=== PATIENT | female | born 1950 | race Caucasian/White ===

== ENCOUNTER → 2018-03-01 12:08 | Outpatient (CLI) | payer MEDICARE, OTHER, SELFPAY | PROVIDERS: Family Provider Family Medicine; PCP Family Medicine; Visit Provider Obstetrics & Gynecology | DX: Z12.31 Encounter for screening mammogram for malignant neoplasm of breast (principal) | CPT/HCPCS: 77063; 77067 ==

== ENCOUNTER → 2019-02-06 | Outpatient (CLI) | payer MEDICARE, OTHER, SELFPAY ==
--- NOTE | 2019-02-06 10:01 | US_ITS ---
STUDY: ABDOMINAL ULTRASOUND - RIGHT UPPER QUADRANT REASON FOR VISIT: Female, 68 years old. Right upper quadrant pain TECHNIQUE: Ultrasound evaluation of the right upper quadrant was performed with real-time and static cardona-scale imaging. TECHNICAL QUALITY: Adequate. COMPARISON: CT abdomen and pelvis 12/18/2016. FINDINGS: Liver: The liver measures 18.3 cm. There is increased echogenicity consistent with fatty infiltration. The bile ducts are within normal limits. There is hepatic color flow. The direction of portal flow is hepatopetal. There is no demonstrated mass lesion. Gallbladder: The patient is status post cholecystectomy. Common Bile Duct (C.B.D.): The common bile duct measures 7 mm. There is a filling defect in the proximal CBD which may represent sludge and/or stone. Pancreas: Normal size of the head, body and tail of the pancreas. There is normal echogenicity of the pancreas. There is no demonstrated pancreatic mass or cyst. Right Kidney: Normal size of the right kidney. The right kidney measures 10.8 cm. Normal renal cortex. The right cortex measures cm. There is no demonstrated renal mass or cyst. There is no right hydronephrosis. US/Abdomen Limited IMPRESSION: There is a filling defect in the proximal CBD which may represent sludge and/or stone. The CBD is normal caliber. Consider MRCP for further characterization. Electronically Signed: John Tanner, at 9:14 EDT Tel , Service support ,
[2019-02-06 11:25] LABS: Absolute Lymphocyte Count 1.45 X10^3/uL (0.83-4.51); Absolute Neutrophil Count 2.9 X10^3/uL (2.0-7.7); Basophil# 0.03 X10^3/uL; Basophil% 0.6 % (0-1); Eosinophil# 0.16 X10^3/uL; Eosinophils% 3.2 % (0-5); Hematocrit 43.5 % (37-47); Hemoglobin 14.1 g/dL (12.0-15.0); Lymphocyte # 1.45 X10^3/ul (4.0); Lymphocyte % 29.4 % (19-41); Mean Corp Hgb Conc 32.4 g/dL (32-36); Mean Corpuscular Hgb 30.7 pg (27.0-32.0); Mean Corpuscular Volume 94.6 fL (81-99); Mean Platelet Vol. 11.5 fl (6.2-12.0); Monocyte# 0.43 X10^3/uL; Monocyte% 8.7 % (0-10); NRBC Flagged by Analyzer 0 % (0-5); Neutrophil # 2.85 X10^3/uL (2.7-7.7); Neutrophil % 57.9 % (47-70); Platelet Count 114 K/mm3 (150-450); RBC Distribution Width CV 13.1 % (11.6-14.6); RBC Distribution Width SD 44.9 fl (35.1-43.9); White Blood Count 4.9 K/mm3 (4.4-11.0)
[2019-02-06 11:34] LABS: International Normalized Ratio 1.1; Partial Thromboplast Time 37.7 Seconds (24.1-36.2); Prothrombin Time (Protime)PT. 14.4 SECONDS (11.7-14.9)
[2019-02-07 13:04] LABS: AFP, Tumor Marker 6.1 ng/mL (0.0-8.3)
== END | disposition home or self-care (01) ==
PROVIDERS: Family Provider Family Medicine; PCP Family Medicine; Referring Provider Internal Medicine Gastroenterology; Visit Provider Internal Medicine Gastroenterology
DX: K74.60 Unspecified cirrhosis of liver (principal); K76.0 Fatty (change of) liver, not elsewhere classified
CPT/HCPCS: 36415; 76705; 82105; 85025; 85610; 85730

== ENCOUNTER → 2019-02-22 | Outpatient (CLI) | payer MEDICARE, OTHER, SELFPAY ==
[2019-02-22 17:52] LABS: AST(SGOT) 56 U/L (15-37); Alanine Aminotransfer ALT/SGPT 64 U/L (13-56); Albumin, Serum 3.7 g/dL (3.2-5.0); Alkaline Phosphatase 58 U/L (45-117); Protein, Total 7.7 g/dL (6.4-8.2)
== END | disposition home or self-care (01) ==
LOC: MTLAB 15:10
PROVIDERS: Family Provider Family Medicine; PCP Family Medicine; Referring Provider Internal Medicine Gastroenterology; Visit Provider Internal Medicine Gastroenterology
DX: K76.0 Fatty (change of) liver, not elsewhere classified (principal); R16.2 Hepatomegaly with splenomegaly, not elsewhere classified
CPT/HCPCS: 36415; 80076

== ENCOUNTER → 2019-03-03 | Outpatient (CLI) | payer MEDICARE, OTHER, SELFPAY ==
--- NOTE | 2019-03-03 10:00 | MRI_ITS ---
STUDY: MR CHOLANGIOPANCREATOGRAPHY (MRCP) REASON FOR EXAM: Female, 68 years old. Abdominal pain, biliary ductal dilatation, status post cholecystectomy, history of nonalcoholic steatohepatitis. TECHNIQUE: Standard MRCP technique was utilized. COMPARISON: None. FINDINGS: Gall Bladder: Gall bladder is surgically absent. Cystic duct: Normal with no demonstrated fixed filling defect. Intrahepatic ducts: Normal visualized intrahepatic ducts with no demonstrated fixed filling defect, dilation or stricture. Common hepatic duct: Normal with no demonstrated fixed filling defect, dilation or stricture. Common bile duct: Normal with no demonstrated fixed filling defect, dilation or stricture. Pancreatic duct: Normal with no demonstrated fixed filling defect, dilation or stricture. MRI/Abdomen without Contrast IMPRESSION: Normal MRCP in a patient who is status post cholecystectomy. Cirrhosis with a small amount of ascites. Electronically Signed: Rebel Domínguez MD at 11:09 EDT Tel , Service support ,
== END | disposition home or self-care (01) ==
LOC: MRI 09:25
PROVIDERS: Family Provider Family Medicine; PCP Family Medicine; Referring Provider Internal Medicine Gastroenterology; Visit Provider Internal Medicine Gastroenterology
DX: K80.50 Calculus of bile duct without cholangitis or cholecystitis without obstruction (principal); R10.9 Unspecified abdominal pain
CPT/HCPCS: 74181

== ENCOUNTER → 2019-03-06 | Outpatient (CLI) | payer MEDICARE, OTHER, SELFPAY ==
--- NOTE | 2019-03-06 12:53 | BI_ITS ---
MAMMOGRAPHY - BILATERAL SCREENING REASON FOR EXAM: Female, 68 years old. Routine annual screening examination. PERTINENT HISTORY: Personal history of breast cancer. Prior right lumpectomy with radiation treatment. TECHNIQUE: Digital bilateral breast ananya (3D mammographic acquisition) in the CC and MLO projections. 2-D mediolateral oblique (MLO) and craniocaudad (CC) views of both breasts were obtained. CAD: Full Field Digital Mammography with Computer Added Detection was performed. COMPARISON: Comparison is made with prior examination dated March 01, 2018 and February 09, 2017. FINDINGS: Breast Composition: The breasts are almost entirely fatty. There are no dominant masses or suspicious calcifications. Once again, the patient is status post right lumpectomy with resultant postoperative scarring in the deep inferior medial aspect of the right breast this is unchanged. No other significant abnormalities are identified. There has been no significant change since the prior study. BI/SCREEN MAMM (CAD) W/ANANYA BILAT IMPRESSION: Stable bilateral screening mammogram. Yearly follow-up mammogram recommended. (A) ASSESSMENT CATEGORY: BIRADS Category 2: Benign. A letter regarding these results will be sent to the patient by the facility within 30 days. Approximately 10% of breast cancers are not detected by mammography. A normal mammogram should not delay biopsy of a clinically suspicious abnormality. [id number] Electronically Signed: Ghulam Peters, at 14:43 EDT , Service support ,
== END | disposition home or self-care (01) ==
LOC: OPBI 12:51
PROVIDERS: Family Provider Family Medicine; PCP Family Medicine; Referring Provider Obstetrics & Gynecology; Visit Provider Obstetrics & Gynecology
DX: Z12.31 Encounter for screening mammogram for malignant neoplasm of breast (principal)
CPT/HCPCS: 77063; 77067

== ENCOUNTER → 2019-03-07 | Outpatient (CLI) | payer MEDICARE, OTHER, SELFPAY ==
--- NOTE | 2019-03-07 12:07 | RAD_ITS ---
STUDY: X-RAY - LUMBAR SPINE REASON FOR EXAM: Female, 68 years old. Pain for 2 months TECHNIQUE: 5 view(s) of the lumbar spine were obtained. COMPARISON: None FINDINGS: Normal lumbar lordosis. There is no substantial scoliosis. There is slight anterolisthesis L4-L5. There is multilevel endplate spondylosis of the lumbar vertebrae. There is disc space narrowing T12-L1. There is atherosclerotic calcification of the abdominal aorta without a demonstrated aneurysm. RAD/L/S Spine Min 4 Views IMPRESSION: Degenerative changes of the spine, as detailed above. Electronically Signed: Rosemary Holman MD at 18:03 EDT Tel , Service support ,
== END | disposition home or self-care (01) ==
LOC: RAD 12:03
PROVIDERS: Family Provider Family Medicine; PCP Family Medicine; Referring Provider Chiropractor; Visit Provider Chiropractor
DX: S33.5XXA Sprain of ligaments of lumbar spine, initial encounter (principal)
CPT/HCPCS: 72110

== ENCOUNTER → 2019-08-10 | Outpatient (CLI) | payer MEDICARE, OTHER, SELFPAY ==
--- NOTE | 2019-08-10 13:54 | STRESSREP_ITS ---
Stress Test Report Date: 08/10/2019 Procedure: Pharmacologic stress nuclear imaging study Indications: Chest pain Consent: Per the patient Procedure: The patient underwent pharmacologic (Regadenoson) evaluation with a peak heart rate of 100 beats per minute (66 %predicted maximal heart rate) and a peak blood pressure of 148/72 mmHg. The baseline ECG demonstrated normal sinus rhythm. EKG during lexiscan infusion revealed no significant change from baseline, occasional PACs and PVCs. EKG post infusion revealed no significant ischemic changes [There were no significant cardiac dysrhythmias pretest, during pharmacologic infusion, or recovery]. [There was no complaint of chest discomfort during pharmacologic infusion or recovery]. The examination was discontinued secondary to completion of protocol. Impression: 1. Lexiscan stress test test is negative for Lexiscan infusion induced EKG changes of ischemia. 2. Lexiscan stress test test is negative for Lexiscan infusion induced chest pain. 3. Results of the nuclear portion of the test is as below Myocardial perfusion imaging study: Technique: The patient was injected with 11.8 millicuries of technetium 99m Cardiolite and subsequently rest SPECT Cardiolite nuclear imaging was obtained in the horizontal long, vertical long, and short axis views. The patient underwent pharmacologic (Regadenoson) evaluation. Please see above for details. The patient was injected with 34.6 millicuries of technetium 99m Cardiolite and subsequently stress SPECT Cardiolite nuclear imaging was obtained in the horizontal long, vertical long, and short axis views. A gated Cardiolite study at peak stress was obtained. Interpretation: Rest and stress SPECT Cardiolite nuclear imaging status post realignment, normalization, and attenuation correction demonstrate normal myocardial radioisotope uptake. Gated images reveal no significant regional wall motion abnormalities. The reported LVEF is 66 %. Impression: 1. There is no evidence of significant ischemia or infarction. 2. Estimated ejection fraction is 66%. This note was generated with [employer] software. It may contain incorrect words, spelling, and punctuation that were not noted in checking the note before signing.
== END | disposition home or self-care (01) ==
LOC: CVS 06:18
PROVIDERS: PCP Family Medicine; Referring Provider Family Medicine; Visit Provider Family Medicine
DX: R07.9 Chest pain, unspecified (principal)
CPT/HCPCS: 78452; 93017; A9500; A4216; J2785

== ENCOUNTER → 2019-09-13 14:05 | Outpatient (CLI) | payer MEDICARE, OTHER, SELFPAY ==
[2019-09-13 16:05] LABS: International Normalized Ratio 1.1; Prothrombin Time (Protime)PT. 14.3 SECONDS (11.7-14.9)
[2019-09-13 16:06] LABS: Partial Thromboplast Time 34.3 Seconds (24.1-36.2)
[2019-09-13 16:53] LABS: AST(SGOT) 46 U/L (15-37); Alanine Aminotransfer ALT/SGPT 57 U/L (13-56); Albumin, Serum 3.8 g/dL (3.2-5.0); Alkaline Phosphatase 61 U/L (45-117); Anion Gap 5 (5-15); BUN 15 mg/dL (7-18); BUN/Creat Ratio 22.7 RATIO (10-20); Calcium,Total 9.5 mg/dL (8.5-10.1); Chloride 108 mmol/L (98-107); Creatinine, Serum 0.66 mg/dL (0.55-1.02); EST Glomerular Filtration Rate 94 mL/min (>60); Est Glom Filt Rate - Afr Amer 114 mL/min (>60); Globulin 3.8 g/dL (2.2-4.2); Glucose 120 mg/dL (74-106); Potassium 4.1 mmol/L (3.5-5.1); Protein, Total 7.6 g/dL (6.4-8.2); Sodium Level 140 mmol/L (136-145)
[2019-09-15 05:26] LABS: AFP, Tumor Marker 7.1 ng/mL (0.0-8.3)
== END ==
PROVIDERS: PCP Family Medicine; Referring Provider Internal Medicine Gastroenterology; Visit Provider Internal Medicine Gastroenterology
DX: K74.60 Unspecified cirrhosis of liver (principal)
CPT/HCPCS: 36415; 80053; 82105; 85610; 85730

== ENCOUNTER → 2020-10-23 10:44 | Outpatient (CLI) | payer MEDICARE, OTHER, SELFPAY ==
[2016-02-03 13:17] VITALS: BMI 30.7
--- NOTE | 2020-10-23 10:56 | US_ITS ---
STUDY: ABDOMINAL ULTRASOUND - RIGHT UPPER QUADRANT REASON FOR VISIT: Female, 70 years old elevated LFTs TECHNIQUE: Ultrasound evaluation of the right upper quadrant was performed with real-time and static cardona-scale imaging. TECHNICAL QUALITY: Adequate. COMPARISON: None. FINDINGS: Liver: The liver measures 18.9 cm. There is increased echogenicity consistent with fatty infiltration. The bile ducts are within normal limits. There is hepatic color flow. The direction of portal flow is hepatopetal. There is no demonstrated mass lesion. Gallbladder: The patient is status post cholecystectomy. Common Bile Duct (C.B.D.): The common bile duct measures 9.4 mm. Pancreas: Normal size of the head, body and tail of the pancreas. There is normal echogenicity of the pancreas. There is no demonstrated pancreatic mass or cyst. Right Kidney: Normal size of the right kidney. The right kidney measures 11.1 x 6.4 x 6.1 cm. Normal renal cortex. The right cortex measures 2.2 cm. There is no demonstrated renal mass or cyst. There is no right hydronephrosis. US/Liver IMPRESSION: Fatty liver, no discrete lesion Previous cholecystectomy Press Helper notes a possible echogenic stone in the common bile duct measuring 1.1 x 0.5 cm Electronically Signed: Zelalem Vora MD at 12:45 EDT , Service support ,
== END ==
PROVIDERS: PCP Family Medicine; Referring Provider Internal Medicine Gastroenterology; Visit Provider Internal Medicine Gastroenterology
DX: K74.60 Unspecified cirrhosis of liver (principal)
CPT/HCPCS: 76705

== ENCOUNTER → 2020-11-04 14:17 | Outpatient (CLI) | payer MEDICARE, OTHER, SELFPAY ==
[2016-02-03 13:17] VITALS: BMI 30.7
[2020-11-04 18:20] LABS: International Normalized Ratio 1.2; Prothrombin Time (Protime)PT. 14.4 SECONDS (11.7-14.9)
[2020-11-04 18:21] LABS: Partial Thromboplast Time 32.8 Seconds (24.1-36.2)
[2020-11-04 18:31] LABS: ALB/GLOB Ratio 0.8 RATIO (0.9-2.4); AST(SGOT) 50 U/L (15-37); Alanine Aminotransfer ALT/SGPT 62 U/L (13-56); Albumin, Serum 3.6 g/dL (3.2-5.0); Alkaline Phosphatase 87 U/L (45-117); Anion Gap 8 (5-15); BUN 11 mg/dL (7-18); BUN/Creat Ratio 11.2 RATIO (10-20); Calcium,Total 9.4 mg/dL (8.5-10.1); Chloride 103 mmol/L (98-107); Creatinine, Serum 0.98 mg/dL (0.55-1.02); EST Glomerular Filtration Rate 59 mL/min (>60); Est Glom Filt Rate - Afr Amer 72 mL/min (>60); Globulin 4.3 g/dL (2.2-4.2); Glucose 352 mg/dL (74-106); Potassium 3.5 mmol/L (3.5-5.1); Protein, Total 7.9 g/dL (6.4-8.2); Sodium Level 138 mmol/L (136-145)
[2020-11-06 12:20] LABS: AFP, Tumor Marker 8.3 ng/mL (0.0-8.3)
== END ==
PROVIDERS: PCP Family Medicine; Referring Provider Internal Medicine Gastroenterology; Visit Provider Internal Medicine Gastroenterology
DX: K74.60 Unspecified cirrhosis of liver (principal)
CPT/HCPCS: 36415; 80053; 82105; 85610; 85730

== ENCOUNTER → 2020-11-05 13:14 | Outpatient (CLI) | payer MEDICARE, OTHER, SELFPAY ==
[2016-02-03 13:17] VITALS: BMI 30.7
--- NOTE | 2020-11-05 13:18 | BI_ITS ---
MAMMOGRAPHY - BILATERAL SCREENING REASON FOR EXAM: Female, 70 years old. Routine annual screening examination. PERTINENT HISTORY: Personal history of breast cancer. Prior right lumpectomy and radiation treatment. TECHNIQUE: Digital bilateral breast ananya (3D mammographic acquisition) in the CC and MLO projections. 2-D mediolateral oblique (MLO) and craniocaudad (CC) views of both breasts were obtained. CAD: Full Field Digital Mammography with Computer Added Detection was performed. COMPARISON: Comparison is made with prior study dated 03/06/2019 and 03/01/2008. FINDINGS: Breast Composition: There are scattered areas of fibroglandular density. There are no dominant masses or suspicious calcifications. The right breast is smaller in size as compared to the left breast in keeping with prior lumpectomy. Postsurgical changes are seen in the deep slightly inferior medial portion of the right breast. Surgical clips are seen in the right axillary region. There is a 7.5 mm x 6.5 mm slightly ill-defined nodule in the central retroareolar areolar region of the left breast. Correlation with ultrasound is recommended. No other significant abnormalities are identified. BI/SCRN MAMM (CAD)W/ANANYA BILAT IMPRESSION: 6.5 mm x 7.5 mm nodular density in the central retroareolar region of the left breast as described. Correlation with ultrasound is recommended. ASSESSMENT CATEGORY: BIRADS Category 0: Incomplete. Need additional imaging evaluation. A letter regarding these results will be sent to the patient by the facility within 30 days. Approximately 10% of breast cancers are not detected by mammography. A normal mammogram should not delay biopsy of a clinically suspicious abnormality. [id number] Electronically Signed: Ghulam Peters MD at 14:41 EDT , Service support ,
== END ==
PROVIDERS: PCP Family Medicine; Referring Provider Obstetrics & Gynecology; Visit Provider Obstetrics & Gynecology
DX: Z12.31 Encounter for screening mammogram for malignant neoplasm of breast (principal)
CPT/HCPCS: 77063; 77067

== ENCOUNTER → 2020-11-06 10:23 | Outpatient (CLI) | payer MEDICARE, OTHER, SELFPAY ==
--- NOTE | 2020-11-06 10:29 | US_ITS ---
STUDY: ULTRASOUND BREAST - LEFT REASON FOR EXAM: Female, 70 years old. Abnormal mammogram. TECHNIQUE: Axial and longitudinal images of the LEFT breast were performed with a high resolution ultrasound transducer. # OF IMAGES: 14 COMPARISON: Comparison is made with prior mammogram dated 11/05/2020. FINDINGS: LEFT Breast: The mammographic abnormality corresponds to a 5 mm x 5 mm x 5 mm hypoechoic ill-defined solid nodule at the 7 o''clock position of the breast at 3 cm from the nipple. Biopsy is recommended. US/Breast Limited Unilateral IMPRESSION: 5 mm x 5 mm x 5 mm hypoechoic ill-defined solid nodule at the 7 o''clock position of the breast at the 3 cm from the nipple. Biopsy is recommended. ASSESSMENT CATEGORY: BIRADS Category 4: Suspicious - Biopsy Should Be Considered. A letter regarding these results will be sent to the patient by the facility within 30 days. Electronically Signed: Ghulam Peters MD at 11:04 EDT , Service support ,
== END ==
PROVIDERS: PCP Family Medicine; Referring Provider Obstetrics & Gynecology; Visit Provider Obstetrics & Gynecology
DX: N63.42 Unspecified lump in left breast, subareolar (principal)
CPT/HCPCS: 76642

== ENCOUNTER → 2020-11-11 09:48 | Outpatient (CLI) | payer MEDICARE, OTHER, SELFPAY ==
[2020-11-08 07:44] VITALS: BMI 30.7
--- NOTE | 2020-11-11 | IMM_PTH ---
PATIENT: JEANNINE OLSON LOC: [facility] U#:[id number] AGE/SX: 75/F ROOM: RE11/11/[address]: Dr. Victor M Leyva MD : 1950 BED: DIS: SPEC #: [id number] RECD: 11/12/20 11:52 STATUS: [facility] REQ #: [id number] ANNAMARIE: 11/11/20 00:[address]: Victor M Leyva DEPT: IMMUNOHISTOCHEMISTRY RECD BY: Missy Manuel ENTERED: 11/12/20 11:54 SP TYPE: IMMUNO OTHR DR: Dr. Oscar Rivera MD Tissues: Left breast, NOS Procedures: CALPONIN-1 (add) CK5-6 (add) ABREU-2 (add) E-CAD (add) HER2 YAN (add) P53 (add) VT (add) P40 (add) ER (initial) PHYSICIAN & INSTITUTION [place] [id number] SPECIMEN INFORMATION: Tissue Source: Left breast Clinical Info: Nodular densities, 7 o?clock central retroareolar region left breast Specimen Number: [id number] #1 CPT code: 87195, 82948 x7, 76264 x3 METHODOLOGY: Deparaffinized sections of prefer/formalin-fixed tissue or PAP/DQ stained slides are incubated with monoclonal/polyclonal antibodies/oligonucleotide probes. Localization is made via biotin free immunoperoxidase method. Appropriate controls are performed and reacted as expected. Results on target cell population are indicated in the following table: RESULTS: ANTIBODY / CLONE RESULT Block 1 P53 (DO-7) negative Ki-67 (30-9) positive, low CK8 (79pbqsK47) positive CK5-6 (D5 & 1684) negative Calponin-1 (NY189V) negative P40 (BC28) negative E-Cad (ECH-6) positive ABREU-2 (SP21) positive MORPHOMETRIC ANALYSIS ER (clone 6F11) >95%, strong VT (clone 16/1E2) >95%, strong Her-2Neu (clone CB11) 0 The prognostic test for HER2 is performed on formalin-fixed paraffin embedded tissue. A 3+ (positive) staining pattern is defined as intense, homogeneous, complete, circumferential membranous staining in >10% of contiguous tumor cells. A similar weak (2+) staining pattern is interpreted as equivocal. ROCÍO follow-up testing is recommended for all equivocal cases. Positivity/negativity for ER/VT is reported if > or < 1% of the tumor cells are immuno- reactive, respectively. The ASCO/CAP criteria is used for scoring. Reference: Journal of Clinical Oncology, 2013; 31:5797-5955 & 2010; 16:9221-1155. Duration of fixation: 9 Hrs; Sample Adequate: Yes. These assays have not been validated on decalcified tissues. Results should be interpreted with caution given the likelihood of false negativity on decalcified specimens. These tests were developed and their performance characteristics determined by [facility]. They may not have been cleared or approved by the [place]. Food and Drug Administration. The FDA has determined that such clearance or approval is not necessary. The above immunohistochemical/dualISH markers are ordered and reviewed by the Pathologist. INTERPRETATION: Left breast, stereotactic core biopsy: Invasive ductal carcinoma, nuclear grade I. Positive for estrogen receptors (favorable prognostic indicator). Positive for progesterone receptors (favorable prognostic indicator). Negative for overexpression of [id number]. AM:hortencia 11/13/2020
--- NOTE | 2020-11-11 10:08 | HP.PCM_ITS ---
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 [employer] Required: No Is patient in pain?: No Allergies cephalexin [Cephalexin] Allergy (Verified 11/08/20 09:07) Otherciprofloxacin [From Cipro] Allergy (Verified 11/08/20 09:07) unknowncodeine Adverse Reaction (Verified 11/08/20 09:07) VomitingSulfa (Sulfonamide Antibiotics) Adverse Reaction (Verified 11/08/20 09:07) Hives Medications Cinnamon Plus Chromium 500 mg PO QHS 02/03/16 [History Confirmed 11/08/20] amlodipine 2.5 mg PO DAILY 02/03/16 [History Confirmed 11/08/20] ascorbic acid (vitamin C) [Vitamin C With Jane Hips] 1,000 mg PO QHS 02/03/16 [History Confirmed 11/08/20] cyanocobalamin (vitamin B-12) 2,500 mcg PO QHS 02/03/16 [History Confirmed 11/08/20] losartan 100 mg PO DAILY 02/03/16 [History Confirmed 11/08/20] metformin 1,000 mg PO DAILY 02/03/16 [History Confirmed 11/08/20] metoprolol tartrate 12.5 mg PO BID 02/03/16 [History Confirmed 11/08/20] multivitamin [Daily Multiple] 1 ea PO DAILY 02/03/16 [History Confirmed 11/08/20] famotidine 20 mg tablet 20 mg PO BID? tab 11/08/20 [History Confirmed 11/08/20] glimepiride 4 mg tablet 2 mg PO DAILY? tab 11/08/20 [History Confirmed 11/08/20] levothyroxine 112 mcg tablet 112 mcg PO DAILY? 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 Former smoker? alcohol intake:? never? substance use type:? does not use? caffeine:? Yes? what type of physical activity do you participate in:? none? frequency:? does not exercise? HPI HPI HPI: JEANNINE OLSON, is a 70 F who presents to the office today for surgical consultation regarding?an abnormal mammogram.? The patient has had a remote right lumpectomy.? I do not have information regarding that event.? She did have breast conservation surgery.? She states that the malignancy was in the lower part of the right breast. 7-year-old female.? Menarche at age 9.? First child born when she was 30.? A0.? Did not breast-feed.? No estrogen replacement.? She is up-to-date with her colonoscopy. At the [facility] on November 05, 2020 she had a routine screening mammograms.? There was felt to be a 7.5 x 6.5 mm slightly ill-defined nodule in the central retroareolar area of the left breast.? Ultrasound was performed.? At the 7 o'clock position 3 cm from the nipple there was a ill-defined 5 x 5 x 5 mm area.? Biopsy was recommended.? I have personally reviewed those films and concur that the area on ultrasound is quite vague MAMMOGRAPHY - BILATERAL SCREENING REASON FOR EXAM:? ? Female, 70 years old.? Routine annual screening examination. PERTINENT HISTORY:? Personal history of breast cancer.? Prior right lumpectomy and radiation treatment. TECHNIQUE: ? Digital bilateral breast ananya (3D mammographic acquisition) in the CC and MLO projections. 2-D mediolateral oblique (MLO) and craniocaudad (CC) views of both breasts were obtained.? CAD: Full Field Digital Mammography with Computer Added Detection was performed. COMPARISON: ? Comparison is made with prior study dated 03/06/2019 and 03/01/2008. FINDINGS: Breast Composition:? There are scattered areas of fibroglandular density. There are no dominant masses or suspicious calcifications.? The right breast is smaller in size as compared to the left breast in keeping with prior lumpectomy.? Postsurgical changes are seen in the deep slightly inferior medial portion of the right breast.? Surgical clips are seen in the right axillary region. There is a 7.5 mm x 6.5 mm slightly ill-defined nodule in the central retroareolar areolar region of the left breast.? Correlation with ultrasound is recommended. No other significant abnormalities are identified. BI/SCRN MAMM (CAD)W/ANANYA BILAT IMPRESSION: 6.5 mm x 7.5 mm nodular density in the central retroareolar region of the left breast as described.? Correlation with ultrasound is recommended. ? ? ASSESSMENT CATEGORY: BIRADS Category 0:? Incomplete.? Need additional imaging evaluation.? A letter regarding these results will be sent to the patient by the facility within 30 days. ? Approximately 10% of breast cancers are not detected by mammography.? A normal mammogram should not delay biopsy of a clinically suspicious abnormality. ? [id number] ? Electronically Signed: Ghulam Peters MD at 14:41 EDT , Service support? , STUDY: ? ULTRASOUND BREAST - LEFT REASON FOR EXAM: ? Female, 70 years old.? Abnormal mammogram. TECHNIQUE: ? Axial and longitudinal images of the LEFT breast were performed with a high resolution ultrasound transducer. # OF IMAGES:? 14 COMPARISON: ? Comparison is made with prior mammogram dated 11/05/2020. FINDINGS: LEFT Breast: The mammographic abnormality corresponds to a 5 mm x 5 mm x 5 mm hypoechoic ill-defined solid nodule at the 7 o''clock position of the breast at 3 cm from the nipple.? Biopsy is recommended. US/Breast Limited Unilateral IMPRESSION: 5 mm x 5 mm x 5 mm hypoechoic ill-defined solid nodule at the 7 o''clock position of the breast at the 3 cm from the nipple.? Biopsy is recommended. ? ASSESSMENT CATEGORY: BIRADS Category 4:? Suspicious - Biopsy Should Be Considered.? A letter regarding these results will be sent to the patient by the facility within 30 days. ? Electronically Signed: Ghulam Peters MD at 11:04 EDT , Service support? , ? ? HPI HPI HPI: JEANNINE OLSON, is a 70 F who presents to the office today for? ROS General General: Yes weight change and fatigue;? No appetite, colon cancer, breast cancer or weakness HEENT HEENT: No difficulty swallowing, eye injury, eye surgery, swollen glands or hoarseness Endo Endocrine: No thyroid disease, diabetes mellitus, thyroid cancer, Hair loss, heat intolerance or cold intolerance Skin Skin: No rash or changing moles Breast Breast: Yes left breast lump, abnormal mammogram and abnormal US;? No right breast lump, nipple discharge, breast pain or breast enlargement Musc Musculoskeletal: Yes back problems;? No arthritis, rheumatoid arthritis, gout or joint pain Cardio Cardiovascular: No murmur, pacemaker, heart disease, atrial fibrillation, high blood pressure, heart attack, heart stent, palpitations, shortness of breat with exertion or chest pain Psych Psychiatric: No depression, anxiety or hearing voices Resp Respiratory: No shortness of breath, No sleep apnea, No cough, No COPD, No asthma, No emphysema and No wheezing Gastro Gastrointestinal: Yes abdominal pain, Yes nausea or vomiting, No diarrhea, No constipation, Yes blood in stool, No acid reflux, No hemorrhoids, No ulcers, No gallbladder problem and No black,tarry stools Lizandro Hematologic: No blood thinners, No blood disorders, No bleeding, No anemia and No blood clots Neuro Neurologic: No weakness Exam Const General: cooperative, comfortable and no acute distress Nutritional Appearance: overweight Orientation: alert and awake [facility] Head: normal to inspection Eyes General: appearance normal, both eyes and all related structures Chest Breast Palpation: No nipple discharge Other: Significant postoperative changes of the right breast with atrophy postradiation changes particularly with discoloration and induration in the inframammary area.? Well-healed right axillary incision.? No obvious concerning focal mass or adenopathy. Left breast larger than the right.? No focal mass.? No nipple discharge.? No axillary or clavicular adenopathy It is of note that body habitus makes the clinical examination difficult Resp Effort & Inspection: normal respiratory effort Auscultation: clear to auscultation bilaterally Cardio Rate: regular rate Rhythm: regular rhythm Heart Sounds: no murmurs GI Palpation: soft and no hepatosplenomegaly Musc Cervical Spine: normal cervical lordosis Skin Other: Post radiation changes right breast Neuro General: patient alert and patient awake Cognition: normal cognition Extrem General: no calf tenderness bilaterally Psych Affect: normal affect COVID (Procedure Consent) Procedure Criteria Procedure Criteria: Yes Elective?The surgeon/proceduralist and patient have discussed in detail the risk of exposure to and/or potential harm posed by the COVID-19 virus with having a surgery/procedure at this time versus the risk of? delaying the surgery/procedure. It is not possible to know either the risk of delaying the surgery or procedure or chance of getting an infection with perfect accuracy, but a joint decision was made between the patient and the surgeon/proceduralist ?to proceed at this time with the scheduled surgery/procedure as indicated on the consent form. Assessment and Plan Assessment and Plan (1) Abnormal mammogram of right breast:?Status:?Acute (2) History of lumpectomy of right breast:?Plan - Dr. Victor M Leyva MD:? I did try to examine the patient's left breast with ultrasound today.? Although I thought identified the area clinically identified on the preoperative images this was quite vague and I did not feel reassured it represented the area in question.? As the initial problem was identified on screening mammograms I propose for the patient is stereotactic needle core left breast biopsy 7 o'clock position +3 cm.? On mammogram this is said to be 7 mm in maximum length.? She is aware of the technique, benefit, risk, alternatives.? She is not on any anticoagulation.? We will schedule expedite her care.? I should be able to assist her expeditiously on Wednesday, November 11. She has had an opportunity to ask and have questions answered.? I very much appreciate the ongoing opportunity of assisting with her surgical care. Copy: Dr. Oscar Leyva M.D., F.A.C.S. Coding Level of Care Code 28809 Diagnoses Abnormal mammogram of right breast? R92.8 History of lumpectomy of right breast? Z98.890 I have re-examined the patient. There are no clinical changes since date of exam.
--- NOTE | 2020-11-11 10:40 | BRBX_PTH ---
PATIENT: JEANNINE OLSON LOC: [facility] U#:[id number] AGE/SX: 75/F ROOM: RE11/11/[address]: Dr. Victor M Leyva MD : 1950 BED: DIS: SPEC #: [id number] RECD: 11/11/20 11:12 STATUS: RONEY CORINE #: [id number] ANNAMARIE: 11/11/20 10:[address]: Victor M Leyva DEPT: SURGICAL PATHOLOGY RECD BY: Carrol Lundberg ENTERED: 11/11/20 12:53 SP TYPE: BREAST BX OTHR DR: Dr. Oscar Rivera MD Tissues: Left breast, NOS Procedures: Surgery Specimen Level IV HEADER OPERATION: Left breast stereotactic biopsy PRE-OP DIAGNOSIS: 7.5 mm and 6.5 mm nodular density, 7 o?clock central retroareolar region left breast TISSUE SUBMITTED: Left breast core tissue ISCHEMIC TIME: 1 minute FIXATION TIME: 9 hours MICROSCOPIC DIAGNOSIS Left breast, stereotactic biopsy: Invasive ductal carcinoma with the following characteristics: Nuclear grade ? 1 Maximal length ? 4 millimeters Other findings ? focal fibrocystic change. See comment. AM:hortencia 11/12/2020 COMMENT Immunohistochemistry ([id number]) supports the above diagnosis. Case has been reviewed in consultation with Dr. Baez who concurs with the above diagnosis. IDC:SJ MICROSCOPIC DESCRIPTION Slides are reviewed. GROSS DESCRIPTION Received is one container labeled with the patient's name and not further designated. The specimen consists of multiple irregular and elongated fragments of yellow-mitchell soft tissue that in aggregate measure 5.5 x 3 x 0.2 cm. The specimen is totally submitted in two cassettes. / AM:hortencia 11/11/20 TC:0 CPT: 17256
--- NOTE | 2020-11-14 12:11 | PCM.OP.BLANK ---
Problems Associated Problem List Diagnoses (1) Abnormal mammogram of right breast: Operative Report Date of Procedure: 11/11/20 Timeout and informed consent was obtained. The patient was taken to the stereotactic and post prone on the table. Left breast was placed in CC view. The density in question wrapped identified. Stereotactic images were obtained. Digital information was seen on single target site. The breast was prepped with alcohol. 1% lidocaine was used as a local anesthetic. A total of 10 cc was used. Local was instilled. A small stab incision was created. An EKG resolved needle was advanced to prefire depth. Pre and post fire films were obtained. 8 cores were obtained. A marking clip was left in position. She was released from device. Steri-Strip Telfa OpSite dressing was applied. The specimens were immediately transferred to formalin for analysis. Blood loss minimal no apparent complication the patient tolerated the procedure well. Victor M Leyva M.D., F.A.C.S.
== END ==
PROVIDERS: PCP Family Medicine; Referring Provider Surgery; Visit Provider Surgery
DX: C50.912 Malignant neoplasm of unspecified site of left female breast (principal); R92.8 Other abnormal and inconclusive findings on diagnostic imaging of breast; E11.9 Type 2 diabetes mellitus without complications; E78.5 Hyperlipidemia, unspecified; I10 Essential (primary) hypertension; E03.9 Hypothyroidism, unspecified; E66.9 Obesity, unspecified; Z87.891 Personal history of nicotine dependence; Z79.84 Long term (current) use of oral hypoglycemic drugs; Z79.899 Other long term (current) drug therapy
CPT/HCPCS: 19081; 88305; 88341; 88342; J7050

== ENCOUNTER 2020-12-19 07:09 | Day surgery (SDC) | payer MEDICARE, OTHER, SELFPAY ==
[2020-11-14 12:14] VITALS: BMI 32.4
[2020-11-18 14:34] LABS: Hematocrit 43.1 % (37-47); Hemoglobin 14.5 g/dL (12.0-15.0); Mean Corp Hgb Conc 33.6 g/dL (32-36); Mean Corpuscular Hgb 31.9 pg (27.0-32.0); Mean Corpuscular Volume 94.7 fL (81-99); Mean Platelet Vol. 12.5 fl (6.2-12.0); Platelet Count 101 K/mm3 (150-450); RBC Distribution Width CV 13.1 % (11.6-14.6); Red Blood Count 4.55 M/mm3 (4.2-5.4); White Blood Count 4.5 K/mm3 (4.4-11.0)
[2020-11-18 14:44] LABS: International Normalized Ratio 1.2; Prothrombin Time (Protime)PT. 14.3 SECONDS (11.7-14.9)
[2020-11-18 14:45] LABS: Partial Thromboplast Time 32.7 Seconds (24.1-36.2)
[2020-11-18 14:53] LABS: ALB/GLOB Ratio 0.8 RATIO (0.9-2.4); AST(SGOT) 50 U/L (15-37); Alanine Aminotransfer ALT/SGPT 63 U/L (13-56); Albumin, Serum 3.6 g/dL (3.2-5.0); Alkaline Phosphatase 88 U/L (45-117); Anion Gap 7 (5-15); BUN 12 mg/dL (7-18); BUN/Creat Ratio 12.5 RATIO (10-20); Calcium,Total 9.2 mg/dL (8.5-10.1); Chloride 104 mmol/L (98-107); Creatinine, Serum 0.96 mg/dL (0.55-1.02); EST Glomerular Filtration Rate 61 mL/min (>60); Est Glom Filt Rate - Afr Amer 74 mL/min (>60); Globulin 4.4 g/dL (2.2-4.2); Glucose 354 mg/dL (74-106); Potassium 3.7 mmol/L (3.5-5.1); Sodium Level 137 mmol/L (136-145)
[2020-11-18 14:57] LABS: Magnesium 1.6 mg/dL (1.6-2.6); Phosphorus 2.6 mg/dL (2.5-4.9); Thyroid Stim Hormone (TSH) 1.32 uIU/mL (0.358-3.74)
[2020-12-13 11:32] LABS: Hematocrit 43.1 % (37-47); Hemoglobin 14.2 g/dL (12.0-15.0); Mean Corp Hgb Conc 32.9 g/dL (32-36); Mean Corpuscular Hgb 31.7 pg (27.0-32.0); Mean Corpuscular Volume 96.2 fL (81-99); Mean Platelet Vol. 11.9 fl (6.2-12.0); Platelet Count 118 K/mm3 (150-450); RBC Distribution Width CV 13.1 % (11.6-14.6); RBC Distribution Width SD 46.5 fl (35.1-43.9); Red Blood Count 4.48 M/mm3 (4.2-5.4); White Blood Count 4.5 K/mm3 (4.4-11.0)
[2020-12-13 11:49] LABS: Hemoglobin A1c 9.1 % (3.8-5.6)
[2020-12-13 12:04] LABS: ALB/GLOB Ratio 0.9 RATIO (0.9-2.4); AST(SGOT) 68 U/L (15-37); Alanine Aminotransfer ALT/SGPT 63 U/L (13-56); Albumin, Serum 3.6 g/dL (3.2-5.0); Alkaline Phosphatase 72 U/L (45-117); Anion Gap 6 (5-15); BUN 13 mg/dL (7-18); BUN/Creat Ratio 14.6 RATIO (10-20); Calcium,Total 9.4 mg/dL (8.5-10.1); Chloride 109 mmol/L (98-107); Creatinine, Serum 0.89 mg/dL (0.55-1.02); EST Glomerular Filtration Rate 67 mL/min (>60); Est Glom Filt Rate - Afr Amer 81 mL/min (>60); Globulin 3.8 g/dL (2.2-4.2); Glucose 119 mg/dL (74-106); Potassium 3.9 mmol/L (3.5-5.1); Protein, Total 7.4 g/dL (6.4-8.2); Sodium Level 143 mmol/L (136-145)
[2020-12-13 13:07] LABS: Thyroid Stim Hormone (TSH) 1.22 uIU/mL (0.358-3.74)
--- NOTE | 2020-12-19 | AXNB_PTH ---
PATIENT: JEANNINE OLSON [place] [facility] [place][id number] AGE/SX: 70/F ROOM: RE12/19/[address]: Dr. Victor M Leyva MD : 1950 BED: DIS: 12/19/2020 SPEC #: [id number] RECD: 12/19/20 13:35 STATUS: RONEY REJefferson #: [id number] ANNAMARIE: 12/19/20 00:[address]: Victor M Leyva DEPT: SURGICAL PATHOLOGY RECD BY: Missy Manuel ENTERED: 12/19/20 14:23 SP TYPE: AX NODE BX OTHR DR: Dr. Oscar Rivera MD Tissues: A - Axillary lymph node, NOS B - Left breast, NOS Procedures: Frozen Section (charge) Surgery Specimen Level IV Surgery Specimen Level V HEADER OPERATION: Stereotactic localization breast with localized lumpectomy PRE-OP DIAGNOSIS: Left breast cancer TISSUE SUBMITTED: A ? [place] lymph node, left breast, FS, B ? Left breast lumpectomy FROZEN SECTION DIAGNOSIS A. [place] lymph nodes, left, biopsy: Two out of two lymph nodes, negative for metastatic carcinoma. SJ:hortencia 12/19/2020 MICROSCOPIC DIAGNOSIS A. [place] lymph nodes, left, biopsy: Two out of two lymph nodes, negative for metastatic carcinoma. B. Left breast, lumpectomy with needle localization: Invasive ductal carcinoma x2. See cancer summary in the comment section. SJ:hortencia 12/25/2020 COMMENT BREAST CANCER SUMMARY Procedure - excision with needle localization Specimen laterality ? left Invasive tumor: Tumor site ? 7 o?clock central retroareolar region, as per clinical information. Tumor size ? size of largest invasive focus, 0.8 x 0.8 cm (measured microscopically) Histologic type ? invasive ductal carcinoma. Histologic grade (Cady grade): Glandular/tubular differentiation score - 2 Nuclear pleomorphism score - 1 Mitotic count score - 1 Overall grade ? grade 1 (score of 4) Both tumors show similar morphologic features. Tumor focality ? two foci of invasive carcinoma Size of individual foci ? larger lesion 0.8 x 0.8 cm (measured microscopically) - Smaller lesion - 4 mm (present only in the biopsy [id number]) (measured microscopically). Lumpectomy specimen shows only biopsy cavity and no residual carcinoma. Ductal Carcinoma In Situ ? not identified Tumor extension: Skin ? not present Nipple ? not applicable Skeletal muscle ? no skeletal muscle is present. Invasive Carcinoma Margin ? the larger focus of the invasive carcinoma is <0.1 cm away from the closest inferior margin. The smaller focus is present only in the biopsy specimen ([id number]). Lumpectomy specimen shows only biopsy cavity which is 1 cm away from the closest anterior margin. Ductal carcinoma in situ margin ? not applicable Regional Lymph Nodes: Number of lymph nodes examined ? 2 Number of sentinel lymph nodes examined - 2 Number of lymph nodes with macrometastases, micrometastases and isolated tumor cells ? 0 Treatment effect ? no known presurgical therapy. Lymphvascular invasion ? not identified Dermal lymphvascular invasion ? not applicable Distant metastasis ? not applicable Additional Pathologic Findings ? fibrocystic changes Ancillary Studies: Previously performed ([id number] / [id number]) smaller tumor ER: positive (>95%, strong) ID: positive (>95%, strong) Cib4pbj: negative (0) Larger tumor, [id number] ER: positive (>95%, moderate intensity) ID: positive (>95%, moderate intensity) Pfq0puh: negative (0) Microcalcifications ? present in non-neoplastic tissue. Additional pathologic findings ? - Focal minimal fibrocystic changes - Lobular involution. - Changes consistent with previous biopsy site. Clinical History - Please make reference to previous specimen ([id number]) left breast, stereotactic biopsy with diagnosis of invasive ductal carcinoma. Pathologic Stage: pT1b(m) pN0(sn) pMx The above summary is in compliance with [employer] of [place] [employer] (CAP) Cancer Protocols Checklist and [place] Joint Committee on Cancer (AJCC), Staging Manual, 8th Ed. Results are reported to Dr. Leyva?s nurse on 12/25/2020. Case has been reviewed in consultation with Dr. Rios who concurs with the above diagnosis. IDC:AM MICROSCOPIC DESCRIPTION Slides are reviewed. GROSS DESCRIPTION A - Received fresh for frozen section diagnosis labeled with the patient's name is a specimen designated sentinel lymph node left breast. The specimen consists of a piece of adipose tissue measuring 5 x 4.5 x 1 cm. Two nodules consistent with lymph nodes are identified measuring 0.3 and 1.6 cm in greatest dimension. The lymph nodes are submitted in entirety for frozen section diagnosis as follows: 1??smaller lymph node, 2 - one bisected lymph node. / SJ:hortencia 12/19/20 B - Received fresh for intraoperative consultation labeled with the patient's name is a specimen designated left breast lumpectomy. The specimen consists of a piece of fibroadipose tissue with needle localization measuring 7 x 6 x 3 cm. The specimen is oriented as follows: short - superior, long - lateral, single - anterior. The specimen is inked as follows: anterior - yellow, posterior - black, superior - blue, inferior - green, medial - red and lateral - orange. Serial sections reveal a biopsy cavity measuring 1.5 x 0.7 x 0.5 cm. No mass lesion is identified. The biopsy cavity is 1 cm away from the closest anterior margin. Sections of the rest of the specimen reveal mitchell-yellow adipose cut surfaces mixed with scant, fibrous area. Sections will be submitted after fixation. / SJ:hortencia 12/19/20 Sections reveal two mitchell-white lesions ranging in size from 0.2 to 0.7 cm. The smaller lesion is located 0.3 cm from the superior margin and the larger lesion is located close to the inferior margin. The remainder of the uninvolved breast parenchyma is grossly unremarkable and mostly yellow and fatty in appearance. Cutter Hand sections are submitted in 12 cassettes as follows: 1 & 2 - perpendicular margins, 3??larger lesion with adjacent inked inferior margin, 4 - smaller lesion with adjacent margin, 5-8 - biopsy cavity with adjacent soft tissue, 9-12 - sales service representative sections of uninvolved breast parenchyma. Note, sections are submitted after additional fixation. / AM:hortencia 12/20/20 TC:0 CPT: 78306 x2, 70337, 93007, 86503
--- NOTE | 2020-12-19 | IMM_PTH ---
PATIENT: JEANNINE OLSON [place] [facility] [place][id number] AGE/SX: 70/F ROOM: RE12/19/[address]: Dr. Victor M Leyva MD : 1950 BED: DIS: 12/19/2020 SPEC #: [id number] RECD: 12/24/20 13:00 STATUS: RONEY REJefferson #: [id number] ANNAMARIE: 12/19/20 00:[address]: Victor M Leyva DEPT: IMMUNOHISTOCHEMISTRY RECD BY: Missy Manuel ENTERED: 12/24/20 13:02 SP TYPE: IMMUNO OTHR DR: Dr. Oscar Rivera MD Tissues: B - Left breast, NOS Procedures: CALPONIN-1 (add) CK5-6 (add) CK7 (add) CK8 (add) E-CAD (add) HER2 YAN (add) KI-67 (add) P53 (add) WA (add) Pankeratin (initial) Pankeratin (add) P40 (add) ER (initial) PHYSICIAN & [address] [address] SPECIMEN INFORMATION: Tissue Source: A ? [place] lymph node, B ? Left breast lumpectomy Clinical Info: Left breast cancer Specimen Number: [id number] A1, A2, B3 CPT code: 21772 x2, 72217 x9, 44789 x3 METHODOLOGY: Deparaffinized sections of prefer/formalin-fixed tissue or PAP/DQ stained slides are incubated with monoclonal/polyclonal antibodies/oligonucleotide probes. Localization is made via biotin free immunoperoxidase method. Appropriate controls are performed and reacted as expected. Results on target cell population are indicated in the following table: RESULTS: ANTIBODY / CLONE RESULT Block A1 AE1-3 (AE1/AE3/PCK26) negative CK7 (OV-TL12/30) negative Block A2 AE1-3 (AE1/AE3/PCK26) negative CK7 (OV-TL12/30) negative Block B3 E-Cad (ECH-6) positive CK8 (97jjuiI93) positive Calponin-1 (HE805R) negative CK5-6 (D5 & 1684) negative P40 (BC28) negative P53 (DO-7) negative Ki-67 (30-9) positive, low MORPHOMETRIC ANALYSIS ER (clone 6F11) >95%, moderate intensity WA (clone 16/1E2) >95%, moderate intensity Her-2Neu (clone CB11) 0 The prognostic test for HER2 is performed on formalin-fixed paraffin embedded tissue. A 3+ (positive) staining pattern is defined as intense, homogeneous, complete, circumferential membranous staining in >10% of contiguous tumor cells. A similar weak (2+) staining pattern is interpreted as equivocal. ROCÍO follow-up testing is recommended for all equivocal cases. Positivity/negativity for ER/WA is reported if > or < 1% of the tumor cells are immuno- reactive, respectively. The ASCO/CAP criteria is used for scoring. Reference: Journal of Clinical Oncology, 2013; 31:6304-5921 & 2010; 16:2673-1749. Duration of fixation: 6 Hrs; Sample Adequate: Yes. These assays have not been validated on decalcified tissues. Results should be interpreted with caution given the likelihood of false negativity on decalcified specimens. These tests were developed and their performance characteristics determined by [facility]. They may not have been cleared or approved by the U.S. Food and Drug Administration. The FDA has determined that such clearance or approval is not necessary. The above immunohistochemical/dualISH markers are ordered and reviewed by the Pathologist. INTERPRETATION: A. [place] lymph nodes, left, biopsy: Two out of two lymph nodes, negative for metastatic carcinoma. B. Left breast, lumpectomy: Invasive ductal carcinoma, nuclear grade 1. Positive for estrogen receptors (favorable prognostic indicator). Positive for progesterone receptors (favorable prognostic indicator). Negative for overexpression of FHP1nec. SJ:hortencia 12/25/2020
--- NOTE | 2020-12-19 07:40 | PCM.HP.BLA ---
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 Is patient in pain?: No Allergies cephalexin [Cephalexin] Allergy (Verified 11/08/20 09:07) Otherciprofloxacin [From Cipro] Allergy (Verified 11/08/20 09:07) unknowncodeine Adverse Reaction (Verified 11/08/20 09:07) VomitingSulfa (Sulfonamide Antibiotics) Adverse Reaction (Verified 11/08/20 09:07) Hives Medications Cinnamon Plus Chromium 500 mg PO QHS 02/03/16 [History Confirmed 11/08/20] amlodipine 2.5 mg PO DAILY 02/03/16 [History Confirmed 11/08/20] ascorbic acid (vitamin C) [Vitamin C With Jane Hips] 1,000 mg PO QHS 02/03/16 [History Confirmed 11/08/20] cyanocobalamin (vitamin B-12) 2,500 mcg PO QHS 02/03/16 [History Confirmed 11/08/20] losartan 100 mg PO DAILY 02/03/16 [History Confirmed 11/08/20] metformin 1,000 mg PO DAILY 02/03/16 [History Confirmed 11/08/20] metoprolol tartrate 12.5 mg PO BID 02/03/16 [History Confirmed 11/08/20] multivitamin [Daily Multiple] 1 ea PO DAILY 02/03/16 [History Confirmed 11/08/20] famotidine 20 mg tablet 20 mg PO BID tab 11/08/20 [History Confirmed 11/08/20] glimepiride 4 mg tablet 2 mg PO DAILY tab 11/08/20 [History Confirmed 11/08/20] levothyroxine 112 mcg tablet 112 mcg PO DAILY tab 11/08/20 [History Confirmed 11/08/20] pantoprazole 40 mg tablet,delayed release 40 mg PO DAILY PRN 11/08/20 [History Confirmed 11/08/20] [facility] Medical History (Updated 11/08/20 @ 09:02 by Daya Becker) Abnormal mammogram of right breast Diabetes mellitus, type II History of breast cancer Hyperlipidemia Hypertension Hypothyroidism 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 Obesity (BMI 30.0-34.9) Surgical History (Updated 11/08/20 @ 09:02 by Daya Becker) History of lumpectomy of right breast History of right breast biopsy Family History (Updated 11/08/20 @ 09:04 by Daya Becker) Father DiabetesMother Diabetes HypertensionSister HypertensionBrother Diabetes Hypertension Social History (Updated 11/08/20 @ 09:05 by Daya Becker) Smoking Status: Former smoker alcohol intake: never substance use type: does not use caffeine: Yes what type of physical activity do you participate in: none frequency: does not exercise HPI: Patient is a 70 y/o F I am seeing for newly diagnosed left breast cancer. Patient presents for an update history and physical for her procedure today. She was noted to be rescheduled previously due to uncontrolled blood glucose levels. She has since been followed by her PCP who has adjusted medication and diet recommendations. Her blood sugars are much better controlled. She was also noted to have an ECHO at [facility] which was read as normal. She denies chest pain, shortness of breath. She denies having COVID previously or coming in contact with anyone who has COVID within the last month. She has been vaccinated for COVID. She denies any pulmonary concerns. She notes side effect of nausea with anesthesia. She has had a previous history of right breast cancer. Patient's previous history per Dr. Leyva: JEANNINE OLSON, is a 70 F who presents to the office today for surgical consultation regarding an abnormal mammogram. The patient has had a remote right lumpectomy. I do not have information regarding that event. She did have breast conservation surgery. She states that the malignancy was in the lower part of the right breast. 7-year-old female. Menarche at age 9. First child born when she was 30. A0. Did not breast-feed. No estrogen replacement. She is up-to-date with her colonoscopy. At the [facility] on November 05, 2020 she had a routine screening mammograms. There was felt to be a 7.5 x 6.5 mm slightly ill-defined nodule in the central retroareolar area of the left breast. Ultrasound was performed. At the 7 o'clock position 3 cm from the nipple there was a ill-defined 5 x 5 x 5 mm area. Biopsy was recommended. I have personally reviewed those films and concur that the area on ultrasound is quite vague MAMMOGRAPHY - BILATERAL SCREENING REASON FOR EXAM: Female, 70 years old. Routine annual screening examination. PERTINENT HISTORY: Personal history of breast cancer. Prior right lumpectomy and radiation treatment. TECHNIQUE: Digital bilateral breast ananya (3D mammographic acquisition) in the CC and MLO projections. 2-D mediolateral oblique (MLO) and craniocaudad (CC) views of both breasts were obtained. CAD: Full Field Digital Mammography with Computer Added Detection was performed. COMPARISON: Comparison is made with prior study dated 03/06/2019 and 03/01/2008. FINDINGS: Breast Composition: There are scattered areas of fibroglandular density. There are no dominant masses or suspicious calcifications. The right breast is smaller in size as compared to the left breast in keeping with prior lumpectomy. Postsurgical changes are seen in the deep slightly inferior medial portion of the right breast. Surgical clips are seen in the right axillary region. There is a 7.5 mm x 6.5 mm slightly ill-defined nodule in the central retroareolar areolar region of the left breast. Correlation with ultrasound is recommended. No other significant abnormalities are identified. BI/SCRN MAMM (CAD)W/ANANYA BILAT IMPRESSION: 6.5 mm x 7.5 mm nodular density in the central retroareolar region of the left breast as described. Correlation with ultrasound is recommended. ASSESSMENT CATEGORY: BIRADS Category 0: Incomplete. Need additional imaging evaluation. A letter regarding these results will be sent to the patient by the facility within 30 days. Approximately 10% of breast cancers are not detected by mammography. A normal mammogram should not delay biopsy of a clinically suspicious abnormality. [id number] Electronically Signed: Ghulam Peters MD at 14:41 EDT , Service support , STUDY: ULTRASOUND BREAST - LEFT REASON FOR EXAM: Female, 70 years old. Abnormal mammogram. TECHNIQUE: Axial and longitudinal images of the LEFT breast were performed with a high resolution ultrasound transducer. # OF IMAGES: 14 COMPARISON: Comparison is made with prior mammogram dated 11/05/2020. FINDINGS: LEFT Breast: The mammographic abnormality corresponds to a 5 mm x 5 mm x 5 mm hypoechoic ill-defined solid nodule at the 7 o''clock position of the breast at 3 cm from the nipple. Biopsy is recommended. US/Breast Limited Unilateral IMPRESSION: 5 mm x 5 mm x 5 mm hypoechoic ill-defined solid nodule at the 7 o''clock position of the breast at the 3 cm from the nipple. Biopsy is recommended. ASSESSMENT CATEGORY: BIRADS Category 4: Suspicious - Biopsy Should Be Considered. A letter regarding these results will be sent to the patient by the facility within 30 days. Electronically Signed: Ghulam Peters MD at 11:04 EDT , Service support , JEANNINE OLSON, is a 70 F who presents to the office today for surgical follow-up of a stereotactic needle core biopsy lower inner left breast 7 o'clock position which I performed for her on November 11, 2020. Final pathology demonstrates invasive ductal carcinoma. Left breast, stereotactic biopsy: Invasive ductal carcinoma with the following characteristics: Nuclear grade ?1 Maximal length ?4 millimeters Other findings ?focal fibrocystic change MORPHOMETRIC ANALYSIS ER (clone 6F11) >95%, strong PA (clone 16/1E2) >95%, strong Her-2Neu (clone CB11) ROS General General: Yes weight change and fatigue; No appetite, colon cancer, breast cancer or weakness HEENT HEENT: No difficulty swallowing, eye injury, eye surgery, swollen glands or hoarseness Endo Endocrine: No thyroid disease, diabetes mellitus, thyroid cancer, Hair loss, heat intolerance or cold intolerance Skin Skin: No rash or changing moles Breast Breast: Yes left breast lump, abnormal mammogram and abnormal US; No right breast lump, nipple discharge, breast pain or breast enlargement Musc Musculoskeletal: Yes back problems; No arthritis, rheumatoid arthritis, gout or joint pain Cardio Cardiovascular: No murmur, pacemaker, heart disease, atrial fibrillation, high blood pressure, heart attack, heart stent, palpitations, shortness of breat with exertion or chest pain Psych Psychiatric: No depression, anxiety or hearing voices Resp Respiratory: No shortness of breath, No sleep apnea, No cough, No COPD, No asthma, No emphysema and No wheezing Gastro Gastrointestinal: Yes abdominal pain, Yes nausea or vomiting, No diarrhea, No constipation, Yes blood in stool, No acid reflux, No hemorrhoids, No ulcers, No gallbladder problem and No black,tarry stools Lizandro Hematologic: No blood thinners, No blood disorders, No bleeding, No anemia and No blood clots Neuro Neurologic: No weakness Exam Const General: cooperative, comfortable and no acute distress Nutritional Appearance: overweight Orientation: alert and awake [facility] Head: normal to inspection Eyes General: appearance normal, both eyes and all related structures Chest Breast Palpation: No nipple discharge Other: Significant postoperative changes of the right breast with atrophy postradiation changes particularly with discoloration and induration in the inframammary area. Well-healed right axillary incision. No obvious concerning focal mass or adenopathy. Left breast larger than the right. No focal mass. No nipple discharge. No axillary or clavicular adenopathy Resp Effort & Inspection: normal respiratory effort Auscultation: clear to auscultation bilaterally Cardio Rate: regular rate Rhythm: regular rhythm Heart Sounds: no murmurs GI Palpation: soft and no hepatosplenomegaly Musc Cervical Spine: normal cervical lordosis Skin Other: Post radiation changes right breast Neuro General: patient alert and patient awake Cognition: normal cognition Extrem General: no calf tenderness bilaterally Psych Affect: normal affect COVID (Procedure Consent) Procedure Criteria Procedure Criteria: Yes Elective The surgeon/proceduralist and patient have discussed in detail the risk of exposure to and/or potential harm posed by the COVID-19 virus with having a surgery/procedure at this time versus the risk of delaying the surgery/procedure. It is not possible to know either the risk of delaying the surgery or procedure or chance of getting an infection with perfect accuracy, but a joint decision was made between the patient and the surgeon/proceduralist to proceed at this time with the scheduled surgery/procedure as indicated on the consent form. Assessment and Plan Assessment and Plan (1) Breast cancer, left: Status: Acute Plan Details Additional Comments: Lower inner left breast cancer 7 o'clock position. Invasive ductal carcinoma. ER/PA positive. Very small lesion. Dr. Leyva will plan to perform a stereotactic wire localization with subsequent nuclear tracer and blue dye left axillary sentinel lymph node with wire localized lower inner left breast lumpectomy. I have reviewed the technique, benefit, risk and alternatives. She has had an opportunity to ask and have questions answered. Patient would like to be referred back to Dr. Wells as this is assisted with her previous breast cancer treatments. Patient has had the opportunity to ask and have questions answered. Patient verbally understands and agrees with the proposed plan. Charges/Coding Visit Charges Office Visits / Consults: 26350 OP Consult L1 (No charge update H&P)
[2020-12-19 07:45] VITALS: BP 132/61; PULSE 66; RESP 18; TEMP 36.6; O2SAT 99; BMI 32.9
[2020-12-19] MEDS: Lactated Ringers 1,000 ML 100 ML IV (07:45)
--- NOTE | 2020-12-19 08:00 | NM_ITS ---
PROCEDURE: NUCLEAR MEDICINE Injection [place] Node - LEFT breast(s). REASON FOR EXAM: Female, 70 years old. Left breast cancer. TECHNIQUE: [place] node localization using radionuclide methods of the LEFT breast(s) was performed following subcutaneous administration of 1.1 mCi of of sulfur colloid Tc-99m. FINDINGS: 1.1 mCi of technetium labeled sulfur colloid was injected subcutaneously in 4 equal aliquots along the superior aspect of the left areola. NM/Lymph Node Injection Only IMPRESSION: Subcutaneous injection of 1.1 mCi of technetium labeled sulfur colloid in the superior aspect of the left areola. Electronically Signed: Ghulam Peters MD at 9:20 EDT , Service support ,
[2020-12-19 08:16] LABS: Bedside Glucose 160 mg/dL (70-110)
--- NOTE | 2020-12-19 09:14 | PCM.HP.BLA ---
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 Is patient in pain?: No Allergies cephalexin [Cephalexin] Allergy (Verified 11/08/20 09:07) Otherciprofloxacin [From Cipro] Allergy (Verified 11/08/20 09:07) unknowncodeine Adverse Reaction (Verified 11/08/20 09:07) VomitingSulfa (Sulfonamide Antibiotics) Adverse Reaction (Verified 11/08/20 09:07) Hives Medications Cinnamon Plus Chromium 500 mg PO QHS 02/03/16 [History Confirmed 11/08/20] amlodipine 2.5 mg PO DAILY 02/03/16 [History Confirmed 11/08/20] ascorbic acid (vitamin C) [Vitamin C With Jane Hips] 1,000 mg PO QHS 02/03/16 [History Confirmed 11/08/20] cyanocobalamin (vitamin B-12) 2,500 mcg PO QHS 02/03/16 [History Confirmed 11/08/20] losartan 100 mg PO DAILY 02/03/16 [History Confirmed 11/08/20] metformin 1,000 mg PO DAILY 02/03/16 [History Confirmed 11/08/20] metoprolol tartrate 12.5 mg PO BID 02/03/16 [History Confirmed 11/08/20] multivitamin [Daily Multiple] 1 ea PO DAILY 02/03/16 [History Confirmed 11/08/20] famotidine 20 mg tablet 20 mg PO BID tab 11/08/20 [History Confirmed 11/08/20] glimepiride 4 mg tablet 2 mg PO DAILY tab 11/08/20 [History Confirmed 11/08/20] levothyroxine 112 mcg tablet 112 mcg PO DAILY tab 11/08/20 [History Confirmed 11/08/20] pantoprazole 40 mg tablet,delayed release 40 mg PO DAILY PRN 11/08/20 [History Confirmed 11/08/20] [facility] Medical History (Updated 11/08/20 @ 09:02 by Daya Becker) Abnormal mammogram of right breast Diabetes mellitus, type II History of breast cancer Hyperlipidemia Hypertension Hypothyroidism 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 Obesity (BMI 30.0-34.9) Surgical History (Updated 11/08/20 @ 09:02 by Daya Becker) History of lumpectomy of right breast History of right breast biopsy Family History (Updated 11/08/20 @ 09:04 by Daya Becker) Father DiabetesMother Diabetes HypertensionSister HypertensionBrother Diabetes Hypertension Social History (Updated 11/08/20 @ 09:05 by Daya Becker) Smoking Status: Former smoker alcohol intake: never substance use type: does not use caffeine: Yes what type of physical activity do you participate in: none frequency: does not exercise HPI: Patient is a 70 y/o F I am seeing for newly diagnosed left breast cancer. Patient presents for an update history and physical for her procedure today. She was noted to be rescheduled previously due to uncontrolled blood glucose levels. She has since been followed by her PCP who has adjusted medication and diet recommendations. Her blood sugars are much better controlled. She was also noted to have an ECHO at [facility] which was read as normal. She denies chest pain, shortness of breath. She denies having COVID previously or coming in contact with anyone who has COVID within the last month. She has been vaccinated for COVID. She denies any pulmonary concerns. She notes side effect of nausea with anesthesia. She has had a previous history of right breast cancer. Patient's previous history per Dr. Leyva: JEANNINE OLSON, is a 70 F who presents to the office today for surgical consultation regarding an abnormal mammogram. The patient has had a remote right lumpectomy. I do not have information regarding that event. She did have breast conservation surgery. She states that the malignancy was in the lower part of the right breast. 7-year-old female. Menarche at age 9. First child born when she was 30. A0. Did not breast-feed. No estrogen replacement. She is up-to-date with her colonoscopy. At the [facility] on November 05, 2020 she had a routine screening mammograms. There was felt to be a 7.5 x 6.5 mm slightly ill-defined nodule in the central retroareolar area of the left breast. Ultrasound was performed. At the 7 o'clock position 3 cm from the nipple there was a ill-defined 5 x 5 x 5 mm area. Biopsy was recommended. I have personally reviewed those films and concur that the area on ultrasound is quite vague MAMMOGRAPHY - BILATERAL SCREENING REASON FOR EXAM: Female, 70 years old. Routine annual screening examination. PERTINENT HISTORY: Personal history of breast cancer. Prior right lumpectomy and radiation treatment. TECHNIQUE: Digital bilateral breast ananya (3D mammographic acquisition) in the CC and MLO projections. 2-D mediolateral oblique (MLO) and craniocaudad (CC) views of both breasts were obtained. CAD: Full Field Digital Mammography with Computer Added Detection was performed. COMPARISON: Comparison is made with prior study dated 03/06/2019 and 03/01/2008. FINDINGS: Breast Composition: There are scattered areas of fibroglandular density. There are no dominant masses or suspicious calcifications. The right breast is smaller in size as compared to the left breast in keeping with prior lumpectomy. Postsurgical changes are seen in the deep slightly inferior medial portion of the right breast. Surgical clips are seen in the right axillary region. There is a 7.5 mm x 6.5 mm slightly ill-defined nodule in the central retroareolar areolar region of the left breast. Correlation with ultrasound is recommended. No other significant abnormalities are identified. BI/SCRN MAMM (CAD)W/ANANYA BILAT IMPRESSION: 6.5 mm x 7.5 mm nodular density in the central retroareolar region of the left breast as described. Correlation with ultrasound is recommended. ASSESSMENT CATEGORY: BIRADS Category 0: Incomplete. Need additional imaging evaluation. A letter regarding these results will be sent to the patient by the facility within 30 days. Approximately 10% of breast cancers are not detected by mammography. A normal mammogram should not delay biopsy of a clinically suspicious abnormality. [id number] Electronically Signed: Ghulam Peters MD at 14:41 EDT , Service support , STUDY: ULTRASOUND BREAST - LEFT REASON FOR EXAM: Female, 70 years old. Abnormal mammogram. TECHNIQUE: Axial and longitudinal images of the LEFT breast were performed with a high resolution ultrasound transducer. # OF IMAGES: 14 COMPARISON: Comparison is made with prior mammogram dated 11/05/2020. FINDINGS: LEFT Breast: The mammographic abnormality corresponds to a 5 mm x 5 mm x 5 mm hypoechoic ill-defined solid nodule at the 7 o''clock position of the breast at 3 cm from the nipple. Biopsy is recommended. US/Breast Limited Unilateral IMPRESSION: 5 mm x 5 mm x 5 mm hypoechoic ill-defined solid nodule at the 7 o''clock position of the breast at the 3 cm from the nipple. Biopsy is recommended. ASSESSMENT CATEGORY: BIRADS Category 4: Suspicious - Biopsy Should Be Considered. A letter regarding these results will be sent to the patient by the facility within 30 days. Electronically Signed: Ghulam Peters MD at 11:04 EDT , Service support , JEANNINE OLSON, is a 70 F who presents to the office today for surgical follow-up of a stereotactic needle core biopsy lower inner left breast 7 o'clock position which I performed for her on November 11, 2020. Final pathology demonstrates invasive ductal carcinoma. Left breast, stereotactic biopsy: Invasive ductal carcinoma with the following characteristics: Nuclear grade ?1 Maximal length ?4 millimeters Other findings ?focal fibrocystic change MORPHOMETRIC ANALYSIS ER (clone 6F11) >95%, strong IA (clone 16/1E2) >95%, strong Her-2Neu (clone CB11) ROS General General: Yes weight change and fatigue; No appetite, colon cancer, breast cancer or weakness HEENT HEENT: No difficulty swallowing, eye injury, eye surgery, swollen glands or hoarseness Endo Endocrine: No thyroid disease, diabetes mellitus, thyroid cancer, Hair loss, heat intolerance or cold intolerance Skin Skin: No rash or changing moles Breast Breast: Yes left breast lump, abnormal mammogram and abnormal US; No right breast lump, nipple discharge, breast pain or breast enlargement Musc Musculoskeletal: Yes back problems; No arthritis, rheumatoid arthritis, gout or joint pain Cardio Cardiovascular: No murmur, pacemaker, heart disease, atrial fibrillation, high blood pressure, heart attack, heart stent, palpitations, shortness of breat with exertion or chest pain Psych Psychiatric: No depression, anxiety or hearing voices Resp Respiratory: No shortness of breath, No sleep apnea, No cough, No COPD, No asthma, No emphysema and No wheezing Gastro Gastrointestinal: Yes abdominal pain, Yes nausea or vomiting, No diarrhea, No constipation, Yes blood in stool, No acid reflux, No hemorrhoids, No ulcers, No gallbladder problem and No black,tarry stools Lizandro Hematologic: No blood thinners, No blood disorders, No bleeding, No anemia and No blood clots Neuro Neurologic: No weakness Exam Const General: cooperative, comfortable and no acute distress Nutritional Appearance: overweight Orientation: alert and awake [facility] Head: normal to inspection Eyes General: appearance normal, both eyes and all related structures Chest Breast Palpation: No nipple discharge Other: Significant postoperative changes of the right breast with atrophy postradiation changes particularly with discoloration and induration in the inframammary area. Well-healed right axillary incision. No obvious concerning focal mass or adenopathy. Left breast larger than the right. No focal mass. No nipple discharge. No axillary or clavicular adenopathy Resp Effort & Inspection: normal respiratory effort Auscultation: clear to auscultation bilaterally Cardio Rate: regular rate Rhythm: regular rhythm Heart Sounds: no murmurs GI Palpation: soft and no hepatosplenomegaly Musc Cervical Spine: normal cervical lordosis Skin Other: Post radiation changes right breast Neuro General: patient alert and patient awake Cognition: normal cognition Extrem General: no calf tenderness bilaterally Psych Affect: normal affect COVID (Procedure Consent) Procedure Criteria Procedure Criteria: Yes Elective The surgeon/proceduralist and patient have discussed in detail the risk of exposure to and/or potential harm posed by the COVID-19 virus with having a surgery/procedure at this time versus the risk of delaying the surgery/procedure. It is not possible to know either the risk of delaying the surgery or procedure or chance of getting an infection with perfect accuracy, but a joint decision was made between the patient and the surgeon/proceduralist to proceed at this time with the scheduled surgery/procedure as indicated on the consent form. Assessment and Plan Assessment and Plan (1) Breast cancer, left: Status: Acute Plan Details Additional Comments: Lower inner left breast cancer 7 o'clock position. Invasive ductal carcinoma. ER/IA positive. Very small lesion. Dr. Leyva will plan to perform a stereotactic wire localization with subsequent nuclear tracer and blue dye left axillary sentinel lymph node with wire localized lower inner left breast lumpectomy. I have reviewed the technique, benefit, risk and alternatives. She has had an opportunity to ask and have questions answered. Patient would like to be referred back to Dr. Wells as this is assisted with her previous breast cancer treatments. Patient has had the opportunity to ask and have questions answered. Patient verbally understands and agrees with the proposed plan. I have re-examined the patient. There are no clinical changes since date of exam. Victor M Leyva M.D., F.A.C.S.
--- NOTE | 2020-12-19 10:14 | BI_ITS ---
SURGICAL BREAST SPECIMEN RADIOGRAPH CLINICAL: Document presence of tissue clip marker in biopsy specimen. FINDINGS: Specimen shows presence of tissue clip marker. Electronically Signed: Ghulam Peters MD at 14:56 EDT , Service support , BI/Breast Biopsy Specimen
--- NOTE | 2020-12-19 10:54 | PCM.OPRPT ---
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 70-year-old female was taken to the stereotactic suite. She was placed prone on the table. The left breast was placed in a cc view. The area of previous biopsy and stereotactic clip placement was identified. Stereotactic images were obtained. Digital information was obtained on single target site. Depth +15 mm. It was secured in place. Follow-up images demonstrate adequate position. Sterile dressings were applied. She was subsequently taken to the amatory surgery area in satisfactory addition. The patient was subsequently taken to the operating room after delayed due to operating room complications. She was placed supine on the table. She underwent general anesthesia. Left arm was carefully wrapped with soft roll in place at right angles of the table. The left periareolar breast was prepped with alcohol. 2 cc of isosulfan blue dye was injected and massaged for 3 minutes. Subsequent left breast was sterilely prepped and draped. An oblique incision was made in the left axilla sharp and blunt dissection was utilized. A combination of nuclear tracer inspection and blue dye inspection was performed to identify sentinel lymph nodes. My visualization by blue dye by nuclear tracer to sentinel lymph nodes were identified. There was no evidence of residual material based upon palpation visualization blue dye or nuclear tracer. Hemostasis was assured with hemoclips and interrupted 3-0 Vicryl suture ligatures. The deep tissue in the axilla was approximated up to 3-0 Vicryl and skin edges brought in running septic or 4 Monocryl. A curvilinear incision was made in the upper outer left breast. Sharp dissection carried down through the street light wirer circumferential dissection was performed down to the tip of the wire. The tip of the wire had passed pointed the lesion. The area was completely excised with electrocautery and sharp dissection. 4 hemoclips were placed at the base of the anticipated primary lesion. Hemostasis was assured with electrocautery and 3-0 Vicryl sutures. Again the deep tissue was approximated with interrupted 3-0 Vicryl and the skin edges were present in a running septic or 4 Monocryl. It is of note that the specimen was excised intact. There was no visualization of palpation of residual tissue. A short suture was placed superiorly on the specimen and a long suture laterally and a single suture anteriorly. Sponge and instrument and needle counts were reported to the surgeon to be correct. Blood loss minimal. Specimens included to left axillary sentinel lymph nodes and the wire localized lumpectomy specimen. No drains. Victor M Leyva M.D., F.A.C.S. Surgeon: Asya Type of Anesthesia: General and Local
--- NOTE | 2020-12-19 11:04 | EX.PCM.DISCH ---
Discharge Instructions Procedure Breast Surgery Diet Discharge Diet: No restrictions Activity Discharge Activity: May Not Drive (for 2-3 days or while taking narcotic pain meds.) May shower in (days): 1 Lifting Restrictions: 10 pounds for 1 week. Dressing / Incision Call your doctor if your incision/area has: Continuous Slow Oozing and Sudden Increased Bleeding Call your doctor if you observe: Fever of 101 or Higher Suture Line Care: Avoid Pulling/Pushing and Avoid Pinching/Bending Remove Dressing in: 1 day Additional Dressing/Incision Instructions:: Remove bulky dressing tomorrow. May leave any opsite dressing for 3-4 days. Keep dressing in place until your follow-up appointment. Follow Up Care Test Results: Test results from this visit will be discussed in further detail at your follow-up appointment, if applicable. Please call [phone] for office surgical follow-up in approximately 7 to 10 days. Discharge Plan Admission Attending Provider: Victor M Leyva Primary Care Provider: Oscar Rivera Discharge Orders/Prescriptions Prescriptions: No Action levothyroxine 112 mcg tablet 112 mcg PO DAILY RF: 0 glimepiride 4 mg tablet 2 mg PO DAILY RF: 0 multivitamin [Daily Multiple] 1 EACH tablet 1 ea PO DAILY RF: 0 ascorbic acid (vitamin C) [Vitamin C With Jane Hips] 1,000 MG tablet 1,000 mg PO DAILY RF: 0 amlodipine 2.5 MG tablet 2.5 mg PO DAILY RF: 0 metformin 1,000 MG tablet 1,000 mg PO DAILY RF: 0 losartan 100 MG tablet 100 mg PO 1500 RF: 0 metoprolol tartrate 25 MG tablet 12.5 mg PO BID RF: 0 cyanocobalamin (vitamin B-12) 2,500 MCG tablet 2,500 mcg PO QODAY RF: 0 Cinnamon Plus Chromium 500 MG capsule 500 mg PO QHS RF: 0 pantoprazole 40 mg tablet,delayed release (DR/EC) 40 mg PO DAILY PRN (Reason: gerd) RF: 0
[2020-12-19] MEDS: Isosulfan Blue 1% 5 ML Vial (12:45)
[2020-12-19] MEDS: Bupivacaine Mpf 0.5% 30 ML VIAL (13:45)
[2020-12-19 14:30] VITALS: BP 122/59; BP 132/61; PULSE 75; RESP 18; TEMP 36.1; O2SAT 98
[2020-12-19 14:40] VITALS: BP 132/61; BP 134/71; PULSE 72; RESP 18; O2SAT 94
[2020-12-19 14:45] VITALS: BP 132/61; BP 134/71; PULSE 70; RESP 18; O2SAT 94
[2020-12-19 14:46] LABS: Bedside Glucose 88 mg/dL (70-110)
[2020-12-19 14:54] VITALS: BP 132/61; BP 142/70; PULSE 64; RESP 18; TEMP 35.9; O2SAT 93
[2020-12-19 15:47] VITALS: BP 132/61; BP 152/59; PULSE 58; RESP 16; TEMP 36.1; O2SAT 94
== END 2020-12-19 15:56 | disposition home or self-care (01) ==
LOC: SDC 07:09 → AC 07:10
PROVIDERS: Anesthesiology; PCP Family Medicine; Referring Provider Surgery; Visit Provider Surgery
PROC: (CPT 19301; principal; 2020-12-19 11:15)
DX: C50.312 Malignant neoplasm of lower-inner quadrant of left female breast (principal); E11.9 Type 2 diabetes mellitus without complications; E78.5 Hyperlipidemia, unspecified; E03.9 Hypothyroidism, unspecified; I10 Essential (primary) hypertension; D69.6 Thrombocytopenia, unspecified; E11.65 Type 2 diabetes mellitus with hyperglycemia; Z85.3 Personal history of malignant neoplasm of breast; Z87.891 Personal history of nicotine dependence; Z79.84 Long term (current) use of oral hypoglycemic drugs; Z79.899 Other long term (current) drug therapy
CPT/HCPCS: 00400; 19301; 38525; 19281; 36415; 38792; 76098; 80053; 82962; 83036; 83735; 84100; 84443; 85027; 85610; 85730; 88305; 88307; 88331; 88341; 88342; 93005; A9541; J7120; Q9968

== ENCOUNTER → 2021-01-21 07:50 | Outpatient (CLI) | payer MEDICARE, OTHER, SELFPAY ==
[2021-01-08 16:28] VITALS: BMI 33.1
--- NOTE | 2021-01-21 07:51 | MRI_ITS ---
STUDY: BILATERAL BREAST MR WITHOUT AND WITH CONTRAST REASON FOR EXAM: Female, 70 years old. History of left lumpectomy in December 2020. Prior breast cancer on the right in 2000. Mammograms show no abnormality. TECHNIQUE: Multi-sequence multi-echo imaging of both breasts was performed with a dedicated breast coil. T1-weighted and T2-weighted images were performed before the administration of contrast. T1-weighted images were also performed after the administration of IV 19ml Dotarem without complications. COMPARISON: Mammograms dated 11/05/2020 and 03/05/2019. FINDINGS: RIGHT BREAST: The breast tissue is fatty with minimal background enhancement. There are no abnormal enhancing masses or areas of non-mass enhancement in the right breast. LEFT BREAST: The breast tissue is fatty with minimal background enhancement. Postbiopsy seroma of the left breast measuring approximately 5.7 cm x 4 cm x 4.3 cm. There are no abnormal enhancing masses or areas of non-mass enhancement in the left breast. There are no enlarged or abnormal lymph nodes. There is no abnormality in the visualized regions of the chest or liver. MRI/Breast Bilateral W/O and W IMPRESSION: Normal] breast. Seroma in the left breast with no enhancing lesions. Yearly screening mammogram recommended. CATEGORY: BIRADS Category 2: Benign. A letter regarding these results will be sent to the patient by the facility within 30 days. Electronically Signed: Gael Serna MD at 13:58 EDT , Service support ,
== END ==
PROVIDERS: PCP Family Medicine; Referring Provider Student in an Organized Health Care Education/Training Program; Visit Provider Student in an Organized Health Care Education/Training Program
DX: C50.911 Malignant neoplasm of unspecified site of right female breast (principal)
CPT/HCPCS: 77049; A9575; A4216; C8908

== ENCOUNTER → 2021-04-15 13:37 | Outpatient (CLI) | payer MEDICARE, OTHER, SELFPAY ==
--- NOTE | 2021-04-15 13:46 | BD_ITS ---
STUDY: DUAL ENERGY X-RAY ABSORPTIOMETRY / DXA REASON FOR EXAM: Female, 71 years old. SCREENING TECHNIQUE: Bone Mineral Density (BMD) measurements of lumbar spine and bilateral hips were obtained. COMPARISON: Comparison is made with prior examination dated 01/22/2009. FINDINGS: Lumbar Spine (L1-L4): g/cm2 (1.043) / T-score (0.0) / Z-score (2.1) Findings are suggestive of normal bone density with a low fracture risk. Left Femur Total: g/cm2 (0.969) / T-score (0.2) / Z-score (1.8) Left Femoral Neck: g/cm2 (0.683) / T-score (-1.5) / Z-score (0.4) Right Femur Total: g/cm2 (0.956) / T-score (0.1) / Z-score (1.7) Right Femoral Neck: g/cm2 (0.640) / T-score (-1.9) / Z-score (0.0) The T-Scores on the most recent prior examination were: Lumbar Spine (L1-L4): There has been improvement of bone density since the previous examination. Left Femur Total: which represents a worsening of 6.8%. Right Femur Total: which represents a worsening of 1.7%. BD/Dexa Bone Density Study IMPRESSION: The patient is considered osteopenic as outlined below according to World Maxwell Organization (WHO) criteria with a moderate fracture risk. There has been worsening of bone density since the previous examination. Reference Information: The T-score is the number of standard deviations above or below the standard which is normal for young adults at their peak bone mineral density. The World Health Organization (WHO) interprets the T-scores as follows: Above -1 Normal bone density Between -1 and -2.5 Osteopenia Equal to / or below -2.5 Osteoporosis As a practical clinical guideline, osteopenia may be graded as follows: Mild -1 through -1.5 Moderate -1.6 through -2.0 Severe -2.1 through -2.4 The Z-score is the number of standard deviations above or below age-matched controls. A Z-score of less than -1.5 would be considered abnormal. References: 1. NIH Osteoporosis and Related Bone Diseases www osteo.org 2. International Society for Clinical Densitometry www iscd.org 3. National Osteoporosis Foundation www nof.org Electronically Signed: Ghulam Peters MD at 15:10 EDT , Service support ,
== END ==
PROVIDERS: PCP Family Medicine; Referring Provider Internal Medicine Medical Oncology; Visit Provider Internal Medicine Medical Oncology
DX: M85.80 Other specified disorders of bone density and structure, unspecified site (principal); C50.919 Malignant neoplasm of unspecified site of unspecified female breast; Z79.811 Long term (current) use of aromatase inhibitors
CPT/HCPCS: 77080

== ENCOUNTER → 2021-05-21 13:56 | Outpatient (CLI) | payer MEDICARE, OTHER, SELFPAY ==
[2021-05-21 15:14] LABS: International Normalized Ratio 1.2; Prothrombin Time (Protime)PT. 14.4 SECONDS (11.7-14.9)
[2021-05-21 15:15] LABS: Partial Thromboplast Time 33.1 Seconds (24.1-36.2)
[2021-05-21 15:51] LABS: ALB/GLOB Ratio 0.8 RATIO (0.9-2.4); AST(SGOT) 46 U/L (15-37); Alanine Aminotransfer ALT/SGPT 54 U/L (13-56); Albumin, Serum 3.3 g/dL (3.2-5.0); Alkaline Phosphatase 52 U/L (45-117); Anion Gap 6 (5-15); BUN 15 mg/dL (7-18); BUN/Creat Ratio 19.3 RATIO (10-20); Calcium,Total 9.4 mg/dL (8.5-10.1); Chloride 108 mmol/L (98-107); Creatinine, Serum 0.78 mg/dL (0.55-1.02); EST Glomerular Filtration Rate 78 mL/min (>60); Est Glom Filt Rate - Afr Amer 94 mL/min (>60); Globulin 4.2 g/dL (2.2-4.2); Glucose 161 mg/dL (74-106); Potassium 3.7 mmol/L (3.5-5.1); Protein, Total 7.5 g/dL (6.4-8.2); Sodium Level 141 mmol/L (136-145)
[2021-05-23 13:47] LABS: AFP, Tumor Marker 6.2 ng/mL (0.0-8.3)
== END ==
PROVIDERS: PCP Family Medicine; Referring Provider Internal Medicine Gastroenterology; Visit Provider Internal Medicine Gastroenterology
DX: K74.60 Unspecified cirrhosis of liver (principal)
CPT/HCPCS: 36415; 80053; 82105; 85610; 85730

== ENCOUNTER 2021-10-29 12:25 | Outpatient (CLI) | payer MEDICARE, OTHER, SELFPAY ==
--- NOTE | 2021-10-29 12:32 | MRI_ITS ---
STUDY: MRI ABDOMEN WITH AND WITHOUT CONTRAST REASON FOR EXAM: Female, 71 years old. CIRRHOSIS TECHNIQUE: Standardized fat and water weighted pulse sequences were obtained in all 3 orthogonal planes post contrast administration. IV 18ml dotarem was administered for the contrast portion of the examination. COMPARISON: 03/03/2019. FINDINGS: The visualized lung bases are unremarkable. The visualized portions of the heart are within normal limits. The liver demonstrates mild irregularity/nodularity in its contour, the liver is small in size. Small amount of free fluid is visualized along the lateral aspect of the liver. No evidence of hepatic masses. No evidence of intrahepatic biliary dilatation is seen. The spleen is prominent in size, multiple subtle simple cysts visualized within the spleen. Spleen demonstrates increase in size in comparison to the prior study. The gallbladder is surgically absent. Atrophic of the pancreas. Normal bilateral adrenal glands. Unremarkable kidneys. Normal visualized stomach. Normal small intestine. Normal colon. Prominent vessels visualized within the peritoneal cavity, the largest of which is a vein visualized connecting the superior mesenteric vein with the right renal vein, this demonstrates prominence in comparison to the prior study. Normal abdominal aorta. Normal inferior vena cava. Normal retroperitoneum. Normal abdominal wall. Normal osseous structures. MRI/MRI Abd WITH and W/O Contrast IMPRESSION: No evidence of hepatic masses seen. Nodular liver demonstrates decreased size consistent with stenosis Splenomegaly demonstrating increase in size. Increase in size of the peritoneal collateral vessels in comparison to the prior study. Electronically Signed: Manohar Kelly MD at 15:32 EDT ,
[2021-10-29 12:46] LABS: CREATININE FINGERSTICK < 0.6 mg/dL (0.55-1.02); EGFR FINGERSTICK > 60.0000 mL/min (>60)
== END 2021-10-29 23:59 | disposition home or self-care (01) ==
PROVIDERS: PCP Family Medicine; Referring Provider Internal Medicine Gastroenterology; Visit Provider Internal Medicine Gastroenterology
DX: K74.60 Unspecified cirrhosis of liver (principal)
CPT/HCPCS: 74183; A9575; A4216

== ENCOUNTER → 2021-11-03 | Outpatient (CLI) | payer MEDICARE, OTHER, SELFPAY ==
--- NOTE | 2021-11-03 12:21 | MRI_ITS ---
STUDY: BILATERAL BREAST MR WITHOUT AND WITH CONTRAST REASON FOR EXAM: Female, 71 years old. History of left breast cancer in 2020 and status post lumpectomy and radiation therapy. History of mastitis. TECHNIQUE: Multi-sequence multi-echo imaging of both breasts was performed with a dedicated breast coil. T1-weighted and T2-weighted images were performed before the administration of contrast. T1-weighted images were also performed after the intravenous administration of 18ml of Dotarem contrast without complications. COMPARISON: Prior breast MRI with contrast dated 01/21/2021. FINDINGS: RIGHT BREAST: The breast tissue is fatty with no background enhancement. There are no abnormal enhancing masses or areas of non-mass enhancement in the right breast. LEFT BREAST: The breast tissue is fatty with no background enhancement. Smaller seroma cavity in the central portion of the left breast now measuring approximately 3 cm x 1 cm x 3.4 cm. Minimal peripheral enhancement of the seroma cavity. There are no abnormal enhancing masses or areas of non-mass enhancement in the left breast. There are no enlarged or abnormal lymph nodes. There is no abnormality in the visualized regions of the chest or liver. MRI/Breast Bilateral W/O and W IMPRESSION: Decrease in seroma cavity in the left breast. No abnormal enhancing masses or abnormal lymph nodes. Yearly screening mammography would be appropriate. CATEGORY: BIRADS Category 2: Benign. A letter regarding these results will be sent to the patient by the facility within 30 days. Electronically Signed: Gael Serna MD at 9:24 EDT ,
== END | disposition home or self-care (01) ==
LOC: MRI 12:21
PROVIDERS: PCP Family Medicine; Referring Provider Surgery; Visit Provider Surgery
DX: C50.312 Malignant neoplasm of lower-inner quadrant of left female breast (principal); Z17.0 Estrogen receptor positive status [ER+]
CPT/HCPCS: 77049; A9575; A4216; C8908

== ENCOUNTER → 2021-11-17 | Outpatient (CLI) | payer MEDICARE, OTHER, SELFPAY | END | disposition home or self-care (01) | PROVIDERS: PCP Family Medicine; Referring Provider Surgery; Visit Provider Surgery | DX: N61.0 Mastitis without abscess (principal) | CPT/HCPCS: 87070; 87075; 87205 ==

== ENCOUNTER → 2021-12-10 | Outpatient (CLI) | payer MEDICARE, OTHER, SELFPAY ==
--- NOTE | 2021-12-10 14:24 | BI_ITS ---
MAMMOGRAPHY - BILATERAL DIAGNOSTIC REASON FOR EXAM: Female, 71 years old. Prior left lumpectomy and radiation therapy. PERTINENT HISTORY: Personal history of breast cancer. Prior bilateral lumpectomy. TECHNIQUE: Digital bilateral breast liat (3D mammographic acquisition) in the CC and MLO projections. 2-D mediolateral oblique (MLO) and craniocaudad (CC) views of both breasts were obtained. CAD: Full Field Digital Mammography with Computer Added Detection was performed. COMPARISON: Comparison is made with prior study dated 11/05/2020 and 12/19/2020. FINDINGS: Breast Composition: There are scattered areas of fibroglandular density. Since prior examination, there is evidence of diffuse skin thickening of the left breast with increased interstitial markings within the left breast suggestive of post surgical and post radiation changes. The patient is status post lumpectomy in the deep inferior medial aspect of the right breast. This is unchanged. No other significant abnormalities are identified. BI/DIAG MAMM W/CAD, BILAT IMPRESSION: Status post radiation therapy and lumpectomy of the left breast with resultant skin thickening and increased linear markings in the left breast suggestive of post radiation edema. One year follow-up recommended. (A) ASSESSMENT CATEGORY: BIRADS Category 2: Benign. A letter regarding these results will be sent to the patient by the facility within 30 days. Approximately 10% of breast cancers are not detected by mammography. A normal mammogram should not delay biopsy of a clinically suspicious abnormality. Electronically Signed: Ghulam Peters MD at 15:35 EDT ,
== END | disposition home or self-care (01) ==
LOC: OPBI 14:21
PROVIDERS: PCP Family Medicine; Visit Provider Student in an Organized Health Care Education/Training Program
DX: C50.312 Malignant neoplasm of lower-inner quadrant of left female breast (principal); Z17.0 Estrogen receptor positive status [ER+]
CPT/HCPCS: 77062; 77066; G0279

== ENCOUNTER → 2022-06-12 | Outpatient (CLI) | payer MEDICARE, OTHER, SELFPAY ==
--- NOTE | 2022-06-12 14:46 | VDLE_ITS ---
Reason For Study: Edema RIGHT LEFT GSV is normal. GSV is normal. CFV is compressible, spontaneous, phasic, CFV is compressible, spontaneous, phasic, competent and demonstrates normal competent, and demonstrates normal augmentation. augmentation. FV is compressible, spontaneous, phasic, FV is compressible, spontaneous, phasic, competent and demonstrates normal competent and demonstrates normal augmentation. augmentation. POP V is compressible, spontaneous, phasic, POP V is compressible, spontaneous, phasic, competent and demonstrates normal competent and demonstrates normal augmentation. augmentation. T/P Trunk is compressible. T/P Trunk is compressible. PTV is compressible. PTV is compressible. RT PerV is compressible. LT PerV is compressible. Procedure This is a venous duplex using B-mode, color flow and spectral Doppler. Exam performed in department. A preliminary report was called and/or faxed to [facility]. VL/Venous Duplex US - [place] Extrem Interpretation Summary No evidence for acute deep venous thrombosis bilateral lower extremities with p atent and compressible bilateral great saphenous veins. Ordering Physician: David Cole Referring Physician: Oscar Rivera Performed By: Libia Dominguez RVT
== END | disposition home or self-care (01) ==
LOC: CVS 14:45
PROVIDERS: PCP Family Medicine; Referring Provider Orthopaedic Surgery; Visit Provider Orthopaedic Surgery
DX: R60.1 Generalized edema (principal); M79.661 Pain in right lower leg; M79.662 Pain in left lower leg
CPT/HCPCS: 93970

== ENCOUNTER → 2022-07-10 | Outpatient (CLI) | payer MEDICARE, OTHER, SELFPAY ==
--- NOTE | 2022-07-10 10:53 | MRI_ITS ---
STUDY: MRI LUMBAR SPINE WITHOUT CONTRAST REASON FOR EXAM: Female, 72 years old. L1 wedge compression fracture. TECHNIQUE: Standardized fat and water weighted pulse sequences were obtained in the sagittal and axial planes. COMPARISON: Lumbar spine radiographs 03/07/2019. FINDINGS: T10-T11: (Sagittal only). Normal endplates. Mild disc space height narrowing. Normal central canal. The intervertebral neural foramina are barely included and are suboptimal for evaluation. T11-T12: (Sagittal only). Normal endplates. Mild disc space height narrowing. Normal central canal and bilateral intervertebral neural foramina. T12-L1: (Sagittal only). Normal endplates. Mild disc space height narrowing. Minimal ventral extradural defect due to small posterior bulging annulus. Capacious central canal. Normal bilateral intervertebral neural foramina. Normal lumbar lordosis. There is no substantial scoliosis. Normal conus medullaris that terminates at the mid T12 vertebral body level. L1-2: Normal endplates. Normal disc height, hydration and morphology. Normal bilateral facet joints. Normal central canal and bilateral lateral recesses. Normal bilateral intervertebral neural foramina. L2-3: Normal endplates. Normal disc height, hydration and morphology. Normal bilateral facet joints. Normal central canal and bilateral lateral recesses. Normal bilateral intervertebral neural foramina. L3-4: Normal endplates. Normal disc height. Minimal ventral extradural defect due to small posterior bulging annulus. Mild bilateral degenerative facet arthropathy. Normal central canal and bilateral lateral recesses. Normal bilateral intervertebral neural foramina. L4-5: Normal endplates. Normal disc height and morphology. Mild bilateral degenerative facet arthropathy. Normal central canal and bilateral lateral recesses. Normal bilateral intervertebral neural foramina. L5-S1: Normal endplates. Normal disc height, hydration and morphology. Moderate right degenerative facet arthropathy. Mild left degenerative facet arthropathy. Normal central canal and bilateral lateral recesses. Normal bilateral intervertebral neural foramina. Normal visualized sacral ala. Normal visualized paraspinous soft tissue structures. MRI/Spine Lumbar (Routine) IMPRESSION: 1. No MRI evidence of lumbar extruded disc fragment, spinal stenosis or nerve root displacement. 2. Moderate right L5-S1 degenerative facet arthropathy and mild left L5-S1 degenerative facet arthropathy. 3. Mild bilateral L4-L5 degenerative facet arthropathy. 4. Small L3-L4 posterior bulging annulus and mild bilateral degenerative facet arthropathy. Electronically Signed: Lloyd Baltazar MD at 12:22 EST ,
== END | disposition home or self-care (01) ==
LOC: MRI 10:45
PROVIDERS: PCP Family Medicine; Referring Provider Orthopaedic Surgery; Visit Provider Orthopaedic Surgery
DX: S32.010A Wedge compression fracture of first lumbar vertebra, initial encounter for closed fracture (principal); M48.061 Spinal stenosis, lumbar region without neurogenic claudication; M43.16 Spondylolisthesis, lumbar region
CPT/HCPCS: 72148

== ENCOUNTER → 2022-12-11 | Outpatient (CLI) | payer MEDICARE, OTHER, SELFPAY ==
--- NOTE | 2022-12-11 13:46 | BI_ITS ---
MAMMOGRAPHY - BILATERAL SCREENING REASON FOR EXAM: Female, 72 years old. Routine annual screening examination. PERTINENT HISTORY: Personal history of breast cancer. Prior left lumpectomy with radiation treatment and prior right lumpectomy with radiation. TECHNIQUE: Digital bilateral breast ananya (3D mammographic acquisition) in the CC and MLO projections. 2-D mediolateral oblique (MLO) and craniocaudad (CC) views of both breasts were obtained. CAD: Full Field Digital Mammography with Computer Added Detection was performed. COMPARISON: Comparison is made with prior study dated November 05, 2020 and December 10, 2021. FINDINGS: Breast Composition: There are scattered areas of fibroglandular density. Diffuse left breast skin thickening and increased interstitial markings throughout the left breast suggestive of post operative radiation changes. The patient is status post lumpectomy in the deep inferior medial aspect of the right breast as well as tissue markers in the deep lateral and central portion of the left breast. No other significant abnormalities are identified. There has been no significant change since the prior study. BI/SCRN MAMM (CAD)W/ANANYA BILAT IMPRESSION: Stable bilateral screening mammogram. Yearly follow-up mammogram recommended. (A) ASSESSMENT CATEGORY: BIRADS Category 2: Benign. A letter regarding these results will be sent to the patient by the facility within 30 days. Approximately 10% of breast cancers are not detected by mammography. A normal mammogram should not delay biopsy of a clinically suspicious abnormality. [id number] Electronically Signed: Ghulam Peters MD at 15:08 EDT ,
== END | disposition home or self-care (01) ==
PROVIDERS: PCP Family Medicine; Referring Provider Student in an Organized Health Care Education/Training Program; Visit Provider Student in an Organized Health Care Education/Training Program
DX: Z12.31 Encounter for screening mammogram for malignant neoplasm of breast (principal); Z85.3 Personal history of malignant neoplasm of breast
CPT/HCPCS: 77063; 77067

== ENCOUNTER → 2023-08-03 | Outpatient (CLI) | payer MEDICARE, OTHER, SELFPAY ==
--- NOTE | 2023-08-03 13:55 | BD_ITS ---
STUDY: DUAL ENERGY X-RAY ABSORPTIOMETRY / DXA REASON FOR EXAM: Female, 73 years old. Screening for osteoporosis; h/o osteopenia TECHNIQUE: Bone Mineral Density (BMD) measurements of lumbar spine and bilateral hips were obtained. COMPARISON: Comparison is made with prior study April 15, 2021. FINDINGS: Lumbar Spine (L1-L4): g/cm2 (1.048) / T-score (0.0) / Z-score (2.3) Findings are suggestive of normal bone density with a low fracture risk. Left Femur Total: g/cm2 (0.955) / T-score (0.1) / Z-score (1.8) Left Femoral Neck: g/cm2 (0.734) / T-score (-1.0) / Z-score (1.0) Right Femur Total: g/cm2 (0.942) / T-score (0.0) / Z-score (1.7) Right Femoral Neck: g/cm2 (0.652) / T-score (-1.8) / Z-score (0.2) The T-Scores on the most recent prior examination were: Lumbar Spine (L1-L4): There has been improvement of bone density since the previous examination. Left Femur Total: which represents a worsening of 1.5%. Right Femur Total: which represents a worsening of 1.5%. BD/Dexa Bone Density Study IMPRESSION: The patient is considered osteopenic as outlined below according to World Maxwell Organization (WHO) criteria with a moderate fracture risk. There has been worsening of bone density since the previous examination. Reference Information: The T-score is the number of standard deviations above or below the standard which is normal for young adults at their peak bone mineral density. The World Health Organization (WHO) interprets the T-scores as follows: Above -1 Normal bone density Between -1 and -2.5 Osteopenia Equal to / or below -2.5 Osteoporosis As a practical clinical guideline, osteopenia may be graded as follows: Mild -1 through -1.5 Moderate -1.6 through -2.0 Severe -2.1 through -2.4 The Z-score is the number of standard deviations above or below age-matched controls. A Z-score of less than -1.5 would be considered abnormal. References: 1. NIH Osteoporosis and Related Bone Diseases www osteo.org 2. International Society for Clinical Densitometry www iscd.org 3. National Osteoporosis Foundation www nof.org Electronically Signed: Ghulam Peters MD at 16:18 EST ,
== END | disposition home or self-care (01) ==
LOC: OPBD 13:52
PROVIDERS: PCP Family Medicine; Referring Provider Nurse Practitioner Family; Visit Provider Nurse Practitioner Family
DX: Z78.0 Asymptomatic menopausal state (principal); Z13.820 Encounter for screening for osteoporosis
CPT/HCPCS: 77080

== ENCOUNTER 2023-10-29 16:32 | Inpatient (IN) | payer MEDICARE, OTHER, SELFPAY ==
[2023-10-29 16:35] VITALS: BP 141/66; PULSE 83; RESP 18; TEMP 36.2; O2SAT 98; BMI 38.1
--- NOTE | 2023-10-29 19:09 | EKG12_ITS ---
Test Reason : EDEMA Blood Pressure : / mmHG Vent. Rate : 067 BPM Atrial Rate : 067 BPM P-R Int : 160 ms QRS Dur : 084 ms QT Int : 434 ms P-R-T Axes : -03 -04 -13 degrees QTc Int : 458 ms Normal sinus rhythm Nonspecific T wave abnormality Abnormal ECG Confirmed by Sixto Aleman ([id number]), editor city SUE [place]STON ([id number]) on 11/01/2023 2:21:05 PM Referred By: Catracho Balderas Confirmed By:Sixto Aleman
--- NOTE | 2023-10-29 19:22 | EX.ED.DYSGE1 ---
HPI <CALE Joshi - Last Filed: 10/29/23 22:00> History of Present Illness Chief Complaint: Edema Narrative Narrative: 73-year-old female with PMH of HTN, HLD, DM2, JAIMES, hypothyroidism presents with increased edema. She states about a year ago she developed edema in both legs. She started torsemide and improved for about a week but then it came back and has been constant. Over the last 10 days the swelling moved up both upper legs and to her lower abdomen. She states she gained 25 pounds over the last 10 days. She denies chest pain, exertional dyspnea, or orthopnea. PFSH <CALE Joshi - Last Filed: 10/29/23 22:00> [facility] Medical History Abnormal mammogram of right breast Anxiety Back pain Cancer Cirrhosis Diabetes mellitus, type II Edema Former smoker GERD (gastroesophageal reflux disease) History of breast cancer History of ventral hernia Hx of cardiovascular stress test Hyperlipidemia Hypertension Hypothyroidism Injury of back Liver cirrhosis secondary to JAIMES Mastitis Migraine headache Obesity (BMI 30.0-34.9) Osteopenia Pancytopenia Post-menopausal Postmenopausal Screening for osteoporosis Shortness of breath on exertion Syncope Thrombocytopenia Ulcer Wears glasses Home Medications Cinnamon Plus Chromium 500 mg PO QHS 02/03/16 [History Last Taken 12/18/20 20:00] amlodipine 2.5 mg tablet 2.5 mg PO DAILY 02/03/16 [History Last Taken 12/18/20 20:00] ascorbic acid (vitamin C) 1,000 mg tablet (Vitamin C With Jane Hips) 1,000 mg PO DAILY 02/03/16 [History Last Taken 12/18/20 20:00] cyanocobalamin (vitamin B-12) 2,500 mcg tablet 2,500 mcg PO QODAY 02/03/16 [History Last Taken 12/18/20 20:00] losartan 100 mg tablet 100 mg PO 1500 02/03/16 [History Last Taken 12/19/20 05:50] metformin 1,000 mg tablet 1,000 mg PO DAILY 02/03/16 [History Last Taken 12/18/20 20:00] metoprolol tartrate 25 mg tablet 12.5 mg PO BID 02/03/16 [History Last Taken 12/19/20 05:50] multivitamin (Daily Multiple tablet) 1 ea PO DAILY 02/03/16 [History Last Taken 12/18/20 20:00] glimepiride 4 mg tablet 2 mg PO DAILY 11/08/20 [History Last Taken 12/18/20 20:00] levothyroxine 112 mcg tablet 112 mcg PO DAILY 11/08/20 [History Last Taken 12/19/20 05:50] pantoprazole 40 mg tablet,delayed release 40 mg PO DAILY PRN gerd 11/08/20 [History Last Taken 12/18/20 20:00] Lactobacillus acidophilus 10 billion cell capsule 10,000 mmu cells PO DAILY #30 caps 09/19/21 [Rx Last Taken Unknown] magnesium 200 mg tablet 200 mg PO DAILY 06/22/22 [History Last Taken Unknown] cyclobenzaprine 10 mg tablet 10 mg PO 10/21/22 [History Last Taken Unknown] famotidine 20 mg tablet 20 mg PO 10/21/22 [History Last Taken Unknown] liraglutide 0.6 mg/0.1 mL (18 mg/3 mL) subcutaneous pen injector (Victoza 3-Andrew) 0.6 mg (0.1 mL) subcut DAILY #9 mL 11/13/22 [Rx Last Taken Unknown] Levemir FlexPen 100 unit/mL (3 mL) solution subcutaneous insulin pen (insulin detemir U-100) 30 unit (0.3 mL) subcut QHS #30 mL 12/22/22 [Rx Last Taken Unknown] tamoxifen 20 mg tablet See Rx Instructions .Route .COMPLEX #90 tabs 05/04/23 [Rx Last Taken Unknown] Allergy/AdvReac Type Severity Reaction Status Date / Time chlorhexidine Allergy Mild rash Verified 10/29/23 16:35 ciprofloxacin [From Cipro] Allergy unknown Verified 10/29/23 16:35 cephalexin [Cephalexin] AdvReac Mild gi upset Verified 10/29/23 16:35 doxycycline AdvReac Mild gi upset Verified 10/29/23 16:35 codeine AdvReac Vomiting Verified 10/29/23 16:35 Sulfa (Sulfonamide AdvReac Hives Verified 10/29/23 16:35 Antibiotics) Family History Father Diabetes Mother Diabetes Hypertension Sister Hypertension Brother Diabetes Hypertension Surgical History History of esophagogastroduodenoscopy (EGD) History of lumpectomy of left breast (~12/2020) History of lumpectomy of right breast History of right breast biopsy Hx of cholecystectomy Hx of colonoscopy Hx of foot surgery Hx of shoulder surgery Social History Smoking Status: Former smoker Tobacco: How many years used: 2 alcohol intake: never substance use type: does not use caffeine: Yes what type of physical activity do you participate in: none frequency: does not exercise ROS <CALE Joshi - Last Filed: 10/29/23 22:00> ROS ED ROS Narrative Constitutional: Negative for fever, chills, malaise. CVS: Negative for chest pain. Respiratory: Negative for shortness of breath, cough, orthopnea. GI: Negative for abdominal pain, vomiting, diarrhea. EXAM <CALE Joshi - Last Filed: 10/29/23 22:00> Physical Exam Narrative Exam Narrative: CONST: Patient sitting in no acute distress. EYES: Normal inspection. NECK: Normal inspection. RESP: No respiratory distress, CTAB. CVS: Regular rate and rhythm, no murmur, no gallop. ABD: Slight firmness and pitting edema bilateral lower abdomen. SKIN: Color normal, no rash, warm, dry, intact. EXTREMITIES: 3+ pitting edema of entire lower extremities. Full range of motion, no skin changes, 2+ DP pulses. NEURO: Alert and answering questions appropriately. PSYCH: Normal affect. Const Vital Signs: 10/29/23 16:35 10/29/23 20:54 10/29/23 20:55 Temperature 97.1 F L Temperature Source Temporal Pulse Rate 83 70 Respiratory Rate 18 21 H Respiratory Effort Normal Non-Labored Respiratory Pattern Normal Blood Pressure 141/66 H 137/49 H Blood Pressure Mean 91 78 Pulse Ox 98 99 Oxygen Delivery Method Room Air Room Air 10/29/23 22:00 Temperature Temperature Source Pulse Rate 88 Respiratory Rate 18 Respiratory Effort Respiratory Pattern Blood Pressure 140/60 H Blood Pressure Mean 86 Pulse Ox 98 Oxygen Delivery Method Room Air <Dr. Chito Alvarenga DO - Last Filed: 10/29/23 23:02> Physical Exam Const Vital Signs: 10/29/23 16:35 10/29/23 20:54 10/29/23 20:55 Temperature 97.1 F L Temperature Source Temporal Pulse Rate 83 70 Respiratory Rate 18 21 H Respiratory Effort Normal Non-Labored Respiratory Pattern Normal Blood Pressure 141/66 H 137/49 H Blood Pressure Mean 91 78 Pulse Ox 98 99 Oxygen Delivery Method Room Air Room Air 10/29/23 22:00 Temperature Temperature Source Pulse Rate 88 Respiratory Rate 18 Respiratory Effort Respiratory Pattern Blood Pressure 140/60 H Blood Pressure Mean 86 Pulse Ox 98 Oxygen Delivery Method Room Air MDM <CALE Joshi - Last Filed: 10/29/23 22:00> [facility] MDM Narrative Medical decision making narrative: History gathered from: Patient, her PCP via phone report Patient reports worsening bilateral lower extremity edema now extending to her lower abdomen with a 20 pound weight gain over the last 10 days. She appears well and nontoxic. Afebrile and hemodynamically stable. She has pitting edema both eyes and mild firmness over lower abdomen. No significant ascites. Her lung sounds are clear. Labs show normal white count at 4.7, stable hemoglobin 11.2, and chronic thrombocytopenia at 100. She has normal electrolytes and renal function. Total bilirubin is minimally elevated at 1.5, AST 50, normal ALT at 29. There is chronic hypoalbuminemia. Lab Data Attestation: I reviewed the patient's lab results. Labs: Laboratory Results - last 24 hr 10/29/23 19:35 WBC 4.7 RBC 3.44 L Hgb 11.2 L Hct 34.7 L MCV 100.9 H MCH 32.6 H MCHC 32.3 RDW Std Deviation 54.4 H RDW Coeff of Harshil 14.7 H Plt Count 100 L MPV 10.9 Immature Gran % (Auto) 0.400 Neut % (Auto) 56.6 Lymph % (Auto) 29.9 Bath % (Auto) 8.3 Eos % (Auto) 4.2 Baso % (Auto) 0.6 Absolute Neuts (auto) 2.7 Absolute Lymphs (auto) 1.41 Nucleated RBC % 0 Sodium 143 Potassium 3.6 Chloride 110 H Carbon Dioxide 26.0 Anion Gap 7 BUN 10 Creatinine 0.84 Estim Creat Clear Calc 68.90 Est GFR (MDRD) Af Amer 86 Est GFR (MDRD) Non-Af 71 BUN/Creatinine Ratio 12.0 Glucose 185 H Calcium 8.9 Total Bilirubin 1.50 H AST 50 H ALT 29 Alkaline Phosphatase 29 L B-Natriuretic Peptide 71.1 Total Protein 6.9 Albumin 2.5 L Globulin 4.4 H Albumin/Globulin Ratio 0.6 L Radiography Diagnostic Testing: Clinical Impression(s) from Imaging Studies Chest X-Ray 10/29/23 20:00 IMPRESSION: Elevated right hemidiaphragm and mild right basilar atelectasis and minimal discoid atelectasis at left base Electronically Signed: David Oliva MD at 20:43 EDT , Abdomen/Pelvis CT 10/29/23 20:09 IMPRESSION: Findings consistent with hepatic cirrhosis, splenomegaly and changes of portal hypertension with diffuse mesenteric edema and large amount of abdominopelvic ascites as well as edematous changes in the subcutaneous fat consistent with anasarca possibly due to severe hepatic disease.. Findings which may be consistent with gastroduodenitis. Cannot definitively exclude intraluminal polypoid lesion in the duodenum. Clinical correlation recommended Electronically Signed: David Oliva MD at 22:00 EDT , EKG Initial EKG: Attestation: I personally reviewed and interpreted this EKG as follows: Interpretation: Sinus Rhythm and No Acute Injury Pattern Comments: Normal sinus rhythm at 67 bpm, nonspecific T wave abnormality, no acute ischemic changes <Dr. Chito Alvarenga, DO - Last Filed: 10/29/23 23:02> MDM History & Record Review Discussion w/independent historian: Patient and Family Additional record(s) reviewed:: Prior labs Lab Data Labs: Laboratory Results - last 24 hr 10/29/23 19:35 WBC 4.7 RBC 3.44 L Hgb 11.2 L Hct 34.7 L MCV 100.9 H MCH 32.6 H MCHC 32.3 RDW Std Deviation 54.4 H RDW Coeff of Harshil 14.7 H Plt Count 100 L MPV 10.9 Immature Gran % (Auto) 0.400 Neut % (Auto) 56.6 Lymph % (Auto) 29.9 Bath % (Auto) 8.3 Eos % (Auto) 4.2 Baso % (Auto) 0.6 Absolute Neuts (auto) 2.7 Absolute Lymphs (auto) 1.41 Nucleated RBC % 0 Sodium 143 Potassium 3.6 Chloride 110 H Carbon Dioxide 26.0 Anion Gap 7 BUN 10 Creatinine 0.84 Estim Creat Clear Calc 68.90 Est GFR (MDRD) Af Amer 86 Est GFR (MDRD) Non-Af 71 BUN/Creatinine Ratio 12.0 Glucose 185 H Calcium 8.9 Total Bilirubin 1.50 H AST 50 H ALT 29 Alkaline Phosphatase 29 L B-Natriuretic Peptide 71.1 Total Protein 6.9 Albumin 2.5 L Globulin 4.4 H Albumin/Globulin Ratio 0.6 L Radiography Diagnostic Testing: Clinical Impression(s) from Imaging Studies Chest X-Ray 10/29/23 20:00 IMPRESSION: Elevated right hemidiaphragm and mild right basilar atelectasis and minimal discoid atelectasis at left base Electronically Signed: David Oliva MD at 20:43 EDT , Abdomen/Pelvis CT 10/29/23 20:09 IMPRESSION: Findings consistent with hepatic cirrhosis, splenomegaly and changes of portal hypertension with diffuse mesenteric edema and large amount of abdominopelvic ascites as well as edematous changes in the subcutaneous fat consistent with anasarca possibly due to severe hepatic disease.. Findings which may be consistent with gastroduodenitis. Cannot definitively exclude intraluminal polypoid lesion in the duodenum. Clinical correlation recommended Electronically Signed: David Oliva MD at 22:00 EDT , Management Discussion w/another healthcare provider: Hospitalist and PCP (Dr. Rivera) Treatment and Re-Evaluation :: I have personally performed a face to face assessment of the patient and have reviewed the ALTON Note. I performed a substantive portion of the visit including all aspects of the following. My gonzalez findings include: History is 73-year-old female presenting to the emergency room with lower extremity edema into the abdomen. She notes recent weight gain. She has a history of Jaimes as well has moderate aortic stenosis and has not been evaluated by cardiology. Patient has been taking furosemide. She was sent by primary care who did call and speak with me. Exam: Patient with lower extremity edema abdominal exam with ascites. She is not hypoxic. She is not tachycardic. Systolic murmur. Medical Decison Making patient has ascites on CT as well as scalloped edge liver. She appears to have significant fluid in the soft tissue of the abdomen. Albumin 2.5 slightly elevated bilirubin. Platelet count is 100 with a hemoglobin 11.2 glucose 185. AST at 50 alk phos 29. Interpretation chest x-ray is linear atelectatic changes in the right lower lung. plan will be for admission. 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
[2023-10-29 19:53] LABS: Absolute Lymphocyte Count 1.41 X10^3/uL (0.83-4.51); Absolute Neutrophil Count 2.7 X10^3/uL (2.0-7.7); Basophil# 0.03 X10^3/uL; Basophil% 0.6 % (0-1); Eosinophils% 4.2 % (0-5); Hematocrit 34.7 % (37-47); Hemoglobin 11.2 g/dL (12.0-15.0); Lymphocyte # 1.41 X10^3/ul (0.83-4.51); Lymphocyte % 29.9 % (19-41); Mean Corp Hgb Conc 32.3 g/dL (32-36); Mean Corpuscular Hgb 32.6 pg (27.0-32.0); Mean Corpuscular Volume 100.9 fL (81-99); Mean Platelet Vol. 10.9 fl (6.2-12.0); Monocyte# 0.39 X10^3/uL; Monocyte% 8.3 % (0-10); NRBC Flagged by Analyzer 0 % (0-5); Neutrophil # 2.66 X10^3/uL (2.7-7.7); Neutrophil % 56.6 % (47-70); Platelet Count 100 K/mm3 (150-450); RBC Distribution Width CV 14.7 % (11.6-14.6); RBC Distribution Width SD 54.4 fl (35.1-43.9); Red Blood Count 3.44 M/mm3 (4.2-5.4); White Blood Count 4.7 K/mm3 (4.4-11.0)
--- NOTE | 2023-10-29 20:00 | RAD_ITS ---
STUDY: X-RAY CHEST REASON FOR EXAM: Female, 73 years old. edema TECHNIQUE: PA and lateral COMPARISON: None. FINDINGS: Elevated right hemidiaphragm and mild discoid atelectasis at the right base is also minimal discoid atelectasis in left lower lobe. There is no demonstrated pleural abnormality. Normal size heart. Normal mediastinum and ceci. Normal visualized pulmonary arteries. Normal visualized aortic arch and descending thoracic aorta. Surgical clips in the right axilla. Dorsal spine demonstrates mild degenerative change. Normal visualized ribs, clavicles, and shoulders. There is no demonstrated abnormality of the visualized soft tissue structures of the upper abdomen. RAD/Chest PA and Lateral IMPRESSION: Elevated right hemidiaphragm and mild right basilar atelectasis and minimal discoid atelectasis at left base Electronically Signed: David Oliva MD at 20:43 EDT ,
--- NOTE | 2023-10-29 20:09 | CT_ITS ---
STUDY: CT ABDOMEN AND PELVIS WITH CONTRAST REASON FOR EXAM: Female, 73 years old. edema, abdominal pain RADIATION DOSAGE (If Supplied By Facility): CTDIvol = ( 21.61 ) mGy, DLP = ( 1340.54 ) mGycm TECHNIQUE: Transaxial images were obtained from the dome of the diaphragm to the symphysis pubis without oral contrast. IV 100mL Isovue-370 was administered. Sagittal and coronal images were reconstructed. Individualized dose optimization techniques were used for this CT. COMPARISON: None. FINDINGS: The visualized lung bases are unremarkable. Heart size is normal. There is multivessel coronary artery calcification. There is asymmetric thickening of the skin of the left breast wall and increased parenchymal density which may be consistent with known carcinoma. However clinical correlation recommended in this regard (Multinodular appearance to the liver consistent with hepatic cirrhosis. No space-occupying lesions or dilated ducts. Gallbladder not visualized. There are small calcified structures in the gallbladder fossa possibly representing dropped calculi. There are mild gastroesophageal and other retroperitoneal venous collaterals consistent with portal hypertension. Spleen is enlarged There is tiny cyst in the upper pole and other smaller tiny hypoattenuated densities also likely cysts... Normal pancreas. Normal bilateral adrenal glands. There is diffuse mesenteric edema and large amount of ascites within the abdomen and pelvis. Normal right kidney. Normal left kidney. There is concentric thickening of the bernstein of the distal stomach and duodenum which demonstrates eccentric intraluminal projection possibly representing space-occupying lesion.. Normal small intestine. Diverticular changes of the colon without evidence for acute diverticulitis. There is no evidence for acute appendicitis. Atherosclerotic changes of the aorta without evidence for aneurysm. Normal inferior vena cava. Normal retroperitoneum. Poorly distended thick walled prolapsed bladder. Diffuse edematous changes are seen within the subcutaneous fat of the abdominal pelvic wall... Lumbar spine demonstrates mild spondylosis CT/Abdomen/Pelvis W IV Cont ONLY IMPRESSION: Findings consistent with hepatic cirrhosis, splenomegaly and changes of portal hypertension with diffuse mesenteric edema and large amount of abdominopelvic ascites as well as edematous changes in the subcutaneous fat consistent with anasarca possibly due to severe hepatic disease.. Findings which may be consistent with gastroduodenitis. Cannot definitively exclude intraluminal polypoid lesion in the duodenum. Clinical correlation recommended Electronically Signed: David Oliva MD at 22:00 EDT ,
[2023-10-29 20:15] LABS: ALB/GLOB Ratio 0.6 RATIO (0.9-2.4); AST(SGOT) 50 U/L (15-37); Alanine Aminotransfer ALT/SGPT 29 U/L (13-56); Albumin, Serum 2.5 g/dL (3.2-5.0); Alkaline Phosphatase 29 U/L (45-117); Anion Gap 7 (5-15); BUN 10 mg/dL (7-18); Calcium,Total 8.9 mg/dL (8.5-10.1); Chloride 110 mmol/L (98-107); Creatinine, Serum 0.84 mg/dL (0.55-1.02); EST Glomerular Filtration Rate 71 mL/min (>60); Est Glom Filt Rate - Afr Amer 86 mL/min (>60); Globulin 4.4 g/dL (2.2-4.2); Glucose 185 mg/dL (74-106); Potassium 3.6 mmol/L (3.5-5.1); Protein, Total 6.9 g/dL (6.4-8.2); Sodium Level 143 mmol/L (136-145)
[2023-10-29 20:25] LABS: BNP,B-Type NATRIURETIC PEPTIDE 71.1 pg/mL (0-100)
[2023-10-29 20:54] VITALS: BP 137/49; PULSE 70; RESP 21; O2SAT 99
[2023-10-29] MEDS: Furosemide 100 MG/10 ML Vial 60 MG IV (21:56)
[2023-10-29 22:00] VITALS: BP 140/60; PULSE 88; RESP 18; O2SAT 98
[2023-10-29 23:17] VITALS: BP 140/76; PULSE 84; RESP 18; TEMP 36.6; O2SAT 99
--- NOTE | 2023-10-29 23:18 | PCM.HP.STD ---
HPI - General General Date of Admission: 10/29/23 HPI Narrative JEANNINE OLSON, is a 73 F who presents to the hospital with increasing lower extremity edema that has been rising into her abdomen. She says that she started having edema about 3 years ago when she was on a cruise in [place] and she states that in 2000 she was diagnosed with Jaimes she states that she has had liver biopsies and the hepatitis panel but that was several years ago and she does not remember the results. She states that she has not had any significant workup for her JAIMES or follow-up since those studies. In the ER, her CBC was unremarkable, she did have a CMP that showed a total bilirubin of 1.5 with an AST of 50 and an ALT of 29, ammonia was 52 but there is no confusion associated with it, and her albumin is a little bit low to 2.5, renal function is normal. CT of the abdomen demonstrates hepatosplenomegaly with ascites and cirrhosis. 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 Mastitis Migraine headache Obesity (BMI 30.0-34.9) Osteopenia Pancytopenia Post-menopausal Postmenopausal Screening for osteoporosis Shortness of breath on exertion Syncope Thrombocytopenia Ulcer Wears glasses Home Medications Cinnamon Plus Chromium 500 mg PO QHS supplement 02/03/16 [History Last Taken 12/18/20 20:00] amlodipine 2.5 mg tablet 2.5 mg PO BID blood pressure 02/03/16 [History Last Taken 12/18/20 20:00] ascorbic acid (vitamin C) 1,000 mg tablet (Vitamin C With Jane Hips) 1,000 mg PO DAILY supplement 02/03/16 [History Last Taken 12/18/20 20:00] metformin 1,000 mg tablet 1,000 mg PO DAILY diabetes 02/03/16 [History Last Taken 12/18/20 20:00] multivitamin (Daily Multiple tablet) 1 ea PO DAILY supplement 02/03/16 [History Last Taken 12/18/20 20:00] glimepiride 4 mg tablet 4 mg PO DAILY diabetes 11/08/20 [History Last Taken 12/18/20 20:00] levothyroxine 112 mcg tablet 112 mcg PO DAILY thyroid 11/08/20 [History Last Taken 12/19/20 05:50] magnesium 200 mg tablet 200 mg PO DAILY 06/22/22 [History Last Taken Unknown] losartan 50 mg tablet 100 mg PO DAILY blood press 10/29/23 [History Last Taken Unknown] Allergy/AdvReac Type Severity Reaction Status Date / Time chlorhexidine Allergy Mild rash Verified 10/29/23 16:35 ciprofloxacin [From Cipro] Allergy unknown Verified 10/29/23 16:35 cephalexin [Cephalexin] AdvReac Mild gi upset Verified 10/29/23 16:35 doxycycline AdvReac Mild gi upset Verified 10/29/23 16:35 codeine AdvReac Vomiting Verified 10/29/23 16:35 Sulfa (Sulfonamide AdvReac Hives Verified 10/29/23 16:35 Antibiotics) Family History Father Diabetes Mother Diabetes Hypertension Sister Hypertension Brother Diabetes Hypertension Surgical History History of esophagogastroduodenoscopy (EGD) History of lumpectomy of left breast (~12/2020) History of lumpectomy of right breast History of right breast biopsy Hx of cholecystectomy Hx of colonoscopy Hx of foot surgery Hx of shoulder surgery Social History Smoking Status: Former smoker Tobacco: How many years used: 2 alcohol intake: never substance use type: does not use caffeine: Yes what type of physical activity do you participate in: none frequency: does not exercise ROS Constitutional Constitutional: Denies chills, fatigue, fever(s) or malaise Eyes Eyes: Denies blurry vision ENT HEENT: Denies headache(s) or nasal discharge Cardiovascular Cardiovascular: Reports edema; Denies chest pain, dyspnea on exertion or syncope Respiratory/Chest Respiratory/Chest: Denies cough, shortness of breath at rest or shortness of breath with exertion Gastrointestinal Gastrointestinal: Denies constipation, diarrhea, nausea or vomiting Genitourinary Genitourinary: Denies dysuria Neurologic Neurologic: Denies focal weakness, numbness or tremor(s) Psychiatric Psychiatric: Denies anxiety or depression Vital Signs Vital Signs Vital Signs: 10/29/23 16:35 10/29/23 20:54 10/29/23 20:55 Temperature 97.1 F L Temperature Source Temporal Pulse Rate 83 70 Respiratory Rate 18 21 H Respiratory Effort Normal Non-Labored Respiratory Pattern Normal Blood Pressure 141/66 H 137/49 H Blood Pressure Mean 91 78 Pulse Ox 98 99 Oxygen Delivery Method Room Air Room Air 10/29/23 22:00 Temperature Temperature Source Pulse Rate 88 Respiratory Rate 18 Respiratory Effort Respiratory Pattern Blood Pressure 140/60 H Blood Pressure Mean 86 Pulse Ox 98 Oxygen Delivery Method Room Air Weight Weight: 222 lb 6.4 oz Body Mass Index (BMI) 38.1 Physical Exam Narrative General: Alert, Oriented x3, Cooperative, No apparent distress HEENT: Atraumatic, PERRLA, EOMI, Normocephalic Oral: Moist Mucosa Neck: Supple, No JVD Lungs: Diminished, Normal air movement, No rhonchi, No wheeze, No rales Cardiovascular: Regular rate, Regular Rhythm, Normal S1, Normal S2, No murmurs Abdomen: Soft, Non Tender, Non-Distended, No Hepato-splenomegaly, dependent edema Extremities: Edema, Capillary Refill Less than 3 Seconds Skin: No rashes, No breakdown Musculoskeletal: No Tenderness to Palpation of Joints or Extremities Neurological: No focal neurological deficits, Motor Exam 5/5 strength throughout, Sensory exam intact to light touch and pain Psych/Mental Status: Normal Affect, Appropriate Results Lab / Micro Data 10/29/23 19:35 10/29/23 19:35 Labs: Laboratory Results - last 24 hr 10/29/23 19:35: WBC 4.7, RBC 3.44 L, Hgb 11.2 L, Hct 34.7 L, MCV 100.9 H, MCH 32.6 H, MCHC 32.3, RDW Std Deviation 54.4 H, RDW Coeff of Harshil 14.7 H, Plt Count 100 L, MPV 10.9, Immature Gran % (Auto) 0.400, Neut % (Auto) 56.6, Lymph % (Auto) 29.9, [place] % (Auto) 8.3, Eos % (Auto) 4.2, Baso % (Auto) 0.6, Absolute Neuts (auto) 2.7, Absolute Lymphs (auto) 1.41, Nucleated RBC % 0, Sodium 143, Potassium 3.6, Chloride 110 H, Carbon Dioxide 26.0, Anion Gap 7, BUN 10, Creatinine 0.84, Estim Creat Clear Calc 68.90, Est GFR (MDRD) Af Amer 86, Est GFR (MDRD) Non-Af 71, BUN/Creatinine Ratio 12.0, Glucose 185 H, Calcium 8.9, Total Bilirubin 1.50 H, AST 50 H, ALT 29, Alkaline Phosphatase 29 L, B-Natriuretic Peptide 71.1, Total Protein 6.9, Albumin 2.5 L, Globulin 4.4 H, Albumin/Globulin Ratio 0.6 L Imaging Radiology Impression Chest X-Ray 10/29/23 20:00 IMPRESSION: Elevated right hemidiaphragm and mild right basilar atelectasis and minimal discoid atelectasis at left base Electronically Signed: David Oliva MD at 20:43 EDT , Abdomen/Pelvis CT 10/29/23 20:09 IMPRESSION: Findings consistent with hepatic cirrhosis, splenomegaly and changes of portal hypertension with diffuse mesenteric edema and large amount of abdominopelvic ascites as well as edematous changes in the subcutaneous fat consistent with anasarca possibly due to severe hepatic disease.. Findings which may be consistent with gastroduodenitis. Cannot definitively exclude intraluminal polypoid lesion in the duodenum. 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 Decompensated cirrhosis with increasing edema and anasarca ? Will place her on Lasix and Aldactone ? Will obtain a hepatitis panel as well as an INR ? Will consult gastroenterology for more intensive outpatient management and intervention, she may need a repeat liver biopsy at their discretion ? Ammonia level is 52 she is not currently on any Xifaxan or lactulose 2. Essential HTN ? Blood pressure stable intromission resume her home losartan ? Will monitor renal function and make adjustments as she will be started on Lasix and spironolactone ? Will monitor blood pressures and make adjustments as necessary 3. Hypothyroidism ? Stable ? Continue with Synthroid 4. DM2 ? Will hold glyburide and metformin ? Sliding scale insulin ? Accu-Cheks ACHS ? Will monitor make adjustments as necessary DVT: Heparin 75 minutes was spent on direct patient care, including documentation as well as chart review and collaboration with colleagues Charges/Coding Visit Charges Inpatient E&M: 42269 Init Hosp L3
[2023-10-30] VITALS (7 sets, daily range): BP systolic 116–134; BP diastolic 41–48; PULSE 74–90; RESP 15–18; TEMP 36.8–37.2; O2SAT 93–99; BMI 37.5
[2023-10-30] MEDS: Heparin Injection (Vial) 5,000 UNIT/ML VIAL 5000 UNIT SC (06:18)
[2023-10-30 06:32] LABS: Absolute Lymphocyte Count 0.94 X10^3/uL (0.83-4.51); Absolute Neutrophil Count 2.2 X10^3/uL (2.0-7.7); Basophil# 0.01 X10^3/uL; Basophil% 0.3 % (0-1); Eosinophil# 0.17 X10^3/uL; Eosinophils% 4.7 % (0-5); Hematocrit 32.7 % (37-47); Hemoglobin 10.7 g/dL (12.0-15.0); Lymphocyte # 0.94 X10^3/ul (0.83-4.51); Lymphocyte % 25.8 % (19-41); Mean Corp Hgb Conc 32.7 g/dL (32-36); Mean Corpuscular Hgb 32.8 pg (27.0-32.0); Mean Corpuscular Volume 100.3 fL (81-99); Monocyte# 0.32 X10^3/uL; Monocyte% 8.8 % (0-10); NRBC Flagged by Analyzer 0 % (0-5); Neutrophil # 2.21 X10^3/uL (2.7-7.7); Neutrophil % 60.4 % (47-70); Platelet Count 103 K/mm3 (150-450); RBC Distribution Width CV 14.7 % (11.6-14.6); RBC Distribution Width SD 54.1 fl (35.1-43.9); Red Blood Count 3.26 M/mm3 (4.2-5.4); White Blood Count 3.7 K/mm3 (4.4-11.0)
[2023-10-30 06:45] LABS: Bedside Glucose 188 mg/dL (74-106)
[2023-10-30 06:50] LABS: International Normalized Ratio 1.5; Prothrombin Time (Protime)PT. 18.2 SECONDS (11.7-14.9)
[2023-10-30 07:07] LABS: ALB/GLOB Ratio 0.6 RATIO (0.9-2.4); AST(SGOT) 42 U/L (15-37); Alanine Aminotransfer ALT/SGPT 27 U/L (13-56); Albumin, Serum 2.2 g/dL (3.2-5.0); Alkaline Phosphatase 28 U/L (45-117); Anion Gap 5 (5-15); BUN 11 mg/dL (7-18); BUN/Creat Ratio 12.4 RATIO (10-20); Calcium,Total 8.1 mg/dL (8.5-10.1); Chloride 110 mmol/L (98-107); Creatinine, Serum 0.89 mg/dL (0.55-1.02); EST Glomerular Filtration Rate 66 mL/min (>60); Est Glom Filt Rate - Afr Amer 80 mL/min (>60); Estimated Creatinine Clearance 64.43 ml/min; Globulin 3.9 g/dL (2.2-4.2); Glucose 203 mg/dL (74-106); Potassium 3.1 mmol/L (3.5-5.1); Protein, Total 6.1 g/dL (6.4-8.2); Sodium Level 143 mmol/L (136-145)
--- NOTE | 2023-10-30 07:09 | PCM.PN.HOSP ---
Reason for Visit Reason for Visit: Diagnoses Unspecified cirrhosis of liver (10/29/23) Nonalcoholic steatohepatitis (STARK) (10/29/23) Localized edema (10/29/23) Subjective Subjective Patient is a 73-year-old lady bilateral lower extremity edema as well as abdominal distention. An assessment of decompensated cirrhosis of the liver made admitted to regular nursing floor for further management Objective Data Objective Data Vital Signs: Vital Signs Temp Pulse Resp BP Pulse Ox O2 Del Method 98.6 F 74 15 129/47 H 99 Room Air 10/30/23 00:45 10/30/23 00:45 10/30/23 06:37 10/30/23 00:45 10/30/23 00:45 10/30/23 00:45 Oxygen Delivery Method Room Air Weight: 99.2 kg Body Mass Index (BMI) 37.5 Intake & Output: Intake and Output for Last 24 Hours 10/28/23 10/29/23 10/30/23 23:59 23:59 23:59 Intake Total 100 / 100 Balance 100 / 100 Lab / Micro Data 10/30/23 05:23 10/30/23 05:23 Labs: Laboratory Results - last 24 hr 10/29/23 19:35: WBC 4.7, RBC 3.44 L, Hgb 11.2 L, Hct 34.7 L, MCV 100.9 H, MCH 32.6 H, MCHC 32.3, RDW Std Deviation 54.4 H, RDW Coeff of Harshil 14.7 H, Plt Count 100 L, MPV 10.9, Immature Gran % (Auto) 0.400, Neut % (Auto) 56.6, Lymph % (Auto) 29.9, [place] % (Auto) 8.3, Eos % (Auto) 4.2, Baso % (Auto) 0.6, Absolute Neuts (auto) 2.7, Absolute Lymphs (auto) 1.41, Nucleated RBC % 0, Sodium 143, Potassium 3.6, Chloride 110 H, Carbon Dioxide 26.0, Anion Gap 7, BUN 10, Creatinine 0.84, Estim Creat Clear Calc 68.90, Est GFR (MDRD) Af Amer 86, Est GFR (MDRD) Non-Af 71, BUN/Creatinine Ratio 12.0, Glucose 185 H, Calcium 8.9, Total Bilirubin 1.50 H, AST 50 H, ALT 29, Alkaline Phosphatase 29 L, B-Natriuretic Peptide 71.1, Total Protein 6.9, Albumin 2.5 L, Globulin 4.4 H, Albumin/Globulin Ratio 0.6 L 10/29/23 22:55: Ammonia 52.0 H 10/30/23 05:23: WBC 3.7 L, RBC 3.26 L, Hgb 10.7 L, Hct 32.7 L, MCV 100.3 H, MCH 32.8 H, MCHC 32.7, RDW Std Deviation 54.1 H, RDW Coeff of Harshil 14.7 H, Plt Count 103 L, MPV 11.0, Immature Gran % (Auto) 0.000, Neut % (Auto) 60.4, Lymph % (Auto) 25.8, [place] % (Auto) 8.8, Eos % (Auto) 4.7, Baso % (Auto) 0.3, Absolute Neuts (auto) 2.2, Absolute Lymphs (auto) 0.94, Nucleated RBC % 0, PT 18.2 H, INR 1.5, Sodium 143, Potassium 3.1 L, Chloride 110 H, Carbon Dioxide 28.0, Anion Gap 5, BUN 11, Creatinine 0.89, Estim Creat Clear Calc 64.43, Est GFR (MDRD) Af Amer 80, Est GFR (MDRD) Non-Af 66, BUN/Creatinine Ratio 12.4, Glucose 203 H, Calcium 8.1 L, Total Bilirubin 1.30 H, AST 42 H, ALT 27, Alkaline Phosphatase 28 L, Total Protein 6.1 L, Albumin 2.2 L, Globulin 3.9, Albumin/Globulin Ratio 0.6 L 10/30/23 06:25: POC Glucose 188 H Radiography Diagnostic Testing: Radiology Impression Chest X-Ray 10/29/23 20:00 IMPRESSION: Elevated right hemidiaphragm and mild right basilar atelectasis and minimal discoid atelectasis at left base Electronically Signed: David Oliva MD at 20:43 EDT , Abdomen/Pelvis CT 10/29/23 20:09 IMPRESSION: Findings consistent with hepatic cirrhosis, splenomegaly and changes of portal hypertension with diffuse mesenteric edema and large amount of abdominopelvic ascites as well as edematous changes in the subcutaneous fat consistent with anasarca possibly due to severe hepatic disease.. Findings which may be consistent with gastroduodenitis. Cannot definitively exclude intraluminal polypoid lesion in the duodenum. Clinical correlation recommended Electronically Signed: David Oliva MD at 22:00 EDT Reading Location ID and State: [facility] / [place] Tel , Service support , Physical Exam Narrative GENERAL: cooperative HEENT: Atraumatic; normocephalic EYES; Anicteric, Normal Conjunctiva NECK; supple, normal thyroid, RESPIRATORY: Diminished to auscultation CARDIOVASCULAR: Regular S1 S2, GI: soft, normoactive bowel sounds, abdominal distention : No Renal angle tenderness; EXTREMITIES: Bilateral pedal edema, no clubbing, MUSCULOSKELETAL: no muscle wasting NEURO: Awake; no lateralizing signs. SKIN: No Rash PSYCH; Flat affect Assessment & Plan Assessment/Plan (1) 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: (2) Bilateral edema of lower extremity: PLAN: Plan Patient is a 73-year-old lady bilateral lower extremity edema as well as abdominal distention. An assessment of decompensated cirrhosis of the liver made admitted to regular nursing floor for further management 1. Nonalcoholic fatty liver disease with hepatic cirrhosis ? Patient presented with increasing abdominal girth as well as bilateral lower extremity edema. CT of the abdomen and pelvis obtained did show Findings consistent with hepatic cirrhosis, splenomegaly and changes of portal hypertension with diffuse mesenteric edema and large amount of abdominopelvic ascites as well as edematous changes in the subcutaneous fat consistent with anasarca possibly due to severe hepatic disease. Findings which may be consistent with gastroduodenitis ? Patient admitted to regular nursing floor placed on fluid restriction as well as diuretic therapy. Hepatitis panel was obtained on admission with consultation placed to GI. Also ordered a 2D echo. Given patient history of breast cancer also ordered therapeutic and diagnostic paracentesis 2. Gastroduodenitis ? Based on CAT scan findings patient started on Protonix 3. History of bilateral breast CA ? Status postlumpectomy and radiation therapy. Patient currently in remission 4. Hypertension - Blood pressure controlled, home medications continued with dose adjustment as needed 5. Hypothyroidism - Patient is on levothyroxine home dose continued 6. Thrombocytopenia ? Secondary to patient chronic liver disease 7. Anemia - Secondary to chronic disorder monitoring H&H and transfuse if patient becomes symptomatic or hemoglobin falls below 7 8. Hypokalemia ? Corrected per protocol repeat labs ordered for monitoring 9. DVT prophylaxis ? Bilateral SCDs only given patient low platelet count Time spent in the patient's overall evaluation,decision-making process, review of diagnostic data, adjustment of management, discussion with other providers, nursing nursing and ancillary staff involved in patient's care documentation,52 Minutes Charges/Coding Visit Charges Inpatient E&M: [address]390 [place] [id number]
--- NOTE | 2023-10-30 07:53 | ECHOD_ITS ---
Reason For Study: CHF Procedure This was a 2D Doppler, Color Flow transthoracic echocardiogram. Exam performed portable in patient room. Left Ventricle Normal left ventricle. The estimated ejection fraction is 55-60 %. Right Ventricle Normal right ventricle. Normal systolic function. Atria The left atrium is moderately enlarged. Normal right atrium. Mitral Valve There is mild mitral annular calcification. Tricuspid Valve Normal tricuspid valve. Aortic Valve Moderate diffuse aortic valve calcification. Mild to moderate aortic stenosis. Peak aortic valve gradient 24.5 mmHg. Mean aortic valve gradient 14 mmHg. Calculated aortic valve area (continuity equation) is 1.8 cm2. Pulmonic Valve The pulmonic valve is not well visualized. Great Vessels Normal aortic root. Pericardium/Pleural No pericardial effusion. MMode/2D Measurements & Calculations LVIDd: 3.5 cm IVSd: 1.1 cm LVOT diam: 2.1 cm LVIDs: 2.2 cm LVPWd: 1.0 cm LVOT area: 3.5 cm2 RVDd: 3.2 cm FS: 37.9 % Ao root diam: 2.9 cm LAV(MOD-bp): 63.0 ml LVAd ap4: 20.3 cm2 LAV(MOD-bp) Indexed: 31.0 ml/m2 LVLd ap4: 7.6 cm LAV(MOD-sp2): 63.8 ml EDV(MOD-sp4): 45.1 ml LAV(MOD-sp4): 60.9 ml EDV(sp4-el): 46.1 ml LVAs ap4: 10.1 cm2 LVLs ap4: 6.0 cm ESV(MOD-sp4): 14.7 ml ESV(sp4-el): 14.2 ml EF(MOD-sp4): 67.4 % EF(sp4-el): 69.2 % SV(MOD-sp4): 30.4 ml SV(sp4-el): 31.9 ml LA A4 area: 21.1 cm2 LA dimension(2D): 4.0 cm RA A4 area: 10.0 cm2 TAPSE: 1.9 cm Time Measurements MV dec time: 0.20 sec Doppler Measurements & Calculations MV E max prabhjot: 72.0 cm/sec Lat Peak E' Prabhjot: 16.6 cm/sec Med Peak E' Prabhjot: 7.4 cm/sec MV A max prabhjot: 84.3 cm/sec E/E' lat: 4.3 E/E' med: 9.7 MV E/A: 0.85 Ao V2 max: 247.2 cm/sec LV V1 max: 115.5 cm/sec MV dec slope: 359.9 cm/sec2 Ao max P.5 mmHg LV V1 max P.3 mmHg Ao V2 mean: 176.1 cm/sec LV V1 mean P.3 mmHg Ao mean P.0 mmHg LV V1 mean: 86.8 cm/sec Ao V2 VTI: 50.7 cm LV V1 VTI: 25.8 cm AV (velocity ratio): 0.51 HARJINDER(I,D): 1.8 cm2 HARJINDER(V,D): 1.6 cm2 SV(LVOT): 89.6 ml PA V2 max: 102.8 cm/sec TR max prabhjot: 226.0 cm/sec TR max P.4 mmHg ECHO/Echo Complete Interpretation Summary The estimated ejection fraction is 55-60 %. Normal LV systolic function Peak aortic valve gradient 24.5 mmHg Mean aortic valve gradient 14 mmHg. Calculated aortic valve area (continuity equation) is 1.8 cm2. No prior echocar diogram to compare. Ordering Physician: Johnnie Vargas Referring Physician: Oscar Rivera Performed By: Jenna Presley, MICHELLE, RVT
[2023-10-30] MEDS: Potassium Chloride Oral Tablet 20 MEQ 40 MEQ PO (09:07)
[2023-10-30] MEDS: Spironolactone 25 MG Tablet PO (09:08)
[2023-10-30] MEDS: 0.9% Saline Lock 10 ML Syringe IV ×2 (09:09→13:15)
[2023-10-30] MEDS: Furosemide 40 MG/4 ML Vial IV ×3 (09:09→21:29)
[2023-10-30 09:12] LABS: BNP,B-Type NATRIURETIC PEPTIDE 69.9 pg/mL (0-100)
--- NOTE | 2023-10-30 10:36 | CASEMGMT ---
RN MARIO Assessment: Face to Face with pt for initial transition planning/care coordination assessment. RN CM introduced self and role at [facility], pt voices understanding and consents to assessment. Pt is A&O x4, resting in bed, and answers all questions appropriately at this time. Care providers, pharmacy, and demographics verified/updated. 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 Pt does have a basement with a full flight of stairs, pt reports she does not go into the basement often but does not have any difficulty navigating the stairs. Pt is independent with ADLs and IADLs. Transportation: Pt drives self and denies concerns with transportation. DME: None HHC/SNF: No History Pt states no concerns with going home at time of dc. Pt states no further concerns/needs. CM to follow. Advised pt to ask CM if any further question/concerns/needs arise, voices understanding. Pt Goal: Home Plan: Home with no needs Sally GREWAL, RN, CCM
[2023-10-30 12:02] LABS: Bedside Glucose 200 mg/dL (74-106)
[2023-10-30] MEDS: Insulin Lispro 100 UNIT/ML INSULN.PEN SC ×3 (13:13→21:33)
[2023-10-30 17:29] LABS: Bedside Glucose 279 mg/dL (74-106)
[2023-10-30] MEDS: Levothyroxine 112 MCG Tablet PO (18:54)
[2023-10-30 21:54] LABS: Bedside Glucose 263 mg/dL (74-106)
[2023-10-31] VITALS (7 sets, daily range): BP systolic 119–135; BP diastolic 38–51; PULSE 81–98; RESP 15–18; TEMP 36.5–37.5; O2SAT 95–97; BMI 36.6
[2023-10-31 05:55] LABS: Absolute Lymphocyte Count 1.07 X10^3/uL (0.83-4.51); Absolute Neutrophil Count 1.8 X10^3/uL (2.0-7.7); Basophil# 0.02 X10^3/uL; Basophil% 0.6 % (0-1); Eosinophil# 0.19 X10^3/uL; Eosinophils% 5.4 % (0-5); Hematocrit 31.1 % (37-47); Lymphocyte # 1.07 X10^3/ul (0.83-4.51); Lymphocyte % 30.4 % (19-41); Mean Corp Hgb Conc 32.2 g/dL (32-36); Mean Corpuscular Hgb 32.6 pg (27.0-32.0); Mean Corpuscular Volume 101.3 fL (81-99); Mean Platelet Vol. 10.9 fl (6.2-12.0); Monocyte# 0.42 X10^3/uL; Monocyte% 11.9 % (0-10); NRBC Flagged by Analyzer 0 % (0-5); Neutrophil # 1.81 X10^3/uL (2.7-7.7); Neutrophil % 51.4 % (47-70); POSITIVE COUNT YES; Platelet Count 97 K/mm3 (150-450); RBC Distribution Width CV 14.6 % (11.6-14.6); RBC Distribution Width SD 54.2 fl (35.1-43.9); Red Blood Count 3.07 M/mm3 (4.2-5.4); White Blood Count 3.5 K/mm3 (4.4-11.0)
[2023-10-31 06:06] LABS: International Normalized Ratio 1.4; Prothrombin Time (Protime)PT. 17.4 SECONDS (11.7-14.9)
[2023-10-31 06:16] LABS: ALB/GLOB Ratio 0.6 RATIO (0.9-2.4); AST(SGOT) 37 U/L (15-37); Alanine Aminotransfer ALT/SGPT 23 U/L (13-56); Albumin, Serum 2.2 g/dL (3.2-5.0); Alkaline Phosphatase 24 U/L (45-117); Anion Gap 6 (5-15); BUN 11 mg/dL (7-18); BUN/Creat Ratio 14.2 RATIO (10-20); Calcium,Total 8.2 mg/dL (8.5-10.1); Chloride 110 mmol/L (98-107); Creatinine, Serum 0.78 mg/dL (0.55-1.02); EST Glomerular Filtration Rate 77 mL/min (>60); Est Glom Filt Rate - Afr Amer 93 mL/min (>60); Estimated Creatinine Clearance 70.97 ml/min; Globulin 3.9 g/dL (2.2-4.2); Glucose 193 mg/dL (74-106); Magnesium 1.2 mg/dL (1.6-2.6); Phosphorus 2.8 mg/dL (2.5-4.9); Potassium 3.1 mmol/L (3.5-5.1); Protein, Total 6.1 g/dL (6.4-8.2); Sodium Level 142 mmol/L (136-145)
[2023-10-31] MEDS: Furosemide 40 MG/4 ML Vial IV ×2 (06:33→14:39)
[2023-10-31] MEDS: Levothyroxine 112 MCG Tablet PO (06:33)
[2023-10-31] MEDS: 0.9% Saline Lock 10 ML Syringe IV ×3 (06:33→18:58)
[2023-10-31] MEDS: Insulin Lispro 100 UNIT/ML INSULN.PEN SC ×4 (06:42→22:05)
[2023-10-31 07:03] LABS: Bedside Glucose 166 mg/dL (74-106)
--- NOTE | 2023-10-31 07:31 | PCM.PN.HOSP ---
Reason for Visit Reason for Visit: Diagnoses Unspecified cirrhosis of liver (10/29/23) Nonalcoholic steatohepatitis (STARK) (10/29/23) Localized edema (10/29/23) Subjective Subjective Patient seen significant response to diuretic therapy. Objective Data Objective Data Vital Signs: Vital Signs Temp Pulse Resp BP Pulse Ox O2 Del Method 98.0 F 85 15 135/47 H 97 Room Air 10/31/23 04:00 10/31/23 04:00 10/31/23 05:00 10/31/23 04:00 10/31/23 04:00 10/31/23 05:00 Oxygen Delivery Method Room Air Weight: 97.4 kg Body Mass Index (BMI) 36.6 Intake & Output: Intake and Output for Last 24 Hours 10/29/23 10/30/23 10/31/23 23:59 23:59 23:59 Intake Total 650 / 850 200 / 200 Output Total 1650 / 2250 1000 / 1000 Balance -1000 / -1400 -800 / -800 Lab / Micro Data 10/31/23 05:13 10/31/23 05:13 Labs: Laboratory Results - last 24 hr 10/30/23 05:23: B-Natriuretic Peptide 69.9 10/30/23 11:44: POC Glucose 200 H 10/30/23 16:52: POC Glucose 279 H 10/30/23 21:31: POC Glucose 263 H 10/31/23 05:13: WBC 3.5 L, RBC 3.07 L, Hgb 10.0 L, Hct 31.1 L, MCV 101.3 H, MCH 32.6 H, MCHC 32.2, RDW Std Deviation 54.2 H, RDW Coeff of Harshil 14.6, Plt Count 97 L, MPV 10.9, Immature Gran % (Auto) 0.300, Neut % (Auto) 51.4, Lymph % (Auto) 30.4, [place] % (Auto) 11.9 H, Eos % (Auto) 5.4 H, Baso % (Auto) 0.6, Absolute Neuts (auto) 1.8 L, Absolute Lymphs (auto) 1.07, Nucleated RBC % 0, PT 17.4 H, INR 1.4, Sodium 142, Potassium 3.1 L, Chloride 110 H, Carbon Dioxide 26.0, Anion Gap 6, BUN 11, Creatinine 0.78, Estim Creat Clear Calc 70.97, Est GFR (MDRD) Af Amer 93, Est GFR (MDRD) Non-Af 77, BUN/Creatinine Ratio 14.2, Glucose 193 H, Calcium 8.2 L, Phosphorus 2.8, Magnesium 1.2 L, Total Bilirubin 1.60 H, AST 37, ALT 23, Alkaline Phosphatase 24 L, Total Protein 6.1 L, Albumin 2.2 L, Globulin 3.9, Albumin/Globulin Ratio 0.6 L 10/31/23 06:41: POC Glucose 166 H Radiography Diagnostic Testing: Radiology Impression Echocardiogram 10/30/23 07:53 Interpretation Summary The estimated ejection fraction is 55-60 %. Normal LV systolic function Peak aortic valve gradient 24.5 mmHg Mean aortic valve gradient 14 mmHg. Calculated aortic valve area (continuity equation) is 1.8 cm2. No prior echocardiogram to compare. Ordering Physician: Johnnie Vargas Referring Physician: Oscar Rivera Performed By: Jenna Presley RDCS, RVT Physical Exam Narrative GENERAL: cooperative HEENT: Atraumatic; normocephalic EYES; Anicteric, Normal Conjunctiva NECK; supple, normal thyroid, RESPIRATORY: Diminished to auscultation CARDIOVASCULAR: Regular S1 S2, GI: soft, normoactive bowel sounds, abdominal distention : No Renal angle tenderness; EXTREMITIES: Bilateral pedal edema, no clubbing, MUSCULOSKELETAL: no muscle wasting NEURO: Awake; no lateralizing signs. SKIN: No Rash PSYCH; Flat affect Assessment & Plan Assessment/Plan (1) 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: (2) Bilateral edema of lower extremity: PLAN: Plan Patient is a 73-year-old lady bilateral lower extremity edema as well as abdominal distention. An assessment of decompensated cirrhosis of the liver made admitted to regular nursing floor for further management 1. Nonalcoholic fatty liver disease with hepatic cirrhosis ? Patient presented with increasing abdominal girth as well as bilateral lower extremity edema. CT of the abdomen and pelvis obtained did show Findings consistent with hepatic cirrhosis, splenomegaly and changes of portal hypertension with diffuse mesenteric edema and large amount of abdominopelvic ascites as well as edematous changes in the subcutaneous fat consistent with anasarca possibly due to severe hepatic disease. Findings which may be consistent with gastroduodenitis ? Patient admitted to regular nursing floor placed on fluid restriction as well as diuretic therapy. Hepatitis panel was obtained on admission with consultation placed to GI. Also ordered a 2D echo. Given patient history of breast cancer also ordered therapeutic and diagnostic paracentesis 10/31/2023 scheduled to undergo ultrasound-guided paracentesis in a.m. 2. Acute congestive heart failure with preserved ejection fraction ? 2D echo demonstrated EF of 55 to 60%. Patient responded to diuretic therapy 3. Hypokalemia ? Secondary to diuretic therapy corrected per protocol repeat labs ordered for a.m. 4. Hypomagnesemia ? Corrected per protocol repeat labs ordered for a.m. - Blood pressure controlled, home medications continued with dose adjustment as needed 5. Hypothyroidism - Patient is on levothyroxine home dose continued 6. Thrombocytopenia ? Secondary to patient chronic liver disease 7. Anemia - Secondary to chronic disorder monitoring H&H and transfuse if patient becomes symptomatic or hemoglobin falls below 7 8. Gastroduodenitis ? Based on CAT scan findings patient started on Protonix 9. History of bilateral breast CA ? Status postlumpectomy and radiation therapy. Patient currently in remission 10. Hypertension - Blood pressure controlled, home medications continued with dose adjustment as needed 11.. DVT prophylaxis ? Bilateral SCDs only given patient low platelet count Time spent in the patient's overall evaluation,decision-making process, review of diagnostic data, adjustment of management, discussion with other providers, nursing nursing and ancillary staff involved in patient's care documentation, 38 minutes Charges/Coding Visit Charges Inpatient E&M: 44993 Subs Hosp L2
[2023-10-31] MEDS: Potassium Chloride Oral Tablet 20 MEQ 40 MEQ PO (09:55)
[2023-10-31] MEDS: Potassium Chloride Oral Tablet 20 MEQ PO ×2 (09:56→16:45)
[2023-10-31] MEDS: Magnesium Sulfate 4gm/100mL 4 GM/100 ML IV.SOLN. IV (09:56)
[2023-10-31] MEDS: amLODIPine 2.5 MG Tablet PO (10:16)
[2023-10-31] MEDS: Spironolactone 25 MG Tablet PO (10:17)
[2023-10-31] MEDS: Losartan Potassium 100 MG Tablet PO (10:17)
[2023-10-31] MEDS: Magnesium Chloride 64 MG Delay Rel.Tablet 128 MG PO (10:17)
[2023-10-31 12:03] LABS: Bedside Glucose 258 mg/dL (74-106)
[2023-10-31 12:07] LABS: HEPATITIS B SURFACE AG Negative (Negative); Hep C Antibodies Non Reactive (Non Reactive); Hepatitis A IgM Antibody Negative (Negative); Hepatitis B Core AB IgM Negative (Negative)
[2023-10-31 13:00] LABS: Ferritin 138 ng/mL (8-252); Iron 68 ug/dL (50-170); Iron Binding Capacity,Total 168 ug/dL (250-450)
--- NOTE | 2023-10-31 16:28 | EX.PCM.CON.G ---
HPI Consult Data Date of Consult: 10/31/23 HPI Narrative Reason for Consultation: cirrhosis HPI Narrative: JEANNINE OLSON, is a 73 F who presents to the hospital with increasing lower extremity edema that has been rising into her abdomen. She says that she started having edema about 3 years ago when she was on a cruise in [place] and she states that in 2000 she was diagnosed with Jaimes she states that she has had liver biopsies and the hepatitis panel but that was several years ago and she does not remember the results. She states that she has not had any significant workup for her JAIMES or follow-up since those studies. In the ER, her CBC was unremarkable, she did have a CMP that showed a total bilirubin of 1.5 with an AST of 50 and an ALT of 29, ammonia was 52 but there is no confusion associated with it, and her albumin is a little bit low to 2.5, renal function is normal. CT of the abdomen/Pelvis: Findings consistent with hepatic cirrhosis, splenomegaly and changes of portal hypertension with diffuse mesenteric edema and large amount of abdominopelvic ascites as well as edematous changes in the subcutaneous fat consistent with anasarca possibly due to severe hepatic disease.. Findings which may be consistent with gastroduodenitis. Cannot definitively exclude intraluminal polypoid lesion in the duodenum. MRI of the abdomen pelvis 2021: No evidence of hepatic masses seen. Nodular liver demonstrates decreased size consistent with stenosis Splenomegaly demonstrating increase in size. Increase in size of the peritoneal collateral vessels in comparison to the prior study. [facility] Medical History (Updated 10/30/23 @ 00:47 by Gladys Ambriz) Abnormal mammogram of right breast Anxiety Back pain Cancer Cirrhosis Diabetes Diabetes mellitus, type II Edema Former smoker GERD (gastroesophageal reflux disease) History of breast cancer History of ventral hernia Hx of cardiovascular stress test Hyperlipidemia Hypertension Hypothyroidism Injury of back Liver cirrhosis secondary to JAIMES Mastitis Migraine headache Obesity (BMI 30.0-34.9) Osteopenia Pancytopenia Post-menopausal Postmenopausal Screening for osteoporosis Shortness of breath on exertion Syncope Thrombocytopenia Ulcer Wears glasses Home Medications Cinnamon Plus Chromium 500 mg PO QHS supplement 02/03/16 [History Last Taken 12/18/20 20:00] amlodipine 2.5 mg tablet 2.5 mg PO BID blood pressure 02/03/16 [History Last Taken 12/18/20 20:00] ascorbic acid (vitamin C) 1,000 mg tablet (Vitamin C With Jane Hips) 1,000 mg PO DAILY supplement 02/03/16 [History Last Taken 12/18/20 20:00] metformin 1,000 mg tablet 1,000 mg PO DAILY diabetes 02/03/16 [History Last Taken 12/18/20 20:00] multivitamin (Daily Multiple tablet) 1 ea PO DAILY supplement 02/03/16 [History Last Taken 12/18/20 20:00] glimepiride 4 mg tablet 4 mg PO DAILY diabetes 11/08/20 [History Last Taken 12/18/20 20:00] levothyroxine 112 mcg tablet 112 mcg PO DAILY thyroid 11/08/20 [History Last Taken 12/19/20 05:50] magnesium 200 mg tablet 200 mg PO DAILY 06/22/22 [History Last Taken Unknown] losartan 50 mg tablet 100 mg PO DAILY blood press 10/29/23 [History Last Taken Unknown] Allergy/AdvReac Type Severity Reaction Status Date / Time chlorhexidine Allergy Mild rash Verified 10/29/23 16:35 ciprofloxacin [From Cipro] Allergy unknown Verified 10/29/23 16:35 cephalexin [Cephalexin] AdvReac Mild gi upset Verified 10/29/23 16:35 doxycycline AdvReac Mild gi upset Verified 10/29/23 16:35 codeine AdvReac Vomiting Verified 10/29/23 16:35 Sulfa (Sulfonamide AdvReac Hives Verified 10/29/23 16:35 Antibiotics) Family History Father Diabetes Mother Diabetes Hypertension Sister Hypertension Brother Diabetes Hypertension Surgical History History of esophagogastroduodenoscopy (EGD) History of lumpectomy of left breast (~12/2020) History of lumpectomy of right breast History of right breast biopsy Hx of cholecystectomy Hx of colonoscopy Hx of foot surgery Hx of shoulder surgery Social History Smoking Status: Former smoker Tobacco: How many years used: 2 alcohol intake: never substance use type: does not use caffeine: Yes what type of physical activity do you participate in: none frequency: does not exercise ROS Constitutional Constitutional: Denies chills, fatigue, fever(s) or malaise Eyes Eyes: Denies blurry vision ENT HEENT: Denies headache(s) or nasal discharge Cardiovascular Cardiovascular: Reports edema; Denies chest pain, dyspnea on exertion or syncope Respiratory/Chest Respiratory/Chest: Denies cough, shortness of breath at rest or shortness of breath with exertion Gastrointestinal Gastrointestinal: Denies constipation, diarrhea, nausea or vomiting Genitourinary Genitourinary: Denies dysuria Neurologic Neurologic: Denies focal weakness, numbness or tremor(s) Psychiatric Psychiatric: Denies anxiety or depression Physical Exam Narrative GENERAL: cooperative HEENT: Atraumatic; normocephalic EYES; Anicteric, Normal Conjunctiva NECK; supple, normal thyroid, RESPIRATORY: Diminished to auscultation CARDIOVASCULAR: Regular S1 S2, GI: soft, normoactive bowel sounds, abdominal distention : No Renal angle tenderness; EXTREMITIES: Bilateral pedal edema, no clubbing, MUSCULOSKELETAL: no muscle wasting NEURO: Awake; no lateralizing signs. SKIN: No Rash PSYCH; Flat affect Lab / Micro Data 10/31/23 05:13 10/31/23 05:13 Labs: Laboratory Results - last 24 hr 10/30/23 05:23: Hepatitis A IgM Ab Negative, Hep Bs Antigen Negative, Hep B Core IgM Ab Negative, Hepatitis C Ab (EIA) Non Reactive, Hep C Ab Comment Comment 10/30/23 16:52: POC Glucose 279 H 10/30/23 21:31: POC Glucose 263 H 10/31/23 05:13: WBC 3.5 L, RBC 3.07 L, Hgb 10.0 L, Hct 31.1 L, MCV 101.3 H, MCH 32.6 H, MCHC 32.2, RDW Std Deviation 54.2 H, RDW Coeff of Harshil 14.6, Plt Count 97 L, MPV 10.9, Immature Gran % (Auto) 0.300, Neut % (Auto) 51.4, Lymph % (Auto) 30.4, [place] % (Auto) 11.9 H, Eos % (Auto) 5.4 H, Baso % (Auto) 0.6, Absolute Neuts (auto) 1.8 L, Absolute Lymphs (auto) 1.07, Nucleated RBC % 0, PT 17.4 H, INR 1.4, Sodium 142, Potassium 3.1 L, Chloride 110 H, Carbon Dioxide 26.0, Anion Gap 6, BUN 11, Creatinine 0.78, Estim Creat Clear Calc 70.97, Est GFR (MDRD) Af Amer 93, Est GFR (MDRD) Non-Af 77, BUN/Creatinine Ratio 14.2, Glucose 193 H, Calcium 8.2 L, Phosphorus 2.8, Magnesium 1.2 L, Iron 68, TIBC 168 L, Ferritin 138, Total Bilirubin 1.60 H, AST 37, ALT 23, Alkaline Phosphatase 24 L, Total Protein 6.1 L, Albumin 2.2 L, Globulin 3.9, Albumin/Globulin Ratio 0.6 L, Folate 19.90 10/31/23 06:41: POC Glucose 166 H 10/31/23 11:45: POC Glucose 258 H Assessment & Plan Assessment/Plan (1) Liver cirrhosis secondary to JAIMES: (2) Bilateral edema of lower extremity: PLAN: Plan 73-year-old with type 2 diabetes, breast cancer x 2 with diagnosis of cirrhosis (MELD of 14, child [place] class B) complicated by anemia, splenomegaly and thrombocytopenia presumed Decompensated cirrhosis with increasing edema and anasarca ? She is responding very well to Lasix and Aldactone ? Will obtain a workup for autoimmune hepatitis, infiltrative disease such as hemochromatosis amyloidosis sarcoidosis as a cause of her underlying liver disease ? Agree with checking INR ? Ammonia level is 52 she is not currently on any Xifaxan or lactulose -- No more than 250 mg of sodium per day -- Check alpha-fetoprotein for hepatocellular carcinoma -- Avoid NSAIDs -- Check viral hepatitis labs -- Strict glucose control Abnormal CT scan of the abdomen pelvis showing possibly some in the duodenum. The differential diagnosis would be duodenal varices, peptic ulcer disease, duodenal mass, metastatic breast cancer ?She will undergo EGD tomorrow Charges/Coding Visit Charges Inpatient E&M: 71248 Init Hosp L3
[2023-10-31 16:32] LABS: Bedside Glucose 307 mg/dL (74-106)
[2023-10-31] MEDS: Spironolactone 25 MG Tablet 50 MG PO (18:58)
[2023-10-31] MEDS: Bumetanide 1 MG/4 ML Vial IV (18:58)
[2023-10-31 22:29] LABS: Bedside Glucose 344 mg/dL (74-106)
[2023-11-01] VITALS (14 sets, daily range): BP systolic 85–131; BP diastolic 32–54; PULSE 79–97; RESP 15–18; TEMP 36.8–37.4; O2SAT 93–99; BMI 36.6; BMI 36.8
--- NOTE | 2023-11-01 | FLU_PTH ---
PATIENT: JEANNINE OLSON LOC: MS3 U#:[id number] AGE/SX: 73/F ROOM: [facility] RE10/29/[address]: Dr. Bladimir Westfall MD : 1950 BED: 1 DIS: 11/02/2023 SPEC #: [id number] RECD: 11/01/23 13:09 STATUS: RONEY REQ #: [id number] ANNAMARIE: 11/01/23 00:[address]: Bladimir Westfall DEPT: CYTOLOGY RECD BY: Carrol Lundberg ENTERED: 11/01/23 13:39 SP TYPE: Fluid OTHR DR: MD Dr. Catracho Juarez MD Dr. Rahsaan Friend, DO Dr. William Lago, MD Tissues: PARACENTESIS FLUID Procedures: Special Stain Group II Surgery Specimen Level IV Cytospin Fluid HEADER OPERATION: Ultrasound guided paracentesis PRE-OP DIAGNOSIS: Decompensated cirrhosis with edema TISSUE SUBMITTED: Paracentesis fluid for cytology DIAGNOSIS CYTOLOGY Paracentesis fluid for cytology (cytospin and cellblock): Negative for malignant cells. See comment. RUTHIE/ 11/02/2023 COMMENT Clinical correlation and appropriate follow up are necessary. CYTOLOGY STUDY Slides are reviewed. CYTOLOGY GROSS Received is 85 ml of yellow-cloudy fluid labeled with the patient's name and and designated per the requisition as Paracentesis fluid. Submitted for cytology preparation including cell block. mr 11/01/2023 TC:5 CPT: 11162,44759
[2023-11-01 05:48] LABS: Absolute Lymphocyte Count 0.81 X10^3/uL (0.83-4.51); Absolute Neutrophil Count 2.5 X10^3/uL (2.0-7.7); Basophil# 0.02 X10^3/uL; Basophil% 0.5 % (0-1); Eosinophil# 0.14 X10^3/uL; Eosinophils% 3.6 % (0-5); Hemoglobin 9.5 g/dL (12.0-15.0); Lymphocyte # 0.81 X10^3/ul (0.83-4.51); Lymphocyte % 20.8 % (19-41); Mean Corp Hgb Conc 31.7 g/dL (32-36); Mean Corpuscular Hgb 32.4 pg (27.0-32.0); Mean Corpuscular Volume 102.4 fL (81-99); Mean Platelet Vol. 10.9 fl (6.2-12.0); Monocyte# 0.46 X10^3/uL; Monocyte% 11.8 % (0-10); NRBC Flagged by Analyzer 0 % (0-5); Neutrophil # 2.46 X10^3/uL (2.7-7.7); POSITIVE COUNT YES; Platelet Count 87 K/mm3 (150-450); RBC Distribution Width CV 14.6 % (11.6-14.6); RBC Distribution Width SD 55.3 fl (35.1-43.9); Red Blood Count 2.93 M/mm3 (4.2-5.4); White Blood Count 3.9 K/mm3 (4.4-11.0)
[2023-11-01 06:30] LABS: International Normalized Ratio 1.5; Phosphorus 2.9 mg/dL (2.5-4.9); Prothrombin Time (Protime)PT. 17.9 SECONDS (11.7-14.9)
[2023-11-01 06:31] LABS: Partial Thromboplast Time 32.9 Seconds (24.1-36.2)
[2023-11-01 06:35] LABS: ALB/GLOB Ratio 0.5 RATIO (0.9-2.4); AST(SGOT) 36 U/L (15-37); Alanine Aminotransfer ALT/SGPT 23 U/L (13-56); Albumin, Serum 2.2 g/dL (3.2-5.0); Alkaline Phosphatase 28 U/L (45-117); Anion Gap 7 (5-15); BUN 15 mg/dL (7-18); BUN/Creat Ratio 11.3 RATIO (10-20); Bilirubin, Direct 0.67 mg/dL (0.00-0.30); Calcium,Total 8.3 mg/dL (8.5-10.1); Chloride 109 mmol/L (98-107); Creatinine, Serum 1.33 mg/dL (0.55-1.02); EST Glomerular Filtration Rate 42 mL/min (>60); Est Glom Filt Rate - Afr Amer 50 mL/min (>60); Estimated Creatinine Clearance 42.69 ml/min; Globulin 4.1 g/dL (2.2-4.2); Glucose 271 mg/dL (74-106); Magnesium 1.8 mg/dL (1.6-2.6); Potassium 3.6 mmol/L (3.5-5.1); Protein, Total 6.3 g/dL (6.4-8.2); Sodium Level 142 mmol/L (136-145); Thyroid Stim Hormone (TSH) 5.64 uIU/mL (0.358-3.74)
[2023-11-01 07:02] LABS: Bedside Glucose 232 mg/dL (74-106)
[2023-11-01 07:39] LABS: Hemoglobin A1c 7.7 % (3.8-5.6)
[2023-11-01] MEDS: amLODIPine 2.5 MG Tablet PO (09:53)
[2023-11-01] MEDS: Magnesium Chloride 64 MG Delay Rel.Tablet 128 MG PO (09:53)
[2023-11-01] MEDS: Spironolactone 25 MG Tablet 50 MG PO ×2 (09:53→21:27)
[2023-11-01] MEDS: 0.9% Saline Lock 10 ML Syringe IV ×2 (09:54→18:07)
[2023-11-01] MEDS: Losartan Potassium 100 MG Tablet PO (09:54)
[2023-11-01] MEDS: Bumetanide 1 MG/4 ML Vial IV ×2 (09:55→18:06)
--- NOTE | 2023-11-01 10:52 | PN.HOSP_ITS ---
Reason for Visit Reason for Visit: Diagnoses Unspecified cirrhosis of liver (10/29/23) Nonalcoholic steatohepatitis (STARK) (10/29/23) Localized edema (10/29/23) Objective Data Objective Data Vital Signs: Vital Signs Temp Pulse Resp BP Pulse Ox O2 Del Method 99.3 F H 79 18 117/47 L 95 Room Air 11/01/23 08:06 11/01/23 08:06 11/01/23 08:06 11/01/23 08:06 11/01/23 08:06 11/01/23 08:06 Oxygen Delivery Method Room Air Weight: 214 lb 11.684 oz Body Mass Index (BMI) 36.6 Intake & Output: Intake and Output for Last 24 Hours 10/30/23 10/31/23 11/01/23 23:59 23:59 23:59 Intake Total 650 / 850 1250 / 1450 200 / 200 Output Total 1650 / 2250 2200 / 2900 1200 / 1200 Balance -1000 / -1400 -950 / -1450 -1000 / -1000 Lab / Micro Data 11/01/23 05:30 11/01/23 05:30 Labs: Laboratory Results - last 24 hr 10/30/23 05:23: Hepatitis A IgM Ab Negative, Hep Bs Antigen Negative, Hep B Core IgM Ab Negative, Hepatitis C Ab (EIA) Non Reactive, Hep C Ab Comment Comment 10/31/23 05:13: Iron 68, TIBC 168 L, Ferritin 138, Folate 19.90 10/31/23 11:45: POC Glucose 258 H 10/31/23 16:04: POC Glucose 307 H 10/31/23 22:02: POC Glucose 344 H 11/01/23 05:30: WBC 3.9 L, RBC 2.93 L, Hgb 9.5 L, Hct 30.0 L, MCV 102.4 H, MCH 32.4 H, MCHC 31.7 L, RDW Std Deviation 55.3 H, RDW Coeff of Harshil 14.6, Plt Count 87 L, MPV 10.9, Immature Gran % (Auto) 0.300, Neut % (Auto) 63.0, Lymph % (Auto) 20.8, [place] % (Auto) 11.8 H, Eos % (Auto) 3.6, Baso % (Auto) 0.5, Absolute Neuts (auto) 2.5, Absolute Lymphs (auto) 0.81 L, Nucleated RBC % 0, PT 17.9 H, INR 1.5, APTT 32.9, Sodium 142, Potassium 3.6, Chloride 109 H, Carbon Dioxide 26.0, Anion Gap 7, BUN 15, Creatinine 1.33 H, Estim Creat Clear Calc 42.69, Est GFR (MDRD) Af Amer 50 L , Est GFR (MDRD) Non-Af 42 L, BUN/Creatinine Ratio 11.3, Glucose 271 H, Hemoglob in A1c 7.7 H, Calcium 8.3 L, Phosphorus 2.9, Magnesium 1.8, Total Bilirubin 1.40 H, Direct Bilirubin 0.67 H, AST 36, ALT 23, Alkaline Phosphatase 28 L, Total Protein 6.3 L, Albumin 2.2 L, Globulin 4.1, Albumin/Globulin Ratio 0.5 L, TSH 5.64 H 11/01/23 06:39: POC Glucose 232 H Physical Exam Narrative Seen and examined. Patient is stated that she was told [facility] in 2000 and that progressed to cirrhosis. Denies any major GI bleed. Had EGD many years ago and was normal at that time. Denies acute confusion or disorientation or history of coma. Has ascites and lower extremity edema. Had paracentesis in the morning. Physical exam General: Alert, Oriented x3, Cooperative HEENT: Atraumatic, PERRLA, EOMI, Normocephalic Oral: No Gingival or Mucosal Lesions/ Ulcerations Neck: Supple, No JVD, Negative Carotid Bruits Chest wall/Lungs: Air entry diminished in bilateral lung bases. No crepitation/rhonchi Cardiovascular: Regular rate, Regular Rhythm, Normal S1, Normal S2, No M/G/R Abdomen: Bowel Sounds Present, Soft, Non Tender, ascites, had paracentesis on 10/31 : No dysuria. No renal angle tenderness. No suprapubic tenderness. Extremities: 2+ bilateral pitting LE edema, Capillary Refill Less than 3 Seconds Skin: No rashes, No breakdown Musculoskeletal: No Tenderness to Palpation of Joints or Extremities Neurological: Cranial nerves II-XII grossly intact, DTR 2+/4. No acute focal neurological deficit. Psych/Mental Status: Flat affect Assessment & Plan Assessment/Plan (1) 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: (2) Bilateral edema of lower extremity: PLAN: Plan Patient is a 73-year-old lady bilateral lower extremity edema as well as abdominal distention. An assessment of decompensated cirrhosis of the liver made admitted to regular nursing floor for further management 1. Nonalcoholic fatty liver disease with hepatic cirrhosis Decompensated with ascites: Patient admitted to [facility] floor. Has ascites and lower extremity edema. CT of the abdomen and pelvis obtained did show Findings consistent with hepatic cirrhosis, splenomegaly and changes of portal hypertension with diffuse mes enteric edema and large amount of abdominopelvic ascites as well as edematous changes in the subcutaneous fat consistent with anasarca. 10/31: Patient had paracentesis. Paracentesis fluid analysis shows total protein 2.6, LDH 93. Total neutrophil count 6, 1.7%; mononuclear cells 352, 98.3% therefore is repeating 2. Acute congestive heart failure with preserved ejection fraction ? 2D echo demonstrated EF of 55 to 60%. Patient responded to diuretic therapy 3. Hypokalemia ? Secondary to diuretic therapy corrected per protocol repeat labs ordered for a.m. 4. Hypomagnesemia ? Corrected per protocol repeat labs ordered for a.m. - Blood pressure controlled, home medications continued with dose adjustment as needed 5. Hypothyroidism - Patient is on levothyroxine home dose continued 6. Thrombocytopenia ? Secondary to patient chronic liver disease 7. Anemia - Secondary to chronic disorder monitoring H&H and transfuse if patient becomes symptomatic or hemoglobin falls below 7 8. Gastroduodenitis ? Based on CAT scan findings patient started on Protonix 9. History of bilateral breast CA ? Status postlumpectomy and radiation therapy. Patient currently in remission 10. Hypertension - Blood pressure controlled, home medications continued with dose adjustment as needed 11.. DVT prophylaxis ? Bilateral SCDs only given patient low platelet count Charges/Coding Visit Charges Inpatient E&M: 85168 Subs Hosp L2
[2023-11-01 11:12] LABS: Vitamin B12 1059 pg/mL (211-911)
[2023-11-01] MEDS: Insulin Lispro 100 UNIT/ML INSULN.PEN SC ×3 (11:26→21:28)
[2023-11-01] MEDS: Lidocaine 2% (20 ml mdv) 20 ML Vial INFILT (12:17)
--- NOTE | 2023-11-01 12:59 | PRO.PCM_ITS ---
Procedure Report Date of Procedure: 11/01/23 Assessment & Plan Assessment/Plan (1) Abdominal ascites: QUALIFIERS: Ascites type: other type Qualified Code(s): R18.8 - Other ascites PLAN: PROCEDURE: Ultrasound guided paracentesis ORDERING PROVIDER: Dr. Vargas INDICATION: Female, 73 years old. Abdominal ascites. PROVIDER: CAROLANN Pruett TECHNIQUE: The risks, benefits, and alternatives to the procedure were explained to the patient. The specific risks of bleeding, infection, and damage to bowel were detailed and accepted. Witnessed informed consent was obtained. The abdomen was ultrasonographically surveyed. An appropriate pocket of fluid was identified in the right lower quadrant. The skin was prepped with chlorhexidine and sterile field established. 2% lidocaine was used for local anesthetic. Using ultrasound guidance, the peritoneal cavity was accessed with a 5-Setswana paracentesis needle/catheter system. The trocar was removed. A total of 1600 ml of clear yellow colored fluid was removed from the peritoneal cavity. 100 and mL of this fluid was collected and sent to the laboratory for analysis. The catheter was removed and a sterile dressing was applied. The procedure was well tolerated. IMPRESSION: Successful ultrasound-guided paracentesis with right lower quadrant access site. Procedures Radiology Radiology US Procedures: 78974 Paracentesis
[2023-11-01 13:15] LABS: Body Fluid Mononuclear WBC # 0.352 10^3/uL; Body Fluid Mononuclear WBC % 98.3 %; Body Fluid Polynuclear WBC # 0.006 10^3/uL; Body Fluid Polynuclear WBC % 1.7 %; Body Fluid Total Cells Counted 0.543 10^3/ul; White Blood Count/Body Fluid 0.358 10^3/uL
[2023-11-01 13:18] LABS: Appearance/Body Fluid CLEAR; Auto B Fluid Analyzer BKGD Ct COUNTS W/IN LIMITS (W/IN LIMITS); Color/Body Fluid YELLOW; Source- Body Fluid PARACENTESIS
[2023-11-01 13:36] LABS: Red Cell Count/Body Fluid 70 /mm3
[2023-11-01 13:44] LABS: Glucose, Body Fluid 263 mg/dL (40-70); LDH,Body Fluid 93 Units/L (Not Establ.); Protein, Body Fluid 2.6 g/dL (Not Establ.)
[2023-11-01 14:01] LABS: Lymphocytes 15 %; Macrophages 78 %; Neutrophil (Segs) 7 %
[2023-11-01 14:04] LABS: Body Fluid QC Type(s) BF1,BF2
[2023-11-01] MEDS: Lactated Ringers 1,000 ML 15 ML IV (15:10)
--- NOTE | 2023-11-01 16:12 | CHAPLAIN ---
Type of Pastoral Visit _x__ Initial Visit ___ Follow-up Visit ___ On-call Visit ___ General Patient Visit ___ Spiritual Assessment ___ Family Conference ___ Bereavement ___ Rapid Response ___ Code Blue ___ Other (describe below) Pastoral Care Referral From _x__ Patient ___ Family ___ Nurse ___ Physician ___ Financial Counselor ___ [place] ___ Other (describe below) Sacrament/Intervention _x__ Active listening ___ Anointing ___ Rastafarian ___ Bereavement ___ Communion ___ Pily exploration ___ ___ Life review _x__ Prayer ___ Reconciliation ___ Sacrament of Sick ___ Supportive presence ___ Wedding ___ Other (describe below) Pastoral Comments patient reported that the exhibits manager came to see her earlier and that she had admitted her lack of zoroastrianism attendance to him and will follow up with that later; pt stated that all i need now is a prayer; presence and prayer given
[2023-11-01 16:51] LABS: Bedside Glucose 219 mg/dL (74-106)
--- NOTE | 2023-11-01 17:06 | OP.EGD_ITS ---
Patient Name: Stephani Gill Procedure Date: 11/01/2023 4:43 PM Date of : 1950 Age: 73 Procedure: Upper GI endoscopy Indications: Cirrhosis with suspected esophageal varices, Abnormal CT of the GI tract Providers: Bull Elise DO Referring MD: Catracho Balderas Medicines: Monitored Anesthesia Care Patient Profile: This is a 73 year old female. Refer to note in patient chart for documentation of history and physical. Patient has symptoms of acute epigastric abdominal pain. Complications: No immediate complications. Procedure: Pre-Anesthesia Assessment: - Prior to the procedure, a History and Physical was performed, and patient medications and allergies were reviewed. The patient is competent. The risks and benefits of the procedure and the sedation options and risks were discussed with the patient. All questions were answered and informed consent was obtained. Patient identification and proposed procedure were verified by the physician. Mental Status Examination: normal. Prophylactic Antibiotics: The patient does not require prophylactic antibiotics. Prior Anticoagulants: The patient has taken no anticoagulant or antiplatelet agents. ASA Grade Assessment: IV - A patient with severe systemic disease that is a constant threat to life. After reviewing the risks and benefits, the patient was deemed in satisfactory condition to undergo the procedure. The anesthesia plan was to use monitored anesthesia care (MAC). Immediately prior to administration of medications, the patient was re-assessed for adequacy to receive sedatives. The heart rate, respiratory rate, oxygen saturations, blood pressure, adequacy of pulmonary ventilation, and response to care were monitored throughout the procedure. The physical status of the patient was re-assessed after the procedure. After obtaining informed consent, the endoscope was passed under direct vision. Throughout the procedure, the patient's blood pressure, pulse, and oxygen saturations were monitored continuously. The Endoscope was introduced through the mouth, and advanced to the second part of duodenum. The upper GI endoscopy was accomplished without difficulty. The patient tolerated the procedure well. Scope In: 4:53:17 PM Scope Out: 4:59:04 PM Total Procedure Duration Time 0 hours 5 minutes 47 seconds Findings: Grade I varices were found in the lower third of the esophagus. They were 3 mm in largest diameter. Mild portal hypertensive gastropathy was found in the gastric body. One oozing cratered duodenal ulcer with a visible vessel was found in the first portion of the duodenum. The lesion was 6 mm in largest dimension. Coagulation for hemostasis using heater probe was successful. Estimated blood loss was minimal. Impression: - Grade I esophageal varices. - Portal hypertensive gastropathy. - Oozing duodenal ulcer with a visible vessel. Treated with a heater probe. - No specimens collected. Recommendation: - [facility]. - Full liquid diet today. - Continue present medications. Procedure Code(s): --- Professional --- 79319, Esophagogastroduodenoscopy, flexible, transoral; with control of bleeding, any method CPT copyright 2021 [employer]. All rights reserved. The codes documented in this report are preliminary and upon center receptionist review may be revised to meet current compliance requirements. Bull Elise DO 11/01/2023 5:05:44 PM This report has been signed electronically. Number of Addenda: 0 Note Initiated On: 11/01/2023 4:43 PM
--- NOTE | 2023-11-01 17:06 | OP.CCLET_ITS ---
11/01/2023 Oscar Rivera Re : Upper GI endoscopy procedure for Stephani Gill Dear Nicole This procedure was performed on Wednesday, November 01, 2023. My impressions and recommendations are as follows: Impressions : - Grade I esophageal varices. - Portal hypertensive gastropathy. - Oozing duodenal ulcer with a visible vessel. Treated with a heater probe. - No specimens collected. Recommendations : - Return patient to [facility] for [facility] care. - Full liquid diet today. - Continue present medications. My findings are described in the full procedure note, which is enclosed. If I can be of further assistance, please feel free to contact me at . Sincerely, Bull Elise, 11/01/2023 5:05:44 PM This report has been signed electronically.
[2023-11-01 18:32] LABS: Bedside Glucose 197 mg/dL (74-106)
[2023-11-01 22:32] LABS: Bedside Glucose 162 mg/dL (74-106)
[2023-11-02 02:26] VITALS: BMI 35.4
[2023-11-02 02:32] VITALS: BP 111/56; PULSE 70; RESP 16; TEMP 36.8; O2SAT 94
[2023-11-02] MEDS: Insulin Lispro 100 UNIT/ML INSULN.PEN SC (06:01)
[2023-11-02] MEDS: Levothyroxine 112 MCG Tablet PO (06:01)
[2023-11-02 06:31] LABS: Bedside Glucose 169 mg/dL (74-106)
[2023-11-02 07:29] VITALS: BP 116/44; PULSE 82; RESP 16; TEMP 37; O2SAT 92
[2023-11-02] MEDS: Losartan Potassium 100 MG Tablet PO (08:11)
[2023-11-02] MEDS: Magnesium Chloride 64 MG Delay Rel.Tablet 128 MG PO (08:11)
[2023-11-02] MEDS: amLODIPine 2.5 MG Tablet PO (08:11)
[2023-11-02] MEDS: 0.9% Saline Lock 10 ML Syringe IV (08:12)
[2023-11-02] MEDS: Spironolactone 25 MG Tablet 50 MG PO (08:12)
[2023-11-02] MEDS: Bumetanide 1 MG/4 ML Vial IV (08:12)
[2023-11-02 09:25] LABS: Pathologist Comment/Body Fluid Reviewed
[2023-11-02 09:32] LABS: Absolute Lymphocyte Count 1.11 X10^3/uL (0.83-4.51); Absolute Neutrophil Count 3.1 X10^3/uL (2.0-7.7); Basophil# 0.02 X10^3/uL; Basophil% 0.4 % (0-1); Eosinophil# 0.22 X10^3/uL; Eosinophils% 4.5 % (0-5); Hematocrit 36.3 % (37-47); Hemoglobin 11.5 g/dL (12.0-15.0); Lymphocyte # 1.11 X10^3/ul (0.83-4.51); Lymphocyte % 22.8 % (19-41); Mean Corp Hgb Conc 31.7 g/dL (32-36); Mean Corpuscular Hgb 32.5 pg (27.0-32.0); Mean Corpuscular Volume 102.5 fL (81-99); Mean Platelet Vol. 10.3 fl (6.2-12.0); Monocyte% 8.2 % (0-10); NRBC Flagged by Analyzer 0 % (0-5); Neutrophil # 3.09 X10^3/uL (2.7-7.7); Neutrophil % 63.7 % (47-70); Platelet Count 120 K/mm3 (150-450); RBC Distribution Width CV 14.7 % (11.6-14.6); RBC Distribution Width SD 55.7 fl (35.1-43.9); Red Blood Count 3.54 M/mm3 (4.2-5.4); White Blood Count 4.9 K/mm3 (4.4-11.0)
--- NOTE | 2023-11-02 09:32 | DCINST_ITS ---
Discharge Instructions Diet Discharge Diet: Low fat / Low cholesterol and 2000 mg Sodium Diet Activity Discharge Activity: Return to Normal Activity Weight Bearing Status: Weight bearing as tolerated Dressing / Incision Call your doctor if you observe: Fever of 101 or Higher, Coldness, Increased Pain, Numbness or Tingling, Change in Color, Inability to urinate, Inability to have a bowel movement, Using more than 1 pad per hour, Shortness of breath, Dizziness, Fainting spells, Swelling in the ankles, Chest pain, Prolonged hiccupping, Increased palpitations (irregular heartbeat) and Calf discomfort Follow Up Care When: IN 2 WEEKS Test Results: Test results from this visit will be discussed in further detail at your follow- up appointment, if applicable. Discharge Plan Admission Admit Date/Time: 10/29/23 23:19 Primary Reason for Your Visit: Decompensated STARK related cirrhosis with ascites Attending Provider: Bladimir Westfall Primary Care Provider: Oscar Rivera Consulting Providers: Catracho Balderas; Bull Elise; Johnnie Vargas Instructions Patient Instructions: CJ BEGUM Paracentesis Dc Additional Instructions / Restrictions: Follow-up BMP, mag and Phos with PCP in 1 week. Start furosemide and spironolactone from 11/08/2023 in consultation with PCP after eval labs. Discharge Orders/Prescriptions Prescriptions: New spironolactone 50 mg tablet 50 mg PO DAILY Qty: 30 2RF Rx Instructions: Start from 11/08/2023. Hold if serum potassium more than 5.0. furosemide 20 mg tablet 20 mg PO DAILY Qty: 30 2RF Rx Instructions: Start from 11/07/2022. Hold if creatinine more than 1.4. pantoprazole [Protonix] 40 mg tablet,delayed release (DR/EC) 40 mg PO BID Qty: 60 1RF Continued levothyroxine 112 mcg tablet 112 mcg PO DAILY glimepiride 4 mg tablet 4 mg PO DAILY magnesium 200 mg tablet 200 mg PO DAILY multivitamin [Daily Multiple] 1 EACH tablet 1 ea PO DAILY Patient Comments: SUPPLEMENT ascorbic acid (vitamin C) [Vitamin C With Jane Hips] 1,000 MG tablet 1,000 mg PO DAILY Patient Comments: SUPPLEMENT amlodipine 2.5 MG tablet 2.5 mg PO BID Patient Comments: BLOOD PRESSURE Held metformin 1,000 MG tablet 1,000 mg PO DAILY Hold Instructions: Hold for 3 days. Patient Comments: DIABETES losartan 50 mg tablet 100 mg PO DAILY Hold Instructions: Hold for 1 week Discontinued Cinnamon Plus Chromium 500 MG capsule 500 mg PO QHS Other Ambulatory Orders: Basic Metabolic Profile (BMP) (Routine) Timeframe: 1 Week Facility: [facility] - Location: Laboratory Ordered By: Dr. Bladimir Westfall Magnesium (Routine) Timeframe: 1 Week Facility: [facility] - Location: Laboratory Ordered By: Dr. Bladimir Westfall Phosphorus (Routine) Timeframe: 1 Week Facility: [facility] - Location: Laboratory Ordered By: Dr. Bladimir Westfall Referrals / Follow Up: Bull Elise DO [Med Staff - Active Staff] - Within 1 Month Oscar Rivera MD [Primary Care Provider] - Disposition Disposition (needs filled in before D/C Order can be placed): Home, Self Care
[2023-11-02 09:47] LABS: AST(SGOT) 45 U/L (15-37); Alanine Aminotransfer ALT/SGPT 26 U/L (13-56); Albumin, Serum 2.6 g/dL (3.2-5.0); Alkaline Phosphatase 32 U/L (45-117); Anion Gap 5 (5-15); BUN 16 mg/dL (7-18); Bilirubin, Direct 1.06 mg/dL (0.00-0.30); Calcium,Total 8.9 mg/dL (8.5-10.1); Chloride 107 mmol/L (98-107); Creatinine, Serum 1.46 mg/dL (0.55-1.02); EST Glomerular Filtration Rate 37 mL/min (>60); Est Glom Filt Rate - Afr Amer 45 mL/min (>60); Estimated Creatinine Clearance 38.17 ml/min; Globulin 4.5 g/dL (2.2-4.2); Glucose 194 mg/dL (74-106); Magnesium 1.7 mg/dL (1.6-2.6); Potassium 3.8 mmol/L (3.5-5.1); Protein, Total 7.1 g/dL (6.4-8.2); Sodium Level 140 mmol/L (136-145)
--- NOTE | 2023-11-02 10:24 | DS.PCM_ITS ---
Providers Date of Admission: 10/29/23 Date of Discharge: 11/02/23 Primary Care Physician: Dr. 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 An assessment of decompensated cirrhosis of the liver made admitted to regular nursing floor for further management 1. 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 Chronic duodenal ulcer with visible vessel: Patient admitted to MedSurg floor. Has ascites and lower extremity edema. CT of the abdomen and pelvis obtained did show Findings consistent with hepatic cirrhosis, splenomegaly and changes of portal hypertension with diffuse mesenteric edema and large amount of abdominopelvic ascites as well as edematous changes in the subcutaneous fat consistent with anasarca. 10/31: Patient had paracentesis. Paracentesis fluid analysis shows total protein 2.6, LDH 93. Total neutrophil count 6, 1.7%; mononuclear cells 352, 98.3% therefore is repeating 11/01: SBP ruled out. Had EGD on 11/01/2023 findings as mentioned below. Patient discharged on pantoprazole 40 mg twice daily for 8 weeks. Impression: - Grade I esophageal varices. - Portal hypertensive gastropathy. - Oozing duodenal ulcer with a visible vessel. Treated with a heater probe. 2. Acute congestive heart failure with preserved ejection fraction ? 2D echo demonstrated EF of 55 to 60%. Patient responded to diuretic therapy 3. Hypokalemia ? Secondary to diuretic therapy corrected per protocol repeat labs ordered for a.m. 11/01: USAMA due to diuretic: Patient baseline creatinine from 0.78 increased to 1.46. Hold furosemide, spironolactone and losartan. Hypokalemia resolved. BMP magnesium and phosphorus ordered within 1 week. Prescription given for furosemide to spironolactone to start on 11/08/2023 after consultation with PCP. 4. Hypomagnesemia 11/01? Hypomagnesemia resolved. - Blood pressure controlled, home medications continued with dose adjustment as needed 5. Hypothyroidism - Patient is on levothyroxine home dose continued 6. Thrombocytopenia ? Secondary to patient chronic liver disease 7. Anemia secondary to chronic disease/cirrhosis. - Secondary to chronic disorder monitoring H&H and transfuse if patient becomes symptomatic or hemoglobin falls below 7 8. Gastroduodenitis ? Based on CAT scan findings patient started on Protonix 9. History of bilateral breast CA ? Status postlumpectomy and radiation therapy. Patient currently in remission 10. Hypertension - Blood pressure controlled, home medications continued with dose adjustment as needed 11.. DVT prophylaxis ? Bilateral SCDs only given patient low platelet count Discharge medication reconciliation done. Discharge follow-up instructions completed. Discharge process discussed with the patient and all questions were answered to patient's satisfaction. Follow with PCP in 1 to 2 weeks Total time spent, exact 35 minutes on discharge meds reconciliation, examination, coordination of care with nurses and ancillary staff, review of imaging and blood test and discussion with the patient on follow-up instructions. Medications at Discharge Home Medications amlodipine 2.5 mg tablet 2.5 mg PO BID blood pressure 02/03/16 ascorbic acid (vitamin C) 1,000 mg tablet (Vitamin C With Jane Hips) 1,000 mg PO DAILY supplement 02/03/16 metformin 1,000 mg tablet 1,000 mg PO DAILY diabetes 02/03/16 multivitamin (Daily Multiple tablet) 1 ea PO DAILY supplement 02/03/16 glimepiride 4 mg tablet 4 mg PO DAILY diabetes 11/08/20 levothyroxine 112 mcg tablet 112 mcg PO DAILY thyroid 11/08/20 magnesium 200 mg tablet 200 mg PO DAILY 06/22/22 losartan 50 mg tablet 100 mg PO DAILY blood press 10/29/23 furosemide 20 mg tablet 20 mg PO DAILY #30 tabs 11/02/23 pantoprazole 40 mg tablet,delayed release (Protonix) 40 mg PO BID #60 tabs 11/02/23 spironolactone 50 mg tablet 50 mg PO DAILY #30 tabs 11/02/23 Physical Exam Narrative Seen and examined. Patient is stated that she was told STARK in 2000 and that progressed to cirrhosis. Denies any major GI bleed. Had EGD many years ago and was normal at that time. Denies acute confusion or disorientation or history of coma. Has ascites and lower extremity edema. Had paracentesis in the morning. Physical exam General: Alert, Oriented x3, Cooperative HEENT: Atraumatic, PERRLA, EOMI, Normocephalic Oral: No Gingival or Mucosal Lesions/ Ulcerations Neck: Supple, No JVD, Negative Carotid Bruits Chest wall/Lungs: Air entry diminished in bilateral lung bases. No crepitation/rhonchi Cardiovascular: Regular rate, Regular Rhythm, Normal S1, Normal S2, No M/G/R Abdomen: Bowel Sounds Present, Soft, Non Tender, ascites, had paracentesis on 10/31 : No dysuria. No renal angle tenderness. No suprapubic tenderness. Extremities: 2+ bilateral pitting LE edema, Capillary Refill Less than 3 Seconds Skin: No rashes, No breakdown Musculoskeletal: No Tenderness to Palpation of Joints or Extremities Neurological: Cranial nerves II-XII grossly intact, DTR 2+/4. No acute focal neurological deficit. Psych/Mental Status: Flat affect Weight / BMI Weight Weight: 207 lb 7.28 oz Body Mass Index (BMI) 35.4 ABG / Lab / Microbiology Data 11/02/23 09:24 11/02/23 09:24 Laboratory: Laboratory Results - last 24 hr 10/30/23 05:23: Vitamin B12 1059 H 11/01/23 11:22: POC Glucose 219 H 11/01/23 12:36: Fluid Source PARACENTESIS, Fluid Color YELLOW, Fluid Appearance CLEAR, Fluid WBC 0.358, Fluid RBC 70, Fluid Tot Cell Count 0.543 H, Fld Polynuclear WBCs # 0.006, Fld Polynuclear WBCs % 1.7, Fluid Mononuclear WBCs 0.352, Fld Mononuclear WBCs % 98.3, Fluid Neutrophils 7, Fluid Lymphocytes 15, Fluid Macrophages 78, Fl Pathologist Comment Reviewed, Fluid Glucose 263 H, Fluid Total Protein 2.6, Fluid LDH 93, Fluid Comment 2 SEE COMMENT 11/01/23 18:00: POC Glucose 197 H 11/01/23 21:24: POC Glucose 162 H 11/02/23 05:59: POC Glucose 169 H 11/02/23 09:24: WBC 4.9, RBC 3.54 L, Hgb 11.5 L, Hct 36.3 L, MCV 102.5 H, MCH 32.5 H, MCHC 31.7 L, RDW Std Deviation 55.7 H, RDW Coeff of Harshil 14.7 H, Plt Count 120 L, MPV 10.3, Immature Gran % (Auto) 0.400, Neut % (Auto) 63.7, Lymph % (Auto) 22.8, [place] % (Auto) 8.2, Eos % (Auto) 4.5, Baso % (Auto) 0.4, Absolute Neuts (auto) 3.1, Absolute Lymphs (auto) 1.11, Nucleated RBC % 0, Sodium 140, Potassium 3.8, Chloride 107, Carbon Dioxide 28.0, Anion Gap 5, BUN 16, Creatinine 1.46 H, Estim Creat Clear Calc 38.17, Est GFR (MDRD) Af Amer 45 L, Est GFR (MDRD) Non-Af 37 L, BUN/Creatinine Ratio 11.0, Glucose 194 H, Calcium 8.9, Magnesium 1.7, Total Bilirubin 2.20 H, Direct Bilirubin 1.06 H, AST 45 H, ALT 26, Alkaline Phosphatase 32 L, Total Protein 7.1, Albumin 2.6 L, Globulin 4.5 H D/C Instructions Discharge Diet: Low fat / Low cholesterol and 2000 mg Sodium Diet Weight Bearing Status: Weight bearing as tolerated Call your doctor if you observe: Fever of 101 or Higher, Coldness, Increased Pain, Numbness or Tingling, Change in Color, Inability to urinate, Inability to have a bowel movement, Using more than 1 pad per hour, Shortness of breath, Dizziness, Fainting spells, Swelling in the ankles, Chest pain, Prolonged hiccupping, Increased palpitations (irregular heartbeat) and Calf discomfort When: IN 2 WEEKS Meaningful Use Info Meaningful Use Meaningful Use Diagnoses (Choose all that apply): None applicable Ischemic Stroke Statin Dosing Therapy Reference: STATIN DOSE THERAPY REFERENCE: * Patients > 75 years receive moderate or high dose statin therapy. * Patients 75 years or YOUNGER should receive HIGH intensity statin dose unless contraindicated. You will be required to document reason for non-treatment if statin daily dose does not meet guidelines. HIGH DOSE STATIN THERAPY DAILY Atorvastatin > than or = to 40 mg Rosuvastatin > than or = to 20 mg Amlodipine + Atorvastatin > than or = to 2.5/40 mg Ezetimibe + Simvastatin 10/80 mg Simvastatin 80mg Discharge Plan Admission Admit Date/Time: 10/29/23 23:19 Primary Reason for Your Visit: Decompensated STARK related cirrhosis with ascites Attending Provider: Bladimir Westfall Primary Care Provider: Oscar Rivera Consulting Providers: Catracho Balderas; Bull Elise; Johnnie Vargas Instructions Patient Instructions: RAD RN Paracentesis Dc Additional Instructions / Restrictions: Follow-up BMP, mag and Phos with PCP in 1 week. Start furosemide and spironolactone from 11/08/2023 in consultation with PCP after eval labs. Discharge Orders/Prescriptions Prescriptions: New spironolactone 50 mg tablet 50 mg PO DAILY Qty: 30 2RF Rx Instructions: Start from 11/08/2023. Hold if serum potassium more than 5.0. furosemide 20 mg tablet 20 mg PO DAILY Qty: 30 2RF Rx Instructions: Start from 11/07/2022. Hold if creatinine more than 1.4. pantoprazole [Protonix] 40 mg tablet,delayed release (DR/EC) 40 mg PO BID Qty: 60 1RF Continued levothyroxine 112 mcg tablet 112 mcg PO DAILY glimepiride 4 mg tablet 4 mg PO DAILY magnesium 200 mg tablet 200 mg PO DAILY multivitamin [Daily Multiple] 1 EACH tablet 1 ea PO DAILY Patient Comments: SUPPLEMENT ascorbic acid (vitamin C) [Vitamin C With Jane Hips] 1,000 MG tablet 1,000 mg PO DAILY Patient Comments: SUPPLEMENT amlodipine 2.5 MG tablet 2.5 mg PO BID Patient Comments: BLOOD PRESSURE Held metformin 1,000 MG tablet 1,000 mg PO DAILY Hold Instructions: Hold for 3 days. Patient Comments: DIABETES losartan 50 mg tablet 100 mg PO DAILY Hold Instructions: Hold for 1 week Discontinued Cinnamon Plus Chromium 500 MG capsule 500 mg PO QHS Other Ambulatory Orders: Basic Metabolic Profile (BMP) (Routine) Timeframe: 1 Week Facility: [facility] - Location: Laboratory Ordered By: Dr. Bladimir Westfall Magnesium (Routine) Timeframe: 1 Week Facility: [facility] - Location: Laboratory Ordered By: Dr. Bladimir Westfall Phosphorus (Routine) Timeframe: 1 Week Facility: [facility] - Location: Laboratory Ordered By: Dr. Bladimir Westfall Referrals / Follow Up: Bull Elise DO [Med Staff - Active Staff] - 01/28/24 9:30 am Oscar Rivera MD [Primary Care Provider] - 11/05/23 2:20 pm Disposition Disposition (needs filled in before D/C Order can be placed): Home, Self Care Charges/Coding Visit Charges Inpatient E&M: 90745 Disch Hosp >30min
[2023-11-02] MEDS: Insulin Glargine-YFGN 100 UNIT/ML Pen 8 UNIT SC (10:25)
--- NOTE | 2023-11-02 10:45 | CASEMGMT ---
RN CM into pt room, pt laying in bed in no distress. Discussed DC plan with her, stated she has no needs at this time and pt feels safe to go home. Stated she lives at home with and he can assist her.
--- NOTE | 2023-11-02 10:52 | PHA.DC_ITS ---
Pharmacy [facility] has performed discharge medication reconciliation and counseling for this patient. The patient's discharge medication list was reviewed for discrepancies and discrepancies were resolved. The patient was counseled on the following discharge medications and changes in medications for homegoing were reviewed. The Reason for Use, instructions for use, and potential side effects were reviewed for all new medications. The patient's questions regarding all of their medications were answered. 1. Furosemide 20 mg PO daily 2. Spironolactone 50 mg PO daily 3. Pantoprazole 40 mg PO BID The patient was able to verbally demonstrate an understanding of their discharge medications. Medications at Discharge Home Medications amlodipine 2.5 mg tablet 2.5 mg PO BID blood pressure 02/03/16 ascorbic acid (vitamin C) 1,000 mg tablet (Vitamin C With Jane Hips) 1,000 mg PO DAILY supplement 02/03/16 metformin 1,000 mg tablet 1,000 mg PO DAILY diabetes 02/03/16 multivitamin (Daily Multiple tablet) 1 ea PO DAILY supplement 02/03/16 glimepiride 4 mg tablet 4 mg PO DAILY diabetes 11/08/20 levothyroxine 112 mcg tablet 112 mcg PO DAILY thyroid 11/08/20 magnesium 200 mg tablet 200 mg PO DAILY 06/22/22 losartan 50 mg tablet 100 mg PO DAILY blood press 10/29/23 furosemide 20 mg tablet 20 mg PO DAILY #30 tabs 11/02/23 pantoprazole 40 mg tablet,delayed release (Protonix) 40 mg PO BID #60 tabs 11/02/23 spironolactone 50 mg tablet 50 mg PO DAILY #30 tabs 11/02/23
[2023-11-02 11:09] LABS: Anti-Centromere B Ab <0.2 AI (0.0-0.9); Anti-Chromatin <0.2 AI (0.0-0.9); Anti-Jo <0.2 AI (0.0-0.9); Anti-Scleroderma-70 AB <0.2 AI (0.0-0.9); Anti-dsDNA Ab <1 IU/mL (0-9); RNP Ab 0.3 AI (0.0-0.9); SJOGREN'S Anti-SS-A test < 0.2 AI (0.0-0.9); SJOGREN'S Anti-SS-B test < 0.2 AI (0.0-0.9); Smith Ab <0.2 AI (0.0-0.9)
[2023-11-02 11:10] VITALS: BP 111/38; PULSE 84; RESP 16; TEMP 37; O2SAT 95
[2023-11-02 14:08] LABS: Anti-Mitochondrial AB <20.0 Units (0.0-20.0)
[2023-11-02 16:10] LABS: AFP, Tumor Marker 6.9 ng/mL (0.0-9.2); Albumin 2.6 g/dL (2.9-4.4); Alpha-1-Globulins 0.3 g/dL (0.0-0.4); Alpha-2-Globulins 0.4 g/dL (0.4-1.0); Angiotensin Convert Enzyme 47 U/L (14-82); Anti-Smooth Muscle ABS 8 Units (0-19); Cytoplasmic Ab (C-ANCA) <1:20 titer (Neg:<1:20); Deamidated Gliadin IgA 3 units (0-19); Deamidated Gliadin IgG 2 units (0-19); Endomysial Antibody IgA Negative (Negative); Gamma Globulin 1.7 g/dL (0.4-1.8); HEPATITIS B SURFACE AG Negative (Negative); Hep C Antibodies Non Reactive (Non Reactive); Hepatitis A IgM Antibody Negative (Negative); Hepatitis B Core AB IgM Negative (Negative); Immunoglobulin A 261 mg/dL (64-422); Immunoglobulin G 1923 mg/dL (586-1602); Immunoglobulin M 158 mg/dL (26-217); PROEL- TOTAL PROTEIN 5.9 g/dL (6.0-8.5); Perinuclear Ab (P-ANCA) <1:20 titer (Neg:<1:20); t-Transglutaminase IgA <2 U/mL (0-3)
== END 2023-11-02 11:56 | disposition home or self-care (01) | DRG 432 ==
LOC: ED 22:00 → MS3 23:33
PROVIDERS: Anesthesiology; Internal Medicine; Internal Medicine Gastroenterology; Physician Assistant; Admitting Provider Family Medicine; Emergency Provider Emergency Medicine; PCP Family Medicine; Referring Provider Family Medicine; Visit Provider Internal Medicine
PROC: 0DJ08ZZ Inspection of Upper Intestinal Tract, Via Natural or Artificial Opening Endoscopic (ICD-10-PCS; CPT 43235; principal; 2023-11-01 16:10)
DX: K74.60 Unspecified cirrhosis of liver (principal); I50.31 Acute diastolic (congestive) heart failure; K26.4 Chronic or unspecified duodenal ulcer with hemorrhage; N17.9 Acute kidney failure, unspecified; K76.6 Portal hypertension; I85.00 Esophageal varices without bleeding; R18.8 Other ascites; D63.8 Anemia in other chronic diseases classified elsewhere; E88.09 Other disorders of plasma-protein metabolism, not elsewhere classified; E11.9 Type 2 diabetes mellitus without complications; I11.0 Hypertensive heart disease with heart failure; E03.9 Hypothyroidism, unspecified; D69.59 Other secondary thrombocytopenia; K29.90 Gastroduodenitis, unspecified, without bleeding; K75.81 Nonalcoholic steatohepatitis (NASH); E87.6 Hypokalemia; E78.5 Hyperlipidemia, unspecified; K31.89 Other diseases of stomach and duodenum; E83.42 Hypomagnesemia; T50.2X5A Adverse effect of carbonic-anhydrase inhibitors, benzothiadiazides and other diuretics, initial encounter; Z79.84 Long term (current) use of oral hypoglycemic drugs; Z79.890 Hormone replacement therapy; Z79.899 Other long term (current) drug therapy; Z85.3 Personal history of malignant neoplasm of breast; Z87.891 Personal history of nicotine dependence; Z92.3 Personal history of irradiation
CPT/HCPCS: 36415; 49083; 71046; 74177; 80048; 80053; 80074; 80076; 82105; 82140; 82164; 82607; 82728; 82746; 82784; 82945; 82962; 83036; 83516; 83540; 83550; 83615; 83735; 83880; 84100; 84157; 84165; 84443; 85025; 85610; 85730; 86225; 86235; 86255; 86256; 86334; 88108; 88305; 88313; 89050; 93005; 93306; 97802; 99284; J7040; J7120; Q9967; A4216; J1940

== ENCOUNTER → 2024-01-05 | Outpatient (CLI) | payer MEDICARE, OTHER, SELFPAY ==
--- NOTE | 2024-01-05 14:20 | BI_ITS ---
MAMMOGRAPHY - BILATERAL SCREENING REASON FOR EXAM: Female, 73 years old. Routine annual screening examination. PERTINENT HISTORY: The patient is status post right and left lumpectomy with radiation and chemotherapy. Prior left stereotactic breast biopsy. TECHNIQUE: Digital bilateral breast ananya (3D mammographic acquisition) in the CC and MLO projections. 2-D mediolateral oblique (MLO) and craniocaudad (CC) views of both breasts were obtained. CAD: Full Field Digital Mammography with Computer Added Detection was performed. COMPARISON: Comparison is made with prior study dated December 11, 2022 and December 10, 2021. FINDINGS: Breast Composition: There are scattered areas of fibroglandular density. There are no dominant masses or suspicious calcifications. The patient is status post lumpectomy in the deep inferior medial aspect of the right breast as well as bilateral stereotactic breast biopsies. There is deformity of the breast. Thickening. This also evidence of skin thickening of the left breast with surgical clips in the left axilla and the prior tissue clip markers. No other significant abnormalities are identified. There has been no significant change since the prior study. BI/SCRN MAMM (CAD)W/ANANYA BILAT IMPRESSION: Stable bilateral screening mammogram. Yearly follow-up mammogram recommended. (A) ASSESSMENT CATEGORY: BIRADS Category 2: Benign. A letter regarding these results will be sent to the patient by the facility within 30 days. Approximately 10% of breast cancers are not detected by mammography. A normal mammogram should not delay biopsy of a clinically suspicious abnormality. [id number] Electronically Signed: Ghulam Peters MD at 7:56 EDT ,
== END | disposition home or self-care (01) ==
LOC: OPBI 14:20
PROVIDERS: PCP Family Medicine; Referring Provider Student in an Organized Health Care Education/Training Program; Visit Provider Student in an Organized Health Care Education/Training Program
DX: Z12.31 Encounter for screening mammogram for malignant neoplasm of breast (principal); Z85.3 Personal history of malignant neoplasm of breast
CPT/HCPCS: 77063; 77067

== ENCOUNTER → 2024-01-11 | Outpatient (CLI) | payer MEDICARE, OTHER, SELFPAY ==
[2024-01-11 15:25] LABS: Absolute Lymphocyte Count 1.22 X10^3/uL (0.83-4.51); Absolute Neutrophil Count 4.1 X10^3/uL (2.0-7.7); Basophil# 0.02 X10^3/uL; Basophil% 0.3 % (0-1); Eosinophil# 0.21 X10^3/uL; Eosinophils% 3.5 % (0-5); Hematocrit 36.1 % (37-47); Hemoglobin 11.5 g/dL (12.0-15.0); Lymphocyte # 1.22 X10^3/ul (0.83-4.51); Lymphocyte % 20.2 % (19-41); Mean Corp Hgb Conc 31.9 g/dL (32-36); Mean Corpuscular Hgb 32.1 pg (27.0-32.0); Mean Corpuscular Volume 100.8 fL (81-99); Mean Platelet Vol. 11.1 fl (6.2-12.0); Monocyte# 0.46 X10^3/uL; Monocyte% 7.6 % (0-10); NRBC Flagged by Analyzer 0 % (0-5); Neutrophil # 4.11 X10^3/uL (2.7-7.7); Neutrophil % 68.1 % (47-70); Platelet Count 144 K/mm3 (150-450); RBC Distribution Width CV 13.6 % (11.6-14.6); RBC Distribution Width SD 50.1 fl (35.1-43.9); Red Blood Count 3.58 M/mm3 (4.2-5.4)
[2024-01-11 15:45] LABS: Hemoglobin A1c 7.3 % (3.8-5.6)
[2024-01-11 15:50] LABS: ALB/GLOB Ratio 0.5 RATIO (0.9-2.4); AST(SGOT) 37 U/L (15-37); Alanine Aminotransfer ALT/SGPT 20 U/L (13-56); Albumin, Serum 2.5 g/dL (3.2-5.0); Alkaline Phosphatase 39 U/L (45-117); Anion Gap 9 (5-15); BUN 19 mg/dL (7-18); BUN/Creat Ratio 15.1 RATIO (10-20); Calcium,Total 9.4 mg/dL (8.5-10.1); Chloride 107 mmol/L (98-107); Cholesterol 129 mg/dL (200); Creatinine, Serum 1.26 mg/dL (0.55-1.02); EST Glomerular Filtration Rate 44 mL/min (>60); Est Glom Filt Rate - Afr Amer 53 mL/min (>60); Globulin 4.6 g/dL (2.2-4.2); Glucose 155 mg/dL (74-106); High Density Lipoprotein 31 mg/dL; Magnesium 1.4 mg/dL (1.6-2.6); Phosphorus 3.2 mg/dL (2.5-4.9); Potassium 4.1 mmol/L (3.5-5.1); Protein, Total 7.1 g/dL (6.4-8.2); Sodium Level 140 mmol/L (136-145); Triglycerides 112 mg/dL; Very Low Density Lipoprotein 22 mg/dL (5-40)
[2024-01-11 15:52] LABS: International Normalized Ratio 1.4; Prothrombin Time (Protime)PT. 16.9 SECONDS (11.7-14.9)
== END | disposition home or self-care (01) ==
LOC: LAB 14:52
PROVIDERS: PCP Family Medicine; Referring Provider Internal Medicine; Visit Provider Internal Medicine
DX: K74.60 Unspecified cirrhosis of liver (principal); D61.818 Other pancytopenia; E11.65 Type 2 diabetes mellitus with hyperglycemia; Z79.4 Long term (current) use of insulin; K75.81 Nonalcoholic steatohepatitis (NASH); E03.8 Other specified hypothyroidism; E06.3 Autoimmune thyroiditis; E78.2 Mixed hyperlipidemia; E66.9 Obesity, unspecified; R60.0 Localized edema
CPT/HCPCS: 36415; 80053; 80061; 83036; 83735; 84100; 85025; 85610; 86140

== ENCOUNTER 2024-01-12 11:52 | Outpatient (CLI) | payer MEDICARE, OTHER, SELFPAY ==
[2024-01-12] MEDS: Lidocaine 2% (20 ml mdv) 20 ML Vial INFILT (12:20)
[2024-01-12 12:25] VITALS: BP 116/42; PULSE 70; RESP 18; O2SAT 98
[2024-01-12 12:40] VITALS: BP 105/27; PULSE 69; RESP 18; O2SAT 98
[2024-01-12] MEDS: 0.9% Saline Lock 10 ML Syringe IV ×2 (12:50→13:19)
--- NOTE | 2024-01-12 12:53 | PCM.OP.PRO ---
Procedure Report Date of Procedure: 01/12/24 Assessment & Plan Assessment/Plan (1) Abdominal ascites: QUALIFIERS: Ascites type: other type Qualified Code(s): R18.8 - Other ascites PLAN: PROCEDURE: Ultrasound guided paracentesis ORDERING PROVIDER: Dr. Westfall INDICATION: Female, 73 years old. Abdominal ascites. PROVIDER: CAROLANN Pruett TECHNIQUE: The risks, benefits, and alternatives to the procedure were explained to the patient. The specific risks of bleeding, infection, and damage to bowel were detailed and accepted. Witnessed informed consent was obtained. The abdomen was ultrasonographically surveyed. An appropriate pocket of fluid was identified in the right lower quadrant. The skin was prepped with chlorhexidine and sterile field established. 2% lidocaine was used for local anesthetic. Using ultrasound guidance, the peritoneal cavity was accessed with a 5-Occitan paracentesis needle/catheter system. The trocar was removed. A total of 5650 ml of clear yellow colored fluid was removed from the peritoneal cavity. The catheter was removed and a sterile dressing was applied. The procedure was well tolerated. IMPRESSION: Successful ultrasound-guided paracentesis with right lower quadrant access site. Procedures Radiology Radiology US Procedures: [id number] Paracentesis
[2024-01-12 13:07] VITALS: BP 110/38; PULSE 75; RESP 18; TEMP 36.7; O2SAT 99
[2024-01-12] MEDS: Albumin Human 25% (100 mL) 25 GM/100 ML BAG IV (13:19)
[2024-01-12] MEDS: Albumin Human 25% (50 mL) 12.5 GM/50 ML IV.SOLN IV (14:41)
[2024-01-12 15:37] VITALS: BP 110/43; PULSE 76; RESP 16; TEMP 36.2
== END 2024-01-12 23:59 | disposition home or self-care (01) ==
LOC: US 11:54
PROVIDERS: PCP Family Medicine; Referring Provider Internal Medicine; Visit Provider Internal Medicine
DX: R18.8 Other ascites (principal)
CPT/HCPCS: 96365; 96366; 49083; P9047; A4216

== ENCOUNTER → 2024-02-18 | Outpatient (CLI) | payer MEDICARE, OTHER, SELFPAY ==
[2024-02-17 10:53] VITALS: BP 117/44; PULSE 69; RESP 18; TEMP 36.6; O2SAT 95
[2024-02-17 11:00] VITALS: BP 122/47; PULSE 85; RESP 18; O2SAT 98
[2024-02-18] MEDS: Lidocaine 2% (20 ml mdv) 20 ML Vial INFILT (11:00)
[2024-02-18 11:15] VITALS: BP 104/33; PULSE 74; RESP 18; O2SAT 97
[2024-02-18 11:30] VITALS: BP 98/39; PULSE 76; RESP 18; TEMP 36.6; O2SAT 98
[2024-02-18] MEDS: Albumin Human 25% (100 mL) 25 GM/100 ML BAG IV (12:00)
[2024-02-18 12:04] VITALS: BMI 34.3
--- NOTE | 2024-02-18 12:05 | PRO.PCM_ITS ---
Procedure Report Date of Procedure: 02/18/24 Assessment & Plan Assessment/Plan (1) Abdominal ascites: QUALIFIERS: Ascites type: other type Qualified Code(s): R18.8 - Other ascites PLAN: PROCEDURE: Ultrasound guided paracentesis ORDERING PROVIDER: Dr. Westfall INDICATION: Female, 73 years old. Abdominal ascites. PROVIDER: CAROLANN Pruett TECHNIQUE: The risks, benefits, and alternatives to the procedure were explained to the patient. The specific risks of bleeding, infection, and damage to bowel were detailed and accepted. Witnessed informed consent was obtained. The abdomen was ultrasonographically surveyed. An appropriate pocket of fluid was identified in the right lower quadrant. The skin was prepped with chlorhexidine and sterile field established. 2% lidocaine was used for local anesthetic. Using ultrasound guidance, the peritoneal cavity was accessed with a 5-E[place]ian paracentesis needle/catheter system. The trocar was removed. A total of 6000 ml of clear yellow colored fluid was removed from the peritoneal cavity. The catheter was removed and a sterile dressing was applied. The procedure was well tolerated. IMPRESSION: Successful ultrasound-guided paracentesis with right lower quadrant access site. Procedures Radiology Radiology US Procedures: [id number] Paracentesis
[2024-02-18] MEDS: Albumin Human 25% (50 mL) 12.5 GM/50 ML IV.SOLN IV (13:26)
[2024-02-18 14:35] VITALS: BP 95/46; PULSE 74; RESP 16; TEMP 35.8; O2SAT 95
== END | disposition home or self-care (01) ==
LOC: US 10:47
PROVIDERS: PCP Family Medicine; Referring Provider Internal Medicine; Visit Provider Internal Medicine
DX: R18.8 Other ascites (principal)
CPT/HCPCS: 96365; 96366; 49083; P9047

== ENCOUNTER → 2024-02-25 | Outpatient (CLI) | payer MEDICARE, OTHER, SELFPAY ==
[2024-02-25 10:45] VITALS: BP 107/33; PULSE 76; RESP 16; TEMP 36.8; O2SAT 97
[2024-02-25] MEDS: Lidocaine 2% (20 ml mdv) 20 ML Vial INFILT (10:50)
[2024-02-25 11:00] VITALS: BP 102/37; PULSE 68; RESP 16; O2SAT 98
[2024-02-25 11:10] VITALS: BP 104/37; PULSE 74; RESP 16; O2SAT 98
--- NOTE | 2024-02-25 11:25 | PCM.OP.PRO ---
Procedure Report Date of Procedure: 02/25/24 Assessment & Plan Assessment/Plan (1) Abdominal ascites: QUALIFIERS: Ascites type: other type Qualified Code(s): R18.8 - Other ascites PLAN: PROCEDURE: Ultrasound guided paracentesis ORDERING PROVIDER: Dr. Westfall INDICATION: Female, 73 years old. Ascites. PROVIDER: CAROLANN Pruett TECHNIQUE: The risks, benefits, and alternatives to the procedure were explained to the patient. The specific risks of bleeding, infection, and damage to bowel were detailed and accepted. Witnessed informed consent was obtained. The abdomen was ultrasonographically surveyed. An appropriate pocket of fluid was identified in the right lower quadrant. The skin was prepped with chlorhexidine and sterile field established. 2% lidocaine was used for local anesthetic. Using ultrasound guidance, the peritoneal cavity was accessed with a 5-[place] paracentesis needle/catheter system. The trocar was removed. A total of 4000 ml of clear yellow colored fluid was removed from the peritoneal cavity. The catheter was removed and a sterile dressing was applied. The procedure was well tolerated. IMPRESSION: Successful ultrasound-guided paracentesis with right lower quadrant access site. Procedures Radiology Radiology US Procedures: [id number] Paracentesis
== END | disposition home or self-care (01) ==
PROVIDERS: PCP Family Medicine; Referring Provider Internal Medicine; Visit Provider Internal Medicine
DX: R18.8 Other ascites (principal)
CPT/HCPCS: 49083

== ENCOUNTER 2024-03-24 07:43 | Outpatient (CLI) | payer MEDICARE, OTHER, SELFPAY ==
[2024-03-24] MEDS: Lidocaine 2% (20 ml mdv) 20 ML Vial INFILT (08:10)
[2024-03-24 08:54] VITALS: BP 118/44; PULSE 87; RESP 18; TEMP 36.7; O2SAT 92
[2024-03-24 08:55] VITALS: BP 111/40; PULSE 89; RESP 18; O2SAT 97
[2024-03-24 08:56] VITALS: BP 117/45; PULSE 87; RESP 18; O2SAT 96
[2024-03-24] MEDS: Albumin Human 25% (100 mL) 25 GM/100 ML BAG IV (09:08)
[2024-03-24] MEDS: 0.9% Saline Lock 10 ML Syringe IV (09:08)
[2024-03-24 09:10] VITALS: BP 116/37; PULSE 86; RESP 16; TEMP 36.4; O2SAT 100; BMI 34.3
[2024-03-24] MEDS: Albumin Human 25% (50 mL) 12.5 GM/50 ML IV.SOLN IV (10:30)
--- NOTE | 2024-03-24 11:02 | PCM.OP.PRO ---
Procedure Report Date of Procedure: 03/24/24 Assessment & Plan Assessment/Plan (1) Abdominal ascites: QUALIFIERS: Ascites type: other type Qualified Code(s): R18.8 - Other ascites PLAN: PROCEDURE: Ultrasound guided paracentesis ORDERING PROVIDER: Dr. Westfall INDICATION: Female, 74 years old. Abdominal ascites. PROVIDER: CAROLANN Pruett TECHNIQUE: The risks, benefits, and alternatives to the procedure were explained to the patient. The specific risks of bleeding, infection, and damage to bowel were detailed and accepted. Witnessed informed consent was obtained. The abdomen was ultrasonographically surveyed. An appropriate pocket of fluid was identified in the right lower quadrant. The skin was prepped with chlorhexidine and sterile field established. 2% lidocaine was used for local anesthetic. Using ultrasound guidance, the peritoneal cavity was accessed with a 5-Romansh paracentesis needle/catheter system. The trocar was removed. A total of 5500 ml of clear yellow colored fluid was removed from the peritoneal cavity. The catheter was removed and a sterile dressing was applied. The procedure was well tolerated. IMPRESSION: Successful ultrasound guided paracentesis with right lower quadrant access site. Procedures Radiology Radiology US Procedures: [id number] Paracentesis
[2024-03-24 11:33] VITALS: BP 118/43; PULSE 79; RESP 16; TEMP 36.1; O2SAT 100
== END 2024-03-24 23:59 | disposition home or self-care (01) ==
LOC: US 07:43
PROVIDERS: PCP Family Medicine; Referring Provider Internal Medicine; Visit Provider Internal Medicine
DX: R18.8 Other ascites (principal)
CPT/HCPCS: 96365; 96366; 49083; J7050; P9047; A4216

== ENCOUNTER → 2024-04-24 | Outpatient (CLI) | payer MEDICARE, OTHER, SELFPAY ==
--- NOTE | 2024-04-24 09:30 | US_ITS ---
STUDY: ABDOMINAL ULTRASOUND - RIGHT UPPER QUADRANT; ELASTOGRAPHY REASON FOR VISIT: Female, 74 years old. Cirrhosis. TECHNIQUE: Ultrasound evaluation of the right upper quadrant was performed with real-time and static cardona-scale imaging. Point quantification shear wave elastography was performed (appEatIT). TECHNICAL QUALITY: Limited. Examination limited by bowel gas. COMPARISON: Comparison is made with prior study dated October 23, 2020. FINDINGS: Liver: The liver measures 16.6 cm. There is increased echogenicity consistent with fatty infiltration. Nodular contour of the liver suggestive of cirrhosis. The bile ducts are within normal limits. There is hepatic color flow. The direction of portal flow is hepatopetal. There is no demonstrated mass lesion. Median liver stiffness measured 32.2 kPa. Gallbladder: The patient is status post cholecystectomy. Common Bile Duct (C.B.D.): The common bile duct was not measured due to overlying bowel gas. Pancreas: The pancreas was not visualized due to overlying bowel gas. Right Kidney: Normal size of the right kidney. The right kidney measures 10.3 cm x 5.1 cm x 4.8 cm. Normal renal cortex. The right cortex measures 1.4 cm. There is no demonstrated renal mass or cyst. There is no right hydronephrosis. There is evidence of ascites. US/ABD Limited w/ Elastography IMPRESSION: 1. Liver stiffness measures 32.2 kPa compatible with F3-F4 (Moderate to severe liver fibrosis) Metavir score. 2. Ascites. Findings suggestive of cirrhotic changes of the liver. Electronically Signed: Ghulam Peters MD at 13:02 EDT ,
[2024-04-24 13:44] VITALS: BP 105/39; PULSE 75; RESP 16; TEMP 36.2; O2SAT 98
[2024-04-24] MEDS: Lidocaine 2% (20 ml mdv) 20 ML Vial INFILT (13:50)
[2024-04-24 14:00] VITALS: BP 119/41; PULSE 58; RESP 16; O2SAT 98
[2024-04-24 14:10] VITALS: BP 121/46; PULSE 68; RESP 12; O2SAT 98
[2024-04-24 14:15] VITALS: BP 109/38; PULSE 74; RESP 16; O2SAT 98
[2024-04-24 14:22] VITALS: BP 119/54; PULSE 83; RESP 16; O2SAT 99
--- NOTE | 2024-04-24 15:30 | PCM.OP.PRO ---
Procedure Report Date of Procedure: 04/24/24 Assessment & Plan Assessment/Plan (1) Abdominal ascites: QUALIFIERS: Ascites type: other type Qualified Code(s): R18.8 - Other ascites PLAN: PROCEDURE: Ultrasound guided paracentesis ORDERING PROVIDER: Dr. Westfall INDICATION: Female, 74 years old. Ascites. PROVIDER: CAROLANN Pruett TECHNIQUE: The risks, benefits, and alternatives to the procedure were explained to the patient. The specific risks of bleeding, infection, and damage to bowel were detailed and accepted. Witnessed informed consent was obtained. The abdomen was ultrasonographically surveyed. An appropriate pocket of fluid was identified in the left lower upper quadrant. The skin was prepped with chlorhexidine and sterile field established. 2% lidocaine was used for local anesthetic. Using ultrasound guidance, the peritoneal cavity was accessed with a 5-Andorran paracentesis needle/catheter system. The trocar was removed. A total of 7200 ml of clear yellow colored fluid was removed from the peritoneal cavity. The catheter was removed and a sterile dressing was applied. The procedure was well tolerated. IMPRESSION: Successful ultrasound guided paracentesis with left upper quadrant access site. Procedures Radiology Radiology US Procedures: 67347 Paracentesis
== END | disposition home or self-care (01) ==
PROVIDERS: PCP Family Medicine; Referring Provider Internal Medicine; Visit Provider Internal Medicine
DX: R18.8 Other ascites (principal); D61.818 Other pancytopenia; K74.60 Unspecified cirrhosis of liver; E11.65 Type 2 diabetes mellitus with hyperglycemia; Z79.4 Long term (current) use of insulin; K75.81 Nonalcoholic steatohepatitis (NASH); E03.8 Other specified hypothyroidism; E06.3 Autoimmune thyroiditis; E78.2 Mixed hyperlipidemia
CPT/HCPCS: 49083; 76705; 76981

== ENCOUNTER → 2024-05-18 | Outpatient (CLI) | payer MEDICARE, OTHER, SELFPAY ==
[2024-05-18 10:42] VITALS: BP 138/48; PULSE 105; RESP 16; TEMP 36.5; O2SAT 96
[2024-05-18 10:57] VITALS: BP 132/61; PULSE 101; RESP 16; O2SAT 96
[2024-05-18] MEDS: Lidocaine 2% (20 ml mdv) 20 ML Vial INFILT (11:02)
[2024-05-18 11:12] VITALS: BP 130/45; PULSE 100; RESP 16; O2SAT 97
[2024-05-18 11:27] VITALS: BP 133/42; PULSE 100; RESP 16; O2SAT 97
[2024-05-18 12:00] VITALS: BP 113/38; PULSE 94; RESP 16; TEMP 36.4; O2SAT 100; BMI 34.3
[2024-05-18] MEDS: Albumin Human 25% (100 mL) 25 GM/100 ML BAG IV (12:07)
[2024-05-18] MEDS: 0.9% Saline Lock 10 ML Syringe IV (12:13)
[2024-05-18] MEDS: Albumin Human 25% (50 mL) 12.5 GM/50 ML IV.SOLN IV (13:37)
[2024-05-18 14:38] VITALS: BP 99/37; PULSE 95; RESP 16; TEMP 36.4; O2SAT 94
[2024-05-18 16:15] LABS: Absolute Lymphocyte Count 0.66 X10^3/uL (0.83-4.51); Absolute Neutrophil Count 2.6 X10^3/uL (2.0-7.7); Basophil# 0.02 X10^3/uL; Basophil% 0.5 % (0-1); Eosinophil# 0.09 X10^3/uL; Eosinophils% 2.5 % (0-5); Hematocrit 31.9 % (37-47); Hemoglobin 10.4 g/dL (12.0-15.0); Lymphocyte # 0.66 X10^3/ul (0.83-4.51); Mean Corp Hgb Conc 32.6 g/dL (32-36); Mean Corpuscular Hgb 31.5 pg (27.0-32.0); Mean Corpuscular Volume 96.7 fL (81-99); Mean Platelet Vol. 10.9 fl (6.2-12.0); Monocyte# 0.31 X10^3/uL; Monocyte% 8.4 % (0-10); NRBC Flagged by Analyzer 0 % (0-5); Neutrophil # 2.57 X10^3/uL (2.7-7.7); Neutrophil % 70.1 % (47-70); POSITIVE COUNT YES; Platelet Count 82 K/mm3 (150-450); RBC Distribution Width CV 14.5 % (11.6-14.6); RBC Distribution Width SD 50.9 fl (35.1-43.9); White Blood Count 3.7 K/mm3 (4.4-11.0)
[2024-05-18 16:26] LABS: International Normalized Ratio 1.5; Prothrombin Time (Protime)PT. 18.3 SECONDS (11.7-14.9)
[2024-05-18 16:35] LABS: Differential Indicated SCAN CRITERIA MET
[2024-05-18 16:43] LABS: ALB/GLOB Ratio 0.7 RATIO (0.9-2.4); AST(SGOT) 41 U/L (15-37); Alanine Aminotransfer ALT/SGPT 26 U/L (13-56); Albumin, Serum 2.6 g/dL (3.2-5.0); Alkaline Phosphatase 55 U/L (45-117); Anion Gap 4 (5-15); BUN 16 mg/dL (7-18); Calcium,Total 8.7 mg/dL (8.5-10.1); Chloride 104 mmol/L (98-107); Cholesterol 118 mg/dL (200); Creatinine, Serum 1.14 mg/dL (0.55-1.02); EST Glomerular Filtration Rate 50 mL/min (>60); Est Glom Filt Rate - Afr Amer 60 mL/min (>60); Estimated Creatinine Clearance 47.23 ml/min; Globulin 3.9 g/dL (2.2-4.2); Glucose 423 mg/dL (74-106); High Density Lipoprotein 27 mg/dL; Iron 42 ug/dL (50-170); Iron Binding Capacity,Total 160 ug/dL (250-450); PERCENT IRON SATURATION 26.2 % (15.0-55.0); Potassium 4.5 mmol/L (3.5-5.1); Protein, Total 6.5 g/dL (6.4-8.2); Sodium Level 134 mmol/L (136-145); T4 Free Direct 1.37 ng/dL (0.76-1.46); Triglycerides 89 mg/dL; Very Low Density Lipoprotein 18 mg/dL (5-40)
[2024-05-18 18:19] LABS: Platelet Estimate MKD DEC (ADEQ); Red Cell Morphology NORM C+C NORMAL (NORM C&C)
[2024-05-18 18:23] LABS: Vitamin B12 930 pg/mL (211-911); Vitamin D,25 Hydroxy 35.4 ng/mL
[2024-05-26 01:07] LABS: AFP, Tumor Marker 6.1 ng/mL (0.0-9.2); Immunoglobulin A 268 mg/dL (64-422); Immunoglobulin E 1206 IU/mL (6-495); Immunoglobulin G 1719 mg/dL (586-1602); Immunoglobulin M 249 mg/dL (26-217)
== END | disposition home or self-care (01) ==
PROVIDERS: PCP Family Medicine; Referring Provider Internal Medicine; Visit Provider Internal Medicine
DX: R18.8 Other ascites (principal); D61.818 Other pancytopenia; K74.60 Unspecified cirrhosis of liver; E11.65 Type 2 diabetes mellitus with hyperglycemia; Z79.4 Long term (current) use of insulin; Z85.3 Personal history of malignant neoplasm of breast; M85.80 Other specified disorders of bone density and structure, unspecified site; N61.0 Mastitis without abscess; D69.6 Thrombocytopenia, unspecified; E78.2 Mixed hyperlipidemia; E03.8 Other specified hypothyroidism; E06.3 Autoimmune thyroiditis; I10 Essential (primary) hypertension; K75.81 Nonalcoholic steatohepatitis (NASH); R63.4 Abnormal weight loss; M81.0 Age-related osteoporosis without current pathological fracture
CPT/HCPCS: 96365; 96366; 36415; 49083; 80053; 80061; 82105; 82306; 82607; 82746; 82784; 82785; 83036; 83540; 83550; 84439; 84443; 85025; 85610; 86140; P9047

== ENCOUNTER → 2024-06-05 | Outpatient (CLI) | payer MEDICARE, OTHER, SELFPAY ==
[2024-06-05 09:13] VITALS: BP 132/68; PULSE 104; RESP 16; O2SAT 98
[2024-06-05 09:15] VITALS: BP 153/70; PULSE 105; RESP 16; O2SAT 97
[2024-06-05] MEDS: Lidocaine 2% (20 ml mdv) 20 ML Vial INFILT (09:15)
--- NOTE | 2024-06-05 09:27 | PCM.OPRPT ---
Problems Associated Problem List Diagnoses (1) Abdominal ascites: Operative Report (Standard) Operative Information Surgery/Procedure Performed: Ultrasound-guided paracentesis Surgeon: Bertha Arriaga NP Date of Procedure: 06/05/24 Procedure Start Time: 09:15 Procedure Stop Time: 09:45 Pre-Operative Diagnosis: Abdominal ascites Post-Operative Diagnosis: Abdominal ascites Select all DRAINS/GRAFTS/IMPLANTS that apply: None Type of Anesthesia: Local Estimated Blood Loss: 0 Specimen collected: No Description of surgery: PROCEDURE: Ultrasound guided paracentesis ORDERING PROVIDER: Dr. Westfall INDICATION: Abdominal ascites, 74 years old. Female. PROVIDER: Bertha Arriaga [facility] TECHNIQUE: The risks, benefits, and alternatives to the procedure were explained to the patient. The specific risks of bleeding, infection, and damage to bowel were detailed and accepted. Witnessed informed consent was obtained. The abdomen was ultrasonographically surveyed. An appropriate pocket of fluid was identified in the left upper quadrant. The skin was prepped with chlorhexidine and sterile field established. 2% lidocaine was used for local anesthetic. Using ultrasound guidance, the peritoneal cavity was accessed with a 5-Yoruba paracentesis needle/catheter system. The trocar was removed. A total of 8050 ml of straw-colored colored fluid was removed from the peritoneal cavity. The catheter was removed and a sterile dressing was applied. The procedure was well tolerated. IMPRESSION: Successful ultrasound guided paracentesis with left upper quadrant access site. Surgical Findings: Uncomplicated Operations Engineer mysql dba: No Complications Complications: No Procedures Radiology Radiology US Procedures: 15668 Paracentesis
[2024-06-05 09:30] VITALS: BP 127/64; PULSE 98; RESP 16; O2SAT 96
[2024-06-05 09:45] VITALS: BP 138/54; PULSE 98; RESP 16; O2SAT 98
[2024-06-05] MEDS: 0.9% Saline Lock 10 ML Syringe IV ×2 (09:45→12:02)
[2024-06-05 09:54] VITALS: BP 145/59; PULSE 105; RESP 16; O2SAT 99
[2024-06-05] MEDS: Albumin Human 25% (100 mL) 25 GM/100 ML BAG IV ×2 (12:02→13:37)
[2024-06-05] MEDS: Albumin Human 25% (50 mL) 12.5 GM/50 ML IV.SOLN IV (15:21)
[2024-06-05 16:21] VITALS: BP 118/37; PULSE 85; RESP 16
== END | disposition home or self-care (01) ==
LOC: US 08:57
PROVIDERS: PCP Family Medicine; Referring Provider Internal Medicine; Visit Provider Internal Medicine
DX: R18.8 Other ascites (principal)
CPT/HCPCS: 96365; 96366; 49083; P9047

== ENCOUNTER 2024-06-19 10:07 | Outpatient (CLI) | payer MEDICARE, OTHER, SELFPAY ==
[2024-06-19] VITALS (8 sets, daily range): BP systolic 118–137; BP diastolic 36–59; PULSE 87–97; RESP 16–18; TEMP 35.8–37.2; O2SAT 96–98; BMI 34.3
[2024-06-19] MEDS: Lidocaine 2% (20 ml mdv) 20 ML Vial INFILT (10:43)
--- NOTE | 2024-06-19 10:53 | PCM.OPRPT ---
Problems Associated Problem List Diagnoses (1) Abdominal ascites: Procedures Radiology Radiology US Procedures: [id number] Paracentesis Operative Report (Standard) Operative Information Date of Procedure: 06/19/24 Pre-Operative Diagnosis: Abdominal ascites Post-Operative Diagnosis: Abdominal ascites Surgery/Procedure Performed: Ultrasound-guided paracentesis environmental technical officer: No Type of Anesthesia: Local Procedure Start Time: 10:40 Procedure Stop Time: 11:20 Select all DRAINS/GRAFTS/IMPLANTS that apply: None Estimated Blood Loss: 0 Specimen collected: No Description of surgery: PROCEDURE: Ultrasound guided paracentesis ORDERING PROVIDER: Dr. Westfall INDICATION: Female, 74 years old. Paracentesis for right pleural effusion. PROVIDER: Bertha Arriaga CNP TECHNIQUE: The risks, benefits, and alternatives to the procedure were explained to the patient. The specific risks of bleeding, infection, and damage to bowel were detailed and accepted. Witnessed informed consent was obtained. The abdomen was ultrasonographically surveyed. An appropriate pocket of fluid was identified in the left upper quadrant. The skin was prepped with chlorhexidine and sterile field established. 2% lidocaine was used for local anesthetic. Using ultrasound guidance, the peritoneal cavity was accessed with a 5-Estonian paracentesis needle/catheter system. The trocar was removed. A total of 8000 ml of clear pale yellow colored fluid was removed from the peritoneal cavity. The catheter was removed and a sterile dressing was applied. The procedure was well tolerated. She was then sent to the infusion center for an albumin transfusion per standing order. IMPRESSION: Successful ultrasound guided paracentesis with left upper quadrant access site. Surgical Findings: Noncomplicated Complications Complications: No
[2024-06-19] MEDS: Albumin Human 25% (100 mL) 25 GM/100 ML BAG IV ×2 (15:09→16:32)
[2024-06-19] MEDS: 0.9% Saline Lock 10 ML Syringe IV ×2 (15:09→19:52)
[2024-06-19] MEDS: Albumin Human 25% (50 mL) 12.5 GM/50 ML IV.SOLN IV (18:17)
== END 2024-06-19 19:55 | disposition home or self-care (01) ==
LOC: US 14:32 → MEDOUTP 16:23 → MS3 16:24
PROVIDERS: PCP Family Medicine; Referring Provider Internal Medicine; Visit Provider Internal Medicine
DX: R18.8 Other ascites (principal)
CPT/HCPCS: 96365; 96366; 49083; P9047; A4216

== ENCOUNTER 2024-06-19 11:37 | Emergency (ER) | payer MEDICARE, OTHER, SELFPAY ==
[2024-06-19 11:37] VITALS: BP 133/34; PULSE 96; RESP 18; TEMP 37; O2SAT 100
[2024-06-19 12:20] LABS: Absolute Lymphocyte Count 0.52 X10^3/uL (0.83-4.51); Absolute Neutrophil Count 3.9 X10^3/uL (2.0-7.7); Basophil# 0.01 X10^3/uL; Basophil% 0.2 % (0-1); Eosinophil# 0.09 X10^3/uL; Eosinophils% 1.8 % (0-5); Hematocrit 35.7 % (37-47); Hemoglobin 11.5 g/dL (12.0-15.0); Lymphocyte # 0.52 X10^3/ul (0.83-4.51); Lymphocyte % 10.4 % (19-41); Mean Corp Hgb Conc 32.2 g/dL (32-36); Mean Corpuscular Hgb 31.3 pg (27.0-32.0); Monocyte# 0.44 X10^3/uL; Monocyte% 8.8 % (0-10); NRBC Flagged by Analyzer 0 % (0-5); Neutrophil # 3.92 X10^3/uL (2.7-7.7); Neutrophil % 78.4 % (47-70); POSITIVE DIFFERENTIAL YES; Platelet Count 123 K/mm3 (150-450); RBC Distribution Width CV 15.4 % (11.6-14.6); RBC Distribution Width SD 54.2 fl (35.1-43.9); Red Blood Count 3.68 M/mm3 (4.2-5.4)
--- NOTE | 2024-06-19 12:20 | ED.VIS.LOWEX ---
HPI History of Present Illness Chief Complaint: Edema Informant: patient and spouse/S.O. Narrative Narrative: Presents to the ED for progressive bilateral lower extremity swelling for months. No dyspnea orthopnea. History of nonalcoholic cirrhosis in 2000. From discussion she is not taking her lactulose or rifaximin mean. Reports lactulose caused diarrhea therefore she does not take it. She is not confused. She called her PCP office a week ago was told to go to the emergency department. She has appointment with GI tomorrow. She does take her spironolactone. She is on Lasix she states low-dose daily. She reports decreased urine output recently. No recent vomiting or diarrhea. Later discussion apparently gets paracentesis every 2 weeks she had a paracentesis this morning prior to arrival. Reviewing records, 8 L were removed. 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 Hypothyroidism Hyperlipidemia History of breast cancer Diabetes mellitus, type II Obesity (BMI 30.0-34.9) Home Medications ?Medication ?Instructions ?Recorded ?Last Taken ?Type ascorbic acid (vitamin C) 1,000 mg 1,000 mg PO DAILY supplement 02/03/16 12/18/20 20:00 History tablet (Vitamin C With Jane Hips) metformin 1,000 mg tablet 1,000 mg PO DAILY diabetes 02/03/16 12/18/20 20:00 History multivitamin (Daily Multiple 1 ea PO DAILY supplement 02/03/16 12/18/20 20:00 History tablet) magnesium 200 mg tablet 200 mg PO DAILY 06/22/22 Unknown History losartan 50 mg tablet 100 mg PO DAILY blood press 10/29/23 Unknown History pantoprazole 40 mg tablet,delayed 40 mg PO DAILY 1 month #30 tabs 01/12/24 Unknown Rx release (Protonix) rifaximin 550 mg tablet (Xifaxan) 550 mg PO BID 30 days #60 tabs 01/24/24 Unknown Rx carvedilol 6.25 mg tablet 6.25 mg PO DAILY 1 month #30 tabs 05/26/24 Unknown Rx duloxetine 20 mg capsule,delayed 20 mg PO DAILY 06/19/24 Unknown History release glimepiride 2 mg tablet 2 mg PO BID 06/19/24 Unknown History levothyroxine 125 mcg tablet 125 mcg PO DAILY disorder of 06/19/24 Unknown History thyroid gland cholecalciferol (vitamin D3) 125 125 mcg PO DAILY 1 month #30 tabs 06/20/24 Unknown Rx mcg (5,000 unit) tablet (Vitamin D3) furosemide 40 mg tablet 40 mg PO DAILY diuretic 1 month 06/20/24 Unknown Rx #30 tabs lactulose 20 gram/30 mL oral 10 g (15 mL) PO BID 30 days #900 mL 06/20/24 Unknown Rx solution spironolactone 25 mg tablet 25 mg PO DAILY 1 month #30 tabs 06/20/24 Unknown Rx spironolactone 50 mg tablet 50 mg PO DAILY 1 month #30 tabs 06/20/24 Unknown Rx Allergy/AdvReac Type Severity Reaction Status Date / Time chlorhexidine Allergy Mild rash Verified 06/19/24 11:40 ciprofloxacin (From Cipro) Allergy unknown Verified 06/19/24 11:40 cephalexin (Cephalexin) AdvReac Mild gi upset Verified 06/19/24 11:40 doxycycline AdvReac Mild gi upset Verified 06/19/24 11:40 codeine AdvReac Vomiting Verified 06/19/24 11:40 Sulfa (Sulfonamide AdvReac Hives Verified 06/19/24 11:40 Antibiotics) Family History Father Diabetes Mother Diabetes Hypertension Sister Hypertension Brother Diabetes Hypertension Surgical History History of abdominal paracentesis History of lumpectomy of left breast (~12/2020) History of esophagogastroduodenoscopy (EGD) Hx of colonoscopy Hx of cholecystectomy Hx of shoulder surgery Hx of foot surgery History of right breast biopsy History of lumpectomy of right breast Social History Smoking Status: Former smoker Tobacco: How many years used: 2 alcohol intake: never substance use type: does not use caffeine: Yes what type of physical activity do you participate in: none frequency: does not exercise ROS ROS ED Constitutional Constitutional ED: Denies chills, fever(s) or sweats Eyes Eyes: Denies change in vision ENT ENT ED: Denies dysphagia or sore throat Cardiovascular Cardiovascular: Reports leg edema; Denies chest pain, palpitations or racing heartbeat Respiratory/Chest Respiratory/Chest: Denies cough, dyspnea or dyspnea on exertion Gastrointestinal Gastrointestinal: Denies abdominal pain, diarrhea, nausea or vomiting Genitourinary Genitourinary ED: Denies dysuria, hematuria or urinary frequency Musculoskeletal Musculoskeletal: Denies back pain, extremity pain or neck pain Integumentary Denies rash or wounds Neurologic Neurologic: Denies headache(s), paresthesias or weakness EXAM Physical Exam Const Vital Signs: 06/19/24 11:37 06/19/24 11:57 06/19/24 12:37 Temperature 98.6 F Temperature Source Oral Pulse Rate 96 90 Respiratory Rate 18 20 H Respiratory Effort Normal Non-Labored Respiratory Pattern Normal Blood Pressure 133/34 H 130/51 H Blood Pressure Mean 67 77 Pulse Ox 100 95 Oxygen Delivery Method Room Air Room Air 06/19/24 13:00 Temperature Temperature Source Pulse Rate 93 Respiratory Rate 18 Respiratory Effort Respiratory Pattern Blood Pressure 121/52 H Blood Pressure Mean 75 Pulse Ox 95 Oxygen Delivery Method Positive well nourished and well developed General Appearance ED: well developed and NAD HEENT Reports moist mucous membranes normocephalic and atraumatic Eyes EOMs intact bilaterally and conjunctivae normal General Eye ED: Yes normal appearance of both eyes Neck no lymphadenopathy and supple General: Negative for tenderness Chest Wall Chest: Negative for tenderness Resp normal respiratory effort and normal air movement Effort and Inspection: symmetric chest movement; Negative for respiratory distress Cardio regular rate, regular rhythm and no murmurs Peripheral Pulses: pulses 2+ throughout GI normal to inspection, nondistended, normoactive bowel sounds and non-tender GI Narrative: Left upper abdomen small dressing clean, dry, intact. Palpation: Negative for guarding or rebound tenderness present Back/Spine no CVA tenderness and no thoracic nor lumbar tenderness Extremity normal to inspection Extremity Narrative: 2+ bilateral lower extremity edema, no calf tenderness. Pulses intact distally. No erythema. General Extremety ED: Yes edema; Negative for tenderness General Extremity: edema Neuro oriented x3 and no sensory deficits noted Sensorium / Orientation: awake and alert Skin no rashes or lesions noted and no wounds MDM MDM MDM Narrative Medical decision making narrative: Interventions / MDM: Differential diagnosis: Peripheral edema, history of nonalcoholic cirrhosis Diagnosis considered but do not suspect: Electrolyte abnormalities however labs are stable. No clinical DVT. No clinical arterial thrombus. No clinical CHF concerns. My EKG interpretation: N/A Imaging independently reviewed and interpreted by myself: N/A External documents reviewed: Outpatient paracentesis today 8 L removed. Test considered but not ordered:N/A ED course: Patient presenting progressive peripheral edema over months. History of cirrhosis of the liver. She is on spironolactone. She is on Lasix daily. No leg pains for concerns for DVT. She reported decreased urine output. Discussed with patient and spouse concerns would be for kidney injury with decreased urine output with leg swelling. Laboratory studies were sent for evaluation. Creatinine returned normal at 1.06 for patient. Stable from recent labs. Potassium 4.0. Hemoglobin 9.5. Liver enzymes normal. INR 1.4. Patient's status post paracentesis this morning reviewing records 8 L removed today. Discussed with patient at this time treatment would be increasing diuretics as she had normal kidney function of peripheral edema. She was concerned requesting I speak with her doctors. I spoke with GI Dr. Elise as she has an appointment tomorrow agrees with medical management. I spoke with her PCP office Dr. Covington, updated on GI recommendations. Confirmed the office she is supposed to take her Lasix 20 mg twice a day as she only takes it once a day. I discussed this with the patient. She was given 40 mg IV Lasix in the ED she started urinating on the ED. She will continue her 20 mg twice a day at home with follow-up with GI tomorrow and her PCP. All questions were answered. Re-evaluation: stable Disposition discussed with patient/family/significant other: Patient and significant other Case discussed with consulting clinician: Gastroenterology, PCP This note was generated with [employer].comation software. It may contain incorrect words, spelling, and punctuation that were not noted in checking the note before signing. Lab Data Attestation: I reviewed the patient's lab results. Labs: Laboratory Results - last 24 hr 06/19/24 11:50 WBC 5.0 RBC 3.68 L Hgb 11.5 L Hct 35.7 L MCV 97.0 MCH 31.3 MCHC 32.2 RDW Std Deviation 54.2 H RDW Coeff of Harshil 15.4 H Plt Count 123 L MPV 10.0 Immature Gran % (Auto) 0.400 Neut % (Auto) 78.4 H Lymph % (Auto) 10.4 L Allen % (Auto) 8.8 Eos % (Auto) 1.8 Baso % (Auto) 0.2 Absolute Neuts (auto) 3.9 Absolute Lymphs (auto) 0.52 L Nucleated RBC % 0 PT 17.5 H INR 1.4 Sodium 138 Potassium 4.0 Chloride 107 Carbon Dioxide 27.0 Anion Gap 4 L BUN 18 Creatinine 1.06 H Est GFR (MDRD) Af Amer 65 Est GFR (MDRD) Non-Af 54 L BUN/Creatinine Ratio 17.0 Glucose 270 H Calcium 9.0 Total Bilirubin 1.30 H AST 36 ALT 26 Alkaline Phosphatase 71 Total Protein 6.4 Albumin 2.2 L Globulin 4.2 Albumin/Globulin Ratio 0.5 L Discharge Plan Triage Chief Complaint: Edema ED Provider: Sukhjinder Horowitz Dx/Rx/DC Orders Clinical Impression: Edema, peripheral, 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 Hold if serum potassium more than 5.0. spironolactone 25 mg tablet 25 mg PO DAILY 30 Days Qty: 30 4RF Rx Instructions: Take with this spironolactone 50 mg once daily to make it 75 g daily. Hold if serum potassium more than 5.1. lactulose 20 gram/30 mL solution 10 g PO BID 30 Days Qty: 900 2RF Rx Instructions: Goal to have 2-3 soft bowel movement per day cholecalciferol (vitamin D3) [Vitamin D3] 125 mcg (5,000 unit) tablet 125 mcg PO DAILY 30 Days Qty: 30 5RF multivitamin [Daily Multiple] 1 EACH tablet 1 ea PO DAILY Patient Comments: SUPPLEMENT ascorbic acid (vitamin C) [Vitamin C With Jane Hips] 1,000 MG tablet 1,000 mg PO DAILY Patient Comments: SUPPLEMENT metformin 1,000 MG tablet 1,000 mg PO DAILY Patient Comments: DIABETES glimepiride 2 mg tablet 2 mg PO BID levothyroxine 125 mcg tablet 125 mcg PO DAILY duloxetine 20 mg capsule,delayed release(DR/EC) 20 mg PO DAILY losartan 50 mg tablet 100 mg PO DAILY Xifaxan 550 mg tablet 550 mg PO BID 30 Days Qty: 60 4RF carvedilol 6.25 mg tablet 6.25 mg PO DAILY 30 Days Qty: 30 3RF Rx Instructions: must administer with a meal/food Hold for heart less than 50 or systolic blood pressure less than 100 mmHg. Primary Care Provider: Oscar Rivera Referrals: Oscar Rivera MD [Primary Care Provider] - 3-5 Days Activity Restrictions/Additional Instructions: Your creatinine is 1.06 today. Discussed with gastroenterology Dr. Elise and your primary care office Dr. Covington. You should be on your furosemide twice a day at 20 mg and you state you are only taking it once a day. You are given 40 mg IV Lasix in the ED. Take your furosemide twice a day. Your potassium 4.0 today. Keep her follow-up with GI tomorrow. Follow-up with your doctor. Print Language: Irish Disposition Disposition: Home, Self Care Discharge Date/Time: 06/19/24 14:41
[2024-06-19 12:28] LABS: International Normalized Ratio 1.4; Prothrombin Time (Protime)PT. 17.5 SECONDS (11.7-14.9)
[2024-06-19 12:37] VITALS: BP 130/51; PULSE 90; RESP 20; O2SAT 95
[2024-06-19 12:38] LABS: ALB/GLOB Ratio 0.5 RATIO (0.9-2.4); AST(SGOT) 36 U/L (15-37); Alanine Aminotransfer ALT/SGPT 26 U/L (13-56); Albumin, Serum 2.2 g/dL (3.2-5.0); Alkaline Phosphatase 71 U/L (45-117); Anion Gap 4 (5-15); BUN 18 mg/dL (7-18); Chloride 107 mmol/L (98-107); Creatinine, Serum 1.06 mg/dL (0.55-1.02); EST Glomerular Filtration Rate 54 mL/min (>60); Est Glom Filt Rate - Afr Amer 65 mL/min (>60); Globulin 4.2 g/dL (2.2-4.2); Glucose 270 mg/dL (74-106); Protein, Total 6.4 g/dL (6.4-8.2); Sodium Level 138 mmol/L (136-145)
[2024-06-19 13:00] VITALS: BP 121/52; PULSE 93; RESP 18; O2SAT 95
[2024-06-19 13:28] LABS: Color, Urine Yellow (Yellow); Glucose, Dipstick 100 mg/dl (Normal); Ketone-Dipstick 15 mg/dl (Negative); Leukocyte Esterase-Dipstick 25 /ul (Negative); Nitrite-Dipstick Negative (Negative); Occult Blood-Urine Negative /ul (Negative); Protein-Dipstick 15 mg/dl (Negative); Specific Gravity, Urine 1.025 (1.002-1.030); Urine Clarity Clear (Clear); Urine Urobilinogen 4 mg/dl (Normal)
[2024-06-19 13:29] LABS: Urine Bilirubin Dipstick 1 mg/dL (Negative)
[2024-06-19 13:40] LABS: Hyaline Cast 25-50 SEEN /lpf (0-5)
[2024-06-19 13:41] LABS: Bacteria 2+ /hpf (None Seen); Mucous, Urine 2+ /hpf (<or=2+); Red Blood Cells-Urine 0-5 SEEN /hpf (0-5); Squamous Epithelial Cells - UA 5-10 SEEN /hpf (5-10); White Blood Cells 0-5 SEEN /hpf (0-5)
[2024-06-19] MEDS: Furosemide 40 MG/4 ML Vial IV (13:48)
[2024-06-19 14:00] VITALS: BP 129/49; PULSE 69
--- NOTE | 2024-06-19 14:32 | ED.RN ---
PER CROZE CUTTER LINDSEY, IV IS TO STAY INTACT D/T PTS ALBUMIN ADMINISTRATION IN OUTPATIENT CLINIC AFTER D/C.
[2024-06-19 14:36] VITALS: BP 129/49; PULSE 69; RESP 18; TEMP 36.6; O2SAT 99
== END 2024-06-19 14:41 | disposition home or self-care (01) ==
PROVIDERS: Emergency Provider Emergency Medicine; PCP Family Medicine; Visit Provider Emergency Medicine
DX: R60.0 Localized edema (principal); K74.60 Unspecified cirrhosis of liver; E11.9 Type 2 diabetes mellitus without complications; Z87.891 Personal history of nicotine dependence; I10 Essential (primary) hypertension; K75.81 Nonalcoholic steatohepatitis (NASH); E78.5 Hyperlipidemia, unspecified; K21.9 Gastro-esophageal reflux disease without esophagitis; Z79.890 Hormone replacement therapy; Z79.84 Long term (current) use of oral hypoglycemic drugs; E03.9 Hypothyroidism, unspecified; Z79.899 Other long term (current) drug therapy
CPT/HCPCS: 80053; 81001; 85025; 85610; 87086; 96374; 99283; A4216; J1940

== ENCOUNTER → 2024-07-03 | Outpatient (CLI) | payer MEDICARE, OTHER, SELFPAY ==
[2024-07-03] VITALS (7 sets, daily range): BP systolic 95–129; BP diastolic 34–58; PULSE 67–82; RESP 16; TEMP 36.4–36.6; O2SAT 97–99
[2024-07-03] MEDS: Lidocaine 2% (20 ml mdv) 20 ML Vial INFILT (10:45)
--- NOTE | 2024-07-03 10:51 | OP.PCM_ITS ---
Multi Select Codes Radiology Radiology US Procedures: [id number] Paracentesis Operative Report (Standard) Operative Information Date of Procedure: 07/03/24 Pre-Operative Diagnosis: Abdominal ascites Post-Operative Diagnosis: Abdominal ascites Surgery/Procedure Performed: Ultrasound-guided paracentesis venereal disease investigator: No Type of Anesthesia: Local Procedure Start Time: 10:41 Procedure Stop Time: 11:15 Select all DRAINS/GRAFTS/IMPLANTS that apply: None Estimated Blood Loss: 0 Specimen collected: No Description of surgery: PROCEDURE: Ultrasound guided paracentesis ORDERING PROVIDER: Dr. Westfall INDICATION: Female, 74 years old. Abdominal ascites. PROVIDER: Bertha Arriaga CNP TECHNIQUE: The risks, benefits, and alternatives to the procedure were explained to the patient. The specific risks of bleeding, infection, and damage to bowel were detailed and accepted. Witnessed informed consent was obtained. The abdomen was ultrasonographically surveyed. An appropriate pocket of fluid was identified in the left upper quadrant. The skin was prepped with chlorhexidine and sterile field established. 2% lidocaine was used for local anesthetic. Using ultrasound guidance, the peritoneal cavity was accessed with a 5-Sammarinese paracentesis needle/catheter system. The trocar was removed. A total of 7600 ml of clear yellow colored fluid was removed from the peritoneal cavity. The catheter was removed and a sterile dressing was applied. The procedure was well tolerated. IMPRESSION: Successful ultrasound guided paracentesis with left upper quadrant access site. Surgical Findings: Noncomplicated Complications Complications: No
[2024-07-03] MEDS: 0.9% Saline Lock 10 ML Syringe IV (11:39)
[2024-07-03] MEDS: Albumin Human 25% (100 mL) 25 GM/100 ML BAG IV ×2 (11:40→13:06)
[2024-07-03] MEDS: Albumin Human 25% (50 mL) 12.5 GM/50 ML IV.SOLN IV (14:51)
== END | disposition home or self-care (01) ==
LOC: US 10:18
PROVIDERS: PCP Family Medicine; Referring Provider Internal Medicine; Visit Provider Internal Medicine
DX: R18.8 Other ascites (principal)
CPT/HCPCS: 96365; 96366; 49083; P9047

== ENCOUNTER → 2024-07-18 | Outpatient (CLI) | payer MEDICARE, OTHER, SELFPAY ==
--- NOTE | 2024-07-18 11:50 | US_ITS ---
PROCEDURE: Ultrasound guided paracentesis. DATE OF EXAMINATION: July 18, 2024.. INDICATION: Female, 74 years old. Ascites. PHYSICIAN: Ghulam Peters M.D. TECHNIQUE: The risks, benefits, and alternatives to the procedure were explained to the patient. The specific risks of bleeding, infection, and damage to bowel were detailed and accepted. Witnessed informed consent was obtained. The abdomen was ultrasonographically surveyed. An appropriate pocket of fluid was identified at the left lower quadrant. The skin were cleaned and prepped in the usual sterile fashion. Using ultrasound guidance, the peritoneal cavity was accessed with a 5-Kazakh paracentesis needle/catheter system. The trocar was removed. A total of 8500 ml of yaw-colored fluid were removed from the peritoneal cavity. The catheter was removed and a sterile dressing was applied. The procedure was well tolerated. US/Paracentesis with US IMPRESSION: Ultrasound guided paracentesis. Electronically Signed: Ghulam Peters MD at 13:13 EST ,
[2024-07-18 12:15] VITALS: BP 117/60; PULSE 82; RESP 16; TEMP 36.7; O2SAT 96
[2024-07-18] MEDS: Lidocaine 2% (20 ml mdv) 20 ML Vial INFILT (12:20)
[2024-07-18 12:30] VITALS: BP 111/38; PULSE 80; RESP 16; O2SAT 96
[2024-07-18 12:45] VITALS: BP 115/40; PULSE 79; RESP 16; O2SAT 96
[2024-07-18] MEDS: Albumin Human 25% (100 mL) 25 GM/100 ML BAG IV ×2 (13:15→14:34)
[2024-07-18] MEDS: Albumin Human 25% (50 mL) 12.5 GM/50 ML IV.SOLN IV (16:14)
[2024-07-18 17:17] VITALS: BP 103/58; PULSE 83
== END | disposition home or self-care (01) ==
LOC: US 11:49
PROVIDERS: PCP Family Medicine; Referring Provider Internal Medicine; Visit Provider Internal Medicine
DX: R18.8 Other ascites (principal)
CPT/HCPCS: 49083; P9047

== ENCOUNTER → 2024-07-20 | Outpatient (CLI) | payer MEDICARE, OTHER, SELFPAY ==
[2024-07-20 15:39] LABS: International Normalized Ratio 1.5; Prothrombin Time (Protime)PT. 18.2 SECONDS (11.7-14.9)
[2024-07-20 16:26] LABS: ALB/GLOB Ratio 0.8 RATIO (0.9-2.4); AST(SGOT) 20 U/L (15-37); Alanine Aminotransfer ALT/SGPT 17 U/L (13-56); Albumin, Serum 2.5 g/dL (3.2-5.0); Alkaline Phosphatase 50 U/L (45-117); Anion Gap 6 (5-15); BUN 16 mg/dL (7-18); BUN/Creat Ratio 12.7 RATIO (10-20); Calcium,Total 9.2 mg/dL (8.5-10.1); Chloride 100 mmol/L (98-107); Creatinine, Serum 1.26 mg/dL (0.55-1.02); EST Glomerular Filtration Rate 44 mL/min (>60); Est Glom Filt Rate - Afr Amer 53 mL/min (>60); Globulin 3.2 g/dL (2.2-4.2); Glucose 436 mg/dL (74-106); Potassium 4.3 mmol/L (3.5-5.1); Protein, Total 5.7 g/dL (6.4-8.2); Sodium Level 133 mmol/L (136-145)
== END | disposition home or self-care (01) ==
LOC: LAB 14:35
PROVIDERS: PCP Family Medicine; Referring Provider Internal Medicine; Visit Provider Internal Medicine
DX: K75.81 Nonalcoholic steatohepatitis (NASH) (principal); K74.60 Unspecified cirrhosis of liver; R18.8 Other ascites
CPT/HCPCS: 36415; 80053; 85610

== ENCOUNTER 2024-07-21 16:21 | Inpatient (IN) | payer MEDICARE, OTHER, SELFPAY ==
[2024-07-21] VITALS (11 sets, daily range): BP systolic 102–145; BP diastolic 70–119; PULSE 64–88; RESP 14–20; TEMP 36.4–36.6; O2SAT 95–99; BMI 38.8; BMI 37.8
--- NOTE | 2024-07-21 16:44 | EKG12_ITS ---
Test Reason : Blood Pressure : */* mmHG Vent. Rate : 86 BPM Atrial Rate : 86 BPM P-R Int : 142 ms QRS Dur : 76 ms QT Int : 388 ms P-R-T Axes : 4 0 -23 degrees QTcB Int : 464 ms Sinus rhythm with marked sinus arrhythmia Septal infarct , age undetermined Abnormal ECG baseline artifact Confirmed by Sixto Aleman ([id number]), international editorial producer NEREIDA JUDD ([id number]) on 07/24/2024 10:24:12 AM Referred By: Confirmed By: Sixto Aleman
--- NOTE | 2024-07-21 16:44 | CT_ITS ---
EXAMINATION : Head CT w/out contrast HISTORY : confusion COMPARISON : None. TECHNIQUE : Multiple contiguous axial images were obtained from the skull base to the vertex without intravenous contrast. A radiation dose optimization technique was used for this scan. FINDINGS : There is no evidence for acute intracranial hemorrhage, mass effect, or midline shift. There is no extra-axial fluid collection. There are periventricular white matter changes consistent with chronic microvascular ischemic disease. There is sulcal widening and ventricular enlargement consistent with cerebral atrophy. There is normal gordon-white differentiation, without CT evidence of acute ischemia or infarct. The skull base and calvarium are unremarkable. The orbits are unremarkable. The paranasal sinuses are clear. The mastoid air cells are well-aerated. The soft tissues are unremarkable. CT/Brain/Head without Contrast IMPRESSION: No acute intracranial abnormality. Chronic involutional and ischemic changes of the brain. Electronically Signed: Pb Jaime MD at 17:32 EST ,
--- NOTE | 2024-07-21 16:45 | EDS_ITS ---
HPI History of Present Illness Chief Complaint: Weakness Informant: spouse/S.O. Narrative Narrative: Presenting by EMS from home spouse is present. Known to have liver cirrhosis diagnosis past October followed by GI Dr. Westfall. Per spouse increasing confusion today increasing weakness he had trouble try to get her to the bathroom. She has not been fully compliant with her lactulose. Of note was seen by myself a month ago, decreased lactulose intake due to concerns of her diarrhea. She is seen GI office yesterday and previously was told to decrease her lactulose by half the amount goal was to 1-2 bowel movements today. No bowel movements today. No urinary symptoms no cough. From a GI notes, currently wheelchair requirements. Reported by nursing had emesis on the way in. Patient denies any current nausea. Patient receiving paracentesis biweekly last time 3 days ago per spouse 8.5 L were removed. [facility] Medical History (Updated 07/21/24 @ 23:[address] 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 Hypothyroidism Hyperlipidemia History of breast cancer Diabetes mellitus, type II Obesity (BMI 30.0-34.9) Home Medications ?Medication ?Instructions ?Recorded ?Last Taken ?Type carvedilol 6.25 mg tablet 6.25 mg PO DAILY 1 month #30 tabs 05/26/24 Unknown Rx glimepiride 2 mg tablet 2 mg PO BID 06/19/24 Unknown History levothyroxine 125 mcg tablet 125 mcg PO DAILY disorder of 06/19/24 Unknown History thyroid gland cholecalciferol (vitamin D3) 125 125 mcg PO DAILY 1 month #30 tabs 06/20/24 Unknown Rx mcg (5,000 unit) tablet (Vitamin D3) lactulose 20 gram/30 mL oral 10 g (15 mL) PO BID 30 days #900 mL 06/20/24 Unknown Rx solution magnesium oxide 400 mg (241.3 mg 800 mg PO BID 07/21/24 Unknown History magnesium) tablet metformin 500 mg tablet,extended 1,000 mg PO BID 07/21/24 Unknown History release 24 hr metoprolol succinate 25 mg .5 mg PO BID 07/21/24 Unknown History tablet,extended release 24 hr nadolol 20 mg tablet 20 mg PO DAILY 07/21/24 Unknown History spironolactone 25 mg tablet 25 mg PO DAILY 07/21/24 Unknown History spironolactone 50 mg tablet 50 mg PO DAILY 07/21/24 Unknown History Allergy/AdvReac Type Severity Reaction Status Date / Time chlorhexidine Allergy Mild rash Verified 06/19/24 11:40 ciprofloxacin (From Cipro) Allergy unknown Verified 06/19/24 11:40 cephalexin (Cephalexin) AdvReac Mild gi upset Verified 06/19/24 11:40 doxycycline AdvReac Mild gi upset Verified 06/19/24 11:40 codeine AdvReac Vomiting Verified 06/19/24 11:40 Sulfa (Sulfonamide AdvReac Hives Verified 06/19/24 11:40 Antibiotics) Family History Father Diabetes Mother Diabetes Hypertension Sister Hypertension Brother Diabetes Hypertension Surgical History (Updated 07/21/24 @ 19:04 by Gladys Ambriz) History of appendectomy History of abdominal paracentesis History of lumpectomy of left breast (~12/2020) History of esophagogastroduodenoscopy (EGD) Hx of colonoscopy Hx of cholecystectomy Hx of shoulder surgery Hx of foot surgery History of right breast biopsy History of lumpectomy of right breast Social History Smoking Status: Former smoker Tobacco: How many years used: 2 alcohol intake: never substance use type: does not use caffeine: Yes what type of physical activity do you participate in: none frequency: does not exercise ROS ROS ED Constitutional Constitutional ED: Denies chills, fever(s) or sweats ENT ENT ED: Denies sore throat Cardiovascular Cardiovascular: Reports leg edema; Denies chest pain, palpitations or racing heartbeat Respiratory/Chest Respiratory/Chest: Denies cough Gastrointestinal Gastrointestinal: Denies abdominal pain, diarrhea, nausea or vomiting Genitourinary Genitourinary ED: Denies dysuria, hematuria or urinary frequency Integumentary Denies rash or wounds Neurologic Neurologic: Reports weakness; Denies headache(s) or paresthesias EXAM Physical Exam Const Vital Signs: 07/21/24 16:23 07/21/24 16:26 07/21/24 16:30 Temperature 97.5 F L 97.5 F L Temperature Source Oral Oral Pulse Rate 82 86 Respiratory Rate 20 H 20 H Respiratory Effort Normal Non-Labored Respiratory Pattern Normal Blood Pressure 127/103 H 127/103 H Blood Pressure Mean 111 111 Pulse Ox 98 99 Oxygen Delivery Method Room Air Room Air 07/21/24 16:30 07/21/24 17:26 Temperature 98 F Temperature Source Oral Pulse Rate 80 88 Respiratory Rate 14 16 Respiratory Effort Respiratory Pattern Blood Pressure 117/91 H 133/107 H Blood Pressure Mean 99 115 Pulse Ox 95 96 Oxygen Delivery Method Room Air Room Air Positive well nourished and well developed Constitutional Narrative: Confusion patient repeating things. Nontoxic General Appearance ED: well developed HEENT Reports moist mucous membranes normocephalic and atraumatic Eyes General Eye ED: Yes normal appearance of both eyes Neck full ROM Chest Wall Chest: Negative for tenderness Resp normal respiratory effort and normal air movement Effort and Inspection: symmetric chest movement; Negative for respiratory distress Cardio regular rate, regular rhythm and no murmurs Peripheral Pulses: pulses 2+ throughout GI normal to inspection, nondistended, normoactive bowel sounds and non-tender Palpation: Negative for guarding or rebound tenderness present Extremity normal to inspection Extremity Narrative: Minimal lower extremity edema. General Extremety ED: Yes edema; Negative for tenderness General Extremity: edema Neuro oriented x3 and no sensory deficits noted Sensorium / Orientation: awake and alert Skin no rashes or lesions noted and no wounds MDM MDM MDM Narrative Medical decision making narrative: Interventions / MDM: Differential diagnosis: Hepatic encephalopathy, history of nonalcoholic cirrhosis, UTI Diagnosis considered but do not suspect: Intracranial hemorrhage however CT negative. Pneumonia however x-ray negative. Diabetic ketoacidosis however normal anion gap. My EKG interpretation: Sinus arrhythmia rate of 86, no ST or T wave changes. QTc 464. Imaging independently reviewed and interpreted by myself: CT brain: No acute process. 1 view chest x-ray elevated right hemidiaphragm. No infiltrates no effusion. External documents reviewed: N/A Test considered but not ordered:N/A ED course: Vital stable patient not at baseline more confused. No bowel movements a day history of decreasing and not taking her lactulose. More likely concerns for hepatic encephalopathy. Labs are ordered will also check urine chest x-ray and CT brain. 1725: Ammonia level returned at 121. INR 1.4. Creatinine 1.7 up from 1.2 she was given saline bolus on arrival. Hemoglobin 14.5. White count 13.3. Chest x-ray on my review no infiltrate CT brain on my review also negative. Pending final reads. I did order for lactulose. Her glucose was 421 with gap of 5. O rdered for 10 units of Humalog subcu. I spoke with hospitalist Dr. Daniels for admission. Spouse was updated on findings. Urine resulted in ED with signs of infection. Culture sent. Started on IV R ocephin. This was relayed to hospital team. Re-evaluation: stable Disposition discussed with patient/family/significant other: Patient and spouse Case discussed with consulting clinician: Hospitalist This note was generated with [employer] dictation software. It may contain incorrect words, spelling, and punctuation that were not noted in checking the note before signing. Lab Data Attestation: I reviewed the patient's lab results. Labs: Laboratory Results - last 24 hr 07/21/24 07/21/24 16:30 17:40 WBC 13.3 H RBC 4.65 Hgb 14.5 Hct 44.3 MCV 95.3 MCH 31.2 MCHC 32.7 RDW Std Deviation 54.9 H RDW Coeff of Harshil 15.7 H Plt Count 151 MPV 10.2 Immature Gran % (Auto) 0.700 Neut % (Auto) 82.7 H Lymph % (Auto) 7.7 L [place] % (Auto) 8.0 Eos % (Auto) 0.5 Baso % (Auto) 0.4 Absolute Neuts (auto) 11.0 H Absolute Lymphs (auto) 1.02 Nucleated RBC % 0 PT 17.9 H INR 1.4 Sodium 133 L Potassium 5.0 Chloride 101 Carbon Dioxide 26.0 Anion Gap 5 BUN 24 H Creatinine 1.71 H Estim Creat Clear Calc 33.67 Est GFR (MDRD) Af Amer 38 L Est GFR (MDRD) Non-Af 31 L BUN/Creatinine Ratio 14.0 Glucose 421 H Calcium 9.5 Phosphorus 3.3 Magnesium 1.9 Total Bilirubin 3.00 H Direct Bilirubin 1.00 H AST 27 ALT 20 Alkaline Phosphatase 59 Ammonia 121.0 H Total Protein 6.6 Albumin 2.6 L Globulin 4.0 Urine Color Sally Urine Clarity Clear Urine pH 5.0 Ur Specific [place] 1.020 Urine Protein 100 H Urine Glucose (UA) 1000 H Urine Ketones 5 H Urine Occult Blood 10 H Urine Nitrite Positive H Urine Bilirubin 6 H Urine Urobilinogen 8 H Ur Leukocyte Esterase 100 H Urine RBC 0-5 SEEN Urine WBC 5-10 SEEN Ur Squamous Epith Cells 0-5 SEEN Urine Bacteria RARE Urine Mucus 0 SEEN Radiography Diagnostic Testing: Clinical Impression(s) from Imaging Studies Brain CT 07/21/24 16:44 IMPRESSION: No acute intracranial abnormality. Chronic involutional and ischemic changes of the brain. Electronically Signed: Pb Jaime MD at 17:32 EST , Chest X-Ray 07/21/24 17:22 IMPRESSION: No acute radiographic abnormalities. Electronically Signed: Pb Jaime MD at 17:40 EST , Discharge Plan Dx/Rx/DC Orders Clinical Impression: Acute hepatic encephalopathy, Acute on chronic renal insufficiency, Hyperglycemia due to diabetes mellitus, 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, Acute UTI Disposition Disposition: [facility] Discharge Date/Time: 07/21/24 18:57
[2024-07-21] MEDS: Ondansetron 4 MG/2 ML Vial IV (16:48)
[2024-07-21] MEDS: 0.9% Normal Saline (500mL Bag) 500 ML 1000 ML IV (16:51)
[2024-07-21 16:53] LABS: Absolute Lymphocyte Count 1.02 X10^3/uL (0.83-4.51); Basophil# 0.05 X10^3/uL; Basophil% 0.4 % (0-1); Eosinophil# 0.06 X10^3/uL; Eosinophils% 0.5 % (0-5); Hematocrit 44.3 % (37-47); Hemoglobin 14.5 g/dL (12.0-15.0); Lymphocyte # 1.02 X10^3/ul (0.83-4.51); Lymphocyte % 7.7 % (19-41); Mean Corp Hgb Conc 32.7 g/dL (32-36); Mean Corpuscular Hgb 31.2 pg (27.0-32.0); Mean Corpuscular Volume 95.3 fL (81-99); Mean Platelet Vol. 10.2 fl (6.2-12.0); Monocyte# 1.06 X10^3/uL; NRBC Flagged by Analyzer 0 % (0-5); Neutrophil # 10.98 X10^3/uL (2.7-7.7); Neutrophil % 82.7 % (47-70); Platelet Count 151 K/mm3 (150-450); RBC Distribution Width CV 15.7 % (11.6-14.6); RBC Distribution Width SD 54.9 fl (35.1-43.9); Red Blood Count 4.65 M/mm3 (4.2-5.4); White Blood Count 13.3 K/mm3 (4.4-11.0)
[2024-07-21 17:08] LABS: AST(SGOT) 27 U/L (15-37); Alanine Aminotransfer ALT/SGPT 20 U/L (13-56); Albumin, Serum 2.6 g/dL (3.2-5.0); Alkaline Phosphatase 59 U/L (45-117); Anion Gap 5 (5-15); BUN 24 mg/dL (7-18); Calcium,Total 9.5 mg/dL (8.5-10.1); Chloride 101 mmol/L (98-107); Creatinine, Serum 1.71 mg/dL (0.55-1.02); EST Glomerular Filtration Rate 31 mL/min (>60); Est Glom Filt Rate - Afr Amer 38 mL/min (>60); Estimated Creatinine Clearance 33.67 ml/min; Glucose 421 mg/dL (74-106); Protein, Total 6.6 g/dL (6.4-8.2); Sodium Level 133 mmol/L (136-145)
[2024-07-21 17:19] LABS: International Normalized Ratio 1.4; Prothrombin Time (Protime)PT. 17.9 SECONDS (11.7-14.9)
--- NOTE | 2024-07-21 17:22 | RAD_ITS ---
INDICATION: confusion EXAMINATION/TECHNIQUE: X-RAY - XR Chest 1 View COMPARISON: 10/29/2023. FINDINGS: Low lung volumes. The lungs are otherwise clear. Tortuous and calcified thoracic aorta. The heart is borderline enlarged. No pleural effusion or pneumothorax. Degenerative changes of the thoracic spine. RAD/Chest 1 View (Portable) IMPRESSION: No acute radiographic abnormalities. Electronically Signed: Pb Jaime MD at 17:40 EST ,
--- NOTE | 2024-07-21 17:28 | CM.ED ---
Social Work SW met with patient and , stated that patient is having a hard time walking and has been incontinent. states he is unable to care for patient at this time and is requesting SNF placement. Patient stated she is in agreement with this plan. SW explained the process to and patient. No further questions or needs identified at this time. Rhonda Jordan, PNEUMATIC DRUM SANDER, PHARMACY TECHNICIAN ASSISTANT
--- NOTE | 2024-07-21 17:41 | PCM.HP.STD ---
HPI - General General Date of Admission: 07/21/24 Date of Service: 07/21/24 Chief Complaint: Confusion. HPI Narrative The patient is a 74 y/o F w/ PMHx: CKD stage III unclear subtype per GFR trending, Obesity, STARK with Liver Cirrhosis following w/ Dr. Westfall with q 2 week paracentesis needs, Chronic pancytopenia associated with her liver disease, Anxiety and Depression, Diabetes mellitus type II, Former tobacco use, Hypothyroidism, HTN, HLD, Migraine headaches, Hx Breast CA status post bilateral breast lumpectomy who presents to the [facility] ED on 07/21/24 with history of increased confusion and weakness, debility even getting out of her bathroom with family reporting that unfortunately she is not been fully compliant with her medications including her lactulose particularly because of concerns for diarrhea with evaluation in the GI office 07/20/2024 with with goal at that time to at least have 1-2 active bowel movements a day therefore they had been amenable for her decreasing her lactulose by half however on day of presentation she has not had any bowel movements with a bout of emesis on the way in per nursing staff with no recurrence since then with ongoing biweekly paracenteses with the last time 3 days prior with 8.5 L removed at that time. Workup in the ED included T97.5, heart rate 82, BP 123/103, respiratory rate 20, 98% on room air with most recent repeat vitals heart rate 80, BP 170/91, respiratory rate 14, 95% room air, CBC with WBC 13.3, hemoglobin 14.5, platelet 151 with left shift, coags with INR 1.4, PT 17.9, CMP with sodium 133, BUN/Cr 24/1.71, GFR 31, glucose 421, T. bili 3.0, D bili 1.0, AST/LT 27/20, ammonia 121, CT of the brain with no acute intracranial abnormality with chronic involutional ischemic changes, chest x-ray with no acute cardiopulmonary findings, Urinalysis with specific already 1.020, protein 100, glucose of thousand, ketone 5, occult blood 10, positive nitrate, leukocyte Estrace 100 with urine WBCs 5-10 but no marked bacteria only noted rare, urine culture pending per ED. In ED patient ministered insulin 10 units subcu x 1, Zofran 4 mg IV x 1 and lactulose 20 g p.o. x 1 in addition to Rocephin IV. [facility] Medical History Diabetes 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 Pancytopenia Mastitis Osteopenia Postmenopausal Screening for osteoporosis Thrombocytopenia Wears glasses Cancer Post-menopausal Anxiety GERD (gastroesophageal reflux disease) Ulcer Cirrhosis Shortness of breath on exertion Former smoker Edema Hx of cardiovascular stress test Migraine headache Back pain Injury of back Syncope History of ventral hernia Abnormal mammogram of right breast Hypertension 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 Hypothyroidism Hyperlipidemia History of breast cancer Diabetes mellitus, type II Obesity (BMI 30.0-34.9) Home Medications ?Medication ?Instructions ?Recorded ?Last Taken ?Type carvedilol 6.25 mg tablet 6.25 mg PO DAILY 1 month #30 tabs 05/26/24 Unknown Rx glimepiride 2 mg tablet 2 mg PO BID 06/19/24 Unknown History levothyroxine 125 mcg tablet 125 mcg PO DAILY disorder of 06/19/24 Unknown History thyroid gland cholecalciferol (vitamin D3) 125 125 mcg PO DAILY 1 month #30 tabs 06/20/24 Unknown Rx mcg (5,000 unit) tablet (Vitamin D3) lactulose 20 gram/30 mL oral 10 g (15 mL) PO BID 30 days #900 mL 06/20/24 Unknown Rx solution magnesium oxide 400 mg (241.3 mg 800 mg PO BID 07/21/24 Unknown History magnesium) tablet metformin 500 mg tablet,extended 1,000 mg PO BID 07/21/24 Unknown History release 24 hr metoprolol succinate 25 mg 12.5 mg PO BID 07/21/24 Unknown History tablet,extended release 24 hr nadolol 20 mg tablet 20 mg PO DAILY 07/21/24 Unknown History spironolactone 25 mg tablet 25 mg PO DAILY 07/21/24 Unknown History spironolactone 50 mg tablet 50 mg PO DAILY 07/21/24 Unknown History Allergy/AdvReac Type Severity Reaction Status Date / Time chlorhexidine Allergy Mild rash Verified 06/19/24 11:40 ciprofloxacin (From Cipro) Allergy unknown Verified 06/19/24 11:40 cephalexin (Cephalexin) AdvReac Mild gi upset Verified 06/19/24 11:40 doxycycline AdvReac Mild gi upset Verified 06/19/24 11:40 codeine AdvReac Vomiting Verified 06/19/24 11:40 Sulfa (Sulfonamide AdvReac Hives Verified 06/19/24 11:40 Antibiotics) Family History Father Diabetes Mother Diabetes Hypertension Sister Hypertension Brother Diabetes Hypertension Surgical History History of abdominal paracentesis History of lumpectomy of left breast (~12/2020) History of esophagogastroduodenoscopy (EGD) Hx of colonoscopy Hx of cholecystectomy Hx of shoulder surgery Hx of foot surgery History of right breast biopsy History of lumpectomy of right breast Social History Smoking Status: Former smoker Tobacco: How many years used: 2 alcohol intake: never substance use type: does not use caffeine: Yes what type of physical activity do you participate in: none frequency: does not exercise ROS Review of Systems ROS Unobtainable: due to encephalopathy Vital Signs Vital Signs Vital Signs: 07/21/24 16:23 07/21/24 16:26 07/21/24 16:30 Temperature 97.5 F L 97.5 F L Temperature Source Oral Oral Pulse Rate 82 86 Respiratory Rate 20 H 20 H Respiratory Effort Normal Non-Labored Respiratory Pattern Normal Blood Pressure 127/103 H 127/103 H Blood Pressure Mean 111 111 Pulse Ox 98 99 Oxygen Delivery Method Room Air Room Air 07/21/24 16:30 Temperature Temperature Source Pulse Rate 80 Respiratory Rate 14 Respiratory Effort Respiratory Pattern Blood Pressure 117/91 H Blood Pressure Mean 99 Pulse Ox 95 Oxygen Delivery Method Room Air Weight Weight: 226 lb 6.636 oz Body Mass Index (BMI) 38.8 Physical Exam Narrative Physical Examination: General: Awakens to stimuli but fatigued, alert when she is awake, unable to answer orientation questions including even to where she is or the year, laying in the ED bed, no acute distress. Skin: Normal color, normal turgor, no icterus, no cyanosis except occasional stage ecchymoses, abrasion, bilateral lower extremity stasis type skin changes. HEENT: AT/NC, EOMI, PERRLA, MMM, no carotid bruits or JVD noted. Lungs: Mild diminished, greater bases, proper effort, no rales, ronchi or wheezing. Heart: Regular rate and rhythm; no gallop, rub audible. Abdomen: Soft, NTTP, abdomen is not tense and no significant fluid wave, mildly distended but again not tense, hyperactive BS, difficult to appreciate HSM given habitus. Extremities: No cyanosis, no clubbing, pedal to upper thigh significant 2-3+ pitting edema. Neurological: Awakens to stimuli but fatigued, alert when she is awake, unable to answer orientation questions including even to where she is or the year, laying in the ED bed, no acute distress, cognitive function not baseline intact; pupils equally reactive to light and accommodation, cranial nerves grossly normal, moving all 4 extremities, no focal deficits, strength severely globally decreased secondary to acute presentation. Psychiatric: Affect appears flat, lethargic, no acute evidence of depressive or anxiety feelings but does have underlying history. Results Lab / Micro Data 07/21/24 16:30 07/21/24 16:30 Labs: Laboratory Results - last 24 hr 07/21/24 16:30: WBC 13.3 H, RBC 4.65, Hgb 14.5, Hct 44.3, MCV 95.3, MCH 31.2, MCHC 32.7, RDW Std Deviation 54.9 H, RDW Coeff of Harshil 15.7 H, Plt Count 151, MPV 10.2, Immature Gran % (Auto) 0.700, Neut % (Auto) 82.7 H, Lymph % (Auto) 7.7 L, [place] % (Auto) 8.0, Eos % (Auto) 0.5, Baso % (Auto) 0.4, Absolute Neuts (auto) 11.0 H, Absolute Lymphs (auto) 1.02, Nucleated RBC % 0, PT 17.9 H, INR 1.4, Sodium 133 L, Potassium 5.0, Chloride 101, Carbon Dioxide 26.0, Anion Gap 5, BUN 24 H, Creatinine 1.71 H, Estim Creat Clear Calc 33.67, Est GFR (MDRD) Af Amer 38 L, Est GFR (MDRD) Non-Af 31 L, BUN/Creatinine Ratio 14.0, Glucose 421 H, Calcium 9.5, Total Bilirubin 3.00 H, Direct Bilirubin 1.00 H, AST 27, ALT 20, Alkaline Phosphatase 59, Ammonia 121.0 H, Total Protein 6.6, Albumin 2.6 L, Globulin 4.0 Imaging Radiology Impression Brain CT 07/21/24 16:44 IMPRESSION: No acute intracranial abnormality. Chronic involutional and ischemic changes of the brain. Electronically Signed: Pb Jaime MD at 17:32 EST , Assessment & Plan Assessment/Plan (1) Acute hepatic encephalopathy: PLAN: Plan The patient is a 74 y/o F w/ PMHx: CKD stage III unclear subtype per GFR trending, Obesity, STARK with Liver Cirrhosis following w/ Dr. Westfall with q 2 week paracentesis needs, Chronic pancytopenia associated with her liver disease, Anxiety and Depression, Diabetes mellitus type II, Former tobacco use, Hypothyroidism, HTN, HLD, Migraine headaches, Hx Breast CA status post bilateral breast lumpectomy who presents to the [facility] ED on 07/21/24 with history of increased confusion and weakness, debility even getting out of her bathroom with family reporting that unfortunately she is not been fully compliant with her medications including her lactulose particularly because of concerns for diarrhea with evaluation in the GI office 07/20/2024 with with goal at that time to at least have 1-2 active bowel movements a day therefore they had been amenable for her decreasing her lactulose by half however on day of presentation she has not had any bowel movements with a bout of emesis on the way in per nursing staff with no recurrence since then with ongoing biweekly paracenteses with the last time 3 days prior with 8.5 L removed at that time. #1. Acute Hepatic Encephalopathy with Acute Worsened Anasarca extending up BL LE with STARK with Liver Cirrhosis following [facility]/ Dr. Westfall with chronic transaminitis and chronic pancytopenia: Will admit to [facility], maintain on low Na/ADA DM diet, water 1500 ml restriction, will pulse dose x 1 lasix 40 mg x 1 given USAMA as noted and plan repeat CMP in AM, will place snug ROGER wraps, re-initiate aggressive lactulose regimen with continued ammonia level trending, current abdomen is not tense or tender thus will defer consideration of paracentesis, continue patient home beta-lucas therapy, attempted to clarify as metoprolol, nadolol and Coreg are listed, temporally hold spironolactone given USAMA but resume once clinically appropriate. #2. Diabetes mellitus type II with hyperglycemia: Admission glucose 421, 10 unit subcu insulin short acting x 1 administered in the ED, possibly secondary to recent decreased oral intake secondary to encephalopathy, hemoglobin A1c requested, temporarily holding oral regimen, once encephalopathy improved we will continue ADA diet with Accu-Chek with insulin sliding scale. #3. Acute kidney injury on CKD stage III unclear subtype based on GFR trending (> 0.3 rise in 24 hours noted): Secondary to acute presentation likely. Admission BUN/Cr 24/1.71, GFR 31, increased from 07/20/2024 creatinine 1.26 with baseline primarily 1.0-1.2, given presentation will preferentially hold nephrotoxic medication however she does appear significantly overloaded with significant anasarca to the lower extremities up into the thighs with plan for very judicious pulse dose IV Lasix x 1, continue to closely monitor renal function and if worsens at all low threshold to hydrate or involve nephrology if needed. #4. Abnormal urinalysis with questionable acute urinary tract infection: Urinalysis with specific already 1.020, protein 100, glucose of thousand, ketone 5, occult blood 10, positive nitrate, leukocyte Estrace 100 with urine WBCs 5-10 but no marked bacteria only noted rare, urine culture pending per ED, administered IV Rocephin in the ED, will continue to be cautious in case encephalopathy is multifactorial but if urine culture unremarkable de-escalate off. #5. Hypertension: Currently attempting to clarify home regimen as patient currently listed on 3 different beta-lucas therapies, temporally holding spironolactone given USAMA, pulse dose with Lasix 40 mg IV x 1 only with close continued monitoring of renal function, PRN hydralazine. #6. Anxiety and depression: Per current list does not appear to be on regimen, clarifying to be certain, add if appropriate, encourage continued outpatient follow-up and assessment. #7. Hypothyroidism: We will continue patient on levothyroxine regimen. #8. History of breast cancer: Unclear type, status post bilateral lumpectomy, per report considered in remission, encourage continued follow-up outpatient as previously arranged. #9. Former tobacco use: Encourage continued tobacco cessation. #10. Obesity: Weight loss and lifestyle changes encouraged. #11. DVT prophylaxis: Heparin. #12. CODE status: Patient HCPOA is her who is present and living will is currently in place. Discussed CODE status at length including difference between FULL code, DNR-CCA and DNR-CC status. Following discussions about the differences in these status, requested Full Code status. Advanced Care Planning Face to Face Time: 16 minutes. Charges/Coding Visit Charges Inpatient E&M: 07116 Init Hosp L3 Procedures Hospitalists Procedures: 24004 Advncd Care Plan 30 Min
[2024-07-21 17:45] LABS: Mucous, Urine 0 SEEN /hpf (<or=2+)
[2024-07-21 17:51] LABS: Color, Urine Amber (Yellow); Glucose, Dipstick 1000 mg/dl (Normal); Ketone-Dipstick 5 mg/dl (Negative); Leukocyte Esterase-Dipstick 100 /ul (Negative); Nitrite-Dipstick Positive (Negative); Occult Blood-Urine 10 /ul (Negative); Protein-Dipstick 100 mg/dl (Negative); Urine Clarity Clear (Clear); Urine Urobilinogen 8 mg/dl (Normal)
[2024-07-21] MEDS: Lactulose 20 GM/30 ML UDC PO ×2 (18:00→23:31)
[2024-07-21] MEDS: Insulin Lispro 100 UNIT/ML INSULN.PEN 10 UNIT SC (18:00)
[2024-07-21 18:18] LABS: Urine Bilirubin Dipstick 6 mg/dL (Negative)
[2024-07-21 18:20] LABS: Bacteria RARE /hpf (None Seen); Red Blood Cells-Urine 0-5 SEEN /hpf (0-5); Squamous Epithelial Cells - UA 0-5 SEEN /hpf (5-10); White Blood Cells 5-10 SEEN /hpf (0-5)
[2024-07-21 18:52] LABS: Magnesium 1.9 mg/dL (1.6-2.6); Phosphorus 3.3 mg/dL (2.5-4.9)
[2024-07-21] MEDS: Ceftriaxone 1 GM/50 ML BAG IV (23:00)
[2024-07-21] MEDS: Furosemide 40 MG/4 ML Vial IV (23:12)
[2024-07-21] MEDS: Menthol/Lanolin/Calamine/Znox 113 GM Tube 1 APPLIC TOPICAL (23:30)
[2024-07-21] MEDS: Heparin Injection (Vial) 5,000 UNIT/ML VIAL 5000 UNIT SC (23:31)
[2024-07-22 00:09] LABS: Bedside Glucose 341 mg/dL (74-106)
[2024-07-22] MEDS: Insulin Lispro 100 UNIT/ML INSULN.PEN SC ×5 (00:35→23:47)
[2024-07-22 03:00] VITALS: PULSE 73
[2024-07-22 04:00] VITALS: BP 116/57; PULSE 86; RESP 14; TEMP 37.1; O2SAT 96
[2024-07-22 04:47] LABS: Absolute Lymphocyte Count 1.21 X10^3/uL (0.83-4.51); Absolute Neutrophil Count 5.8 X10^3/uL (2.0-7.7); Basophil# 0.02 X10^3/uL; Basophil% 0.2 % (0-1); Eosinophil# 0.21 X10^3/uL; Eosinophils% 2.6 % (0-5); Hematocrit 36.2 % (37-47); Hemoglobin 11.7 g/dL (12.0-15.0); Lymphocyte # 1.21 X10^3/ul (0.83-4.51); Mean Corp Hgb Conc 32.3 g/dL (32-36); Mean Corpuscular Hgb 30.6 pg (27.0-32.0); Mean Corpuscular Volume 94.8 fL (81-99); Mean Platelet Vol. 10.4 fl (6.2-12.0); Monocyte# 0.79 X10^3/uL; Monocyte% 9.8 % (0-10); NRBC Flagged by Analyzer 0 % (0-5); Neutrophil # 5.82 X10^3/uL (2.7-7.7); Neutrophil % 72.2 % (47-70); Platelet Count 110 K/mm3 (150-450); RBC Distribution Width CV 15.5 % (11.6-14.6); RBC Distribution Width SD 53.1 fl (35.1-43.9); Red Blood Count 3.82 M/mm3 (4.2-5.4); White Blood Count 8.1 K/mm3 (4.4-11.0)
[2024-07-22 05:14] LABS: ALB/GLOB Ratio 0.7 RATIO (0.9-2.4); AST(SGOT) 23 U/L (15-37); Alanine Aminotransfer ALT/SGPT 17 U/L (13-56); Albumin, Serum 2.2 g/dL (3.2-5.0); Alkaline Phosphatase 47 U/L (45-117); Anion Gap 7 (5-15); BUN 27 mg/dL (7-18); BUN/Creat Ratio 17.1 RATIO (10-20); Calcium,Total 8.9 mg/dL (8.5-10.1); Chloride 106 mmol/L (98-107); Creatinine, Serum 1.58 mg/dL (0.55-1.02); EST Glomerular Filtration Rate 34 mL/min (>60); Est Glom Filt Rate - Afr Amer 41 mL/min (>60); Estimated Creatinine Clearance 35.91 ml/min; Globulin 3.3 g/dL (2.2-4.2); Glucose 336 mg/dL (74-106); Potassium 4.4 mmol/L (3.5-5.1); Protein, Total 5.5 g/dL (6.4-8.2); Sodium Level 135 mmol/L (136-145)
[2024-07-22 05:48] VITALS: BMI 38.2
[2024-07-22] MEDS: Lactulose 20 GM/30 ML UDC PO ×3 (06:02→23:47)
[2024-07-22] MEDS: Levothyroxine 125 MCG Tablet PO (06:02)
[2024-07-22 06:25] LABS: Bedside Glucose 302 mg/dL (74-106)
[2024-07-22 07:39] VITALS: O2SAT 93
[2024-07-22 08:50] VITALS: BP 117/44; PULSE 72; RESP 16; TEMP 36.7; O2SAT 95
--- NOTE | 2024-07-22 08:56 | PCM.PN.HOSP ---
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 who presented with increasing confusion and assessment of acute hepatic encephalopathy made admitted to a monitored bed for subsequent management Objective Data Objective Data Vital Signs: Vital Signs Temp Pulse Resp BP Pulse Ox O2 Del Method 98.1 F 72 16 117/44 L 95 Room Air 07/22/24 08:50 07/22/24 08:50 07/22/24 08:50 07/22/24 08:50 07/22/24 08:50 07/22/24 08:50 Oxygen Delivery Method Room Air Weight: 101.2 kg Body Mass Index (BMI) 38.2 Intake & Output: Intake and Output for Last 24 Hours 07/20/24 07/21/24 07/22/24 23:59 23:59 23:59 Intake Total 550 / 550 Balance 550 / 550 Lab / Micro Data 07/22/24 04:37 07/22/24 04:37 Labs: Laboratory Results - last 24 hr 07/21/24 16:30: WBC 13.3 H, RBC 4.65, Hgb 14.5, Hct 44.3, MCV 95.3, MCH 31.2, MCHC 32.7, RDW Std Deviation 54.9 H, RDW Coeff of Harshil 15.7 H, Plt Count 151, MPV 10.2, Immature Gran % (Auto) 0.700, Neut % (Auto) 82.7 H, Lymph % (Auto) 7.7 L, [place] % (Auto) 8.0, Eos % (Auto) 0.5, Baso % (Auto) 0.4, Absolute Neuts (auto) 11.0 H, Absolute Lymphs (auto) 1.02, Nucleated RBC % 0, PT 17.9 H, INR 1.4, Sodium 133 L, Potassium 5.0, Chloride 101, Carbon Dioxide 26.0, Anion Gap 5, BUN 24 H, Creatinine 1.71 H, Estim Creat Clear Calc 33.67, Est GFR (MDRD) Af Amer 38 L, Est GFR (MDRD) Non-Af 31 L, BUN/Creatinine Ratio 14.0, Glucose 421 H, Calcium 9.5, Phosphorus 3.3, Magnesium 1.9, Total Bilirubin 3.00 H, Direct Bilirubin 1.00 H, AST 27, ALT 20, Alkaline Phosphatase 59, Ammonia 121.0 H, Total Protein 6.6, Albumin 2.6 L, Globulin 4.0 07/21/24 17:40: Urine Color Sally, Urine Clarity Clear, Urine pH 5.0, Ur Specific [place] 1.020, Urine Protein 100 H, Urine Glucose (UA) 1000 H, Urine Ketones 5 H, Urine Occult Blood 10 H, Urine Nitrite Positive H, Urine Bilirubin 6 H, Urine Urobilinogen 8 H, Ur Leukocyte Esterase 100 H, Urine RBC 0-5 SEEN, Urine WBC 5-10 SEEN, Ur Squamous Epith Cells 0-5 SEEN, Urine Bacteria RARE, Urine Mucus 0 SEEN 07/21/24 23:50: POC Glucose 341 H 07/22/24 04:37: WBC 8.1, RBC 3.82 L, Hgb 11.7 L, Hct 36.2 L, MCV 94.8, MCH 30.6, MCHC 32.3, RDW Std Deviation 53.1 H, RDW Coeff of Harshil 15.5 H, Plt Count 110 L, MPV 10.4, Immature Gran % (Auto) 0.200, Neut % (Auto) 72.2 H, Lymph % (Auto) 15.0 L, [place] % (Auto) 9.8, Eos % (Auto) 2.6, Baso % (Auto) 0.2, Absolute Neuts (auto) 5.8, Absolute Lymphs (auto) 1.21, Nucleated RBC % 0, Sodium 135 L, Potassium 4.4, Chloride 106, Carbon Dioxide 23.0, Anion Gap 7, BUN 27 H, Creatinine 1.58 H, Estim Creat Clear Calc 35.91, Est GFR (MDRD) Af Amer 41 L, Est GFR (MDRD) Non-Af 34 L, BUN/Creatinine Ratio 17.1, Glucose 336 H, Hemoglobin A1c 11.0 H, Calcium 8.9, Total Bilirubin 1.50 H, AST 23, ALT 17, Alkaline Phosphatase 47, Ammonia 76.0 H, Total Protein 5.5 L, Albumin 2.2 L, Globulin 3.3, Albumin/Globulin Ratio 0.7 L 07/22/24 05:59: POC Glucose 302 H Radiography Diagnostic Testing: Radiology Impression Brain CT 07/21/24 16:44 IMPRESSION: No acute intracranial abnormality. Chronic involutional and ischemic changes of the brain. Electronically Signed: Pb Jaime MD at 17:32 EST Reading Location ID and State: [id number] / [facility] Tel , Service support , Chest X-Ray 07/21/24 17:22 IMPRESSION: No acute radiographic abnormalities. Electronically Signed: Pb Jaime MD at 17:40 EST Reading Location ID and State: [id number] / [facility] Tel , Service support , Physical Exam Narrative GENERAL: Lethargic HEENT: Atraumatic; normocephalic EYES; Anicteric, Normal Conjunctiva NECK; supple, normal thyroid, RESPIRATORY: Diminished to auscultation CARDIOVASCULAR: Regular S1 S2, GI: soft, normoactive bowel sounds, abdominal distention : No Renal angle tenderness; EXTREMITIES: Bilateral pedal edema, no clubbing, MUSCULOSKELETAL: no muscle wasting NEURO: Awake; no lateralizing signs. SKIN: No Rash PSYCH; Flat affect . Assessment & Plan Assessment/Plan (1) Acute hepatic encephalopathy: PLAN: Plan Patient is a 74-year-old lady with history of cirrhosis of the liver secondary to nonalcoholic fatty liver disease who presented with increasing confusion and assessment of acute hepatic encephalopathy made admitted to a monitored bed for subsequent management 1. Acute hepatic encephalopathy ? Secondary to. Nonalcoholic fatty liver disease with hepatic cirrhosis. Patient admitted to monitored bed started on lactulose 2. Marked ascites ? Patient started on Lasix and Aldactone if patient does not respond to treatment we will request for ultrasound-guided paracentesis on 07/24/2024 3. Acute cystitis ? Patient started on ceftriaxone urine culture sent 4. Chronic kidney disease stage III ? Patient baseline creatinine has been ranging from 1.5-1.3, creatinine on admission was 1.7. Monitoring with daily BMPs 5. Diabetes mellitus type II -patient's oral hypoglycemics held. Placed on long acting insulin, Accu-Cheks a.c. and at bedtime and covered with sliding scale insulin 6. History of bilateral breast CA ? Status postlumpectomy and radiation therapy. Patient currently in remission 7. Hypertension - Blood pressure controlled, home medications continued with dose adjustment as needed 8. Hypothyroidism - Patient is on levothyroxine home dose continued 9. Thrombocytopenia ? Secondary to patient chronic liver disease 10. Anemia - Secondary to chronic disorder monitoring H&H and transfuse if patient becomes symptomatic or hemoglobin falls below 7 11. Hyponatremia ? Secondary to fluid overload status do expect improvement with diuretics 12. History of gastroduodenitis ? Patient is on PPI 13. Class II obesity with BMI of 38.3 ? Complicating care 14. DVT prophylaxis ? Bilateral SCDs only given patient low platelet count Time spent in the patient's overall evaluation,decision-making process, review of diagnostic data, adjustment of management, discussion with other providers, nursing nursing and ancillary staff involved in patient's care documentation,52 Minutes Charges/Coding Visit Charges Inpatient E&M: 19702 [facility] Hosp L3
[2024-07-22] MEDS: Menthol/Lanolin/Calamine/Znox 113 GM Tube 1 APPLIC TOPICAL ×4 (09:15→20:52)
[2024-07-22] MEDS: Heparin Injection (Vial) 5,000 UNIT/ML VIAL 5000 UNIT SC ×2 (09:16→20:53)
--- NOTE | 2024-07-22 10:49 | CASEMGMT ---
RN CM Assessment Face to Face with patient for initial transition planning/care coordination assessment. Pt is currently A&Ox1 to self and is unable to answer this RN CM's questions for assessment. Pt at bedside and willing to help. Care providers, pharmacy, and demographics verified. Admitting dx: Hepatic Encephalopathy PCP: Oscar Rivera Specialists: Khoi (GI) Preferred Pharmacy: [facility] Insurance: MCR A/B, [employer] Prescription Benefit: Yes LNOK: Sixto (H), Yris (MARISSA) Living Arrangements: Pt lives with her in a single story home with 2 steps to enter ADLs/IADLs: Pt states that the pt is normally ind but that he has been having to assist for the past several weeks Transportation: Pt DME: Functioning [employer] with sufficient supplies. Cane, FWW, walk-in shower with grab bars and chair HHC/SNF: Denies history Pt?s goal: Return to PLOF Plan: Pt was educated about HH and Penitentiary Facilities. Pt requests the pt to go to a SNF for further therapy prior to the pt returning home. List printed by the SW and this RN CM provided the list to the pt for review. Pt notified that it is a list of local in-network SNF's, and this RN CM requested the pt to provide 3 preferences prior to referrals being made. Pt states understanding and denies further questions at this time. Report given to MERE. Sidra Trivedi RN, CM
[2024-07-22 12:21] LABS: Bedside Glucose 293 mg/dL (74-106)
[2024-07-22 14:57] VITALS: BP 118/62; PULSE 71; RESP 16; TEMP 36.8; O2SAT 96
[2024-07-22 18:34] LABS: Bedside Glucose 258 mg/dL (74-106)
[2024-07-22 20:45] VITALS: BP 120/47; PULSE 75; RESP 18; TEMP 36.7; O2SAT 97
[2024-07-22] MEDS: 0.9% Saline Lock 10 ML Syringe IV (20:47)
[2024-07-22] MEDS: Ceftriaxone 1 GM/50 ML BAG IV (20:51)
[2024-07-23 00:21] LABS: Bedside Glucose 264 mg/dL (74-106)
[2024-07-23 02:08] VITALS: BP 119/51; PULSE 64; RESP 16; TEMP 36.4; O2SAT 95
[2024-07-23 04:37] VITALS: BMI 38.3
[2024-07-23 05:55] VITALS: BP 106/50; PULSE 65; RESP 18; TEMP 36.7; O2SAT 93
[2024-07-23] MEDS: Levothyroxine 125 MCG Tablet PO (06:01)
[2024-07-23] MEDS: Lactulose 20 GM/30 ML UDC PO (06:01)
[2024-07-23] MEDS: Insulin Lispro 100 UNIT/ML INSULN.PEN SC ×4 (06:12→21:54)
[2024-07-23 06:42] LABS: Absolute Lymphocyte Count 1.56 X10^3/uL (0.83-4.51); Basophil# 0.04 X10^3/uL; Basophil% 0.6 % (0-1); Eosinophil# 0.27 X10^3/uL; Eosinophils% 4.1 % (0-5); Hematocrit 37.8 % (37-47); Hemoglobin 12.2 g/dL (12.0-15.0); Lymphocyte # 1.56 X10^3/ul (0.83-4.51); Lymphocyte % 23.5 % (19-41); Mean Corp Hgb Conc 32.3 g/dL (32-36); Mean Corpuscular Volume 96.2 fL (81-99); Mean Platelet Vol. 10.6 fl (6.2-12.0); Monocyte# 0.71 X10^3/uL; Monocyte% 10.7 % (0-10); NRBC Flagged by Analyzer 0 % (0-5); Neutrophil # 4.03 X10^3/uL (2.7-7.7); Neutrophil % 60.8 % (47-70); Platelet Count 104 K/mm3 (150-450); RBC Distribution Width CV 15.7 % (11.6-14.6); RBC Distribution Width SD 55.5 fl (35.1-43.9); Red Blood Count 3.93 M/mm3 (4.2-5.4); White Blood Count 6.6 K/mm3 (4.4-11.0)
[2024-07-23 06:44] LABS: Bedside Glucose 249 mg/dL (74-106)
[2024-07-23 07:01] LABS: ALB/GLOB Ratio 0.6 RATIO (0.9-2.4); AST(SGOT) 31 U/L (15-37); Alanine Aminotransfer ALT/SGPT 19 U/L (13-56); Albumin, Serum 2.1 g/dL (3.2-5.0); Alkaline Phosphatase 50 U/L (45-117); Anion Gap 3 (5-15); BUN 29 mg/dL (7-18); BUN/Creat Ratio 19.6 RATIO (10-20); Calcium,Total 9.2 mg/dL (8.5-10.1); Chloride 108 mmol/L (98-107); Creatinine, Serum 1.48 mg/dL (0.55-1.02); EST Glomerular Filtration Rate 37 mL/min (>60); Est Glom Filt Rate - Afr Amer 44 mL/min (>60); Estimated Creatinine Clearance 38.61 ml/min; Globulin 3.3 g/dL (2.2-4.2); Glucose 265 mg/dL (74-106); Magnesium 1.7 mg/dL (1.6-2.6); Phosphorus 3.5 mg/dL (2.5-4.9); Potassium 4.1 mmol/L (3.5-5.1); Protein, Total 5.4 g/dL (6.4-8.2); Sodium Level 138 mmol/L (136-145)
--- NOTE | 2024-07-23 07:34 | PN.HOSP_ITS ---
Reason for Visit Reason for Visit: Diagnoses Hepatic encephalopathy (07/21/24) Subjective Subjective Patient seen level of sensorium improving abdominal distention persist subsequently requested for ultrasound-guided paracentesis to be performed on 07/24/2024. Objective Data Objective Data Vital Signs: Vital Signs Temp Pulse Resp BP Pulse Ox O2 Del Method 98.0 F 65 18 106/50 L 93 Room Air 07/23/24 05:55 07/23/24 05:55 07/23/24 05:55 07/23/24 05:55 07/23/24 05:55 07/23/24 06:00 Oxygen Delivery Method Room Air Weight: 101.3 kg Body Mass Index (BMI) 38.3 Intake & Output: Intake and Output for Last 24 Hours 07/21/24 07/22/24 07/23/24 23:59 23:59 23:59 Intake Total 550 / 550 50 / 50 Balance 550 / 550 50 / 50 Lab / Micro Data 07/23/24 06:13 07/23/24 06:13 Labs: Laboratory Results - last 24 hr 07/22/24 04:37: Hemoglobin A1c 11.0 H 07/22/24 11:39: POC Glucose 293 H 07/22/24 17:19: POC Glucose 258 H 07/22/24 23:46: POC Glucose 264 H 07/23/24 06:04: POC Glucose 249 H 07/23/24 06:13: WBC 6.6, RBC 3.93 L, Hgb 12.2, Hct 37.8, MCV 96.2, MCH 31.0, MCHC 32.3, RDW Std Deviation 55.5 H, RDW Coeff of Harshil 15.7 H, Plt Count 104 L, MPV 10.6, Immature Gran % (Auto) 0.300, Neut % (Auto) 60.8, Lymph % (Auto) 23.5, [place] % (Auto) 10.7 H, Eos % (Auto) 4.1, Baso % (Auto) 0.6, Absolute Neuts (auto) 4.0, Absolute Lymphs (auto) 1.56, Nucleated RBC % 0, Sodium 138, Potassium 4.1, Chloride 108 H, Carbon Dioxide 27.0, Anion Gap 3 L, BUN 29 H, Creatinine 1.48 H, Estim Creat Clear Calc 38.61, Est GFR (MDRD) Af Amer 44 L, Est GFR (MDRD) Non-Af 37 L, BUN/Creatinine Ratio 19.6, Glucose 265 H, Calcium 9.2, Phosphorus 3.5, Magnesium 1.7, Total Bilirubin 1.60 H, AST 31, ALT 19, Alkaline Phosphatase 50, Total Protein 5.4 L, Albumin 2.1 L, Globulin 3.3, Albumin/Globulin Ratio 0.6 L Physical Exam Narrative GENERAL: Patient is awake and cooperative HEENT: Atraumatic; normocephalic EYES; Anicteric, Normal Conjunctiva NECK; supple, normal thyroid, RESPIRATORY: Diminished to auscultation CARDIOVASCULAR: Regular S1 S2, GI: soft, normoactive bowel sounds, abdominal distention : No Renal angle tenderness; EXTREMITIES: Bilateral pedal edema, no clubbing, MUSCULOSKELETAL: no muscle wasting NEURO: Awake; no lateralizing signs. SKIN: No Rash PSYCH; Flat affect . Assessment & Plan Assessment/Plan (1) Acute hepatic encephalopathy: PLAN: Plan Patient is a 74-year-old lady with history of cirrhosis of the liver secondary to nonalcoholic fatty liver disease who presented with increasing confusion and assessment of acute hepatic encephalopathy made admitted to a monitored bed for subsequent management 1. Acute hepatic encephalopathy ? Secondary to. Nonalcoholic fatty liver disease with hepatic cirrhosis. Patient admitted to monitored bed started on lactulose ? 07/23/2024 patient responding to treatment 2. Marked ascites ? Patient started on Lasix and Aldactone if patient does not respond to treatment we will request for ultrasound-guided paracentesis on 07/24/2024 ? 07/23/2024; with persistence of patient marked ascites order was placed for patient to undergo ultrasound-guided paracentesis in a.m. 3. Acute cystitis ? Patient started on ceftriaxone urine culture sent 4. Chronic kidney disease stage III ? Patient baseline creatinine has been ranging from 1.5-1.3, creatinine on admission was 1.7. Monitoring with daily BMPs 5. Diabetes mellitus type II -patient's oral hypoglycemics held. Placed on long acting insulin, Accu-Cheks a.c. and at bedtime and covered with sliding scale insulin 6. History of bilateral breast CA ? Status postlumpectomy and radiation therapy. Patient currently in remission 7. Hypertension - Blood pressure controlled, home medications continued with dose adjustment as needed 8. Hypothyroidism - Patient is on levothyroxine home dose continued 9. Thrombocytopenia ? Secondary to patient chronic liver disease 10. Anemia - Secondary to chronic disorder monitoring H&H and transfuse if patient becomes symptomatic or hemoglobin falls below 7 11. Hyponatremia ? Secondary to fluid overload status do expect improvement with diuretics 12. History of gastroduodenitis ? Patient is on PPI 13. Class II obesity with BMI of 38.3 ? Complicating care 14. DVT prophylaxis ? Bilateral SCDs only given patient low platelet count Time spent in the patient's overall evaluation,decision-making process, review of diagnostic data, adjustment of management, discussion with other providers, nursing nursing and ancillary staff involved in patient's care documentation, 36 minutes Charges/Coding Visit Charges Inpatient E&M: 55918 Subs Hosp L2
[2024-07-23 08:17] VITALS: BP 104/41; PULSE 64; RESP 16; TEMP 37; O2SAT 96
[2024-07-23] MEDS: Menthol/Lanolin/Calamine/Znox 113 GM Tube 1 APPLIC TOPICAL ×4 (08:21→21:55)
[2024-07-23] MEDS: Nystatin Powder 15gm Bottle 1 APPLIC TOPICAL ×2 (08:21→21:54)
[2024-07-23] MEDS: Heparin Injection (Vial) 5,000 UNIT/ML VIAL 5000 UNIT SC ×2 (08:41→21:54)
[2024-07-23 12:25] LABS: Bedside Glucose 281 mg/dL (74-106)
[2024-07-23 14:00] VITALS: BP 108/48; PULSE 69; RESP 16; TEMP 37.3; O2SAT 97
[2024-07-23 18:03] LABS: Bedside Glucose 338 mg/dL (74-106)
[2024-07-23 21:41] VITALS: BP 131/57; PULSE 80; RESP 20; TEMP 37; O2SAT 94
[2024-07-23] MEDS: Ceftriaxone 1 GM/50 ML BAG IV (22:00)
[2024-07-23 23:28] LABS: Bedside Glucose 429 mg/dL (74-106)
[2024-07-24] VITALS (10 sets, daily range): BP systolic 109–167; BP diastolic 44–68; PULSE 70–90; RESP 15–18; TEMP 36.4–37.1; O2SAT 94–98; BMI 38.3
--- NOTE | 2024-07-24 | FLU_PTH ---
PATIENT: JEANNINE OLSON LOC: [facility] U#:[id number] AGE/SX: 74/F ROOM: [facility] RE07/21/[address]: Dr. Bladimir Westfall MD : 1950 BED: 1 DIS: 07/26/2024 SPEC #: [id number] RECD: 07/24/24 15:02 STATUS: RONEY REJefferson #: [id number] ANNAMARIE: 07/24/24 00:[address]: Bladimir Westfall DEPT: CYTOLOGY RECD BY: Maurice Adair ENTERED: 07/25/24 07:48 SP TYPE: Fluid OTHR DR: MD Dr. Johnnie Mcleod MD Dr. William Lago, MD Tissues: PARACENTESIS FLUID Procedures: Special Stain Group II Surgery Specimen Level IV Cytospin Fluid HEADER OPERATION: Ultrasound guided paracentesis, left lower quadrant PRE-OP DIAGNOSIS: Ascites TISSUE SUBMITTED: Paracentesis fluid for cytology DIAGNOSIS CYTOLOGY Paracentesis fluid for cytology (cytospins and cellblock): Negative for malignant cells. See comment. mr 07/26/2024 COMMENT Please make reference to previous specimen [id number] paracentesis fluid for cytology with diagnosis of negative for malignant cells. Clinical correlation and appropriate follow up are necessary. CYTOLOGY STUDY Slides are reviewed. CYTOLOGY GROSS Received is 80 ml of yellow-cloudy fluid labeled with the patient's name and and designated per the requisition as Paracentesis fluid. Submitted for cytology preparation including cell block. Mr 07/25/2024 TC:5 CPT: 32282,15105
[2024-07-24] MEDS: Lactulose 20 GM/30 ML UDC PO (05:53)
[2024-07-24] MEDS: Levothyroxine 125 MCG Tablet PO (05:53)
[2024-07-24] MEDS: Insulin Lispro 100 UNIT/ML INSULN.PEN SC ×3 (05:56→21:36)
[2024-07-24 06:23] LABS: Absolute Lymphocyte Count 1.63 X10^3/uL (0.83-4.51); Absolute Neutrophil Count 3.6 X10^3/uL (2.0-7.7); Basophil# 0.04 X10^3/uL; Basophil% 0.6 % (0-1); Eosinophil# 0.29 X10^3/uL; Eosinophils% 4.6 % (0-5); Hematocrit 37.4 % (37-47); Hemoglobin 12.3 g/dL (12.0-15.0); Lymphocyte # 1.63 X10^3/ul (0.83-4.51); Lymphocyte % 25.6 % (19-41); Mean Corp Hgb Conc 32.9 g/dL (32-36); Mean Corpuscular Hgb 31.2 pg (27.0-32.0); Mean Corpuscular Volume 94.9 fL (81-99); Mean Platelet Vol. 10.5 fl (6.2-12.0); Monocyte# 0.75 X10^3/uL; Monocyte% 11.8 % (0-10); NRBC Flagged by Analyzer 0 % (0-5); Neutrophil # 3.62 X10^3/uL (2.7-7.7); Neutrophil % 56.8 % (47-70); Platelet Count 103 K/mm3 (150-450); RBC Distribution Width CV 15.8 % (11.6-14.6); RBC Distribution Width SD 54.6 fl (35.1-43.9); Red Blood Count 3.94 M/mm3 (4.2-5.4); White Blood Count 6.4 K/mm3 (4.4-11.0)
[2024-07-24 06:23] LABS: Bedside Glucose 340 mg/dL (74-106)
[2024-07-24 06:55] LABS: ALB/GLOB Ratio 0.6 RATIO (0.9-2.4); AST(SGOT) 37 U/L (15-37); Alanine Aminotransfer ALT/SGPT 22 U/L (13-56); Alkaline Phosphatase 55 U/L (45-117); Anion Gap 5 (5-15); BUN 26 mg/dL (7-18); BUN/Creat Ratio 20.8 RATIO (10-20); Calcium,Total 8.8 mg/dL (8.5-10.1); Chloride 103 mmol/L (98-107); Creatinine, Serum 1.25 mg/dL (0.55-1.02); EST Glomerular Filtration Rate 45 mL/min (>60); Est Glom Filt Rate - Afr Amer 54 mL/min (>60); Estimated Creatinine Clearance 45.72 ml/min; Globulin 3.4 g/dL (2.2-4.2); Glucose 374 mg/dL (74-106); Potassium 3.8 mmol/L (3.5-5.1); Protein, Total 5.4 g/dL (6.4-8.2); Sodium Level 132 mmol/L (136-145)
--- NOTE | 2024-07-24 10:00 | PN.HOSP_ITS ---
Reason for Visit Reason for Visit: Diagnoses Hepatic encephalopathy (07/21/24) Objective Data Objective Data Vital Signs: Vital Signs Temp Pulse Resp BP Pulse Ox O2 Del Method 97.5 F L 74 18 109/44 L 96 Room Air 07/24/24 05:48 07/24/24 05:48 07/24/24 05:48 07/24/24 05:48 07/24/24 05:48 07/24/24 05:48 Oxygen Delivery Method Room Air Weight: 223 lb 5.252 oz Body Mass Index (BMI) 38.3 Intake & Output: Intake and Output for Last 24 Hours 07/22/24 07/23/24 07/24/24 23:59 23:59 23:59 Intake Total 50 / 50 700 / 700 Output Total 150 / 150 100 / 100 Balance 50 / 50 550 / 550 -100 / -100 Lab / Micro Data 07/24/24 06:03 07/24/24 06:03 Labs: Laboratory Results - last 24 hr 07/23/24 11:40: POC Glucose 281 H 07/23/24 17:42: POC Glucose 338 H 07/23/24 21:53: POC Glucose 429 H 07/24/24 05:56: POC Glucose 340 H 07/24/24 06:03: WBC 6.4, RBC 3.94 L, Hgb 12.3, Hct 37.4, MCV 94.9, MCH 31.2, MCHC 32.9, RDW Std Deviation 54.6 H, RDW Coeff of Harshil 15.8 H, Plt Count 103 L, MPV 10.5, Immature Gran % (Auto) 0.600, Neut % (Auto) 56.8, Lymph % (Auto) 25.6, [place] % (Auto) 11.8 H, Eos % (Auto) 4.6, Baso % (Auto) 0.6, Absolute Neuts (auto) 3.6, Absolute Lymphs (auto) 1.63, Nucleated RBC % 0, Sodium 132 L, Potassium 3.8, Chloride 103, Carbon Dioxide 25.0, Anion Gap 5, BUN 26 H, Creatinine 1.25 H , Estim Creat Clear Calc 45.72, Est GFR (MDRD) Af Amer 54 L, Est GFR (MDRD) Non- Af 45 L, BUN/Creatinine Ratio 20.8 H, Glucose 374 H, Calcium 8.8, Total Bilirubin 1.50 H, AST 37, ALT 22, Alkaline Phosphatase 55, Total Protein 5.4 L, Albumin 2.0 L, Globulin 3.4, Albumin/Globulin Ratio 0.6 L Physical Exam Narrative Seen and examined. Patient was last seen in the GI office on 07/20/2024. Was admitted on 192 for confusion drowsiness, encephalopathy. Currently patient is on baseline mental status. Physical exam General: Alert, Oriented x3, Cooperative. Fatigue. BMI 38.3 kg/m? HEENT: Atraumatic, PERRLA, EOMI, Normocephalic Oral: No Gingival or Mucosal Lesions/ Ulcerations Neck: Supple, No JVD, Negative Carotid Bruits Chest wall/Lungs: Air entry diminished in bilateral lung bases. No crepitation/rhonchi Cardiovascular: Regular rate, Regular Rhythm, Normal S1, Normal S2, No M/G/R Abdomen: Bowel Sounds Present, Soft, Non Tender, moderate ascites : No dysuria. No renal angle tenderness. No suprapubic tenderness. Extremities: 2+ pedal edema, Capillary Refill Less than 3 Seconds Skin: Dry skin from pruritus Musculoskeletal: No Tenderness to Palpation of Joints or Extremities Neurological: Cranial nerves II-XII grossly intact, DTR 2+/4. No acute focal neurological deficit. 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 Acute hepatic encephalopathy due to decompensated STARK related cirrhosis, grade 1 esophageal varices, PHG and ascites status post recurrent paracentesis: Patient admitted to monitored bed started on lactulose ? 07/23/2024 patient responding to treatment 07/24: Acute encephalopathy resolved. Started on Xifaxan. Low-dose lactulose to avoid diarrhea. Discussed about the lactulose and Xifaxan to the caregiver, her . MELD score was calculated on 07/21/2024 was 20 with estimated 90-day mortality 7 to 10%. Yuri C score is 11, class C.Previous MELD score and child score on 06/19/2024 was 13 and 10, class C respectively. Palliative care offered. Patient has telephonic consult for TIPS on 08/09/2023 and then in August. 2. Marked ascites ? Patient started on Lasix and Aldactone if patient does not respond to treatment we will request for ultrasound-guided paracentesis on 07/24/2024 ? 07/23/2024; with persistence of patient marked ascites order was placed for patient to undergo ultrasound-guided paracentesis in a.m. 07/24: Patient is scheduled for paracentesis. Fluid analysis labs ordered. 3. Acute cystitis ? Patient started on ceftriaxone urine culture sent 03/24 continue IV ceftriaxone. 4. Chronic kidney disease stage III ? Patient baseline creatinine has been ranging from 1.5-1.3, creatinine on admission was 1.7. Monitoring with daily BMPs 03/24 creatinine on baseline. 5. Diabetes mellitus type II -patient's oral hypoglycemics held. Placed on long acting insulin, Accu-Cheks a.c. and at bedtime and covered with sliding scale insulin 03/24: Blood sugar very high. Started on a scheduled Lantus and Humalog insulin. 6. History of bilateral breast CA ? Status postlumpectomy and radiation therapy. Patient currently in remission 7. Hypertension - Blood pressure controlled, home medications continued with dose adjustment as needed 8. Hypothyroidism - Patient is on levothyroxine home dose continued 9. Thrombocytopenia ? Secondary to patient chronic liver disease 10. Anemia - Secondary to chronic disorder monitoring H&H and transfuse if patient becomes symptomatic or hemoglobin falls below 7 11. Hyponatremia ? Secondary to fluid overload status do expect improvement with diuretics 12. History of gastroduodenitis ? Patient is on PPI 13. Class II obesity with BMI of 38.3 ? Complicating care 14. DVT prophylaxis ? Bilateral SCDs only given patient low platelet count Time spent in the patient's overall evaluation,decision-making process, review of diagnostic data, adjustment of management, discussion with other providers, nursing nursing and ancillary staff involved in patient's care documentation, 36 minutes Charges/Coding Visit Charges Inpatient E&M: 86211 Subs Hosp L2
--- NOTE | 2024-07-24 11:09 | CASEMGMT ---
MERE checked in with patient and her Sixto. MERE introduced self and role at [facility]. Their 3 choices were [facility], [facility], and [facility]. SW let them know SW will work on referrals and let them know. MERE made a referral to [facility] in TCU. Camelia DONOVAN
[2024-07-24] MEDS: Menthol/Lanolin/Calamine/Znox 113 GM Tube 1 APPLIC TOPICAL ×4 (11:12→21:22)
[2024-07-24] MEDS: Nystatin Powder 15gm Bottle 1 APPLIC TOPICAL ×2 (11:12→21:23)
[2024-07-24 11:44] LABS: Bedside Glucose 412 mg/dL (74-106)
[2024-07-24] MEDS: Lidocaine 2% (20 ml mdv) 20 ML Vial INFILT (14:40)
[2024-07-24 16:20] LABS: Protein, Body Fluid 1.4 g/dL (Not Establ.)
[2024-07-24 16:36] LABS: Bedside Glucose 492 mg/dL (74-106)
[2024-07-24] MEDS: Insulin Lispro 100 UNIT/ML INSULN.PEN 15 UNIT SC (16:56)
[2024-07-24] MEDS: Insulin Glargine-YFGN 100 UNIT/ML Pen 15 UNIT SC (16:56)
[2024-07-24] MEDS: Carvedilol 6.25 MG Tablet PO (17:07)
[2024-07-24 17:14] LABS: Glucose, Body Fluid 448 mg/dL (40-70)
[2024-07-24 17:16] LABS: Body Fluid Mononuclear WBC # 0.047 10^3/uL; Body Fluid Mononuclear WBC % 90.4 %; Body Fluid Polynuclear WBC # 0.005 10^3/uL; Body Fluid Polynuclear WBC % 9.6 %; Body Fluid Total Cells Counted 0.059 10^3/ul; White Blood Count/Body Fluid 0.052 10^3/uL
[2024-07-24 17:57] LABS: Auto B Fluid Analyzer BKGD Ct COUNTS W/IN LIMITS (W/IN LIMITS)
[2024-07-24 17:58] LABS: Appearance/Body Fluid SL CLDY; Body Fluid QC Type(s) BF1Q; Color/Body Fluid YELLOW; Source- Body Fluid PARACENTESIS
[2024-07-24 18:40] LABS: Red Cell Count/Body Fluid 23 /mm3
[2024-07-24 18:53] LABS: Lymphocytes 26 %; Macrophages 13 %; Mesothelial Cells 4 %; Monocytes 42 %; Neutrophil (Segs) 8 %; Other Cell Type/BF 3 %; Plasma Cell/BodyFluid 4 %
[2024-07-24] MEDS: Lactulose 20 GM/30 ML UDC 10 GM PO (21:17)
[2024-07-24] MEDS: Heparin Injection (Vial) 5,000 UNIT/ML VIAL 5000 UNIT SC (21:18)
[2024-07-24] MEDS: rifAXIMin 550 MG Tablet PO (21:18)
[2024-07-24] MEDS: Ceftriaxone 1 GM/50 ML BAG IV (21:40)
[2024-07-24] MEDS: 0.9% Saline Lock 10 ML Syringe IV (21:40)
[2024-07-24] MEDS: 0.9% Normal Saline (100mL Bag) 100 ML 15 ML IV (21:41)
[2024-07-24 22:24] LABS: Bedside Glucose 403 mg/dL (74-106)
[2024-07-25] VITALS (8 sets, daily range): BP systolic 106–123; BP diastolic 44–58; PULSE 70–82; RESP 15–18; TEMP 36.6–36.9; O2SAT 93–99; BMI 37.6
[2024-07-25 04:08] LABS: Absolute Lymphocyte Count 1.48 X10^3/uL (0.83-4.51); Absolute Neutrophil Count 4.7 X10^3/uL (2.0-7.7); Basophil# 0.03 X10^3/uL; Basophil% 0.4 % (0-1); Hematocrit 35.6 % (37-47); Hemoglobin 11.9 g/dL (12.0-15.0); Lymphocyte # 1.48 X10^3/ul (0.83-4.51); Mean Corp Hgb Conc 33.4 g/dL (32-36); Mean Corpuscular Hgb 31.3 pg (27.0-32.0); Mean Corpuscular Volume 93.7 fL (81-99); Mean Platelet Vol. 10.6 fl (6.2-12.0); Monocyte# 0.83 X10^3/uL; Monocyte% 11.2 % (0-10); NRBC Flagged by Analyzer 0 % (0-5); Neutrophil # 4.72 X10^3/uL (2.7-7.7); Neutrophil % 63.7 % (47-70); Platelet Count 108 K/mm3 (150-450); RBC Distribution Width CV 15.3 % (11.6-14.6); RBC Distribution Width SD 52.5 fl (35.1-43.9); White Blood Count 7.4 K/mm3 (4.4-11.0)
[2024-07-25 04:22] LABS: International Normalized Ratio 1.5; Prothrombin Time (Protime)PT. 18.4 SECONDS (11.7-14.9)
[2024-07-25 04:33] LABS: ALB/GLOB Ratio 0.6 RATIO (0.9-2.4); AST(SGOT) 35 U/L (15-37); Alanine Aminotransfer ALT/SGPT 22 U/L (13-56); Albumin, Serum 1.8 g/dL (3.2-5.0); Alkaline Phosphatase 53 U/L (45-117); Anion Gap 3 (5-15); BUN 21 mg/dL (7-18); BUN/Creat Ratio 19.8 RATIO (10-20); Bilirubin, Direct 0.48 mg/dL (0.00-0.30); Calcium,Total 8.6 mg/dL (8.5-10.1); Chloride 102 mmol/L (98-107); Creatinine, Serum 1.06 mg/dL (0.55-1.02); EST Glomerular Filtration Rate 54 mL/min (>60); Est Glom Filt Rate - Afr Amer 65 mL/min (>60); Estimated Creatinine Clearance 53.91 ml/min; Globulin 3.1 g/dL (2.2-4.2); Glucose 396 mg/dL (74-106); Potassium 4.4 mmol/L (3.5-5.1); Protein, Total 4.9 g/dL (6.4-8.2); Sodium Level 131 mmol/L (136-145)
[2024-07-25] MEDS: 0.9% Saline Lock 10 ML Syringe IV ×2 (05:47→20:24)
[2024-07-25] MEDS: DiphenhydrAMINE 50 MG/ML Syringe 25 MG IV ×2 (05:47→16:21)
[2024-07-25] MEDS: Levothyroxine 125 MCG Tablet PO (05:47)
[2024-07-25] MEDS: rifAXIMin 550 MG Tablet PO ×2 (08:25→23:30)
[2024-07-25] MEDS: Lactulose 20 GM/30 ML UDC 10 GM PO ×3 (08:25→23:26)
[2024-07-25] MEDS: Menthol/Lanolin/Calamine/Znox 113 GM Tube 1 APPLIC TOPICAL ×4 (08:26→23:26)
[2024-07-25] MEDS: Heparin Injection (Vial) 5,000 UNIT/ML VIAL 5000 UNIT SC ×2 (08:26→23:29)
[2024-07-25] MEDS: Nystatin Powder 15gm Bottle 1 APPLIC TOPICAL ×2 (08:26→23:26)
[2024-07-25 08:50] LABS: Bedside Glucose 322 mg/dL (74-106)
[2024-07-25] MEDS: Insulin Glargine-YFGN 100 UNIT/ML Pen 15 UNIT SC (09:00)
[2024-07-25] MEDS: Insulin Lispro 100 UNIT/ML INSULN.PEN SC ×4 (09:00→23:35)
[2024-07-25] MEDS: Insulin Lispro 100 UNIT/ML INSULN.PEN 15 UNIT SC ×3 (09:00→17:45)
[2024-07-25] MEDS: Spironolactone 50 MG Tablet 100 MG PO (10:16)
[2024-07-25] MEDS: Furosemide 20 MG/2 ML VIAL IV (10:16)
--- NOTE | 2024-07-25 10:34 | CASEMGMT ---
Addendum entered by Camelia Wallace 07/25/24 11:21: Patient will need to have her doses of Albumin before she can admit to [facility]. SW notified physician. SW also notified patient of this information. Plan: d/c to [facility] when patient is done with her Albumin doses. Camelia DONOVAN Original Note: TCU can take patient pending bed availability and patient being medically ready. MERE asked [facility] in TCU if she has a bed for patient today as physician feels she is ready today. Camelia DONOVAN
[2024-07-25] MEDS: Albumin Human 25% (100 mL) 25 GM/100 ML BAG IV ×3 (11:45→18:15)
[2024-07-25 11:55] LABS: Pathologist Comment/Body Fluid Reviewed
[2024-07-25] MEDS: Carvedilol 6.25 MG Tablet PO ×2 (13:10→23:30)
[2024-07-25 13:21] LABS: Bedside Glucose 363 mg/dL (74-106)
--- NOTE | 2024-07-25 16:05 | PCM.PN.HOSP ---
Reason for Visit Reason for Visit: Diagnoses Hepatic encephalopathy (07/21/24) Objective Data Objective Data Vital Signs: Vital Signs Temp Pulse Resp BP Pulse Ox O2 Del Method 98.4 F 76 18 111/45 L 99 Room Air 07/25/24 13:08 07/25/24 13:08 07/25/24 13:08 07/25/24 13:08 07/25/24 13:08 07/25/24 13:09 Oxygen Delivery Method Room Air Weight: 219 lb 5.759 oz Body Mass Index (BMI) 37.6 Intake & Output: Intake and Output for Last 24 Hours 07/23/24 07/24/24 07/25/24 23:59 23:59 23:59 Intake Total 700 / 700 62.25 / 362.25 1000 / 1000 Output Total 150 / 150 8500 / 8700 1100 / 1100 Balance 550 / 550 -8437.75 / -8337.75 -100 / -100 Lab / Micro Data 07/25/24 03:30 07/25/24 03:30 Labs: Laboratory Results - last 24 hr 07/24/24 15:02: Fluid Source PARACENTESIS, Fluid Color YELLOW, Fluid Appearance SL CLDY, Fluid WBC 0.052, Fluid RBC 23, Fluid Tot Cell Count 0.059 H, Fld Polynuclear WBCs # 0.005, Fld Polynuclear WBCs % 9.6, Fluid Mononuclear WBCs 0.047, Fld Mononuclear WBCs % 90.4, Fluid Neutrophils 8, Fluid Lymphocytes 26, Fluid Monocytes 42, Fluid Plasma Cells 4, Fluid Macrophages 13, Fld Mesothelial Cells 4, Fluid Other Cells 3, Fl Pathologist Comment Reviewed, Fluid Glucose 448 H*, Fluid Total Protein 1.4, Fluid Comment 2 SEE COMMENT, Miscellaneous Test Cancelled 07/24/24 16:08: POC Glucose 492 H* 07/24/24 21:35: POC Glucose 403 H 07/25/24 03:30: WBC 7.4, RBC 3.80 L, Hgb 11.9 L, Hct 35.6 L, MCV 93.7, MCH 31.3, MCHC 33.4, RDW Std Deviation 52.5 H, RDW Coeff of Harshil 15.3 H, Plt Count 108 L, MPV 10.6, Immature Gran % (Auto) 0.700, Neut % (Auto) 63.7, Lymph % (Auto) 20.0, [place] % (Auto) 11.2 H, Eos % (Auto) 4.0, Baso % (Auto) 0.4, Absolute Neuts (auto) 4.7, Absolute Lymphs (auto) 1.48, Nucleated RBC % 0, PT 18.4 H, INR 1.5, Sodium 131 L, Potassium 4.4, Chloride 102, Carbon Dioxide 27.0, Anion Gap 3 L, BUN 21 H, Creatinine 1.06 H, Estim Creat Clear Calc 53.91, Est GFR (MDRD) Af Amer 65, Est GFR (MDRD) Non-Af 54 L, BUN/Creatinine Ratio 19.8, Glucose 396 H, Calcium 8.6, Total Bilirubin 1.20 H, Direct Bilirubin 0.48 H, AST 35, ALT 22, Alkaline Phosphatase 53, Total Protein 4.9 L, Albumin 1.8 L, Globulin 3.1, Albumin/Globulin Ratio 0.6 L 07/25/24 08:21: POC Glucose 322 H 07/25/24 11:48: POC Glucose 363 H Micro: Microbiology 07/24/24 15:02 Fluid - Paracentesis (Abd) Gram Stain - Final 07/24/24 15:02 Fluid - Paracentesis (Abd) Body Fluid Culture - Preliminary No growth-Final to follow 07/21/24 17:40 Urine, Clean Catch Urine Culture - Final Culture exhibits no growth. Physical Exam Narrative Seen and examined. Patient had about one 8.5 L paracentesis yesterday. Did not had bowel movement Patient was last seen in the GI office on 07/20/2024. Was admitted for confusion drowsiness, encephalopathy. Currently patient is on baseline mental status. Physical exam General: Alert, Oriented x3, Cooperative. Fatigue. BMI 38.3 kg/m? HEENT: Atraumatic, PERRLA, EOMI, Normocephalic Oral: No Gingival or Mucosal Lesions/ Ulcerations Neck: Supple, No JVD, Negative Carotid Bruits Chest wall/Lungs: Air entry diminished in bilateral lung bases. No crepitation/rhonchi Cardiovascular: Regular rate, Regular Rhythm, Normal S1, Normal S2, No M/G/R Abdomen: Bowel Sounds Present, Soft, Non Tender, moderate ascites. Status post paracentesis : No dysuria. No renal angle tenderness. No suprapubic tenderness. Extremities: 2+ pedal edema, Capillary Refill Less than 3 Seconds Skin: Dry skin from pruritus Musculoskeletal: No Tenderness to Palpation of Joints or Extremities Neurological: Cranial nerves II-XII grossly intact, DTR 2+/4. No acute focal neurological deficit. 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 Acute hepatic encephalopathy due to decompensated STARK related cirrhosis, grade 1 esophageal varices, PHG and ascites status post recurrent paracentesis: Patient admitted to monitored bed started on lactulose ? 07/23/2024 patient responding to treatment 07/24: Acute encephalopathy resolved. Started on Xifaxan. Low-dose lactulose to avoid diarrhea. Discussed about the lactulose and Xifaxan to the caregiver, her . MELD score was calculated on 07/21/2024 was 20 with estimated 90-day mortality 7 to 10%. Yuri C score is 11, class C.Previous MELD score and child score on 06/19/2024 was 13 and 10, class C respectively. Palliative care offered. Patient has telephonic consult for TIPS on 08/09/2023 and then in August. 2. Marked ascites ? Patient started on Lasix and Aldactone if patient does not respond to treatment we will request for ultrasound-guided paracentesis on 07/24/2024 ? 07/23/2024; with persistence of patient marked ascites order was placed for patient to undergo ultrasound-guided paracentesis in a.m. 07/24: Patient is scheduled for paracentesis. Fluid analysis labs ordered. This 06/24: Patient added 0.5 L of paracentesis. Total polymorphs count 9.6, 90% mononuclear cells, 8% polymorphs. Polymorphs 5 cells, mononuclear 47. Therefore, SBP ruled out. Fluid total protein 1.4. Fluid albumin pending 3. Acute cystitis ? Patient started on ceftriaxone urine culture sent 03/24 continue IV ceftriaxone. 4. Chronic kidney disease stage III ? Patient baseline creatinine has been ranging from 1.5-1.3, creatinine on admission was 1.7. Monitoring with daily BMPs 03/24 creatinine on baseline. 5. Diabetes mellitus type II -patient's oral hypoglycemics held. Placed on long acting insulin, Accu-Cheks a.c. and at bedtime and covered with sliding scale insulin 03/24: Blood sugar very high. Started on a scheduled Lantus and Humalog insulin. 6. History of bilateral breast CA ? Status postlumpectomy and radiation therapy. Patient currently in remission 7. Hypertension - Blood pressure controlled, home medications continued with dose adjustment as needed 8. Hypothyroidism - Patient is on levothyroxine home dose continued 9. Thrombocytopenia ? Secondary to patient chronic liver disease 10. Anemia - Secondary to chronic disorder monitoring H&H and transfuse if patient becomes symptomatic or hemoglobin falls below 7 11. Hyponatremia ? Secondary to fluid overload status do expect improvement with diuretics 12. History of gastroduodenitis ? Patient is on PPI 13. Class II obesity with BMI of 38.3 ? Complicating care 14. DVT prophylaxis ? Bilateral SCDs only given patient low platelet count Time spent in the patient's overall evaluation,decision-making process, review of diagnostic data, adjustment of management, discussion with other providers, nursing nursing and ancillary staff involved in patient's care documentation, 36 minutes Charges/Coding Visit Charges Inpatient E&M: 59744 Subs Hosp L2
[2024-07-25] MEDS: Acetaminophen 325 MG Tablet 650 MG PO (16:21)
[2024-07-25 16:43] LABS: Bedside Glucose 360 mg/dL (74-106)
[2024-07-25] MEDS: Ensure Plus High Protein 120 ML LIQUID PO (16:54)
[2024-07-25] MEDS: Bisacodyl 10 MG Suppository RC (16:54)
[2024-07-25] MEDS: Ceftriaxone 1 GM/50 ML BAG IV (23:27)
[2024-07-26 00:35] LABS: Bedside Glucose 304 mg/dL (74-106)
[2024-07-26 03:28] VITALS: BMI 38.2
[2024-07-26 05:00] VITALS: BP 105/49; PULSE 75; RESP 16; TEMP 36.6; O2SAT 96
[2024-07-26] MEDS: Levothyroxine 125 MCG Tablet PO (05:01)
[2024-07-26] MEDS: 0.9% Saline Lock 10 ML Syringe IV (05:01)
[2024-07-26] MEDS: Lactulose 20 GM/30 ML UDC 10 GM PO (05:01)
[2024-07-26] MEDS: Albumin Human 25% (100 mL) 25 GM/100 ML BAG IV (05:02)
[2024-07-26 06:58] LABS: International Normalized Ratio 1.7; Prothrombin Time (Protime)PT. 20.1 SECONDS (11.7-14.9)
[2024-07-26 07:23] LABS: ALB/GLOB Ratio 1.2 RATIO (0.9-2.4); AST(SGOT) 45 U/L (15-37); Alanine Aminotransfer ALT/SGPT 22 U/L (13-56); Albumin, Serum 2.8 g/dL (3.2-5.0); Alkaline Phosphatase 46 U/L (45-117); Anion Gap 7 (5-15); BUN 22 mg/dL (7-18); BUN/Creat Ratio 24.3 RATIO (10-20); Bilirubin, Direct 0.64 mg/dL (0.00-0.30); Calcium,Total 8.7 mg/dL (8.5-10.1); Chloride 101 mmol/L (98-107); EST Glomerular Filtration Rate 65 mL/min (>60); Est Glom Filt Rate - Afr Amer 78 mL/min (>60); Estimated Creatinine Clearance 63.46 ml/min; Globulin 2.3 g/dL (2.2-4.2); Glucose 277 mg/dL (74-106); Potassium 4.2 mmol/L (3.5-5.1); Protein, Total 5.1 g/dL (6.4-8.2); Sodium Level 132 mmol/L (136-145)
[2024-07-26 08:17] LABS: Bedside Glucose 273 mg/dL (74-106)
[2024-07-26 08:36] VITALS: BP 117/53; PULSE 73; RESP 18; TEMP 36.9; O2SAT 93
[2024-07-26] MEDS: Insulin Lispro 100 UNIT/ML INSULN.PEN SC ×2 (08:42→12:59)
[2024-07-26] MEDS: Spironolactone 50 MG Tablet 100 MG PO (08:43)
[2024-07-26] MEDS: Menthol/Lanolin/Calamine/Znox 113 GM Tube 1 APPLIC TOPICAL (08:43)
[2024-07-26] MEDS: Insulin Lispro 100 UNIT/ML INSULN.PEN 15 UNIT SC ×2 (08:43→12:59)
[2024-07-26] MEDS: Ensure Plus High Protein 120 ML LIQUID PO ×2 (08:43→11:24)
[2024-07-26] MEDS: Insulin Glargine-YFGN 100 UNIT/ML Pen 15 UNIT SC (08:43)
[2024-07-26] MEDS: Furosemide 20 MG/2 ML VIAL IV (08:44)
[2024-07-26] MEDS: Heparin Injection (Vial) 5,000 UNIT/ML VIAL 5000 UNIT SC (08:44)
[2024-07-26] MEDS: rifAXIMin 550 MG Tablet PO (08:44)
[2024-07-26] MEDS: Nystatin Powder 15gm Bottle 1 APPLIC TOPICAL (08:44)
--- NOTE | 2024-07-26 10:33 | PCM.TXEXTCAR ---
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 Acute hepatic encephalopathy due to decompensated STARK related cirrhosis, grade 1 esophageal varices, PHG and ascites status post recurrent paracentesis: Patient admitted to monitored bed started on lactulose ? 07/23/2024 patient responding to treatment 07/24: Acute encephalopathy resolved. Started on Xifaxan. Low-dose lactulose to avoid diarrhea. Discussed about the lactulose and Xifaxan to the caregiver, her . MELD score was calculated on 07/21/2024 was 20 with estimated 90-day mortality 7 to 10%. Yuri C score is 11, class C.Previous MELD score and child score on 06/19/2024 was 13 and 10, class C respectively. Palliative care offered. Patient has telephonic consult for TIPS on 08/09/2023 and then in August. 2. Marked ascites ? Patient started on Lasix and Aldactone if patient does not respond to treatment we will request for ultrasound-guided paracentesis on 07/24/2024 ? 07/23/2024; with persistence of patient marked ascites order was placed for patient to undergo ultrasound-guided paracentesis in a.m. 07/24: Patient is scheduled for paracentesis. Fluid analysis labs ordered. This 06/24: Patient added 0.5 L of paracentesis. Total polymorphs count 9.6, 90% mononuclear cells, 8% polymorphs. Polymorphs 5 cells, mononuclear 47. Therefore, SBP ruled out. Fluid total protein 1.4. Fluid albumin pending 3. Acute cystitis ? Patient started on ceftriaxone urine culture sent 9/13 continue IV ceftriaxone. 4. Chronic kidney disease stage III ? Patient baseline creatinine has been ranging from 1.5-1.3, creatinine on admission was 1.7. Monitoring with daily BMPs 03/24 creatinine on baseline. 5. Diabetes mellitus type II -patient's oral hypoglycemics held. Placed on long acting insulin, Accu-Cheks a.c. and at bedtime and covered with sliding scale insulin 03/24: Blood sugar very high. Started on a scheduled Lantus and Humalog insulin. 6. History of bilateral breast CA ? Status postlumpectomy and radiation therapy. Patient currently in remission 7. Hypertension - Blood pressure controlled, home medications continued with dose adjustment as needed 8. Hypothyroidism - Patient is on levothyroxine home dose continued 9. Thrombocytopenia ? Secondary to patient chronic liver disease 10. Anemia - Secondary to chronic disorder monitoring H&H and transfuse if patient becomes symptomatic or hemoglobin falls below 7 11. Hyponatremia ? Secondary to fluid overload status do expect improvement with diuretics 12. History of gastroduodenitis ? Patient is on PPI 13. Class II obesity with BMI of 38.3 ? Complicating care 14. DVT prophylaxis ? Bilateral SCDs only given patient low platelet count Time spent in the patient's overall evaluation,decision-making process, review of diagnostic data, adjustment of management, discussion with other providers, nursing nursing and ancillary staff involved in patient's care documentation, 36 minutes Allergies/Procedures Done in Hospital Allergies chlorhexidine Allergy (Mild, Verified 06/19/24 11:40) rash ciprofloxacin (From Cipro) Allergy (Verified 06/19/24 11:40) unknown cephalexin (Cephalexin) Adverse Reaction (Mild, Verified 06/19/24 11:40) gi upset doxycycline Adverse Reaction (Mild, Verified 06/19/24 11:40) gi upset codeine Adverse Reaction (Verified 06/19/24 11:40) Vomiting Sulfa (Sulfonamide Antibiotics) Adverse Reaction (Verified 06/19/24 11:40) Hives Type of Care/Length of Stay Estimated LOS: Convalescent Care Less Than 30 days Type of Care Needed: Skilled Rehab Potential: Good Prognosis: Good Additional Orders/Day of Discharge Day of Discharge: 07/26/24 Dietary and Speech Recommendations Dietitian Recommendations/Changes: Recommend advanced diet as tolerated to 1800 calorie controlled/consistent carbohydrate; cardiac diet. Will provide diet education at time of follow-up, if pt's mental status improves. Will monitor weight, as available. Reviewed and approved by Abida Singh RD, LD. Discharge Plan Admission Admit Date/Time: 07/21/24 17:41 Attending Provider: Bladimir Westfall Primary Care Provider: Oscar Rivera Consulting Providers: Jolanta Daniels; Johnnie aVrgas Discharge Orders/Prescriptions Prescriptions: New acetaminophen 325 mg Tablet 650 mg PO Q6H PRN PRN (Reason: Fever, pain -04/20) Qty: 0 0RF carvedilol 6.25 mg Tablet 6.25 mg PO Q12H Qty: 0 0RF Rx Instructions: At 12 noon and at 8 PM Hold for heart less than 50 or systolic blood pressure less than 100 mmHg. spironolactone 50 mg Tablet 100 mg PO DAILY Qty: 0 0RF Rx Instructions: Hold for serum potassium more than 5.0 Xifaxan 550 mg Tablet 550 mg PO BID Qty: 0 0RF torsemide 40 mg tablet 40 mg PO DAILY 30 Days Qty: 30 2RF Rx Instructions: Follow-up with the parts manager insulin lispro [Humalog KwikPen Insulin] 100 unit/mL Insulin Pen See Protocol subcut ACHS Qty: 0 0RF Protocol: 3. Sliding Scale Insulin Med Dosing Condition: 150-189 mg/dl = 1 unit Condition: 190-229 mg/dl = 2 units Condition: 230-269 mg/dl = 3 units Condition: 270-309 mg/dl = 4 units Condition: 310-349 mg/dl = 5 units Condition: 350-399 mg/dl = 6 units Condition: 400-449 mg/dl = 7 units Condition: Greater than 449 call physician Protocol Text: - Use for Total Daily Dose of Insulin 37-55 units - Obsese, infected, or steroid patients MEDIUM DOSING ALGORITHIM Ensure Plus High Protein 0.08 gram-1.5 kcal/mL Liquid 120 ml PO TIDCM Qty: 0 0RF insulin glargine-yfgn 100 unit/mL (3 mL) Insulin Pen 10 unit subcut DAILY Qty: 0 0RF Rx Instructions: Hold if glucose less than 130 mg/dl lactulose 20 gram/30 mL Solution 10 g PO Q6H Qty: 0 0RF Rx Instructions: Hold if she has more than 2 soft BM per day. Hold for diarrhea Continued cholecalciferol (vitamin D3) [Vitamin D3] 125 mcg (5,000 unit) tablet 125 mcg PO DAILY 30 Days Qty: 30 5RF glimepiride 2 mg tablet 2 mg PO BID levothyroxine 125 mcg tablet 125 mcg PO DAILY magnesium oxide 400 mg (241.3 mg magnesium) tablet 800 mg PO BID Changed metformin 500 mg tablet extended release 24 hr 500 mg PO BID 30 Days Qty: 0 0RF Discontinued lactulose 20 gram/30 mL solution 10 g PO BID 30 Days Qty: 900 2RF Rx Instructions: Goal to have 2-3 soft bowel movement per day nadolol 20 mg tablet 20 mg PO DAILY spironolactone 25 mg tablet 25 mg PO DAILY metoprolol succinate 25 mg tablet extended release 24 hr 12.5 mg PO BID spironolactone 50 mg tablet 50 mg PO DAILY carvedilol 6.25 mg tablet 6.25 mg PO DAILY 30 Days Qty: 30 3RF Rx Instructions: must administer with a meal/food Hold for heart less than 50 or systolic blood pressure less than 100 mmHg. Referrals / Follow Up: Oscar Rivera MD [Primary Care Provider] - Within 2 Weeks Bladimir Westfall MD [Med Staff - Active Staff] - Within 1 Month Disposition Disposition (needs filled in before D/C Order can be placed): Custodial Facility
--- NOTE | 2024-07-26 10:55 | DS.PCM_ITS ---
Providers Date of Admission: 07/21/24 Date of Discharge: 07/26/24 Primary Care Physician: Dr. 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 Acute hepatic encephalopathy due to decompensated STARK related cirrhosis, grade 1 esophageal varices, PHG and ascites status post recurrent paracentesis: Patient admitted to monitored bed started on lactulose ? 07/23/2024 patient responding to treatment 07/24: Acute encephalopathy resolved. Started on Xifaxan. Low-dose lactulose to avoid diarrhea. Discussed about the lactulose and Xifaxan to the caregiver, her . MELD score was calculated on 07/21/2024 was 20 with estimated 90-day mortality 7 to 10%. Yuri C score is 11, class C.Previous MELD score and child score on 06/19/2024 was 13 and 10, class C respectively. Palliative care offered. Patient has telephonic consult for TIPS on 08/09/2023 and then in August. 2. Marked ascites ? Patient started on Lasix and Aldactone if patient does not respond to treatment we will request for ultrasound-guided paracentesis on 07/24/2024 ? 07/23/2024; with persistence of patient marked ascites order was placed for patient to undergo ultrasound-guided paracentesis in a.m. 07/24: Patient is scheduled for paracentesis. Fluid analysis labs ordered. This 06/24: Patient added 0.5 L of paracentesis. Total polymorphs count 9.6, 90% mononuclear cells, 8% polymorphs. Polymorphs 5 cells, mononuclear 47. Therefore, SBP ruled out. Fluid total protein 1.4. Fluid albumin pending 3. Acute cystitis ? Patient started on ceftriaxone urine culture sent 03/24 continue IV ceftriaxone. 4. Chronic kidney disease stage III ? Patient baseline creatinine has been ranging from 1.5-1.3, creatinine on admission was 1.7. Monitoring with daily BMPs 03/24 creatinine on baseline. 5. Diabetes mellitus type II -patient's oral hypoglycemics held. Placed on long acting insulin, Accu-Cheks a.c. and at bedtime and covered with sliding scale insulin 03/24: Blood sugar very high. Started on a scheduled Lantus and Humalog insulin. 6. History of bilateral breast CA ? Status postlumpectomy and radiation therapy. Patient currently in remission 7. Hypertension - Blood pressure controlled, home medications continued with dose adjustment as needed 8. Hypothyroidism - Patient is on levothyroxine home dose continued 9. Thrombocytopenia ? Secondary to patient chronic liver disease 10. Anemia - Secondary to chronic disorder monitoring H&H and transfuse if patient becomes symptomatic or hemoglobin falls below 7 11. Hyponatremia ? Secondary to fluid overload status do expect improvement with diuretics 12. History of gastroduodenitis ? Patient is on PPI 13. Class II obesity with BMI of 38.3 ? Complicating care 14. DVT prophylaxis ? Bilateral SCDs only given patient low platelet count Time spent in the patient's overall evaluation,decision-making process, review of diagnostic data, adjustment of management, discussion with other providers, nursing nursing and ancillary staff involved in patient's care documentation, 36 minutes Medications at Discharge Home Medications glimepiride 2 mg tablet 2 mg PO BID diabetes 06/19/24 levothyroxine 125 mcg tablet 125 mcg PO DAILY disorder of thyroid gland 06/19/24 cholecalciferol (vitamin D3) 125 mcg (5,000 unit) tablet (Vitamin D3) 125 mcg PO DAILY supplement 1 month #30 tabs 06/20/24 magnesium oxide 400 mg (241.3 mg magnesium) tablet 800 mg PO BID supplement 07/21/24 acetaminophen 325 mg tablet 650 mg (2 x 325 mg) PO Q6H PRN PRN Fever, pain - 04/20 #0 tabs 07/26/24 carvedilol 6.25 mg tablet 6.25 mg PO Q12H #0 tabs 07/26/24 food supplemt, lactose-reduced 0.08 gram-1.5 kcal/mL oral liquid (Ensure Plus High Protein) 120 ml PO TIDCM #0 mL 07/26/24 insulin glargine-yfgn 100 unit/mL (3 mL) subcutaneous pen 10 unit (0.1 mL) subcut DAILY #0 mL 07/26/24 insulin lispro 100 unit/mL subcutaneous pen (Humalog KwikPen (U-100) Insulin) See Protocol subcut ACHS #0 mL 07/26/24 lactulose 20 gram/30 mL oral solution 10 g (15 mL) PO Q6H #0 mL 07/26/24 metformin 500 mg tablet,extended release 24 hr 500 mg PO BID diabetes 30 days #0 tabs 07/26/24 rifaximin 550 mg tablet (Xifaxan) 550 mg PO BID #0 tabs 07/26/24 spironolactone 50 mg tablet 100 mg (2 x 50 mg) PO DAILY #0 tabs 07/26/24 torsemide 40 mg tablet 40 mg PO DAILY 1 month #30 tabs 07/26/24 Weight / BMI Weight Weight: 223 lb 1.725 oz Body Mass Index (BMI) 38.2 ABG / Lab / Microbiology Data 07/25/24 03:30 07/26/24 06:24 Laboratory: Laboratory Results - last 24 hr 07/24/24 15:02: Fl Pathologist Comment Reviewed 07/25/24 11:48: POC Glucose 363 H 07/25/24 16:18: POC Glucose 360 H 07/25/24 23:34: POC Glucose 304 H 07/26/24 06:24: PT 20.1 H, INR 1.7, Sodium 132 L, Potassium 4.2, Chloride 101, Carbon Dioxide 24.0, Anion Gap 7, BUN 22 H, Creatinine 0.90, Estim Creat Clear Calc 63.46, Est GFR (MDRD) Af Amer 78, Est GFR (MDRD) Non-Af 65, BUN/Creatinine Ratio 24.3 H, Glucose 277 H, Calcium 8.7, Total Bilirubin 1.70 H, Direct Bilirubin 0.64 H, AST 45 H, ALT 22, Alkaline Phosphatase 46, Total Protein 5.1 L , Albumin 2.8 L, Globulin 2.3, Albumin/Globulin Ratio 1.2 07/26/24 07:58: POC Glucose 273 H Microbiology: Microbiology 07/24/24 15:02 Fluid - Paracentesis (Abd) Gram Stain - Final 07/24/24 15:02 Fluid - Paracentesis (Abd) Body Fluid Culture - Preliminary No growth-Final to follow 07/24/24 15:02 Fluid - Paracentesis (Abd) Anaerobic Culture - Preliminary No growth in 48 hours. 07/21/24 17:40 Urine, Clean Catch Urine Culture - Final Culture exhibits no growth. D/C Instructions DC O2, CPAP, BIPAP Needs Home O2 Discharge instructions: No Meaningful Use Info Ischemic Stroke Statin Dosing Therapy Reference: STATIN DOSE THERAPY REFERENCE: * Patients > 75 years receive moderate or high dose statin therapy. * Patients 75 years or YOUNGER should receive HIGH intensity statin dose unless contraindicated. You will be required to document reason for non-treatment if statin daily dose does not meet guidelines. HIGH DOSE STATIN THERAPY DAILY Atorvastatin > than or = to 40 mg Rosuvastatin > than or = to 20 mg Amlodipine + Atorvastatin > than or = to 2.5/40 mg Ezetimibe + Simvastatin 10/80 mg Simvastatin 80mg Discharge Plan Admission Admit Date/Time: 07/21/24 17:41 Attending Provider: Bladimir Westfall Primary Care Provider: Oscar Rivera Consulting Providers: Jolanta Daniels; Johnnie Vargas Discharge Orders/Prescriptions Prescriptions: New acetaminophen 325 mg Tablet 650 mg PO Q6H PRN PRN (Reason: Fever, pain -04/20) Qty: 0 0RF carvedilol 6.25 mg Tablet 6.25 mg PO Q12H Qty: 0 0RF Rx Instructions: At 12 noon and at 8 PM Hold for heart less than 50 or systolic blood pressure less than 100 mmHg. spironolactone 50 mg Tablet 100 mg PO DAILY Qty: 0 0RF Rx Instructions: Hold for serum potassium more than 5.0 Xifaxan 550 mg Tablet 550 mg PO BID Qty: 0 0RF torsemide 40 mg tablet 40 mg PO DAILY 30 Days Qty: 30 2RF Rx Instructions: Follow-up with the associate entertainment editor insulin lispro [Humalog KwikPen Insulin] 100 unit/mL Insulin Pen See Protocol subcut ACHS Qty: 0 0RF Protocol: 3. Sliding Scale Insulin Med Dosing Condition: 150-189 mg/dl = 1 unit Condition: 190-229 mg/dl = 2 units Condition: 230-269 mg/dl = 3 units Condition: 270-309 mg/dl = 4 units Condition: 310-349 mg/dl = 5 units Condition: 350-399 mg/dl = 6 units Condition: 400-449 mg/dl = 7 units Condition: Greater than 449 call physician Protocol Text: - Use for Total Daily Dose of Insulin 37-55 units - Obsese, infected, or steroid patients MEDIUM DOSING ALGORITHIM Ensure Plus High Protein 0.08 gram-1.5 kcal/mL Liquid 120 ml PO TIDCM Qty: 0 0RF insulin glargine-yfgn 100 unit/mL (3 mL) Insulin Pen 10 unit subcut DAILY Qty: 0 0RF Rx Instructions: Hold if glucose less than 130 mg/dl lactulose 20 gram/30 mL Solution 10 g PO Q6H Qty: 0 0RF Rx Instructions: Hold if she has more than 2 soft BM per day. Hold for diarrhea Continued cholecalciferol (vitamin D3) [Vitamin D3] 125 mcg (5,000 unit) tablet 125 mcg PO DAILY 30 Days Qty: 30 5RF glimepiride 2 mg tablet 2 mg PO BID levothyroxine 125 mcg tablet 125 mcg PO DAILY magnesium oxide 400 mg (241.3 mg magnesium) tablet 800 mg PO BID Changed metformin 500 mg tablet extended release 24 hr 500 mg PO BID 30 Days Qty: 0 0RF Discontinued lactulose 20 gram/30 mL solution 10 g PO BID 30 Days Qty: 900 2RF Rx Instructions: Goal to have 2-3 soft bowel movement per day nadolol 20 mg tablet 20 mg PO DAILY spironolactone 25 mg tablet 25 mg PO DAILY metoprolol succinate 25 mg tablet extended release 24 hr 12.5 mg PO BID spironolactone 50 mg tablet 50 mg PO DAILY carvedilol 6.25 mg tablet 6.25 mg PO DAILY 30 Days Qty: 30 3RF Rx Instructions: must administer with a meal/food Hold for heart less than 50 or systolic blood pressure less than 100 mmHg. Referrals / Follow Up: Bladimir Westfall MD [Med Staff - Active Staff] - Within 1 Month Oscar Rivera MD [Primary Care Provider] - Within 2 Weeks Disposition Disposition (needs filled in before D/C Order can be placed): [facility] Facility
--- NOTE | 2024-07-26 10:58 | PCM.DC.SUM ---
Providers Date of Admission: 07/21/24 Date of Discharge: 07/26/24 Primary Care Physician: Dr. 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 Acute hepatic encephalopathy due to decompensated STARK related cirrhosis, grade 1 esophageal varices, PHG and ascites status post recurrent paracentesis: Patient admitted to monitored bed started on lactulose ? 07/23/2024 patient responding to treatment 07/24: Acute encephalopathy resolved. Started on Xifaxan. Low-dose lactulose to avoid diarrhea. Discussed about the lactulose and Xifaxan to the caregiver, her . MELD score was calculated on 07/21/2024 was 20 with estimated 90-day mortality 7 to 10%. Yuri C score is 11, class C.Previous MELD score and child score on 06/19/2024 was 13 and 10, class C respectively. Palliative care offered. Patient has telephonic consult for TIPS on 08/09/2023 and then in August. 07/26: Patient has fluctuation in total bilirubin, INR. Serum albumin increased due to albumin infused total 1 g over 24 hours. Continue lactulose and Xifaxan. Patient did not had bowel movement last 2 days therefore lactulose dose increased. Fleet enema was ordered. Follow-up in GI clinic in 1 month 2. Marked ascites ? Patient started on Lasix and Aldactone if patient does not respond to treatment we will request for ultrasound-guided paracentesis on 07/24/2024 ? 07/23/2024; with persistence of patient marked ascites order was placed for patient to undergo ultrasound-guided paracentesis in a.m. 07/24: Patient is scheduled for paracentesis. Fluid analysis labs ordered. This 06/24: Patient added 0.5 L of paracentesis. Total polymorphs count 9.6, 90% mononuclear cells, 8% polymorphs. Polymorphs 5 cells, mononuclear 47. Therefore, SBP ruled out. Fluid total protein 1.4. 07/26: Fluid albumin is 1.0, serum albumin 2.0 therefore SAAG is 1.0. Portal hypertensive related ascites. SBP ruled out as mentioned above. Patient is discharged on torsemide 40 mg daily and spironolactone 100 mg daily. 3. Acute cystitis ? Patient started on ceftriaxone urine culture sent 03/24 continue IV ceftriaxone. 4. Chronic kidney disease stage III ? Patient baseline creatinine has been ranging from 1.5-1.3, creatinine on admission was 1.7. Monitoring with daily BMPs 03/24 creatinine on baseline. 5. Diabetes mellitus type II -patient's oral hypoglycemics held. Placed on long acting insulin, Accu-Cheks a.c. and at bedtime and covered with sliding scale insulin 03/24: Blood sugar very high. Started on a scheduled Lantus and Humalog insulin. 6. History of bilateral breast CA ? Status postlumpectomy and radiation therapy. Patient currently in remission 7. Hypertension - Blood pressure controlled, home medications continued with dose adjustment as needed 8. Hypothyroidism - Patient is on levothyroxine home dose continued 9. Thrombocytopenia ? Secondary to patient chronic liver disease 10. Anemia - Secondary to chronic disorder monitoring H&H and transfuse if patient becomes symptomatic or hemoglobin falls below 7 11. Hyponatremia ? Secondary to fluid overload status do expect improvement with diuretics 12. History of gastroduodenitis ? Patient is on PPI 13. Class II obesity with BMI of 38.3 ? Complicating care 14. DVT prophylaxis ? Bilateral SCDs only given patient low platelet count Discharge medication reconciliation done. Discharge follow-up instructions completed. Discharge process discussed with the patient and all questions were answered to patient's satisfaction. Follow with PCP in 1 to 2 weeks Total time spent, exact 35 minutes on discharge meds reconciliation, examination, coordination of care with nurses and ancillary staff, review of imaging and blood test and discussion with the patient on follow-up instructions. Medications at Discharge Home Medications glimepiride 2 mg tablet 2 mg PO BID diabetes 06/19/24 levothyroxine 125 mcg tablet 125 mcg PO DAILY disorder of thyroid gland 06/19/24 cholecalciferol (vitamin D3) 125 mcg (5,000 unit) tablet (Vitamin D3) 125 mcg PO DAILY supplement 1 month #30 tabs 06/20/24 magnesium oxide 400 mg (241.3 mg magnesium) tablet 800 mg PO BID supplement 07/21/24 acetaminophen 325 mg tablet 650 mg (2 x 325 mg) PO Q6H PRN PRN Fever, pain 1-04/20 #0 tabs 07/26/24 carvedilol 6.25 mg tablet 6.25 mg PO Q12H BP/pulse #0 tabs 07/26/24 food supplemt, lactose-reduced 0.08 gram-1.5 kcal/mL oral liquid (Ensure Plus High Protein) 120 ml PO TIDCM supplement #0 mL 07/26/24 insulin glargine-yfgn 100 unit/mL (3 mL) subcutaneous pen 10 unit (0.1 mL) subcut DAILY diabetes #0 mL 07/26/24 insulin lispro 100 unit/mL subcutaneous pen (Humalog KwikPen (U-100) Insulin) 8 unit (0.08 mL) subcut TIDAC diabetes #0 mL 07/26/24 insulin lispro 100 unit/mL subcutaneous pen (Humalog KwikPen (U-100) Insulin) See Protocol subcut ACHS diabetes #0 mL 07/26/24 lactulose 20 gram/30 mL oral solution 10 g (15 mL) PO Q6H liver disease #0 mL 07/26/24 menthol 0.44 %-zinc oxide 20.6 % topical ointment (Calmoseptine) 1 applic topical 4X/DAY skin breakdown #0 grams 07/26/24 metformin 500 mg tablet,extended release 24 hr 500 mg PO BID diabetes 30 days #0 tabs 07/26/24 rifaximin 550 mg tablet (Xifaxan) 550 mg PO BID liver disease #0 tabs 07/26/24 spironolactone 50 mg tablet 100 mg (2 x 50 mg) PO DAILY fluid pill #0 tabs 07/26/24 torsemide 40 mg tablet 40 mg PO DAILY fluid pill 1 month #30 tabs 07/26/24 Physical Exam Narrative Seen and examined. Patient had about one 8.5 L paracentesis on 07/24/2024. Did not had bowel movement last 2 days. Fleet enema ordered. Confusion has resolved. Patient was last seen in the GI office on 07/20/2024. Physical exam General: Alert, Oriented x3, Cooperative. Fatigue. BMI 38.3 kg/m? HEENT: Atraumatic, PERRLA, EOMI, Normocephalic Oral: No Gingival or Mucosal Lesions/ Ulcerations Neck: Supple, No JVD, Negative Carotid Bruits Chest wall/Lungs: Air entry diminished in bilateral lung bases. No crepitation/rhonchi Cardiovascular: Regular rate, Regular Rhythm, Normal S1, Normal S2, No M/G/R Abdomen: Bowel Sounds Present, Soft, Non Tender, moderate ascites. Status post paracentesis : No dysuria. No renal angle tenderness. No suprapubic tenderness. Extremities: 2+ pedal edema, Capillary Refill Less than 3 Seconds Skin: Dry skin from pruritus Musculoskeletal: No Tenderness to Palpation of Joints or Extremities Neurological: Cranial nerves II-XII grossly intact, DTR 2+/4. No acute focal neurological deficit. Psych/Mental Status: Flat affect Weight / BMI Weight Weight: 223 lb 1.725 oz Body Mass Index (BMI) 38.2 ABG / Lab / Microbiology Data 07/25/24 03:30 07/26/24 06:24 Laboratory: Laboratory Results - last 24 hr 07/23/24 13:20: Fluid Amylase 22 07/24/24 16:22: Fluid Albumin 1.0 07/25/24 16:18: POC Glucose 360 H 07/25/24 23:34: POC Glucose 304 H 07/26/24 06:24: PT 20.1 H, INR 1.7, Sodium 132 L, Potassium 4.2, Chloride 101, Carbon Dioxide 24.0, Anion Gap 7, BUN 22 H, Creatinine 0.90, Estim Creat Clear Calc 63.46, Est GFR (MDRD) Af Amer 78, Est GFR (MDRD) Non-Af 65, BUN/Creatinine Ratio 24.3 H, Glucose 277 H, Calcium 8.7, Total Bilirubin 1.70 H, Direct Bilirubin 0.64 H, AST 45 H, ALT 22, Alkaline Phosphatase 46, Total Protein 5.1 L, Albumin 2.8 L, Globulin 2.3, Albumin/Globulin Ratio 1.2 07/26/24 07:58: POC Glucose 273 H 07/26/24 11:26: POC Glucose 348 H Microbiology: Microbiology 07/24/24 15:02 Fluid - Paracentesis (Abd) Gram Stain - Final 07/24/24 15:02 Fluid - Paracentesis (Abd) Body Fluid Culture - Preliminary No growth-Final to follow 07/24/24 15:02 Fluid - Paracentesis (Abd) Anaerobic Culture - Preliminary No growth in 48 hours. 07/21/24 17:40 Urine, Clean Catch Urine Culture - Final Culture exhibits no growth. D/C Instructions DC O2, CPAP, BIPAP Needs Home O2 Discharge instructions: No Meaningful Use Info Meaningful Use Meaningful Use Diagnoses (Choose all that apply): None applicable Ischemic Stroke Statin Dosing Therapy Reference: STATIN DOSE THERAPY REFERENCE: * Patients > 75 years receive moderate or high dose statin therapy. * Patients 75 years or YOUNGER should receive HIGH intensity statin dose unless contraindicated. You will be required to document reason for non-treatment if statin daily dose does not meet guidelines. HIGH DOSE STATIN THERAPY DAILY Atorvastatin > than or = to 40 mg Rosuvastatin > than or = to 20 mg Amlodipine + Atorvastatin > than or = to 2.5/40 mg Ezetimibe + Simvastatin 10/80 mg Simvastatin 80mg Discharge Plan Admission Admit Date/Time: 07/21/24 17:41 Attending Provider: Bladimir Westfall Primary Care Provider: Oscar Rivera Consulting Providers: Jolanta Daniels; Johnnie Vargas Discharge Orders/Prescriptions Prescriptions: New acetaminophen 325 mg Tablet 650 mg PO Q6H PRN PRN (Reason: Fever, pain 1-04/20) Qty: 0 0RF carvedilol 6.25 mg Tablet 6.25 mg PO Q12H Qty: 0 0RF Rx Instructions: At 12 noon and at 8 PM Hold for heart less than 50 or systolic blood pressure less than 100 mmHg. 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 Sliding Scale Insulin Med Dosing Condition: 150-189 mg/dl = 1 unit Condition: 190-229 mg/dl = 2 units Condition: 230-269 mg/dl = 3 units Condition: 270-309 mg/dl = 4 units Condition: 310-349 mg/dl = 5 units Condition: 350-399 mg/dl = 6 units Condition: 400-449 mg/dl = 7 units Condition: Greater than 449 call physician Protocol Text: - Use for Total Daily Dose of Insulin 37-55 units - Obsese, infected, or steroid patients MEDIUM DOSING ALGORITHIM Ensure Plus High Protein 0.08 gram-1.5 kcal/mL Liquid 120 ml PO TIDCM Qty: 0 0RF insulin glargine-yfgn 100 unit/mL (3 mL) Insulin Pen 10 unit subcut DAILY Qty: 0 0RF Rx Instructions: Hold if glucose less than 130 mg/dl lactulose 20 gram/30 mL Solution 10 g PO Q6H Qty: 0 0RF Rx Instructions: Hold if she has more than 2 soft BM per day. Hold for diarrhea insulin lispro [Humalog KwikPen Insulin] 100 unit/mL Insulin Pen 8 unit subcut TIDAC Qty: 0 0RF Rx Instructions: Hold if glucose less than 130 mg/dl menthol-zinc oxide [Calmoseptine] 0.44-20.6 % Ointment 1 applic topical 4X/DAY Qty: 0 0RF Protocol: *Topical Application Instructions APPLICATION INSTRUCTIONS: apply to affected region Continued cholecalciferol (vitamin D3) [Vitamin D3] 125 mcg (5,000 unit) tablet 125 mcg PO DAILY 30 Days Qty: 30 5RF glimepiride 2 mg tablet 2 mg PO BID levothyroxine 125 mcg tablet 125 mcg PO DAILY magnesium oxide 400 mg (241.3 mg magnesium) tablet 800 mg PO BID Changed metformin 500 mg tablet extended release 24 hr 500 mg PO BID 30 Days Qty: 0 0RF Discontinued lactulose 20 gram/30 mL solution 10 g PO BID 30 Days Qty: 900 2RF Rx Instructions: Goal to have 2-3 soft bowel movement per day nadolol 20 mg tablet 20 mg PO DAILY spironolactone 25 mg tablet 25 mg PO DAILY metoprolol succinate 25 mg tablet extended release 24 hr 12.5 mg PO BID spironolactone 50 mg tablet 50 mg PO DAILY carvedilol 6.25 mg tablet 6.25 mg PO DAILY 30 Days Qty: 30 3RF Rx Instructions: must administer with a meal/food Hold for heart less than 50 or systolic blood pressure less than 100 mmHg. Referrals / Follow Up: lBadimir Westfall MD [Med Staff - Active Staff] - Within 1 Month Oscar Rivera MD [Primary Care Provider] - Within 2 Weeks Disposition Disposition (needs filled in before D/C Order can be placed): Long-Term Facility Charges/Coding Visit Charges Inpatient E&M: 48386 Disch Hosp >30min
[2024-07-26 11:23] VITALS: BP 112/45; PULSE 77; RESP 16; TEMP 36.9; O2SAT 94
[2024-07-26] MEDS: Carvedilol 6.25 MG Tablet PO (11:24)
[2024-07-26 11:45] LABS: Bedside Glucose 348 mg/dL (74-106)
--- NOTE | 2024-07-26 11:49 | CASEMGMT ---
Patient is ready for discharge to TCU today. SW met with patient and her and both were aware. SW answered their questions. Plan: d/c to [facility] TCU under skilled level of care. Camelia DONOVAN
[2024-07-26] MEDS: Fleet Enema 133 ML RC (12:10)
[2024-07-26 13:07] LABS: Amylase Body Fluid 22 U/L (.)
== END 2024-07-26 14:00 | disposition skilled nursing facility (03) | DRG 441 ==
LOC: ED 17:29 → PCU 18:24
PROVIDERS: Internal Medicine; Admitting Provider Family Medicine; Emergency Provider Emergency Medicine; PCP Family Medicine; Visit Provider Internal Medicine
DX: K76.82 Hepatic encephalopathy (principal); K72.00 Acute and subacute hepatic failure without coma; D61.818 Other pancytopenia; E87.1 Hypo-osmolality and hyponatremia; N17.9 Acute kidney failure, unspecified; K76.6 Portal hypertension; R18.8 Other ascites; N30.00 Acute cystitis without hematuria; D63.1 Anemia in chronic kidney disease; E11.22 Type 2 diabetes mellitus with diabetic chronic kidney disease; D69.59 Other secondary thrombocytopenia; Z51.5 Encounter for palliative care; N18.30 Chronic kidney disease, stage 3 unspecified; F32.A Depression, unspecified; I12.9 Hypertensive chronic kidney disease with stage 1 through stage 4 chronic kidney disease, or unspecified chronic kidney disease; E03.9 Hypothyroidism, unspecified; Z68.38 Body mass index [BMI] 38.0-38.9, adult; K74.60 Unspecified cirrhosis of liver; E11.65 Type 2 diabetes mellitus with hyperglycemia; K75.81 Nonalcoholic steatohepatitis (NASH); G43.909 Migraine, unspecified, not intractable, without status migrainosus; E78.5 Hyperlipidemia, unspecified; Z79.4 Long term (current) use of insulin; I49.8 Other specified cardiac arrhythmias; Z79.2 Long term (current) use of antibiotics; Z79.84 Long term (current) use of oral hypoglycemic drugs; E66.812 Obesity, class 2; Z87.891 Personal history of nicotine dependence; Z85.3 Personal history of malignant neoplasm of breast; Z92.3 Personal history of irradiation; Z79.899 Other long term (current) drug therapy
CPT/HCPCS: 36415; 49083; 70450; 71045; 80048; 80053; 80076; 81001; 81002; 82042; 82140; 82150; 82248; 82945; 82962; 83036; 83735; 84100; 84157; 85025; 85610; 87070; 87075; 87086; 87205; 88108; 88305; 88313; 89050; 93005; 94668; 97110; 97162; 97165; 97530; 99285; P9047; A4216; J1940; J2405

== ENCOUNTER 2024-07-26 14:06 | Inpatient (IN) | payer MEDICARE, OTHER, SELFPAY ==
[2024-07-26 14:55] VITALS: BMI 37.9
[2024-07-26 14:56] VITALS: BP 121/51; PULSE 56; RESP 20; TEMP 36.4; O2SAT 96
[2024-07-26 17:15] LABS: Bedside Glucose 323 mg/dL (74-106)
[2024-07-26] MEDS: Insulin Lispro 100 UNIT/ML INSULN.PEN SC (17:38)
[2024-07-26] MEDS: Glimepiride 2 MG Tablet PO (17:38)
[2024-07-26] MEDS: Insulin Lispro 100 UNIT/ML INSULN.PEN 8 UNIT SC (17:38)
[2024-07-26] MEDS: metFORMIN (XR) 500 MG Tablet PO (17:40)
[2024-07-26] MEDS: Ensure Plus High Protein 120 ML LIQUID PO (17:44)
[2024-07-26] MEDS: Lactulose 20 GM/30 ML UDC 10 GM PO (18:27)
--- NOTE | 2024-07-26 19:09 | HP.PCM_ITS ---
HPI - General General Date of Admission: 07/26/24 Date of Service: 07/26/24 Chief Complaint: Here for rehabilitation. HPI Narrative JEANNINE OLSON, is a 74 Female who presents with followin07/21/2024 [facility] ED with weakness. Diagnosed with liver cirrhosis October, by Dr. Westfall. Increasing confusion, weakness, trouble getting around. Not compliant with Lactulose 2/2 diarrhea. Lactulose goal 1-2 bowel movements daily, no bowel movement today. Uses wheelchair to get around. Emesis. Paracentesis every 2 weeks, last paracentesis removed 8.5 liters of ascitic fluid. Ammonia 121. Humalog 10 units x 1 for glucose 421. Chest X-ray negative, CT brain negative. Urinalysis c/w UTI, urine culture sent, Ceftriaxone IV given. 07/21/2024 Admit [facility]. Lactulose for hepatic encephalopathy. Fluid restriction, Lasix 40mg x 1 dose, compression for ascites/anasarca. Hold Aldactone 2/2 USAMA. Ceftriaxone IV, urine culture pending, for UTI. 07/22/2024 Lactulose for hepatic encephalopathy. Lasix, Aldactone, consider paracentesis for ascites. Ceftriaxone IV for UTI. Diuretics for hyponatremia. 07/23/2024 Encephalopathy improved, abdominal distention persists. Plan paracentesis 07/24/2024. Ceftriaxone IV UTI. 07/24/2024 Encephalopathy resolved, Xifaxan started. Consider Palliative care. Telephone consult for TIPS 08/09/2024. Ceftriaxone IV for UTI. Paracentesis removed 8.5 Liters of fluid. 07/25/2024 Baseline mental status. SBP ruled out. Urine culture negative, stop Ceftriaxone. 07/26/2024 Admit to TCU with debility, here for rehabilitation, strengthening, prior to discharge home with . [facility] Medical History (Updated 07/26/24 @ 19:[address] Carlos Ching MD) Diabetes 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 Pancytopenia Mastitis Osteopenia Postmenopausal Screening for osteoporosis Thrombocytopenia Wears glasses Cancer Post-menopausal Anxiety GERD (gastroesophageal reflux disease) Ulcer Cirrhosis Shortness of breath on exertion Former smoker Edema Hx of cardiovascular stress test Migraine headache Back pain Injury of back Syncope History of ventral hernia Abnormal mammogram of right breast Hypertension 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 Hypothyroidism Hyperlipidemia History of breast cancer Diabetes mellitus, type II Obesity (BMI 30.0-34.9) Home Medications ?Medication ?Instructions ?Recorded ?Last Taken ?Type glimepiride 2 mg tablet 2 mg PO BID diabetes 06/19/24 Unknown History levothyroxine 125 mcg tablet 125 mcg PO DAILY disorder of 06/19/24 Unknown History thyroid gland cholecalciferol (vitamin D3) 125 125 mcg PO DAILY supplement 1 06/20/24 Unknown Rx mcg (5,000 unit) tablet (Vitamin month #30 tabs D3) magnesium oxide 400 mg (241.3 mg 800 mg PO BID supplement 07/21/24 Unknown History magnesium) tablet acetaminophen 325 mg tablet 650 mg (2 x 325 mg) PO Q6H PRN PRN 07/26/24 Unknown Rx Fever, pain 1-04/20 #0 tabs carvedilol 6.25 mg tablet 6.25 mg PO Q12H BP/pulse #0 tabs 07/26/24 Unknown Rx food supplemt, lactose-reduced 120 ml PO TIDCM supplement #0 mL 07/26/24 Unknown Rx 0.08 gram-1.5 kcal/mL oral liquid (Ensure Plus High Protein) insulin glargine-yfgn 100 unit/mL 10 unit (0.1 mL) subcut DAILY 07/26/24 Unknown Rx (3 mL) subcutaneous pen diabetes #0 mL insulin lispro 100 unit/mL 8 unit (0.08 mL) subcut TIDAC 07/26/24 Unknown Rx subcutaneous pen (Humalog KwikPen diabetes #0 mL (U-100) Insulin) insulin lispro 100 unit/mL See Protocol subcut ACHS diabetes 07/26/24 Unknown Rx subcutaneous pen (Humalog KwikPen #0 mL (U-100) Insulin) lactulose 20 gram/30 mL oral 10 g (15 mL) PO Q6H liver disease 07/26/24 Unknown Rx solution #0 mL menthol 0.44 %-zinc oxide 20.6 % 1 applic topical 4X/DAY skin 07/26/24 Unknown Rx topical ointment (Calmoseptine) breakdown #0 grams metformin 500 mg tablet,extended 500 mg PO BID diabetes 30 days #0 07/26/24 Unknown Rx release 24 hr tabs rifaximin 550 mg tablet (Xifaxan) 550 mg PO BID liver disease #0 tabs 07/26/24 Unknown Rx spironolactone 50 mg tablet 100 mg (2 x 50 mg) PO DAILY fluid 07/26/24 Unknown Rx pill #0 tabs torsemide 40 mg tablet 40 mg PO DAILY fluid pill 1 month 07/26/24 Unknown Rx #30 tabs Allergy/AdvReac Type Severity Reaction Status Date / Time chlorhexidine Allergy Mild rash Verified 06/19/24 11:40 ciprofloxacin (From Cipro) Allergy unknown Verified 06/19/24 11:40 cephalexin (Cephalexin) AdvReac Mild gi upset Verified 06/19/24 11:40 doxycycline AdvReac Mild gi upset Verified 06/19/24 11:40 codeine AdvReac Vomiting Verified 06/19/24 11:40 Sulfa (Sulfonamide AdvReac Hives Verified 06/19/24 11:40 Antibiotics) Family History Father Diabetes Mother Diabetes Hypertension Sister Hypertension Brother Diabetes Hypertension Surgical History History of appendectomy History of abdominal paracentesis History of lumpectomy of left breast (~12/2020) History of esophagogastroduodenoscopy (EGD) Hx of colonoscopy Hx of cholecystectomy Hx of shoulder surgery Hx of foot surgery History of right breast biopsy History of lumpectomy of right breast Social History (Updated 07/26/24 @ 19:[address] Carlos Ching MD) household members: spouse Smoking Status: Former smoker Tobacco: How many years used: 2 alcohol intake: never substance use type: does not use caffeine: Yes what type of physical activity do you participate in: none frequency: does not exercise ROS Constitutional Constitutional: Reports weakness; Denies chills, fever(s) or weight gain ENT HEENT: Denies headache(s), nasal congestion or nasal discharge Cardiovascular Cardiovascular: Denies chest pain or palpitations Respiratory/Chest Respiratory/Chest: Denies cough, excessive phlegm production or shortness of breath with exertion Gastrointestinal Gastrointestinal: Denies abdominal pain, nausea or vomiting Genitourinary Genitourinary: Denies dysuria Musculoskeletal Musculoskeletal: Denies joint pain or joint swelling Integumentary Integumentary: Denies rash or wounds Neurologic Neurologic: Denies focal weakness, numbness or tingling Psychiatric Psychiatric: Denies anxiety, auditory hallucinations, depression, homicidal ideation or suicidal ideation Vital Signs Vital Signs Vital Signs: 07/26/24 14:56 07/26/24 15:24 Temperature 97.5 F L Temperature Source Temporal Pulse Rate 56 L Pulse Rhythm Regular Pulse Strength Normal (2+) Respiratory Rate 20 H Respiratory Effort Normal Non-Labored Respiratory Depth Normal Respiratory Pattern Normal Blood Pressure 121/51 H Blood Pressure Mean 74 Blood Pressure Source Monitor Blood Pressure Position Semi-Fowlers Blood Pressure Location Left Arm Pulse Ox 96 Oxygen Delivery Method Room Air Room Air Weight Weight: 100.244 kg Body Mass Index (BMI) 37.9 Physical Exam Const alert General Appearance: cooperative HEENT normocephalic Eyes PERRL and EOMs intact bilaterally Neck supple, no JVD and no carotid bruits Resp normal respiratory effort, normal air movement and clear to auscultation bilater ally Cardio regular rate and regular rhythm GI normal to inspection, nondistended, normoactive bowel sounds and non-tender GI Narrative: Mild distention. Extremity normal capillary refill General Extremity: Negative for edema Skin no rashes or lesions noted General Skin Exam: no breakdown Psych affect normal Appearance: appropriate Results Lab / Micro Data Labs: Laboratory Results - last 24 hr 07/26/24 16:57: POC Glucose 323 H Assessment & Plan Assessment/Plan (1) Debility: (2) Hepatic encephalopathy: (3) Anasarca: (4) Abdominal ascites: QUALIFIERS: Ascites type: other type Qualified Code(s): R18.8 - Other ascites (5) Urinary tract infection: (6) Acute kidney injury: (7) Hyponatremia: (8) Cirrhosis: (9) STARK (nonalcoholic steatohepatitis): (10) Essential (primary) hypertension: (11) Type 2 diabetes mellitus with hyperglycemia: (12) Hypothyroidism: QUALIFIERS: 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 * Debility - PT/OT. * Pain - Tylenol 650mg q6 prn. * Bowel - Lactulose 10gm q6. * Adult immunization - Administer pneumonia vaccine, covid vaccine, flu vaccine as appropriate. * DVT prophylaxis - Lovenox 40mg sc daily. * Hypertension - Coreg 6.25mg bid. * Vitamin D deficiency - D3 125mg daily. * Nutrition - Ensure Plus 120mL tidcm. * Ascites - Furosemide 80mg daily, Aldactone 100mg daily, therapeutic paracentesis as needed. Telephone consult for TIPS 08/09/2024. * Diabetes Mellitus II - Metformin 500mg bidcm, Glimepiride 2mg bidcm, Glargine 10 units daily, Lispro 8 units tidac. * Hepatic encephalopathy - Lactulose 10gm q6, Xifaxan 550mg bid. * Hypothyroidism - Levothyroxine 125mcg daily. * Hypomagnesemia - Magnesium chlorice 128mg bid. * Skin irritation - Calmoseptine topical bid.
[2024-07-26] MEDS: rifAXIMin 550 MG Tablet PO (21:37)
[2024-07-26] MEDS: Magnesium Chloride 64 MG Delay Rel.Tablet 128 MG PO (21:37)
[2024-07-26] MEDS: Carvedilol 6.25 MG Tablet PO (21:38)
[2024-07-26] MEDS: Menthol/Lanolin/Calamine/Znox 113 GM Tube 1 APPLIC TOPICAL (21:43)
[2024-07-26 22:56] LABS: Bedside Glucose 335 mg/dL (74-106)
[2024-07-27 04:47] VITALS: BMI 38.4
[2024-07-27] MEDS: Lactulose 20 GM/30 ML UDC 10 GM PO ×3 (05:18→21:51)
[2024-07-27] MEDS: Enoxaparin 40 MG/0.4 ML Syringe SC (05:18)
[2024-07-27] MEDS: Levothyroxine 125 MCG Tablet PO (05:18)
[2024-07-27] MEDS: 0.9% Saline Lock 10 ML Syringe IV (05:23)
[2024-07-27 05:56] LABS: Absolute Lymphocyte Count 0.88 X10^3/uL (0.83-4.51); Absolute Neutrophil Count 3.2 X10^3/uL (2.0-7.7); Basophil# 0.01 X10^3/uL; Basophil% 0.2 % (0-1); Eosinophil# 0.16 X10^3/uL; Eosinophils% 3.3 % (0-5); Hematocrit 29.5 % (37-47); Hemoglobin 9.7 g/dL (12.0-15.0); Lymphocyte # 0.88 X10^3/ul (0.83-4.51); Lymphocyte % 18.1 % (19-41); Mean Corp Hgb Conc 32.9 g/dL (32-36); Mean Corpuscular Hgb 31.1 pg (27.0-32.0); Mean Corpuscular Volume 94.6 fL (81-99); Mean Platelet Vol. 10.9 fl (6.2-12.0); Monocyte# 0.55 X10^3/uL; Monocyte% 11.3 % (0-10); NRBC Flagged by Analyzer 0 % (0-5); Neutrophil # 3.23 X10^3/uL (2.7-7.7); Neutrophil % 66.5 % (47-70); POSITIVE COUNT YES; Platelet Count 74 K/mm3 (150-450); RBC Distribution Width CV 15.3 % (11.6-14.6); RBC Distribution Width SD 52.6 fl (35.1-43.9); Red Blood Count 3.12 M/mm3 (4.2-5.4); White Blood Count 4.9 K/mm3 (4.4-11.0)
[2024-07-27 06:06] LABS: Differential Indicated SCAN CRITERIA MET
[2024-07-27 06:23] LABS: Bedside Glucose 302 mg/dL (74-106)
[2024-07-27 06:50] LABS: Anion Gap 5 (5-15); BUN 23 mg/dL (7-18); BUN/Creat Ratio 22.3 RATIO (10-20); Calcium,Total 8.9 mg/dL (8.5-10.1); Chloride 102 mmol/L (98-107); Creatinine, Serum 1.03 mg/dL (0.55-1.02); EST Glomerular Filtration Rate 56 mL/min (>60); Est Glom Filt Rate - Afr Amer 67 mL/min (>60); Estimated Creatinine Clearance 55.57 ml/min; Glucose 340 mg/dL (74-106); Potassium 4.6 mmol/L (3.5-5.1); Sodium Level 132 mmol/L (136-145)
[2024-07-27 06:59] LABS: Differential Comment SCANNED; Platelet Estimate MOD DEC (ADEQ)
[2024-07-27 08:31] VITALS: BP 107/51; PULSE 76; RESP 18; TEMP 37; O2SAT 93
--- NOTE | 2024-07-27 08:32 | NURSING ---
Addendum entered by Lu Sherman 07/27/24 11:36: occult stool results negative. Original Note: Pt's Hgb 9.7 this morning. Pt complaining of itching, requesting medication. Doctor Humza entered following new orders: H&H, iron bind study, discontinue lovenox, occult stool, and PRN vistaril.
[2024-07-27] MEDS: Insulin Lispro 100 UNIT/ML INSULN.PEN 8 UNIT SC ×2 (08:35→12:14)
[2024-07-27] MEDS: rifAXIMin 550 MG Tablet PO ×2 (08:36→21:53)
[2024-07-27] MEDS: Insulin Glargine-YFGN 100 UNIT/ML Pen 10 UNIT SC (08:36)
[2024-07-27] MEDS: Furosemide 80 MG Tablet PO (08:36)
[2024-07-27] MEDS: Glimepiride 2 MG Tablet PO ×2 (08:36→17:33)
[2024-07-27] MEDS: Magnesium Chloride 64 MG Delay Rel.Tablet 128 MG PO ×2 (08:36→21:52)
[2024-07-27] MEDS: metFORMIN (XR) 500 MG Tablet PO ×2 (08:36→17:32)
[2024-07-27] MEDS: Cholecalciferol (Vit D3) 125 MCG CAPSULE (5,000 UNITS) PO (08:36)
[2024-07-27] MEDS: Ensure Plus High Protein 120 ML LIQUID PO ×2 (08:37→12:23)
[2024-07-27] MEDS: Spironolactone 50 MG Tablet 100 MG PO (08:39)
[2024-07-27] MEDS: Menthol/Lanolin/Calamine/Znox 113 GM Tube 1 APPLIC TOPICAL ×2 (08:44→21:53)
--- NOTE | 2024-07-27 12:00 | NURSING ---
FSBS 392, asymptomatic. Pt to receive scheduled 8units of Humalog at lunchtime. Updated Dr. Ching, received new orders for one-time dose of 10units Humalog (total of 18) at lunchtime.
[2024-07-27] MEDS: Insulin Lispro 100 UNIT/ML INSULN.PEN 10 UNIT SC ×2 (12:14→17:33)
[2024-07-27] MEDS: Tuberculin,Purif.prot.deriv. 50 TU/ML Vial 0.1 ML ID (12:15)
[2024-07-27 12:24] LABS: Bedside Glucose 392 mg/dL (74-106)
[2024-07-27] MEDS: Carvedilol 6.25 MG Tablet PO ×2 (12:24→21:50)
--- NOTE | 2024-07-27 16:34 | NURSING ---
dr rosen notified of blood sugar 352, insulins adjusted.
[2024-07-27 16:54] LABS: Bedside Glucose 352 mg/dL (74-106)
[2024-07-27] MEDS: Glucerna Shake 120 ML LIQUID PO (17:32)
--- NOTE | 2024-07-27 18:14 | PHA.CONS_ITS ---
Documented by User: Blaise Guardado 07/27/24 18:35 TCU RX Drug Regimen Review Subjective/Objective Subjective/Objective Subjective: TCU admission note. 74 year old female with below past medical history hospitalized for hepatic encephalopathy 2/2 fatty liver cirrhosis, c omplicated by anasarca/ascites, sbp ruled out, acute kidney injury, hyponatremia, urinary tract infection ruled out, admitted to TCU with debility, here for rehabilitation, strengthening, prior to discharge home with . Objective: Allergies chlorhexidine Allergy (Mild, Verified 06/19/24 11:40) rash ciprofloxacin (From Cipro) Allergy (Verified 06/19/24 11:40) unknown cephalexin (Cephalexin) Adverse Reaction (Mild, Verified 06/19/24 11:40) gi upset doxycycline Adverse Reaction (Mild, Verified 06/19/24 11:40) gi upset codeine Adverse Reaction (Verified 06/19/24 11:40) Vomiting Sulfa (Sulfonamide Antibiotics) Adverse Reaction (Verified 06/19/24 11:40) Hives Current Medications Generic Name Dose Route Start Last Admin Trade Name Freq PRN Reason Stop Dose Admin Acetaminophen 650 mg 07/26/24 14:24 Acetaminophen 325 Mg Tablet PO Q6H PRN PRN Fever, pain 1-04/20 Calamine/Phenol 1 applic 07/26/24 22:00 07/27/24 08:44 Menthol/Lanolin/Calamine/Znox 113 Gm Tube TOPICAL 1 applic BID LUIS CARLOS Administration Protocol Carvedilol 6.25 mg 07/26/24 20:00 07/27/24 12:24 Carvedilol 6.25 Mg Tablet PO 6.25 mg 1200,2000 [facility] Administration Protocol Cholecalciferol 125 mcg 07/27/24 10:00 07/27/24 08:36 Cholecalciferol (Vit D3) 125 Mcg Capsule (5,000 Units) PO 125 mcg DAILY LUIS CARLOS Administration Furosemide 80 mg 07/27/24 10:00 07/27/24 08:36 Furosemide 80 Mg Tablet PO 80 mg DAILY LUIS CARLOS Administration Glimepiride 2 mg 07/26/24 17:00 07/27/24 17:33 Glimepiride 2 Mg Tablet PO 2 mg BIDCM LUIS CARLOS Administration Hydroxyzine HCl 10 mg 07/27/24 07:38 Hydroxyzine 10 Mg Tablet PO 4X/DAY PRN PRN ITCHING Insulin Glargine 30 unit 07/27/24 22:00 Insulin Glargine-Yfgn 100 Unit/Ml Pen SC QHS LUIS CARLOS Insulin Human Lispro 10 unit 07/27/24 16:45 07/27/24 17:33 Insulin Lispro 100 Unit/Ml Insuln.Pen SC 10 unit TIDAC LUIS CARLOS Administration Lactulose 10 gm 07/27/24 06:00 07/27/24 17:34 Lactulose 20 Gm/30 Ml Udc PO Not Given 4X/DAY [facility] Levothyroxine Sodium 125 mcg 07/27/24 06:00 07/27/24 05:18 Levothyroxine 125 Mcg Tablet PO 125 mcg DAILY@0600 LUIS CARLOS Administration Magnesium Chloride 128 mg 07/26/24 22:00 07/27/24 08:36 Magnesium Chloride 64 Mg Delay Rel.Tablet PO 128 mg BID LUIS CARLOS Administration Metformin HCl 500 mg 07/26/24 17:00 07/27/24 17:32 Metformin (Xr) 500 Mg Tablet PO 500 mg BIDCM LUIS CARLOS Administration Nutritional Formula (Lactose Free) 120 ml 07/27/24 17:45 07/27/24 17:32 Glucerna Shake 120 Ml Liquid PO 120 ml TIDCM LUIS CARLOS Administration Rifaximin 550 mg 07/26/24 22:00 07/27/24 08:36 Rifaximin 550 Mg Tablet PO 550 mg BID LUIS CARLOS Administration Sodium Chloride 10 - 40 ml 07/26/24 14:50 07/27/24 05:23 0.9% Saline Lock 10 Ml Syringe IV 10 ml UD PRN Administration SALINE FLUSH Spironolactone 100 mg 07/27/24 10:00 07/27/24 08:39 Spironolactone 50 Mg Tablet PO 100 mg DAILY LUIS CARLOS Administration Protocol Tuberculin PPD 0.1 ml 08/03/24 10:00 Tuberculin,Purif.Prot.Deriv. 50 Tu/Ml Vial ID 08/03/24 10:01 X1 ONE Problem List Hypomagnesemia (Acute) Vitamin D deficiency (Acute) Type 2 diabetes mellitus with hyperglycemia (Acute) Essential (primary) hypertension (Acute) STARK (nonalcoholic steatohepatitis) (Acute) Cirrhosis (Acute) Hyponatremia (Acute) Acute kidney injury (Acute) Urinary tract infection (Acute) Anasarca (Acute) Hepatic encephalopathy (Acute) Debility (Acute) Abdominal ascites (Chronic) Hypothyroidism (Chronic) Vital Signs Temp Pulse Resp BP Pulse Ox O2 Del Method 98.6 F 76 18 107/51 L 93 Room Air 07/27/24 08:31 07/27/24 08:31 07/27/24 08:31 07/27/24 08:31 07/27/24 08:31 07/27/24 08:31 Oxygen Delivery Method Room Air Weight: 101.6 kg Body Mass Index (BMI) 38.4 Sodium 132 mmol/L (136-145) L 07/27/24 05:11 Potassium 4.6 mmol/L (3.5-5.1) 07/27/24 05:11 Chloride 102 mmol/L (98-107) 07/27/24 05:11 Carbon Dioxide 25.0 mmol/L (21.0-32.0) 07/27/24 05:11 Anion Gap 5 (5-15) 07/27/24 05:11 BUN 23 mg/dL (7-18) H 07/27/24 05:11 Creatinine 1.03 mg/dL (0.55-1.02) H 07/27/24 05:11 Est GFR (MDRD) Af Amer 67 mL/min (>60) 07/27/24 05:11 Est GFR (MDRD) Non-Af 56 mL/min (>60) L 07/27/24 05:11 BUN/Creatinine Ratio 22.3 RATIO (10-20) H 07/27/24 05:11 Glucose 340 mg/dL (74-106) H 07/27/24 05:11 Assessment/Plan: 1. Pain; acetaminophen 650 mg Q6H PRN pain. The patient has not required any PRN doses of acetaminophen so far this admission. Please continue to monitor pain levels, PRN medication usage and LFTs (AST/ALT = 45/22 U/L on 07/26/24). 2. Bowel/hepatic encephalopathy: lactulose 10 grams PO 4x/day, rifaximin 500 mg PO BID. The patient's last bowel movement was documented as 07/27/24. Please continue to monitor for bowel movements, for constipation, diarrhea, ammonia levels (ammonia = 76.0 umol/L on 07/22/24), edema, nauseas, ascites, dizziness and fatigue. 3. Ascites: furosemide 80 mg PO daily, spironolactone 100 mg PO daily. Please continue to monitor for ascites, for s/s of SBP such as fever, chills, abdominal pain, WBC count (WBC = 4.9 K/mm3 on 07/27/24), sodium levels (Na = 132 mmol/L on 07/27/24), potassium levels (K = 4.6 mmol/L on 07/27/24), for s/s of dehydration, calcium levels (Ca = 8.9 mg/dL on 07/27/24), blood pressures (recent range = 106-123/44-58 mmHg), and renal function (serum creatinine =1.03 mg/dL with creatinine clearance ~ 56 on 07/27/24). 4. Diabetes Mellitus II: metformin XR 500 mg PO BID with meals, glimepiride 2 mg PO BID with meals, insulin glargine 30 units SC QHS, insulin lispro 10 units TIDAC. Please continue to monitor blood glucose levels (recent range: BG = 273- 392 mg/dL), hemoglobin A1C levels (A1C = 11.0% on 07/22/24), renal function (serum creatinine =1.03 mg/dL with creatinine clearance ~ 56, GFR = 56 mL/min on 07/27/24), vitamin B12 levels (B12 = 930 pg/mL on 05/18/24), for GI distress with metformin administration, for s/s of hypo and hyperglycemia. Please continue to increase insulin as needed to help correct patient's high blood glucose levels (just increased 07/27/24). 5. Hypertension: carvedilol 6.25 mg PO BID. Please continue to monitor blood pressures (recent range = 106-123/44-58 mmHg), heart rates (recent range = 56-82 beats/min), and for fatigue. 6. Hypothyroidism: levothyroxine 125 mcg PO daily. Please continue to monitor thyroid hormone levels (TSH = 4.470 uIU/mL with free T4 = 1.37 ng/dL on 05/18/24), and for s/s of hypo/hyperthyroidism. 7. Vitamin D deficiency: cholecalciferol 125 mcg PO daily. Please continue to monitor vitamin D levels (Vitamin D = 35.4 ng/mL on 05/18/24), and for s/s of vitamin D deficiency. 8. Hypomagnesemia: magnesium chloride 128 mg PO BID. Please continue to monitor magnesium levels (Mg = 1.7 mg/dL on 07/23/24), and for s/s of hypomagnesemia. 9. Itching: hydroxyzine 10 mg PO 4x/day PRN itching. The patient has used 4 doses of hydroxyzine so far this admission. Please continue to monitor for PRN medication usage, itching, drowsiness, dizziness, and dry mouth. 10. Nutrition: glucerna 120 mL PO TID with meals. Please continue to monitor overall nutritional status. 11. Skin irritation: calmoseptine 1 application topically BID. Please continue to monitor for skin irritation. Assessment/Plan for indications treated with psychotropic medications: NA Medical chart and medication regimen reviewed. The following medication irregularities or issues were identified: NA Date Date of Note: 07/27/24 Documented by User: Dr. Carlos Ching MD 07/27/24 19:37 TCU RX Drug Regimen Review Provider Comments Provider responsibility Provider Comments to Recommendations by Pharmacy Agree
--- NOTE | 2024-07-27 18:19 | CASEMGMT ---
Social Work SW met with pt to complete initial assessment. SW introduced self and rold of SW. Cotacts were verified. Pt confirms code status as DNRCC. Pt states he has completed Advance Directives naming her spouse Sixto. SW requested documents be brought in. SW educated pt to Medicare benefit and copay coverage. Encourage to contact secondary insurance to ensure copay coverage. Pt's goal is to return home with spouse. Pt states that up until a month and a half ago, pt was independent with all ADLs/IADLs but since sudden onset of illness, pt's spouse has had to assist with care needs. SW to continue to follow for DC planning. NHAN Kam
--- NOTE | 2024-07-27 21:22 | NURSING ---
Blood glucose 362, Dr. Ching notified via secure backline text. Insulin glargine due now as ordered, per Dr. Ching no additional coverage at this time.
[2024-07-27 21:28] LABS: Bedside Glucose 362 mg/dL (74-106)
[2024-07-27] MEDS: Insulin Glargine-YFGN 100 UNIT/ML Pen 30 UNIT SC (21:52)
[2024-07-27] MEDS: hydrOXYzine 10 MG Tablet PO (22:24)
[2024-07-27 23:00] VITALS: PULSE 92; RESP 16; O2SAT 92
[2024-07-28] MEDS: Levothyroxine 125 MCG Tablet PO (05:41)
[2024-07-28] MEDS: Lactulose 20 GM/30 ML UDC 10 GM PO ×4 (05:41→20:50)
[2024-07-28] MEDS: hydrOXYzine 10 MG Tablet PO ×2 (05:42→20:51)
[2024-07-28 05:44] LABS: Hematocrit 29.6 % (37-47); Hemoglobin 9.7 g/dL (12.0-15.0)
[2024-07-28 06:00] VITALS: BMI 37.3
[2024-07-28 06:09] LABS: Iron 31 ug/dL (50-170); Iron Binding Capacity,Total 193 ug/dL (250-450); PERCENT IRON SATURATION 16.1 % (15.0-55.0)
[2024-07-28 06:19] LABS: Bedside Glucose 328 mg/dL (74-106)
--- NOTE | 2024-07-28 07:29 | NURSING ---
Redness observed to right eye sclera, patient reports itchy and leaky, crusting observed to eyelid. Written communication left for Dr. Ching
[2024-07-28] MEDS: Insulin Lispro 100 UNIT/ML INSULN.PEN 17 UNIT SC ×3 (09:05→17:43)
[2024-07-28] MEDS: Spironolactone 50 MG Tablet 100 MG PO (09:57)
[2024-07-28] MEDS: Glucerna Shake 120 ML LIQUID PO ×3 (09:57→17:49)
[2024-07-28] MEDS: metFORMIN (XR) 500 MG Tablet PO ×2 (09:57→17:44)
[2024-07-28] MEDS: Glimepiride 2 MG Tablet PO ×2 (09:57→17:44)
[2024-07-28] MEDS: rifAXIMin 550 MG Tablet PO ×2 (09:58→20:52)
[2024-07-28] MEDS: Magnesium Chloride 64 MG Delay Rel.Tablet 128 MG PO ×2 (09:58→20:52)
[2024-07-28] MEDS: Cholecalciferol (Vit D3) 125 MCG CAPSULE (5,000 UNITS) PO (09:58)
[2024-07-28] MEDS: Furosemide 80 MG Tablet PO (09:58)
[2024-07-28] MEDS: Iron Polysaccharide Complex 150 MG CAPSULE PO (09:59)
[2024-07-28 10:00] VITALS: BP 101/45; PULSE 74; RESP 18; TEMP 36.8; O2SAT 95
[2024-07-28] MEDS: Menthol/Lanolin/Calamine/Znox 113 GM Tube 1 APPLIC TOPICAL ×2 (10:06→20:49)
--- NOTE | 2024-07-28 11:28 | NURSING ---
Binder Lockstitch Note; Activity Asset: Complete
[2024-07-28] MEDS: Acetaminophen 325 MG Tablet 650 MG PO ×2 (11:41→17:52)
[2024-07-28 11:53] LABS: Bedside Glucose 356 mg/dL (74-106)
[2024-07-28] MEDS: Carvedilol 6.25 MG Tablet PO (12:32)
[2024-07-28] MEDS: Neomycin/Polymyxin/Dexameth 5ML OPTH.BTL 2 DRP RIGHT EYE ×2 (12:32→17:44)
[2024-07-28 16:54] LABS: Bedside Glucose 305 mg/dL (74-106)
[2024-07-28 20:47] VITALS: BP 98/51; PULSE 74
[2024-07-28] MEDS: Insulin Glargine-YFGN 100 UNIT/ML Pen 50 UNIT SC (20:50)
[2024-07-28 21:40] LABS: Bedside Glucose 274 mg/dL (74-106)
[2024-07-29] MEDS: Neomycin/Polymyxin/Dexameth 5ML OPTH.BTL 2 DRP RIGHT EYE ×5 (01:02→23:56)
[2024-07-29] MEDS: hydrOXYzine 10 MG Tablet PO (01:03)
[2024-07-29] MEDS: Levothyroxine 125 MCG Tablet PO (05:21)
[2024-07-29] MEDS: Lactulose 20 GM/30 ML UDC 10 GM PO ×4 (05:21→21:21)
[2024-07-29 05:22] VITALS: BMI 37.3
[2024-07-29 06:15] LABS: Bedside Glucose 207 mg/dL (74-106)
[2024-07-29 07:35] LABS: Bedside Glucose 206 mg/dL (74-106)
[2024-07-29] MEDS: Insulin Lispro 100 UNIT/ML INSULN.PEN 17 UNIT SC (07:50)
[2024-07-29] MEDS: Glimepiride 2 MG Tablet PO (07:51)
[2024-07-29] MEDS: Spironolactone 50 MG Tablet 100 MG PO (07:53)
[2024-07-29] MEDS: Furosemide 80 MG Tablet PO (07:53)
[2024-07-29] MEDS: Iron Polysaccharide Complex 150 MG CAPSULE PO (07:53)
[2024-07-29] MEDS: rifAXIMin 550 MG Tablet PO ×2 (07:53→20:31)
[2024-07-29] MEDS: metFORMIN (XR) 500 MG Tablet PO (07:53)
[2024-07-29] MEDS: Magnesium Chloride 64 MG Delay Rel.Tablet 128 MG PO ×2 (07:53→20:31)
[2024-07-29] MEDS: Cholecalciferol (Vit D3) 125 MCG CAPSULE (5,000 UNITS) PO (07:53)
[2024-07-29] MEDS: Glucerna Shake 120 ML LIQUID PO (07:55)
[2024-07-29] MEDS: Menthol/Lanolin/Calamine/Znox 113 GM Tube 1 APPLIC TOPICAL ×2 (08:02→20:31)
[2024-07-29 08:10] VITALS: BP 103/60; PULSE 76; RESP 20; TEMP 36.8; O2SAT 98
[2024-07-29 11:51] LABS: Bedside Glucose 173 mg/dL (74-106)
[2024-07-29] MEDS: Insulin Lispro 100 UNIT/ML INSULN.PEN 18 UNIT SC (12:19)
[2024-07-29] MEDS: Ondansetron ODT 4 MG Tablet PO (12:20)
[2024-07-29] MEDS: Carvedilol 6.25 MG Tablet PO ×2 (12:20→20:30)
[2024-07-29 12:29] VITALS: BP 106/62; PULSE 73
[2024-07-29 14:46] VITALS: BP 107/50; PULSE 67; RESP 14; TEMP 36.8; O2SAT 95
[2024-07-29 16:34] LABS: Bedside Glucose 130 mg/dL (74-106)
--- NOTE | 2024-07-29 18:04 | NURSING ---
Pt more lethargic this afternoon unable to hold cup. BP 113/43 HR 71 Sp02 94% RA pt's last bowel movement on 07/27/24. Dr. Ching updated N.O. for Lactulose Enema if no bowel movement repeat. Order read back.
[2024-07-29 19:02] LABS: Absolute Lymphocyte Count 1.41 X10^3/uL (0.83-4.51); Absolute Neutrophil Count 4.7 X10^3/uL (2.0-7.7); Basophil# 0.04 X10^3/uL; Basophil% 0.5 % (0-1); Eosinophil# 0.42 X10^3/uL; Eosinophils% 5.6 % (0-5); Hematocrit 35.5 % (37-47); Hemoglobin 11.8 g/dL (12.0-15.0); Lymphocyte # 1.41 X10^3/ul (0.83-4.51); Lymphocyte % 18.8 % (19-41); Mean Corp Hgb Conc 33.2 g/dL (32-36); Mean Corpuscular Hgb 31.6 pg (27.0-32.0); Mean Corpuscular Volume 95.2 fL (81-99); Mean Platelet Vol. 10.8 fl (6.2-12.0); NRBC Flagged by Analyzer 0 % (0-5); Neutrophil # 4.68 X10^3/uL (2.7-7.7); Neutrophil % 62.3 % (47-70); Platelet Count 130 K/mm3 (150-450); RBC Distribution Width SD 55.5 fl (35.1-43.9); Red Blood Count 3.73 M/mm3 (4.2-5.4); White Blood Count 7.5 K/mm3 (4.4-11.0)
[2024-07-29 19:08] LABS: Bacteria 0 SEEN /hpf (None Seen); Mucous, Urine 0 SEEN /hpf (<or=2+)
[2024-07-29 19:09] LABS: Color, Urine Yellow (Yellow); Glucose, Dipstick Normal (Normal); Ketone-Dipstick Negative (Negative); Leukocyte Esterase-Dipstick Negative /ul (Negative); Nitrite-Dipstick Negative (Negative); Occult Blood-Urine Negative /ul (Negative); Protein-Dipstick Negative (Negative); Urine Bilirubin Dipstick Negative (Negative); Urine Clarity Clear (Clear); Urine Urobilinogen Normal (Normal); Urine pH 6.5 (5.0 - 8.0)
[2024-07-29 19:24] LABS: Red Blood Cells-Urine 0-5 SEEN /hpf (0-5); White Blood Cells 0-5 SEEN /hpf (0-5)
[2024-07-29 19:26] LABS: Squamous Epithelial Cells - UA 0-5 SEEN /hpf (5-10)
[2024-07-29 19:28] LABS: Anion Gap 5 (5-15); BUN 28 mg/dL (7-18); BUN/Creat Ratio 21.4 RATIO (10-20); Calcium,Total 9.8 mg/dL (8.5-10.1); Chloride 102 mmol/L (98-107); Creatinine, Serum 1.31 mg/dL (0.55-1.02); EST Glomerular Filtration Rate 42 mL/min (>60); Est Glom Filt Rate - Afr Amer 51 mL/min (>60); Estimated Creatinine Clearance 43.07 ml/min; Glucose 109 mg/dL (74-106); Potassium 4.8 mmol/L (3.5-5.1); Sodium Level 132 mmol/L (136-145)
[2024-07-29] MEDS: Lactulose 20 GM/30 ML UDC 200 GM RC (20:31)
[2024-07-29 22:11] LABS: Bedside Glucose 84 mg/dL (74-106)
[2024-07-29] MEDS: Lactulose 20 GM/30 ML UDC 30 GM PO (23:57)
[2024-07-30] MEDS: Lactulose 20 GM/30 ML UDC 30 GM PO ×3 (04:09→22:27)
[2024-07-30 04:54] LABS: Hematocrit 33.8 % (37-47); Hemoglobin 11.1 g/dL (12.0-15.0)
[2024-07-30 05:23] VITALS: BMI 37.7
[2024-07-30] MEDS: Levothyroxine 125 MCG Tablet PO (05:30)
[2024-07-30] MEDS: Neomycin/Polymyxin/Dexameth 5ML OPTH.BTL 2 DRP RIGHT EYE ×3 (05:30→18:09)
[2024-07-30 06:26] LABS: Bedside Glucose 83 mg/dL (74-106)
--- NOTE | 2024-07-30 07:59 | NURSING ---
Pt more lethargic this AM unable to form words incontinent of Large BM. BP 109/50 Pulse 72 SpO2 95% on RA Temp 97.[address] Ching updated N.O. to send pt to E.R.. Report called to Nurse in E.R.. updated and is on his way in.
[2024-07-30 08:04] VITALS: BP 109/50; PULSE 72; TEMP 36.6; O2SAT 95
--- NOTE | 2024-07-30 10:56 | NURSING ---
Pt returned from E.D. no new orders. Per E.DSus[place]. Dr. Ching updated.
[2024-07-30] MEDS: Menthol/Lanolin/Calamine/Znox 113 GM Tube 1 APPLIC TOPICAL ×2 (11:09→22:22)
[2024-07-30 11:34] LABS: Bedside Glucose 138 mg/dL (74-106)
[2024-07-30 12:42] VITALS: BP 121/61; PULSE 70; RESP 18; TEMP 36.7; O2SAT 95
[2024-07-30] MEDS: Carvedilol 6.25 MG Tablet PO (12:46)
[2024-07-30] MEDS: Glucerna Shake 120 ML LIQUID PO ×2 (12:55→18:08)
--- NOTE | 2024-07-30 16:14 | NURSING ---
Received Call from Dr. Ching would like pt to remain on 30gm of Lactulose q4hr until tomorrow. Order read back.
[2024-07-30 16:58] LABS: Bedside Glucose 179 mg/dL (74-106)
[2024-07-30] MEDS: Acetaminophen 325 MG Tablet 650 MG PO (17:03)
[2024-07-30] MEDS: metFORMIN (XR) 500 MG Tablet PO (18:05)
[2024-07-30 22:07] LABS: Bedside Glucose 193 mg/dL (74-106)
[2024-07-30] MEDS: Magnesium Chloride 64 MG Delay Rel.Tablet 128 MG PO (22:27)
[2024-07-30] MEDS: rifAXIMin 550 MG Tablet PO (22:27)
[2024-07-30] MEDS: Insulin Glargine-YFGN 100 UNIT/ML Pen 55 UNIT SC (22:28)
[2024-07-31] MEDS: Neomycin/Polymyxin/Dexameth 5ML OPTH.BTL 2 DRP RIGHT EYE ×4 (00:36→23:26)
[2024-07-31] MEDS: Lactulose 20 GM/30 ML UDC 30 GM PO ×2 (02:33→06:23)
[2024-07-31 05:11] VITALS: BMI 37.6
[2024-07-31] MEDS: Levothyroxine 125 MCG Tablet PO (06:23)
[2024-07-31 06:37] LABS: Bedside Glucose 153 mg/dL (74-106)
[2024-07-31 09:30] VITALS: BP 113/91; PULSE 67; RESP 16; TEMP 36.6; O2SAT 95
[2024-07-31] MEDS: Iron Polysaccharide Complex 150 MG CAPSULE PO (09:35)
[2024-07-31] MEDS: Glimepiride 2 MG Tablet PO ×2 (09:35→17:40)
[2024-07-31] MEDS: metFORMIN (XR) 500 MG Tablet PO ×2 (09:35→17:41)
[2024-07-31] MEDS: Spironolactone 50 MG Tablet 100 MG PO (09:35)
[2024-07-31] MEDS: rifAXIMin 550 MG Tablet PO ×2 (09:35→20:16)
[2024-07-31] MEDS: Furosemide 80 MG Tablet PO (09:35)
[2024-07-31] MEDS: Magnesium Chloride 64 MG Delay Rel.Tablet 128 MG PO ×2 (09:35→20:15)
[2024-07-31] MEDS: Glucerna Shake 120 ML LIQUID PO ×2 (09:36→17:41)
[2024-07-31] MEDS: Cholecalciferol (Vit D3) 125 MCG CAPSULE (5,000 UNITS) PO (09:36)
[2024-07-31] MEDS: Menthol/Lanolin/Calamine/Znox 113 GM Tube 1 APPLIC TOPICAL ×2 (09:39→20:19)
--- NOTE | 2024-07-31 10:40 | NURSING ---
Patient transported via bed to imaging for paracentesis.
--- NOTE | 2024-07-31 12:09 | NURSING ---
Addendum entered by Geena Cedillo 07/31/24 13:59: Radiology planning next paracentesis Wednesday08/07/24 @0800. Original Note: 1045- resident taken down for paracentesis. Call from radiology around 1145 that over 7L fluid removed, resident was taken over to get albumin transfusion at infusion center.
--- NOTE | 2024-07-31 17:00 | CASEMGMT ---
Social Work Dr. Ching presented to this worker's office reporting he spoke with pt and at bedside about hospice care vs therapy. Pt/ in agreement for pt to remain in TCU until end of therapy services, then DC home with hospice. SW will continue to follow for DC planning. Mariella Putnam VERTICAL MILL OPERATOR KNOCKDOWN MAN
[2024-07-31] MEDS: Lactulose 20 GM/30 ML UDC PO ×2 (17:41→20:15)
[2024-07-31 18:02] LABS: Bedside Glucose 284 mg/dL (74-106)
--- NOTE | 2024-07-31 20:00 | NURSING ---
Patient's daughter came to nursing desk this evening with questions about possible hospice care for patient. She states that Dr. Ching discussed patient going home on hospice with patient's , Sixto, but daughter states that Sixto feels overwhelmed with these decisions and whether he could care for patient at home on hospice. This nurse discusses that Dr. Ching said the goal with therapy would be to return home if patient was able, but that hospice could care for patient in a facility as well if Sixto was unsure of whether he could care for her at home. We also discussed the benefits of hospice and what makes patient a candidate for hospice care and daughter was reassured and denied further questions at this time. Family appears agreeable to possible hospice care and are to discuss it further.
[2024-07-31] MEDS: Carvedilol 6.25 MG Tablet PO (20:16)
[2024-07-31 21:23] LABS: Bedside Glucose 302 mg/dL (74-106)
[2024-08-01 06:00] VITALS: BMI 33.6
[2024-08-01] MEDS: Neomycin/Polymyxin/Dexameth 5ML OPTH.BTL 2 DRP RIGHT EYE ×4 (06:32→23:18)
[2024-08-01] MEDS: Lactulose 20 GM/30 ML UDC PO ×3 (06:32→23:18)
[2024-08-01] MEDS: Levothyroxine 125 MCG Tablet PO (06:32)
[2024-08-01 06:46] LABS: Bedside Glucose 196 mg/dL (74-106)
[2024-08-01] MEDS: Insulin Lispro 100 UNIT/ML INSULN.PEN SC ×3 (08:02→17:59)
[2024-08-01] MEDS: Cholecalciferol (Vit D3) 125 MCG CAPSULE (5,000 UNITS) PO (08:02)
[2024-08-01] MEDS: Furosemide 80 MG Tablet PO (08:02)
[2024-08-01] MEDS: metFORMIN (XR) 500 MG Tablet PO ×2 (08:02→17:57)
[2024-08-01] MEDS: Glimepiride 2 MG Tablet PO ×2 (08:02→17:58)
[2024-08-01] MEDS: Iron Polysaccharide Complex 150 MG CAPSULE PO (08:03)
[2024-08-01] MEDS: Spironolactone 50 MG Tablet 100 MG PO (08:03)
[2024-08-01] MEDS: Magnesium Chloride 64 MG Delay Rel.Tablet 128 MG PO ×2 (08:03→20:26)
[2024-08-01] MEDS: Glucerna Shake 120 ML LIQUID PO ×3 (08:04→18:03)
[2024-08-01] MEDS: Loratadine 10 MG Tablet PO (08:04)
[2024-08-01] MEDS: rifAXIMin 550 MG Tablet PO ×2 (08:04→20:26)
[2024-08-01] MEDS: Menthol/Lanolin/Calamine/Znox 113 GM Tube 1 APPLIC TOPICAL ×2 (08:04→20:27)
[2024-08-01] MEDS: Acetaminophen 325 MG Tablet 650 MG PO (11:06)
[2024-08-01] MEDS: Carvedilol 6.25 MG Tablet PO (12:21)
[2024-08-01 12:27] VITALS: BP 130/55; PULSE 75; RESP 16; TEMP 36.8; O2SAT 95
[2024-08-01 14:50] VITALS: BMI 33.7
--- NOTE | 2024-08-01 14:58 | CASEMGMT ---
Social Work presented to this worker's office inquiring about DC timeframe and questions about hospice. SW answered questions. stated he does not think he can care for pt home, at least at this current level of functioning. SW educated to LABORER DEMOLITION and SNF. interested in SNF placement. SW educated to private pay cost or Medicaid. stated pt would not qualify for [facility] and can pay OOP. SW offered to provide list of SNF options. agreed and prefers [facility]. SW provided with printed list of preferred area of providers, including quality and resource data via [employer] Guide. appreciative. SW reminded this worker will be present at POC meeting tomorrow to answer additional questions. -- Therapy questioned pt's cognitive abilities. SW to assess for ST consult. -- SW completed BIMS () and PHQ-9 (). SW explored positive responses. Pt reports depressive symptoms to decline in health, though stated she does have the motivation to keep getting stronger. SW referenced conversation with and Dr. Ching about about DC with hospice services. Pt expressed understanding and is aware cannot care for pt at home. SW educated to this worker's role for DC planning and support with decisions at that time. SW inquired about requesting antidepressant from to assist with sleeping, poor appetite, and mood. Pt adamantly agreed, as she is motivated to feeling better. SW offered ongoing supportive visits as needed. - SW left written communication to for start of Remeron. Mariella Putnam ZIG ZAG STITCHER RUST PROOFER
--- NOTE | 2024-08-01 15:05 | CASEMGMT ---
Social Work presented to this worker's office inquiring about DC timeframe and questions about hospice. SW answered questions. stated he does not think he can care for pt home, at least at this current level of functioning. SW educated to SUPERVISOR CAP [employer] HAT [employer]ODUCTION and SNF. interested in SNF placement. SW educated to private pay cost or Medicaid. stated pt would not qualify for [facility] and can pay OOP. SW offered to provide list of SNF options. agreed and prefers [facility]. SW provided with printed list of preferred area of providers, including quality and resource data via [employer] Guide. appreciative. SW reminded this worker will be present at POC meeting tomorrow to answer additional questions. -- Therapy questioned pt's cognitive abilities. SW to assess for ST consult. -- SW completed BIMS () and PHQ-9 (). SW explored positive responses. Pt reports depressive symptoms to decline in health, though stated she does have the motivation to keep getting stronger. SW referenced conversation with and Dr. Ching about about DC with hospice services. Pt expressed understanding and is aware cannot care for pt at home. SW educated to this worker's role for DC planning and support with decisions at that time. SW inquired about requesting antidepressant from Dr to assist with sleeping, poor appetite, and mood. Pt adamantly agreed, as she is motivated to feeling better. Pt also reported to having trouble concentrating and noticing decline in her memory. SW offered to refer to ST to assist. Pt agreed. SW offered ongoing supportive visits as needed. - SW left written communication to for start of Remeron. ST order entered. Mariella Putnam HORTICULTURE/FLORICULTURE TEACHER SALON SHAMPOO ASSISTANT
[2024-08-01 16:46] LABS: Bedside Glucose 279 mg/dL (74-106)
[2024-08-01] MEDS: Mirtazapine 15 MG Tablet 7.5 MG PO (20:26)
[2024-08-01 21:55] LABS: Bedside Glucose 233 mg/dL (74-106)
[2024-08-02] MEDS: Lactulose 20 GM/30 ML UDC PO ×4 (05:46→22:11)
[2024-08-02] MEDS: Levothyroxine 125 MCG Tablet PO (05:46)
[2024-08-02] MEDS: Neomycin/Polymyxin/Dexameth 5ML OPTH.BTL 2 DRP RIGHT EYE ×4 (05:47→23:06)
[2024-08-02 06:00] VITALS: BMI 33.6
[2024-08-02 06:19] LABS: Bedside Glucose 232 mg/dL (74-106)
[2024-08-02] MEDS: Insulin Lispro 100 UNIT/ML INSULN.PEN SC ×3 (08:28→17:43)
[2024-08-02] MEDS: rifAXIMin 550 MG Tablet PO ×2 (08:29→22:13)
[2024-08-02] MEDS: Spironolactone 50 MG Tablet 100 MG PO (08:29)
[2024-08-02] MEDS: Loratadine 10 MG Tablet PO (08:29)
[2024-08-02] MEDS: Furosemide 80 MG Tablet PO (08:29)
[2024-08-02] MEDS: metFORMIN (XR) 500 MG Tablet PO ×2 (08:29→17:43)
[2024-08-02] MEDS: Magnesium Chloride 64 MG Delay Rel.Tablet 128 MG PO ×2 (08:29→22:12)
[2024-08-02] MEDS: Cholecalciferol (Vit D3) 125 MCG CAPSULE (5,000 UNITS) PO (08:29)
[2024-08-02] MEDS: Glimepiride 2 MG Tablet PO ×2 (08:29→17:43)
[2024-08-02] MEDS: Iron Polysaccharide Complex 150 MG CAPSULE PO (08:29)
[2024-08-02] MEDS: Glucerna Shake 120 ML LIQUID PO (08:29)
[2024-08-02] MEDS: Menthol/Lanolin/Calamine/Znox 113 GM Tube 1 APPLIC TOPICAL ×2 (08:30→22:11)
[2024-08-02 08:35] VITALS: BP 101/42; PULSE 67
--- NOTE | 2024-08-02 08:43 | NURSING ---
Extruder Operator Vertical Note; MDS for 08/02/2024 Complete
--- NOTE | 2024-08-02 10:04 | CASEMGMT ---
Addendum entered by Mariella Putnam 08/02/24 14:37: called this worker with additional hospice questions. SW answered to best of ability. requested referrals to [facility] and [facility]. - SW placed referrals to both SNFs via [facility]. Original Note: Social Work IDT met with patient, , dtr for care plan meeting. Discussed patient's progress in PT/OT/SN. Educated to Medicare benefit. Provided family with written communication on insurance process and copay coverage during stay. SW discussed DC plans with goal to go to a SNF with hospice services, if cannot care for pt at home. Answered family's questions. SW explained for pt to communicate wishes on continuing with therapy. Educated that therapy may not always be beneficial to the patient; the body may not be able to withstand the therapy and may need rest. If/when that happens, SW to assist with discharge. Pt and family expressed understanding and appreciative. SW offered ongoing support and assistance throughout pt's stay. Mariella Putnam REGULAR SENIOR CARE PROVIDER VP MEDICAL
[2024-08-02] MEDS: Acetaminophen 325 MG Tablet 650 MG PO ×2 (11:23→22:10)
[2024-08-02 11:44] VITALS: BP 116/52; PULSE 70; RESP 16; TEMP 36.7; O2SAT 97
[2024-08-02] MEDS: Carvedilol 6.25 MG Tablet PO (11:48)
[2024-08-02 11:51] LABS: Bedside Glucose 265 mg/dL (74-106)
[2024-08-02 19:04] LABS: Bedside Glucose 260 mg/dL (74-106)
[2024-08-02 22:00] VITALS: BP 96/38; PULSE 68
[2024-08-02] MEDS: Insulin Glargine-YFGN 100 UNIT/ML Pen 15 UNIT SC (22:12)
[2024-08-02] MEDS: Mirtazapine 15 MG Tablet 7.5 MG PO (22:13)
[2024-08-02 22:42] LABS: Bedside Glucose 239 mg/dL (74-106)
--- NOTE | 2024-08-02 23:15 | NURSING ---
Patient presents as A&Ox3, able to voice needs. Patient requests paracentesis before wednesday, states has been experiencing stomach discomfort and it fees like I need one this week. Patient also reports Claritin as ineffective and requesting Hydroxyzine reordered. Patient notified Dr. Ching to be updated of patient requests in AM, patient agreeable and expresses thanks. Written communication left for Dr. Ching.
[2024-08-03] MEDS: Lactulose 20 GM/30 ML UDC PO ×2 (05:23→20:31)
[2024-08-03] MEDS: Neomycin/Polymyxin/Dexameth 5ML OPTH.BTL 2 DRP RIGHT EYE ×4 (05:23→23:12)
[2024-08-03] MEDS: Levothyroxine 125 MCG Tablet PO (05:24)
[2024-08-03 05:41] LABS: Absolute Lymphocyte Count 1.24 X10^3/uL (0.83-4.51); Absolute Neutrophil Count 3.9 X10^3/uL (2.0-7.7); Basophil# 0.02 X10^3/uL; Basophil% 0.3 % (0-1); Eosinophil# 0.33 X10^3/uL; Eosinophils% 5.3 % (0-5); Hematocrit 33.3 % (37-47); Lymphocyte # 1.24 X10^3/ul (0.83-4.51); Lymphocyte % 20.1 % (19-41); Mean Corpuscular Hgb 31.9 pg (27.0-32.0); Mean Corpuscular Volume 96.5 fL (81-99); Mean Platelet Vol. 10.2 fl (6.2-12.0); Monocyte% 11.3 % (0-10); NRBC Flagged by Analyzer 0 % (0-5); Neutrophil # 3.86 X10^3/uL (2.7-7.7); Neutrophil % 62.7 % (47-70); Platelet Count 141 K/mm3 (150-450); RBC Distribution Width CV 15.7 % (11.6-14.6); Red Blood Count 3.45 M/mm3 (4.2-5.4); White Blood Count 6.2 K/mm3 (4.4-11.0)
[2024-08-03 05:51] VITALS: BMI 34.4
[2024-08-03 06:04] LABS: Anion Gap 8 (5-15); BUN 20 mg/dL (7-18); BUN/Creat Ratio 16.3 RATIO (10-20); Calcium,Total 9.2 mg/dL (8.5-10.1); Chloride 104 mmol/L (98-107); Creatinine, Serum 1.23 mg/dL (0.55-1.02); EST Glomerular Filtration Rate 45 mL/min (>60); Est Glom Filt Rate - Afr Amer 55 mL/min (>60); Estimated Creatinine Clearance 43.87 ml/min; Glucose 195 mg/dL (74-106); Potassium 4.6 mmol/L (3.5-5.1); Sodium Level 134 mmol/L (136-145)
[2024-08-03 06:53] LABS: Bedside Glucose 176 mg/dL (74-106)
[2024-08-03] MEDS: Insulin Lispro 100 UNIT/ML INSULN.PEN SC ×3 (08:11→17:41)
[2024-08-03] MEDS: Loratadine 10 MG Tablet PO (08:12)
[2024-08-03] MEDS: metFORMIN (XR) 500 MG Tablet PO ×2 (08:12→17:42)
[2024-08-03] MEDS: Furosemide 80 MG Tablet PO (08:12)
[2024-08-03] MEDS: Glimepiride 2 MG Tablet PO ×2 (08:12→17:42)
[2024-08-03] MEDS: Spironolactone 50 MG Tablet 100 MG PO (08:12)
[2024-08-03] MEDS: Iron Polysaccharide Complex 150 MG CAPSULE PO (08:12)
[2024-08-03] MEDS: Magnesium Chloride 64 MG Delay Rel.Tablet 128 MG PO ×2 (08:13→20:32)
[2024-08-03] MEDS: rifAXIMin 550 MG Tablet PO ×2 (08:13→20:33)
[2024-08-03] MEDS: Cholecalciferol (Vit D3) 125 MCG CAPSULE (5,000 UNITS) PO (08:13)
[2024-08-03] MEDS: Menthol/Lanolin/Calamine/Znox 113 GM Tube 1 APPLIC TOPICAL ×2 (08:16→20:32)
[2024-08-03 11:44] LABS: Bedside Glucose 320 mg/dL (74-106)
[2024-08-03] MEDS: Acetaminophen 325 MG Tablet 650 MG PO ×2 (12:13→20:26)
[2024-08-03] MEDS: Tuberculin,Purif.prot.deriv. 50 TU/ML Vial 0.1 ML ID (12:14)
[2024-08-03] MEDS: Carvedilol 6.25 MG Tablet PO (12:16)
[2024-08-03] MEDS: Nystatin Powder 15gm Bottle 1 APPLIC TOPICAL ×2 (12:27→20:32)
--- NOTE | 2024-08-03 14:13 | NURSING ---
Return from US for paracentesis. US reports they did not do paracentesis due to patient not having sufficient fluid build up in abdomen. They state if she needs checked before 08/07 to reorder paracentesis or they will plan on seeing her 08/07 at 0800.
[2024-08-03 14:36] VITALS: BP 96/94; PULSE 72; RESP 17; TEMP 36.5; O2SAT 96
[2024-08-03 16:57] LABS: Bedside Glucose 299 mg/dL (74-106)
[2024-08-03] MEDS: hydrOXYzine 10 MG Tablet PO (17:47)
[2024-08-03 20:30] VITALS: BP 94/34; PULSE 70; RESP 16
[2024-08-03] MEDS: Insulin Glargine-YFGN 100 UNIT/ML Pen 15 UNIT SC (20:31)
[2024-08-03] MEDS: Mirtazapine 15 MG Tablet 7.5 MG PO (20:33)
[2024-08-03 21:06] LABS: Bedside Glucose 227 mg/dL (74-106)
[2024-08-04] MEDS: hydrOXYzine 10 MG Tablet PO ×2 (00:39→17:45)
[2024-08-04 05:13] VITALS: BMI 34.2
--- NOTE | 2024-08-04 05:49 | NURSING ---
Written communication left for Dr. Ching regarding recurrent hypotension.
[2024-08-04] MEDS: Lactulose 20 GM/30 ML UDC PO ×2 (06:01→20:32)
[2024-08-04] MEDS: Levothyroxine 125 MCG Tablet PO (06:02)
[2024-08-04] MEDS: Neomycin/Polymyxin/Dexameth 5ML OPTH.BTL 2 DRP RIGHT EYE ×3 (06:02→17:41)
[2024-08-04] MEDS: Acetaminophen 325 MG Tablet 650 MG PO (06:03)
--- NOTE | 2024-08-04 06:12 | NURSING ---
Patient reports pain to back progressively getting worse rates 10/10 currently. Repositioned x2 staff assist to promote comfort. PRN Tylenol administered as order per pt request. Requests pain med stronger than Tylenol. Weak. Continues to c/o abdominal discomfort shooting pain at times. Written communication left for Dr. Ching
[2024-08-04 06:21] LABS: Bedside Glucose 189 mg/dL (74-106)
[2024-08-04 06:39] VITALS: PULSE 69; RESP 16; O2SAT 96
[2024-08-04] MEDS: Glimepiride 2 MG Tablet PO ×2 (08:48→17:40)
[2024-08-04] MEDS: Menthol/Lanolin/Calamine/Znox 113 GM Tube 1 APPLIC TOPICAL ×2 (08:48→20:32)
[2024-08-04] MEDS: Iron Polysaccharide Complex 150 MG CAPSULE PO (08:48)
[2024-08-04] MEDS: Loratadine 10 MG Tablet PO (08:48)
[2024-08-04] MEDS: Furosemide 80 MG Tablet PO (08:48)
[2024-08-04] MEDS: Spironolactone 50 MG Tablet 100 MG PO (08:48)
[2024-08-04] MEDS: metFORMIN (XR) 500 MG Tablet PO ×2 (08:48→17:40)
[2024-08-04] MEDS: MethylPREDNISolone DosePak 4 MG BOX PO ×4 (08:48→20:34)
[2024-08-04] MEDS: Magnesium Chloride 64 MG Delay Rel.Tablet 128 MG PO ×2 (08:49→20:33)
[2024-08-04] MEDS: Cholecalciferol (Vit D3) 125 MCG CAPSULE (5,000 UNITS) PO (08:49)
[2024-08-04] MEDS: rifAXIMin 550 MG Tablet PO ×2 (08:49→20:32)
[2024-08-04] MEDS: Nystatin Powder 15gm Bottle 1 APPLIC TOPICAL ×2 (08:49→20:35)
[2024-08-04] MEDS: Insulin Lispro 100 UNIT/ML INSULN.PEN 7 UNIT SC ×3 (08:49→17:37)
[2024-08-04] MEDS: oxyCODONE 5 MG Tablet PO ×2 (08:53→17:44)
--- NOTE | 2024-08-04 09:25 | RAD_ITS ---
STUDY: X-RAY - ABDOMEN/PELVIS REASON FOR EXAM: Female, 74 years old. Abdominal pain. TECHNIQUE: Single AP view of the abdomen / pelvis. COMPARISON: None. FINDINGS: Radiopaque pills are seen within the stomach. There is evidence of a thickening of the haustral pattern of the transverse colon. Colitis should be ruled out. The visualized liver, spleen and kidneys are grossly normal in size and morphology. Soft tissue density in the pelvis most likely representing a full bladder. There are diffuse degenerative changes of the visualized lumbar spine. RAD/Abdomen Single View IMPRESSION: Thickening of the haustral pattern of the transverse colon. Colitis should be rule out. Electronically Signed: Ghulam Peters MD at 10:08 [facility] ,
[2024-08-04 10:52] VITALS: BP 113/44; PULSE 63; RESP 18; TEMP 36.4; O2SAT 97
[2024-08-04 11:27] LABS: Bedside Glucose 259 mg/dL (74-106)
--- NOTE | 2024-08-04 13:15 | CASEMGMT ---
Addendum entered by Mariella Putnam 08/04/24 15:55: PASRR completed. Pt triggered level II evaluation d/t dx of hepatic encephalopathy. Updated IDT and WCCC. Will await outcome prior to scheduling transportation. Original Note: Social Work Nursing notified this worker that pt has expressed readiness for hospice. Though, paracentesis is scheduled for 08/07. - SW spoke with pt at bedside to inquire about wishes. Pt confirmed she is ready to elect hospice and stop therapy. SW inquired about paracentesis. Pt would like to do one last one before admitting to hospice. SW confirmed. Inquired about SNF preference as [facility] can accept. Pt prefers [facility] d/t lower cost. SW to coordinate DC services and transportation. Pt appreciative and requested this worker contact . SW agreed. - SW phoned and he already visited pt for the day and will not be visiting again until the evening. SW explained above conversation with pt. is agreeable, but tearful. SW provided emotional support and empathy. thanked SW for assistance. - SW updated WCCC and WVM. Updated IDT. - SW sent secure email to [facility] with referral. SW to complete PASRR and schedule transportation. Plan: DC 08/08 to [facility], [facility]. Mariella Putnam, PSYCH RN METAL INSPECTOR
--- NOTE | 2024-08-04 14:34 | PCM.DC.SUM ---
Providers Date of Admission: 07/26/24 Primary Care Physician: Dr. Oscar Rivera MD Consultations 08/04/24 13:12 Consult: Hospice / Palliative Care Routine Consulting Provider: [facility] Reason for Consult: HOSPICE: DX: e/s renal failure, cirrhosis EMERGENT Consult: No MD Notified: Yes Date Notified: 08/04/24 Time Notified: 13:12 Method of Notification: Text Reason For Visit: HEPATIC ENCEPHALOPATHY Diagnosis Discharge Diagnosis (1) Debility: Status: Acute Code(s): R53.81 - Other malaise (2) Hepatic encephalopathy: Status: Acute Code(s): K76.82 - Hepatic encephalopathy (3) Anasarca: Status: Acute Code(s): R60.1 - Generalized edema (4) Abdominal ascites: Status: Chronic Code(s): R18.8 - Other ascites Qualifiers: Ascites type: other type Qualified Code(s): R18.8 - Other ascites (5) Urinary tract infection: Status: Acute Code(s): N39.0 - Urinary tract infection, site not specified (6) Acute kidney injury: Status: Acute Code(s): N17.9 - Acute kidney failure, unspecified (7) Hyponatremia: Status: Acute Code(s): E87.1 - Hypo-osmolality and hyponatremia (8) Cirrhosis: Status: Acute Code(s): K74.60 - Unspecified cirrhosis of liver (9) STARK (nonalcoholic steatohepatitis): Status: Acute Code(s): K75.81 - Nonalcoholic steatohepatitis (STARK) (10) Essential (primary) hypertension: Status: Acute Code(s): I10 - Essential (primary) hypertension (11) Type 2 diabetes mellitus with hyperglycemia: Status: Acute Code(s): E11.65 - Type 2 diabetes mellitus with hyperglycemia (12) Hypothyroidism: Status: Chronic Code(s): E03.9 - Hypothyroidism, unspecified Qualifiers: 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 Debility - PT/OT. Pain - Tylenol 650mg q6 prn. Bowel - Lactulose 10gm q6. Adult immunization - Administer pneumonia vaccine, covid vaccine, flu vaccine as appropriate. DVT prophylaxis - Lovenox 40mg sc daily. Hypertension - Coreg 6.25mg bid. Vitamin D deficiency - D3 125mg daily. Nutrition - Ensure Plus 120mL tidcm. Ascites - Furosemide 80mg daily, Aldactone 100mg daily, therapeutic paracentesis as needed. Telephone consult for TIPS 08/09/2024. Diabetes Mellitus II - Metformin 500mg bidcm, Glimepiride 2mg bidcm, Glargine 10 units daily, Lispro 8 units tidac. Hepatic encephalopathy - Lactulose 10gm q6, Xifaxan 550mg bid. Hypothyroidism - Levothyroxine 125mcg daily. Hypomagnesemia - Magnesium chlorice 128mg bid. Skin irritation - Calmoseptine topical bid. Medications at Discharge Home Medications glimepiride 2 mg tablet 2 mg PO BID diabetes 06/19/24 levothyroxine 125 mcg tablet 125 mcg PO DAILY disorder of thyroid gland 06/19/24 cholecalciferol (vitamin D3) 125 mcg (5,000 unit) tablet (Vitamin D3) 125 mcg PO DAILY supplement 1 month #30 tabs 06/20/24 acetaminophen 325 mg tablet 650 mg (2 x 325 mg) PO Q6H PRN PRN Fever, pain -04/20 #0 tabs 07/26/24 metformin 500 mg tablet,extended release 24 hr 500 mg PO BID diabetes 30 days #0 tabs 07/26/24 spironolactone 50 mg tablet 100 mg (2 x 50 mg) PO DAILY fluid pill #0 tabs 07/26/24 furosemide 80 mg tablet 80 mg PO DAILY #0 tabs 08/04/24 hydroxyzine HCl 10 mg tablet 10 mg PO TID PRN PRN Itching #0 tabs 08/04/24 insulin glargine-yfgn 100 unit/mL (3 mL) subcutaneous pen 20 unit (0.2 mL) subcut QHS #0 mL 08/04/24 insulin lispro 100 unit/mL subcutaneous pen (Humalog KwikPen (U-100) Insulin) 7 unit (0.07 mL) subcut TIDAC #0 mL 08/04/24 lactulose 20 gram/30 mL oral solution 20 g (30 mL) PO 4X/DAY #0 mL 08/04/24 magnesium chloride 64 mg (magnesium chloride) tablet,delayed release (Mag 64) 128 mg (2 x 64 mg) PO BID #0 tabs 08/04/24 menthol 0.44 %-zinc oxide 20.6 % topical ointment (Calmoseptine) 1 applic topical BID #0 grams 08/04/24 mirtazapine 15 mg tablet 7.5 mg (1/2 x 15 mg) PO QHS #0 tabs 08/04/24 nystatin 100,000 unit/gram topical powder (Nyamyc) 1 applic topical BID #0 grams 08/04/24 Hospital Course Operations None Procedures Paracentesis Summary of Care Provided Minutes Spent on Discharge: 35 Hospital Course: 74 year old female with below past medical history hospitalized for hepatic encephalopathy 2/2 fatty liver cirrhosis, complicated by anasarca/ascites, sbp ruled out, acute kidney injury, hyponatremia, urinary tract infection ruled out, admitted to TCU with debility, here for rehabilitation, strengthening, prior to discharge home with . Resident dying. Discharge 08/08/[address] [facility], [facility]. Recommend continuing paracentesis for comfort. Physical Exam Const alert General Appearance: cooperative HEENT normocephalic Eyes PERRL and EOMs intact bilaterally Neck supple, no JVD and no carotid bruits Resp normal respiratory effort, normal air movement and clear to auscultation bilaterally Cardio regular rate and regular rhythm GI normal to inspection, nondistended, normoactive bowel sounds and non-tender GI Narrative: Distended. Extremity normal capillary refill General Extremity: Negative for edema Skin no rashes or lesions noted General Skin Exam: no breakdown Psych affect normal Appearance: appropriate Medical Records Data Medical Nutrition Assessment Dietitian: Malnutrition Criteria Met Start: 08/02/24 10:33 Freq: Status: Active Protocol: Document 08/02/24 10:33 SLA (Rec: 08/02/24 10:33 SLA [id number]) Nutrition Malnutrition Evidence of Malnutrition Exists Yes Malnutrition (severe): Acute Illness/Injury Evidenced By Suboptimal Energy Intake ( Severe),Weight Loss (Severe) Clinical Problem Acute Disease or Injury Related Malnutrition Etiology related to illness and inadequate energy intake Signs/Symptoms as evidenced by po intake meeting <75% of est nutritional needs and 12.6% wt loss since adm Status Active Problem Altered Nutrient-Related Laboratory Values Etiology related to endocrine dysfunction/diabetes Signs/Symptoms as evidenced by glucose 232 and A1C 11% Status Active Problem Recommendation Dietitian Recommendations/Changes Adjust diet to No Added Salt/ Consistent Carbohydrate diet d /t DM, HTN, and cirrhosis. Will adjust 8 oz glucerna shake w/ meals and discontinue 120ml glucerna shake TID with medpass per res request. Will monitor weight trends. Weight / BMI Weight Weight: 90.582 kg Body Mass Index (BMI) 34.2 ABG / Lab / Microbiology Data 08/03/24 05:27 08/03/24 05:27 Laboratory: Laboratory Results - last 24 hr 08/03/24 16:37: POC Glucose 299 H 08/03/24 20:28: POC Glucose 227 H 08/04/24 05:57: POC Glucose 189 H 08/04/24 11:08: POC Glucose 259 H Microbiology: Microbiology 07/29/24 19:00 Urine, Catheterized Urine Culture - Final Culture exhibits no growth. 07/27/24 10:15 Stool Stool Occult Blood (SIMON) - Final Radiography Diagnostic Testing: Radiology Impression KUB X-Ray 08/04/24 09:25 IMPRESSION: Thickening of the haustral pattern of the transverse colon. Colitis should be rule out. Electronically Signed: Ghulam Peters MD at 10:08 EST , D/C Instructions Discharge Diet: No restrictions Discharge Activity: Return to Normal Activity, May Shower and Use Walker Weight Bearing Status: Weight bearing as tolerated DC O2, CPAP, BIPAP Needs Home O2 Discharge instructions: No Additional Instructions: Discharge 08/08/[address] [facility], [facility]. Recommend continuing paracentesis for comfort. Please Follow Up With: Dr. Arriola When: Cancel. Meaningful Use Info Meaningful Use Meaningful Use Diagnoses (Choose all that apply): None applicable Ischemic Stroke Statin Dosing Therapy Reference: STATIN DOSE THERAPY REFERENCE: * Patients > 75 years receive moderate or high dose statin therapy. * Patients 75 years or YOUNGER should receive HIGH intensity statin dose unless contraindicated. You will be required to document reason for non-treatment if statin daily dose does not meet guidelines. HIGH DOSE STATIN THERAPY DAILY Atorvastatin > than or = to 40 mg Rosuvastatin > than or = to 20 mg Amlodipine + Atorvastatin > than or = to 2.5/40 mg Ezetimibe + Simvastatin 10/80 mg Simvastatin 80mg Discharge Plan Admission Admit Date/Time: 07/26/24 14:06 Primary Reason for Your Visit: Debility. Attending Provider: Carlos Ching Chi Primary Care Provider: Oscar Rivera Consulting Providers: Johnnie Ibrahim; Екатерина Lenz; Megan Ernandez; Naa Dennis; Agatha Love NP; Saundra Tipton Instructions Additional Instructions / Restrictions: Discharge 08/08/[address] [facility], [facility]. Recommend continuing paracentesis for comfort. Discharge Orders/Prescriptions Prescriptions: New hydroxyzine HCl 10 mg Tablet 10 mg PO TID PRN PRN (Reason: Itching) Qty: 0 0RF insulin glargine-yfgn 100 unit/mL (3 mL) Insulin Pen 20 unit subcut QHS Qty: 0 0RF insulin lispro [Humalog KwikPen Insulin] 100 unit/mL Insulin Pen 7 unit subcut TIDAC Qty: 0 0RF furosemide 80 mg Tablet 80 mg PO DAILY Qty: 0 0RF mirtazapine 15 mg Tablet 7.5 mg PO QHS Qty: 0 0RF nystatin [Nyamyc] 100,000 unit/gram Powder 1 applic topical BID Qty: 0 0RF Protocol: *Topical Application Instructions APPLICATION INSTRUCTIONS: Groin, under breasts magnesium chloride [Mag 64] 64 mg Tablet,Delayed Release (Dr/Ec) 128 mg PO BID Qty: 0 0RF menthol-zinc oxide [Calmoseptine] 0.44-20.6 % Ointment 1 applic topical BID Qty: 0 0RF Protocol: *Topical Application Instructions APPLICATION INSTRUCTIONS: coccyx lactulose 20 gram/30 mL Solution 20 g PO 4X/DAY Qty: 0 0RF Continued cholecalciferol (vitamin D3) [Vitamin D3] 125 mcg (5,000 unit) tablet 125 mcg PO DAILY 30 Days Qty: 30 5RF glimepiride 2 mg tablet 2 mg PO BID levothyroxine 125 mcg tablet 125 mcg PO DAILY acetaminophen 325 mg Tablet 650 mg PO Q6H PRN PRN (Reason: Fever, pain 1-04/20) Qty: 0 0RF spironolactone 50 mg Tablet 100 mg PO DAILY Qty: 0 0RF Rx Instructions: Hold for serum potassium more than 5.0 metformin 500 mg tablet extended release 24 hr 500 mg PO BID 30 Days Qty: 0 0RF Discontinued magnesium oxide 400 mg (241.3 mg magnesium) tablet 800 mg PO BID carvedilol 6.25 mg Tablet 6.25 mg PO Q12H Qty: 0 0RF Rx Instructions: At 12 noon and at 8 PM Hold for heart less than 50 or systolic blood pressure less than 100 mmHg. Xifaxan 550 mg Tablet 550 mg PO BID Qty: 0 0RF torsemide 40 mg tablet 40 mg PO DAILY 30 Days Qty: 30 2RF Rx Instructions: Follow-up with the creative lead insulin lispro [Humalog KwikPen Insulin] 100 unit/mL Insulin Pen See Protocol subcut ACHS Qty: 0 0RF Protocol: 3. Sliding Scale Insulin Med Dosing Condition: 150-189 mg/dl = 1 unit Condition: 190-229 mg/dl = 2 units Condition: 230-269 mg/dl = 3 units Condition: 270-309 mg/dl = 4 units Condition: 310-349 mg/dl = 5 units Condition: 350-399 mg/dl = 6 units Condition: 400-449 mg/dl = 7 units Condition: Greater than 449 call physician Protocol Text: - Use for Total Daily Dose of Insulin 37-55 units - Obsese, infected, or steroid patients MEDIUM DOSING ALGORITHIM Ensure Plus High Protein 0.08 gram-1.5 kcal/mL Liquid 120 ml PO TIDCM Qty: 0 0RF insulin glargine-yfgn 100 unit/mL (3 mL) Insulin Pen 10 unit subcut DAILY Qty: 0 0RF Rx Instructions: Hold if glucose less than 130 mg/dl lactulose 20 gram/30 mL Solution 10 g PO Q6H Qty: 0 0RF Rx Instructions: Hold if she has more than 2 soft BM per day. Hold for diarrhea insulin lispro [Humalog KwikPen Insulin] 100 unit/mL Insulin Pen 8 unit subcut TIDAC Qty: 0 0RF Rx Instructions: Hold if glucose less than 130 mg/dl menthol-zinc oxide [Calmoseptine] 0.44-20.6 % Ointment 1 applic topical 4X/DAY Qty: 0 0RF Protocol: *Topical Application Instructions APPLICATION INSTRUCTIONS: apply to affected region Referrals / Follow Up: Oscar Rivera MD [Primary Care Provider] - Disposition Disposition (needs filled in before D/C Order can be placed): Hospice in Medical Facility
--- NOTE | 2024-08-04 14:41 | TREXTCAR_ITS ---
Diet Diet Order/Speech Therapy: 08/03/24 19:18 Diet: Regular - No Added Salt Dietary Modifications:: Consistent Carbohydrate Type of Dietary Supplement:: Glucerna Shake Diet Comments: 8 oz tid w/ medpass Routine Orders/Code Status Code Status: DNRCC DC O2, CPAP, BIPAP needs Home O2 Discharge instructions: No Wound(s) Above Navel: Wound Type: Puncture Dressing Change: Dry Sterile Dressing Bilateral Lower Extremities: Wound Type: scattered abrasion Left Abdomen Fold: Wound Type: Abrasion Abdomen: Wound Type: scattered abrasions Back: Wound Type: scattered abrasion Fei Cleft: Wound Type: moisture area Dressing Change: DANDRE Left groin: Wound Type: open moisture area LLQ: Wound Type: Puncture Therapies Weight Bearing: Weight bearing as tolerated Problem/Diagnosis (1) Debility: Status: Acute Code(s): R53.81 - Other malaise (2) Hepatic encephalopathy: Status: Acute Code(s): K76.82 - Hepatic encephalopathy (3) Anasarca: Status: Acute Code(s): R60.1 - Generalized edema (4) Abdominal ascites: Status: Chronic Code(s): R18.8 - Other ascites (5) Urinary tract infection: Status: Acute Code(s): N39.0 - Urinary tract infection, site not specified (6) Acute kidney injury: Status: Acute Code(s): N17.9 - Acute kidney failure, unspecified (7) Hyponatremia: Status: Acute Code(s): E87.1 - Hypo-osmolality and hyponatremia (8) Cirrhosis: Status: Acute Code(s): K74.60 - Unspecified cirrhosis of liver Comment: ellis (9) ELLIS (nonalcoholic steatohepatitis): Status: Acute Code(s): K75.81 - Nonalcoholic steatohepatitis (ELLIS) (10) Essential (primary) hypertension: Status: Acute Code(s): I10 - Essential (primary) hypertension (11) Type 2 diabetes mellitus with hyperglycemia: Status: Acute Code(s): E11.65 - Type 2 diabetes mellitus with hyperglycemia (12) Hypothyroidism: Status: Chronic Code(s): E03.9 - Hypothyroidism, unspecified (13) Vitamin D deficiency: Status: Acute Code(s): E55.9 - Vitamin D deficiency, unspecified (14) Hypomagnesemia: Status: Acute Code(s): E83.42 - Hypomagnesemia Plan 74 year old female with below past medical history hospitalized for hepatic encephalopathy 2/2 fatty liver cirrhosis, complicated by anasarca/ascites, sbp ruled out, acute kidney injury, hyponatremia, urinary tract infection ruled out, admitted to TCU with debility, here for rehabilitation, strengthening, prior to discharge home with . * Debility - PT/OT. * Pain - Tylenol 650mg q6 prn. * Bowel - Lactulose 10gm q6. * Adult immunization - Administer pneumonia vaccine, covid vaccine, flu vaccine as appropriate. * DVT prophylaxis - Lovenox 40mg sc daily. * Hypertension - Coreg 6.25mg bid. * Vitamin D deficiency - D3 125mg daily. * Nutrition - Ensure Plus 120mL tidcm. * Ascites - Furosemide 80mg daily, Aldactone 100mg daily, therapeutic paracentesis as needed. Telephone consult for TIPS 08/09/2024. * Diabetes Mellitus II - Metformin 500mg bidcm, Glimepiride 2mg bidcm, Glargine 10 units daily, Lispro 8 units tidac. * Hepatic encephalopathy - Lactulose 10gm q6, Xifaxan 550mg bid. * Hypothyroidism - Levothyroxine 125mcg daily. * Hypomagnesemia - Magnesium chlorice 128mg bid. * Skin irritation - Calmoseptine topical bid. Allergies/Procedures Done in Hospital Allergies chlorhexidine Allergy (Mild, Verified 06/19/24 11:40) rash ciprofloxacin (From Cipro) Allergy (Verified 06/19/24 11:40) unknown cephalexin (Cephalexin) Adverse Reaction (Mild, Verified 06/19/24 11:40) gi upset doxycycline Adverse Reaction (Mild, Verified 06/19/24 11:40) gi upset codeine Adverse Reaction (Verified 06/19/24 11:40) Vomiting Sulfa (Sulfonamide Antibiotics) Adverse Reaction (Verified 06/19/24 11:40) Hives Procedures: Paracentesis Type of Care/Length of Stay Estimated LOS: More Than 30 Days Type of Care Needed: Skilled Nursing/Assisted Living Rehab Potential: Poor Prognosis: Poor Additional Orders/Day of Discharge Day of Discharge: 08/08/24 Dietary and Speech Recommendations Dietitian Recommendations/Changes: Adjust diet to No Added Salt/Consistent Carbohydrate diet d/t DM, HTN, and cirrhosis. Will adjust 8 oz glucerna shake w/ meals and discontinue 120ml glucerna shake TID with medpass per res request. Will monitor weight trends. Speech Linguistic Eval Summary: Completed SLUMS on 08/02/24. Scored 16/30 with deficits in the areas of memory, visuo-spatial skills, and naming. Pt stated that she is having trouble with word finding as well. Follow Up Care Please Follow Up With: Dr. Arriola When: Cancel. Discharge Plan Admission Admit Date/Time: 07/26/24 14:06 Primary Reason for Your Visit: Debility. Attending Provider: Carlos Ching Chi Primary Care Provider: Oscar Rivera Consulting Providers: Johnnie Ibrahim; Екатерина Lenz; Megan Ernandez; Naa Dennis; Agatha Love PLAYER DEVELOPMENT MANAGER; Saundra Tipton Instructions Additional Instructions / Restrictions: Discharge 08/08/2024 to [facility], [facility]. Recommend continuing paracentesis for comfort. Discharge Orders/Prescriptions Prescriptions: New hydroxyzine HCl 10 mg Tablet 10 mg PO TID PRN PRN (Reason: Itching) Qty: 0 0RF insulin glargine-yfgn 100 unit/mL (3 mL) Insulin Pen 20 unit subcut QHS Qty: 0 0RF insulin lispro [Humalog KwikPen Insulin] 100 unit/mL Insulin Pen 7 unit subcut TIDAC Qty: 0 0RF furosemide 80 mg Tablet 80 mg PO DAILY Qty: 0 0RF mirtazapine 15 mg Tablet 7.5 mg PO QHS Qty: 0 0RF nystatin [Nyamyc] 100,000 unit/gram Powder 1 applic topical BID Qty: 0 0RF Protocol: *Topical Application Instructions APPLICATION INSTRUCTIONS: Groin, under breasts magnesium chloride [Mag 64] 64 mg Tablet,Delayed Release (Dr/Ec) 128 mg PO BID Qty: 0 0RF menthol-zinc oxide [Calmoseptine] 0.44-20.6 % Ointment 1 applic topical BID Qty: 0 0RF Protocol: *Topical Application Instructions APPLICATION INSTRUCTIONS: coccyx lactulose 20 gram/30 mL Solution 20 g PO 4X/DAY Qty: 0 0RF Continued cholecalciferol (vitamin D3) [Vitamin D3] 125 mcg (5,000 unit) tablet 125 mcg PO DAILY 30 Days Qty: 30 5RF glimepiride 2 mg tablet 2 mg PO BID levothyroxine 125 mcg tablet 125 mcg PO DAILY acetaminophen 325 mg Tablet 650 mg PO Q6H PRN PRN (Reason: Fever, pain 1-04/20) Qty: 0 0RF spironolactone 50 mg Tablet 100 mg PO DAILY Qty: 0 0RF Rx Instructions: Hold for serum potassium more than 5.0 metformin 500 mg tablet extended release 24 hr 500 mg PO BID 30 Days Qty: 0 0RF Discontinued magnesium oxide 400 mg (241.3 mg magnesium) tablet 800 mg PO BID carvedilol 6.25 mg Tablet 6.25 mg PO Q12H Qty: 0 0RF Rx Instructions: At 12 noon and at 8 PM Hold for heart less than 50 or systolic blood pressure less than 100 mmHg. Xifaxan 550 mg Tablet 550 mg PO BID Qty: 0 0RF torsemide 40 mg tablet 40 mg PO DAILY 30 Days Qty: 30 2RF Rx Instructions: Follow-up with the ethylbenzene converter operator insulin lispro [Humalog KwikPen Insulin] 100 unit/mL Insulin Pen See Protocol subcut ACHS Qty: 0 0RF Protocol: 3. Sliding Scale Insulin Med Dosing Condition: 150-189 mg/dl = 1 unit Condition: 190-229 mg/dl = 2 units Condition: 230-269 mg/dl = 3 units Condition: 270-309 mg/dl = 4 units Condition: 310-349 mg/dl = 5 units Condition: 350-399 mg/dl = 6 units Condition: 400-449 mg/dl = 7 units Condition: Greater than 449 call physician Protocol Text: - Use for Total Daily Dose of Insulin 37-55 units - Obsese, infected, or steroid patients MEDIUM DOSING ALGORITHIM Ensure Plus High Protein 0.08 gram-1.5 kcal/mL Liquid 120 ml PO TIDCM Qty: 0 0RF insulin glargine-yfgn 100 unit/mL (3 mL) Insulin Pen 10 unit subcut DAILY Qty: 0 0RF Rx Instructions: Hold if glucose less than 130 mg/dl lactulose 20 gram/30 mL Solution 10 g PO Q6H Qty: 0 0RF Rx Instructions: Hold if she has more than 2 soft BM per day. Hold for diarrhea insulin lispro [Humalog KwikPen Insulin] 100 unit/mL Insulin Pen 8 unit subcut TIDAC Qty: 0 0RF Rx Instructions: Hold if glucose less than 130 mg/dl menthol-zinc oxide [Calmoseptine] 0.44-20.6 % Ointment 1 applic topical 4X/DAY Qty: 0 0RF Protocol: *Topical Application Instructions APPLICATION INSTRUCTIONS: apply to affected region Referrals / Follow Up: Oscar Rivera MD [Primary Care Provider] - Disposition Disposition (needs filled in before D/C Order can be placed): Hospice in Medical Facility (4) Abdominal ascites Qualifiers: Ascites type: other type Qualified Code(s): R18.8 - Other ascites (12) Hypothyroidism Qualifiers: 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
[2024-08-04 16:38] LABS: Bedside Glucose 269 mg/dL (74-106)
[2024-08-04] MEDS: Insulin Glargine-YFGN 100 UNIT/ML Pen 20 UNIT SC (20:33)
[2024-08-04] MEDS: Mirtazapine 15 MG Tablet 7.5 MG PO (20:35)
[2024-08-04 21:00] LABS: Bedside Glucose 308 mg/dL (74-106)
[2024-08-05] MEDS: Neomycin/Polymyxin/Dexameth 5ML OPTH.BTL 2 DRP RIGHT EYE ×5 (00:50→23:40)
[2024-08-05] MEDS: Lactulose 20 GM/30 ML UDC PO ×4 (05:41→21:32)
[2024-08-05] MEDS: Levothyroxine 125 MCG Tablet PO (05:42)
[2024-08-05 05:50] VITALS: BMI 34.7
[2024-08-05 06:12] LABS: Bedside Glucose 310 mg/dL (74-106)
[2024-08-05] MEDS: Glimepiride 2 MG Tablet PO ×2 (08:08→17:06)
[2024-08-05] MEDS: MethylPREDNISolone DosePak 4 MG BOX PO ×4 (08:08→21:35)
[2024-08-05] MEDS: Insulin Lispro 100 UNIT/ML INSULN.PEN 10 UNIT SC ×3 (08:08→17:04)
[2024-08-05] MEDS: Spironolactone 50 MG Tablet 100 MG PO (08:08)
[2024-08-05] MEDS: metFORMIN (XR) 500 MG Tablet PO ×2 (08:08→17:07)
[2024-08-05] MEDS: Furosemide 80 MG Tablet PO (08:09)
[2024-08-05] MEDS: Cholecalciferol (Vit D3) 125 MCG CAPSULE (5,000 UNITS) PO (08:09)
[2024-08-05] MEDS: Iron Polysaccharide Complex 150 MG CAPSULE PO (08:09)
[2024-08-05] MEDS: Nystatin Powder 15gm Bottle 1 APPLIC TOPICAL ×2 (08:09→21:36)
[2024-08-05] MEDS: Menthol/Lanolin/Calamine/Znox 113 GM Tube 1 APPLIC TOPICAL ×2 (08:09→21:32)
[2024-08-05] MEDS: hydrOXYzine 10 MG Tablet PO (08:09)
[2024-08-05] MEDS: Magnesium Chloride 64 MG Delay Rel.Tablet 128 MG PO ×2 (08:09→21:34)
[2024-08-05] MEDS: rifAXIMin 550 MG Tablet PO ×2 (08:09→21:36)
[2024-08-05] MEDS: Loratadine 10 MG Tablet PO (08:09)
[2024-08-05] MEDS: Acetaminophen 325 MG Tablet 650 MG PO (08:20)
[2024-08-05] MEDS: oxyCODONE 5 MG Tablet PO ×4 (08:20→21:41)
[2024-08-05 11:23] LABS: Bedside Glucose 340 mg/dL (74-106)
[2024-08-05 16:00] VITALS: BP 121/58; PULSE 76; RESP 18; TEMP 36.4; O2SAT 94
[2024-08-05 16:41] LABS: Bedside Glucose 344 mg/dL (74-106)
[2024-08-05 21:20] LABS: Bedside Glucose 407 mg/dL (74-106)
[2024-08-05] MEDS: Insulin Glargine-YFGN 100 UNIT/ML Pen 30 UNIT SC (21:33)
[2024-08-05] MEDS: Mirtazapine 15 MG Tablet 7.5 MG PO (21:35)
[2024-08-05 21:45] VITALS: PULSE 66; RESP 18
[2024-08-05] MEDS: Ondansetron ODT 4 MG Tablet PO (22:48)
[2024-08-06] MEDS: Levothyroxine 125 MCG Tablet PO (05:32)
[2024-08-06] MEDS: Neomycin/Polymyxin/Dexameth 5ML OPTH.BTL 2 DRP RIGHT EYE ×3 (05:32→17:06)
[2024-08-06] MEDS: Lactulose 20 GM/30 ML UDC PO ×4 (05:32→21:16)
[2024-08-06 05:54] VITALS: BMI 34.3
[2024-08-06 06:00] LABS: Bedside Glucose 432 mg/dL (74-106)
[2024-08-06] MEDS: Insulin Lispro 100 UNIT/ML INSULN.PEN 15 UNIT SC (06:41)
[2024-08-06] MEDS: Insulin Lispro 100 UNIT/ML INSULN.PEN 10 UNIT SC (06:41)
[2024-08-06] MEDS: Glimepiride 2 MG Tablet PO ×2 (09:58→17:05)
[2024-08-06] MEDS: Menthol/Lanolin/Calamine/Znox 113 GM Tube 1 APPLIC TOPICAL ×2 (09:58→22:14)
[2024-08-06] MEDS: Spironolactone 50 MG Tablet 100 MG PO (09:58)
[2024-08-06] MEDS: metFORMIN (XR) 500 MG Tablet PO ×2 (09:58→17:05)
[2024-08-06] MEDS: MethylPREDNISolone DosePak 4 MG BOX PO ×2 (09:58→12:10)
[2024-08-06] MEDS: Magnesium Chloride 64 MG Delay Rel.Tablet 128 MG PO ×2 (09:59→22:00)
[2024-08-06] MEDS: rifAXIMin 550 MG Tablet PO ×2 (09:59→22:00)
[2024-08-06] MEDS: Furosemide 80 MG Tablet PO (09:59)
[2024-08-06] MEDS: Cholecalciferol (Vit D3) 125 MCG CAPSULE (5,000 UNITS) PO (09:59)
[2024-08-06] MEDS: Iron Polysaccharide Complex 150 MG CAPSULE PO (09:59)
[2024-08-06] MEDS: Nystatin Powder 15gm Bottle 1 APPLIC TOPICAL ×2 (09:59→22:13)
[2024-08-06] MEDS: Loratadine 10 MG Tablet PO (09:59)
[2024-08-06 11:55] VITALS: BP 134/63; PULSE 80; RESP 18; TEMP 36.5; O2SAT 93
[2024-08-06 12:01] LABS: Bedside Glucose 419 mg/dL (74-106)
[2024-08-06] MEDS: Insulin Lispro 100 UNIT/ML INSULN.PEN 20 UNIT SC ×3 (12:06→17:07)
[2024-08-06 16:51] LABS: Bedside Glucose 469 mg/dL (74-106)
[2024-08-06 18:58] LABS: Bedside Glucose 448 mg/dL (74-106)
[2024-08-06] MEDS: Insulin Lispro 100 UNIT/ML INSULN.PEN 40 UNIT SC (20:01)
--- NOTE | 2024-08-06 21:12 | NURSING ---
Addendum entered by Lela Dobson 08/06/24 21:55: Order clarified, physician still wants 180 units of glargine given at HS. Last dose of glargine last night was 30 units. VORB. Addendum entered by Lela Dobson 08/06/24 21:27: Physician ordered 180 units of glargine at HS, and to increase humalog to 60 units with meals. VORB. Original Note: Physician notified that patient's blood sugar is 454 one hour after the one time dose of 40 units of Humalog. No new orders at this time. RN aware.
[2024-08-06 21:23] LABS: Bedside Glucose 454 mg/dL (74-106)
[2024-08-06 21:50] VITALS: BP 128/64; PULSE 76; RESP 18; TEMP 37.2; O2SAT 94
[2024-08-06] MEDS: Insulin Glargine-YFGN 100 UNIT/ML Pen 180 UNIT SC (21:59)
[2024-08-06] MEDS: Mirtazapine 15 MG Tablet 7.5 MG PO (22:00)
[2024-08-06 23:52] LABS: Bedside Glucose 424 mg/dL (74-106)
[2024-08-07] MEDS: Neomycin/Polymyxin/Dexameth 5ML OPTH.BTL 2 DRP RIGHT EYE ×3 (01:29→11:51)
[2024-08-07 01:51] LABS: Bedside Glucose 364 mg/dL (74-106)
[2024-08-07 03:45] LABS: Bedside Glucose 389 mg/dL (74-106)
[2024-08-07 06:00] VITALS: BMI 36.1
[2024-08-07] MEDS: Levothyroxine 125 MCG Tablet PO (06:25)
[2024-08-07] MEDS: Lactulose 20 GM/30 ML UDC PO ×4 (06:25→20:32)
[2024-08-07 06:58] LABS: Bedside Glucose 351 mg/dL (74-106)
--- NOTE | 2024-08-07 09:31 | PCM.OPRPT ---
Problems Associated Problem List Diagnoses (1) Abdominal ascites: Multi Select Codes Radiology Radiology US Procedures: 38471 Paracentesis Operative Report (Standard) Operative Information Date of Procedure: 08/07/24 Pre-Operative Diagnosis: Abdominal ascites Post-Operative Diagnosis: Abdominal ascites Surgery/Procedure Performed: Ultrasound-guided paracentesis insurance risk manager: No Type of Anesthesia: Local Procedure Start Time: 08:14 Procedure Stop Time: 08:43 Select all DRAINS/GRAFTS/IMPLANTS that apply: None Estimated Blood Loss: 0 Specimen collected: No Description of surgery: PROCEDURE: Ultrasound guided paracentesis ORDERING PROVIDER: Dr. Westfall INDICATION: Female, 74 years old. Abdominal ascites. PROVIDER: Bertha Arriaga CNP TECHNIQUE: The risks, benefits, and alternatives to the procedure were explained to the patient. The specific risks of bleeding, infection, and damage to bowel were detailed and accepted. Witnessed informed consent was obtained. The abdomen was ultrasonographically surveyed. An appropriate pocket of fluid was identified in the right lower quadrant. The skin was prepped with chlorhexidine and sterile field established. 2% lidocaine was used for local anesthetic. Using ultrasound guidance, the peritoneal cavity was accessed with a 5-Occitan paracentesis needle/catheter system. The trocar was removed. A total of 6200 ml of pink-tinged colored fluid was removed from the peritoneal cavity. The catheter was removed and a sterile dressing was applied. The procedure was well tolerated. IMPRESSION: Successful ultrasound guided paracentesis with right lower quadrant access site. Surgical Findings: None Complications Complications: No
[2024-08-07] MEDS: Insulin Lispro 100 UNIT/ML INSULN.PEN 60 UNIT SC ×3 (09:42→12:50)
[2024-08-07] MEDS: Glimepiride 2 MG Tablet PO ×2 (09:48→18:15)
[2024-08-07] MEDS: Spironolactone 50 MG Tablet 100 MG PO (09:49)
[2024-08-07] MEDS: metFORMIN (XR) 500 MG Tablet PO ×2 (09:49→18:15)
[2024-08-07] MEDS: Menthol/Lanolin/Calamine/Znox 113 GM Tube 1 APPLIC TOPICAL ×2 (09:50→20:33)
[2024-08-07] MEDS: Loratadine 10 MG Tablet PO (09:51)
[2024-08-07] MEDS: Iron Polysaccharide Complex 150 MG CAPSULE PO (09:52)
[2024-08-07] MEDS: Nystatin Powder 15gm Bottle 1 APPLIC TOPICAL ×2 (09:53→20:33)
[2024-08-07] MEDS: Furosemide 80 MG Tablet PO (09:53)
[2024-08-07] MEDS: Magnesium Chloride 64 MG Delay Rel.Tablet 128 MG PO ×2 (09:53→20:32)
[2024-08-07] MEDS: Cholecalciferol (Vit D3) 125 MCG CAPSULE (5,000 UNITS) PO (09:54)
[2024-08-07] MEDS: rifAXIMin 550 MG Tablet PO ×2 (09:54→20:32)
[2024-08-07 09:55] LABS: Bedside Glucose 372 mg/dL (74-106)
[2024-08-07 10:25] VITALS: BP 110/62; PULSE 65; RESP 12; TEMP 36.8; O2SAT 98
[2024-08-07 11:20] LABS: Bedside Glucose 332 mg/dL (74-106)
[2024-08-07] MEDS: Albumin Human 25% (100 mL) 25 GM/100 ML BAG IV ×2 (12:35→14:19)
[2024-08-07 14:48] LABS: Bedside Glucose 247 mg/dL (74-106)
--- NOTE | 2024-08-07 14:59 | CASEMGMT ---
Social Work Ultrasound inquired about placing a pleurx drain prior to DC. SW inquired to Zaria Ramos at hospice if this was acceptable. Zaria confirmed the pt can have the drain but prefers it to be placed prior to admission. MERE updated nursing. - Hospice nurse met with pt and family in room at 1330 this date. TCU nurse and hospice nurse spoke to this worker about drain placement. Pt's swelling will need to subside prior to drain placement, which is anticipated to be placed 08/10. Hospice inquiring if pt can remain until 08/10. MERE spoke with TCU Director who confirmed pt can remain under Medicare benefit until 08/10, regardless if PASRR results have been received. SW updated TCU nurse and hospice nurse. DC date changed to 08/10. - MERE spoke with pt at bedside and confirmed new DC 08/10. pt agreeable. MERE phoned [facility] - left with Jenna to update and ensure admission on new date. SW to schedule transport closer to DC. Plan: DC 08/10 to [facility] with [facility] Mariella Putnam CHUCK SPLITTER INTERCHANGE AGENT
--- NOTE | 2024-08-07 15:36 | NURSING ---
Patient received paracentesis this AM and had 6200ml removed. Albumin infusion completed on TCU. Ultrasound contacted this nurse regarding bringing up Plurex drain with hospice when they meet with patient and they state that patient should have large enough pocket of fluid built up to get a plurex drain placed on 08/11 if it is approved. Spoke with SW and hospice nurse regarding Plurex drain and plan is for patient to remain on TCU until Wednesday so that Plurex drain can be placed and then she will discharge with hospice care. Hospice nurse to make aware of discharge date change. Dr. Ching made aware of plan and request order for Plurex drain placement.
--- NOTE | 2024-08-07 16:20 | CASEMGMT ---
Social Work Ultrasound inquired about placing a pleurx drain prior to DC. SW inquired to Zaria Ramos at hospice if this was acceptable. Zaria confirmed the pt can have the drain but prefers it to be placed prior to admission. MERE updated nursing. - Hospice nurse met with pt and family in room at 1330 this date. TCU nurse and hospice nurse spoke to this worker about drain placement. Pt's swelling will need to subside prior to drain placement, which is anticipated to be placed 08/11. Hospice inquiring if pt can remain until 08/11. MERE spoke with TCU Director who confirmed pt can remain under Medicare benefit until 08/11, regardless if PASRR results have been received. MERE updated TCU nurse and hospice nurse. DC date changed to 08/11. - MERE spoke with pt at bedside and confirmed new DC 08/11. pt agreeable. MERE phoned [facility] - left with Jenna to update and ensure admission on new date. SW to schedule transport closer to DC. Plan: DC 08/11 to [facility] with [facility] Mariella Putnam PRODUCTION ILLUSTRATOR ENTRY LEVEL ADMINISTRATIVE ASSISTANT
[2024-08-07 16:27] LABS: Bedside Glucose 178 mg/dL (74-106)
[2024-08-07] MEDS: Insulin Lispro 100 UNIT/ML INSULN.PEN 20 UNIT SC (18:15)
[2024-08-07] MEDS: Mirtazapine 15 MG Tablet 7.5 MG PO (20:32)
[2024-08-07 21:45] LABS: Bedside Glucose 73 mg/dL (74-106)
[2024-08-08] MEDS: Levothyroxine 125 MCG Tablet PO (05:51)
[2024-08-08] MEDS: Lactulose 20 GM/30 ML UDC PO ×4 (05:53→21:31)
[2024-08-08 06:00] VITALS: BMI 32.5
--- NOTE | 2024-08-08 06:26 | NURSING ---
Addendum entered by Rosaura Curtis 08/08/24 07:27: glucagon administered; subsequent BS 69, then 87. Original Note: Patient's blood sugar last night was 73, patient refused insulin glargine d/t this result. This morning, patient's blood sugar dropped to 55. Patient given apple juice and rechecked in 15 minutes. Recheck blood sugar 49. Patient asymptomatic, alert and responsive. Consulted Dr. Ching via telephone, new order for x1 dose of Glucagon 1mg IM and to discontinue insulin. Order read back and verified.
[2024-08-08 06:27] LABS: Bedside Glucose 55 mg/dL (74-106)
[2024-08-08] MEDS: Glucagon 1 MG/ML Syringe IM (06:28)
[2024-08-08 06:50] LABS: Bedside Glucose 49 mg/dL (74-106)
[2024-08-08 07:41] LABS: Bedside Glucose 69 mg/dL (74-106)
[2024-08-08 07:41] LABS: Bedside Glucose 87 mg/dL (74-106)
--- NOTE | 2024-08-08 08:30 | MDS.RN ---
Information for the MDS was obtained from review of the clinical record, interview of resident, staff, and direct observation of resident?s care.
[2024-08-08] MEDS: Spironolactone 50 MG Tablet 100 MG PO (09:25)
[2024-08-08] MEDS: Furosemide 80 MG Tablet PO (09:25)
[2024-08-08] MEDS: Loratadine 10 MG Tablet PO (09:25)
[2024-08-08] MEDS: Iron Polysaccharide Complex 150 MG CAPSULE PO (09:25)
[2024-08-08] MEDS: Cholecalciferol (Vit D3) 125 MCG CAPSULE (5,000 UNITS) PO (09:26)
[2024-08-08] MEDS: Menthol/Lanolin/Calamine/Znox 113 GM Tube 1 APPLIC TOPICAL ×2 (09:26→21:32)
[2024-08-08] MEDS: Magnesium Chloride 64 MG Delay Rel.Tablet 128 MG PO ×2 (09:26→21:31)
[2024-08-08] MEDS: rifAXIMin 550 MG Tablet PO ×2 (09:26→21:31)
[2024-08-08] MEDS: Nystatin Powder 15gm Bottle 1 APPLIC TOPICAL ×2 (09:27→21:31)
[2024-08-08 11:35] LABS: Bedside Glucose 135 mg/dL (74-106)
[2024-08-08 15:34] VITALS: BP 123/55; PULSE 82; RESP 18; TEMP 36.7; O2SAT 92
[2024-08-08 16:45] LABS: Bedside Glucose 131 mg/dL (74-106)
[2024-08-08] MEDS: metFORMIN (XR) 500 MG Tablet PO (17:52)
[2024-08-08] MEDS: 0.9% Saline Lock 10 ML Syringe IV (18:00)
[2024-08-08 21:25] LABS: Bedside Glucose 160 mg/dL (74-106)
[2024-08-08] MEDS: Mirtazapine 15 MG Tablet 7.5 MG PO (21:32)
[2024-08-09] MEDS: Levothyroxine 125 MCG Tablet PO (05:19)
[2024-08-09] MEDS: Lactulose 20 GM/30 ML UDC PO ×4 (05:19→21:10)
[2024-08-09 06:00] VITALS: BMI 32.0
[2024-08-09 06:18] LABS: Bedside Glucose 152 mg/dL (74-106)
[2024-08-09] MEDS: rifAXIMin 550 MG Tablet PO ×2 (09:07→21:12)
[2024-08-09] MEDS: Furosemide 80 MG Tablet PO (09:07)
[2024-08-09] MEDS: Loratadine 10 MG Tablet PO (09:07)
[2024-08-09] MEDS: Iron Polysaccharide Complex 150 MG CAPSULE PO (09:07)
[2024-08-09] MEDS: metFORMIN (XR) 500 MG Tablet PO ×2 (09:07→18:10)
[2024-08-09] MEDS: Cholecalciferol (Vit D3) 125 MCG CAPSULE (5,000 UNITS) PO (09:07)
[2024-08-09] MEDS: Spironolactone 50 MG Tablet 100 MG PO (09:07)
[2024-08-09] MEDS: Magnesium Chloride 64 MG Delay Rel.Tablet 128 MG PO ×2 (09:07→21:11)
[2024-08-09] MEDS: Menthol/Lanolin/Calamine/Znox 113 GM Tube 1 APPLIC TOPICAL ×2 (09:08→21:10)
[2024-08-09] MEDS: Nystatin Powder 15gm Bottle 1 APPLIC TOPICAL ×2 (09:08→21:11)
--- NOTE | 2024-08-09 11:14 | NURSING ---
[facility] consulted to insert Pleurx. Spoke with Dr. Alexis and she said to call Dr. Higgins tomorrow d/t she will not be here and he will be the one big machine consultant.
[2024-08-09 11:39] LABS: Bedside Glucose 162 mg/dL (74-106)
[2024-08-09 13:54] VITALS: BP 125/58; PULSE 76; RESP 16; TEMP 36.4; O2SAT 97
[2024-08-09 16:24] LABS: Bedside Glucose 172 mg/dL (74-106)
[2024-08-09] MEDS: 0.9% Saline Lock 10 ML Syringe IV (21:10)
[2024-08-09] MEDS: Mirtazapine 15 MG Tablet 7.5 MG PO (21:11)
[2024-08-09 21:24] LABS: Bedside Glucose 158 mg/dL (74-106)
[2024-08-10 03:58] VITALS: BMI 32.0
[2024-08-10 06:32] LABS: Bedside Glucose 160 mg/dL (74-106)
[2024-08-10 07:33] LABS: Absolute Neutrophil Count 5.2 X10^3/uL (2.0-7.7); Basophil# 0.03 X10^3/uL; Basophil% 0.4 % (0-1); Eosinophil# 0.24 X10^3/uL; Eosinophils% 3.1 % (0-5); Hematocrit 37.3 % (37-47); Lymphocyte % 16.8 % (19-41); Mean Corp Hgb Conc 32.2 g/dL (32-36); Mean Corpuscular Hgb 31.1 pg (27.0-32.0); Mean Corpuscular Volume 96.6 fL (81-99); Mean Platelet Vol. 10.2 fl (6.2-12.0); Monocyte# 0.94 X10^3/uL; Monocyte% 12.1 % (0-10); NRBC Flagged by Analyzer 0 % (0-5); Neutrophil # 5.19 X10^3/uL (2.7-7.7); Platelet Count 123 K/mm3 (150-450); RBC Distribution Width CV 16.3 % (11.6-14.6); RBC Distribution Width SD 57.5 fl (35.1-43.9); Red Blood Count 3.86 M/mm3 (4.2-5.4); White Blood Count 7.8 K/mm3 (4.4-11.0)
[2024-08-10 07:43] LABS: Anion Gap 8 (5-15); BUN 32 mg/dL (7-18); BUN/Creat Ratio 24.8 RATIO (10-20); Calcium,Total 9.6 mg/dL (8.5-10.1); Chloride 100 mmol/L (98-107); Creatinine, Serum 1.29 mg/dL (0.55-1.02); EST Glomerular Filtration Rate 43 mL/min (>60); Est Glom Filt Rate - Afr Amer 52 mL/min (>60); Estimated Creatinine Clearance 40.26 ml/min; Glucose 175 mg/dL (74-106); Potassium 4.4 mmol/L (3.5-5.1); Sodium Level 134 mmol/L (136-145)
--- NOTE | 2024-08-10 10:28 | CON.PCM.SX_ITS ---
Assessment & Plan Assessment/Plan (1) Abdominal ascites: QUALIFIERS: Ascites type: other type Qualified Code(s): R18.8 - Other ascites PLAN: I have been consulted in conjunction with Dr. Magaña. He will independently evaluate this patient. Patient with a history of acute hepatic encephalopathy due to to decompensated STARK related cirrhosis, garde I esophageal varices and abdominal ascites. Currently family has opted to proceed with a Hospice referral and acceptance of Hospice care. Family would like a Pleurx catheter placed for patient's abdominal ascites to avoid the routine amount of paracentesis. Patient has never had a Pleurx catheter previously. She denies any difficulties with paracentesis. Procedure details, risks and benefits have been explained to the patient and her . Patient and her have had the opportunity to ask and have questions answered. Patient's agrees with the proposed plan and states that he and the patient have discussed this would be a good option. I have arranged for the patient to have the procedure completed tomorrow by Dr. Magaña around 2:30 pm. I am [facility] on Hospice. Thank you for allowing us to participate in this patient's care. HPI Consult Data Date of Consult: 08/10/24 HPI Narrative Reason for Consultation: Abdominal pleurx catheter placement HPI Narrative: JEANNINE OLSON, is a 74 F who presents with acute encephalopathy due to decompensated STARK related cirrhosis. She was hospitalized on the acute side from 07/21/24 through 07/26/2024. She was transferred to TCU for ongoing rehabilitation and management. Patient has a history of bilateral breast cancer. She also has been having multiple paracentesis secondary to abdominal ascites. For the month of July, patient has had abdominal paracentesis weekly ranging from 6-8.5 liters of fluid being removed. Patient is scheduled to be discharged from TCU tomorrow. Patient will be transferred to [facility] on Hospice. Patient's was in the room and provided all patient's history. Patient would intermittently wake up and open her eyes and then fall back asleep. He denies any previous cardiac history, pacer/defibrillator, blood clots or stroke. He denies any pulmonary history for the patient. He denies any complications or side effects from anesthesia. Our service was consulted for a Pleurx catheter placement. [facility], [facility] Medical History Diabetes 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 Pancytopenia Mastitis Osteopenia Postmenopausal Screening for osteoporosis Thrombocytopenia Wears glasses Cancer Post-menopausal Anxiety GERD (gastroesophageal reflux disease) Ulcer Cirrhosis Shortness of breath on exertion Former smoker Edema Hx of cardiovascular stress test Migraine headache Back pain Injury of back Syncope History of ventral hernia Abnormal mammogram of right breast Hypertension 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 Hypothyroidism Hyperlipidemia History of breast cancer Diabetes mellitus, type II Obesity (BMI 30.0-34.9) Home Medications ?Medication ?Instructions ?Recorded ?Last Taken ?Type levothyroxine 125 mcg tablet 125 mcg PO DAILY disorder of 06/19/24 Unknown History thyroid gland cholecalciferol (vitamin D3) 125 125 mcg PO DAILY supp lement 1 06/20/24 Unknown Rx mcg (5,000 unit) tablet (Vitamin month #30 tabs D3) acetaminophen 325 mg tablet 650 mg (2 x 325 mg) PO Q6H PRN PRN 07/26/24 Unknown Rx Fever, pain -04/20 #0 tabs metformin 500 mg tablet,extended 500 mg PO BID diabete s 30 days #0 07/26/24 Unknown Rx release 24 hr tabs spironolactone 50 mg tablet 100 mg (2 x 50 mg) PO NEENA Y fluid 07/26/24 Unknown Rx pill #0 tabs furosemide 80 mg tablet 80 mg PO DAILY #0 tabs 08/04 Unknown Rx hydroxyzine HCl 10 mg tablet 10 mg PO TID PRN PRN Itch ing #0 08/04/24 Unknown Rx tabs lactulose 20 gram/30 mL oral 20 g (30 mL) PO 4X/DAY #0 mL 08/04/24 Unknown Rx solution magnesium chloride 64 mg 128 mg (2 x 64 mg) PO BID #0 tabs 08/04/24 Unknown Rx (magnesium chloride) tablet,delayed release (Mag 64) menthol 0.44 %-zinc oxide 20.6 % 1 applic topical BID #0 grams 08/04/24 Unknown Rx topical ointment (Calmoseptine) mirtazapine 15 mg tablet 7.5 mg (1/2 x 15 mg) PO QHS #0 tabs 08/04/24 Unknown Rx nystatin 100,000 unit/gram topical 1 applic topical BI D #0 grams 08/04/24 Unknown Rx powder ([facility]) Allergy/AdvReac Type Severity Reaction Status Date / Time chlorhexidine Allergy Mild rash Verified 06/19/24 11:40 ciprofloxacin (From Cipro) Allergy unknown Verified 06/19/24 11:40 cephalexin (Cephalexin) AdvReac Mild gi upset Verified 06/19/24 11:40 doxycycline AdvReac Mild gi upset Verified 06/19/24 11:40 codeine AdvReac Vomiting Verified 06/19/24 11:40 Sulfa (Sulfonamide AdvReac Hives Verified 06/19/24 11:40 Antibiotics) Family History Father Diabetes Mother Diabetes Hypertension Sister Hypertension Brother Diabetes Hypertension Surgical History History of appendectomy History of abdominal paracentesis History of lumpectomy of left breast (~12/2020) History of esophagogastroduodenoscopy (EGD) Hx of colonoscopy Hx of cholecystectomy Hx of shoulder surgery Hx of foot surgery History of right breast biopsy History of lumpectomy of right breast Social History household members: spouse Smoking Status: Former smoker Tobacco: How many years used: 2 alcohol intake: never substance use type: does not use caffeine: Yes what type of physical activity do you participate in: none frequency: does not exercise ROS Review of Systems ROS Unobtainable: due to mental status Physical Exam Const Orientation / Consciousness: confused HEENT normocephalic and head/scalp atraumatic Eyes PERRL Neck full ROM Resp normal respiratory effort and clear to auscultation bilaterally Cardio regular rate and regular rhythm GI GI Narrative: Abdomen- soft, distended, non-tender to palpation no CVA tenderness Back/Spine no CVA tenderness Extremity normal to inspection Skin no rashes or lesions noted Neuro Sensorium / Orientation: confused and lethargic Psych Attitude: withdrawn Mood & Affect: apathetic and flat affect Memory / Cognition: cognition impaired Insight: poor Judgement: poor Medical Records Data Medical Nutrition Assessment Dietitian: Malnutrition Criteria Met Start: 08/02/24 10:33 Freq: Status: Active Protocol: Document 08/02/24 10:33 SLA (Rec: 08/02/24 10:33 SLA [id number]) Nutrition Malnutrition Evidence of Yes Malnutrition Exists Malnutrition (severe Acute Illness/Injury ): Evidenced By Suboptimal Energy Intake (Severe),Weight Loss (Severe) Clinical Problem Acute Disease or Injury Related Malnutrition Etiology related to illness and inadequate energy intake Signs/Symptoms as evidenced by po intake meeting <75% of est nutritional needs and 12.6% wt loss since adm Status Active Problem Altered Nutrient-Related Laboratory Values Etiology related to endocrine dysfunction/diabetes Signs/Symptoms as evidenced by glucose 232 and A1C 11% Status Active Problem Recommendation Dietitian Adjust diet to No Added Salt/Consistent Carbohydrate Recommendations/ diet d/t DM, HTN, and cirrhosis. Changes Will adjust 8 oz glucerna shake w/ meals and discontinue 120ml glucerna shake TID with medpass per res request. Will monitor weight trends. Lab / Micro Data 08/10/24 05:13 08/10/24 05:13 Labs: Laboratory Results - last 24 hr 08/09/24 11:17: POC Glucose 162 H 08/09/24 16:03: POC Glucose 172 H 08/09/24 21:02: POC Glucose 158 H 08/10/24 05:13: WBC 7.8, RBC 3.86 L, Hgb 12.0, Hct 37.3, MCV 96.6, MCH 31.1, MCHC 32.2, RDW Std Deviation 57.5 H, RDW Coeff of Harshil 16.3 H, Plt Count 123 L, MPV 10.2, Immature Gran % (Auto) 0.600, Neut % (Auto) 67.0, Lymph % (Auto) 16.8 L, Tift % (Auto) 12.1 H, Eos % (Auto) 3.1, Baso % (Auto) 0.4, Absolute Neuts (auto) 5.2, Absolute Lymphs (auto) 1.30, Nucleated RBC % 0, Sodium 134 L, Potassium 4.4, Chloride 100, Carbon Dioxide 25.0, Anion Gap 8, BUN 32 H, C reatinine 1.29 H, Estim Creat Clear Calc 40.26, Est GFR (MDRD) Af Amer 52 L, Est GFR (MDRD) Non-Af 43 L, BUN/Creatinine Ratio 24.8 H, Glucose 175 H, Calcium 9.6 08/10/24 05:57: POC Glucose 160 H Charges/Coding Visit Charges Inpatient E&M: 49380 Init Hosp L2
[2024-08-10 11:28] LABS: Bedside Glucose 164 mg/dL (74-106)
[2024-08-10 14:00] VITALS: BP 106/46; PULSE 93; RESP 16; TEMP 36.6; O2SAT 96
[2024-08-10 16:26] LABS: Bedside Glucose 144 mg/dL (74-106)
[2024-08-10] MEDS: Menthol/Lanolin/Calamine/Znox 113 GM Tube 1 APPLIC TOPICAL ×2 (16:30→20:37)
[2024-08-10] MEDS: Nystatin Powder 15gm Bottle 1 APPLIC TOPICAL ×2 (16:31→20:37)
[2024-08-10] MEDS: 0.9% Saline Lock 10 ML Syringe IV (20:34)
--- NOTE | 2024-08-10 20:36 | NURSING ---
This nurse spoke to Alyssa-CALE for general surgeon- Dr San do not do procedure for Pleurx catheter so dr Magaña will do procedure at 1430 on 08/11. Pt to go down around 1300. CALE Shah to speak to pt and about procedure and obtain consent.
--- NOTE | 2024-08-10 20:41 | NURSING ---
Patient refused oral HS meds, patient offered meds and responded, I won't. patient refused meds all day per report.
[2024-08-10 22:05] LABS: Bedside Glucose 138 mg/dL (74-106)
[2024-08-11 04:00] VITALS: PULSE 84; O2SAT 92
[2024-08-11 05:27] VITALS: BMI 32.1
[2024-08-11 06:17] LABS: Bedside Glucose 164 mg/dL (74-106)
[2024-08-11 09:47] LABS: Absolute Lymphocyte Count 1.11 X10^3/uL (0.83-4.51); Absolute Neutrophil Count 5.7 X10^3/uL (2.0-7.7); Basophil# 0.03 X10^3/uL; Basophil% 0.4 % (0-1); Eosinophil# 0.17 X10^3/uL; Eosinophils% 2.1 % (0-5); Hematocrit 37.4 % (37-47); Hemoglobin 12.4 g/dL (12.0-15.0); Lymphocyte # 1.11 X10^3/ul (0.83-4.51); Mean Corp Hgb Conc 33.2 g/dL (32-36); Mean Corpuscular Hgb 31.6 pg (27.0-32.0); Mean Corpuscular Volume 95.2 fL (81-99); Mean Platelet Vol. 10.3 fl (6.2-12.0); Monocyte# 0.92 X10^3/uL; Monocyte% 11.6 % (0-10); NRBC Flagged by Analyzer 0 % (0-5); Neutrophil # 5.65 X10^3/uL (2.7-7.7); Neutrophil % 71.1 % (47-70); Platelet Count 108 K/mm3 (150-450); RBC Distribution Width CV 16.1 % (11.6-14.6); RBC Distribution Width SD 55.9 fl (35.1-43.9); Red Blood Count 3.93 M/mm3 (4.2-5.4); White Blood Count 7.9 K/mm3 (4.4-11.0)
[2024-08-11 10:38] LABS: Anion Gap 9 (5-15); BUN 32 mg/dL (7-18); BUN/Creat Ratio 25.6 RATIO (10-20); Calcium,Total 9.2 mg/dL (8.5-10.1); Chloride 103 mmol/L (98-107); Creatinine, Serum 1.25 mg/dL (0.55-1.02); EST Glomerular Filtration Rate 45 mL/min (>60); Est Glom Filt Rate - Afr Amer 54 mL/min (>60); Estimated Creatinine Clearance 41.65 ml/min; Glucose 164 mg/dL (74-106); Potassium 4.3 mmol/L (3.5-5.1); Sodium Level 136 mmol/L (136-145)
[2024-08-11 11:25] LABS: Bedside Glucose 156 mg/dL (74-106)
[2024-08-11 12:23] VITALS: BP 120/46; PULSE 76; RESP 20; TEMP 36.6; O2SAT 93; BMI 32.1
--- NOTE | 2024-08-11 13:04 | CASEMGMT ---
Social Work SW completed BIMS (06/25) and PHQ-2 () for MDS assessment. 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
--- NOTE | 2024-08-11 13:15 | NURSING ---
Pt off unit for Pleurx placement
--- NOTE | 2024-08-11 16:00 | CASEMGMT ---
Social Work SW phoned at [phone] to explain the PASRR Level II process. Pt's results have not yet been received and pt cannot transfer to [facility] until those results are received/approved/ruled out. expressed understanding that if results are not received by the end of this business day, pt will remain through the weekend. SW will keep updated. - SW left VM with Jenna at [facility] to notify of above. - SW has checked HENS for results continuously throughout day and no results received at this time. IDT, pt//dtr, [facility] and [facility] updated. Pt will remain through the weekend unless hospice evaluates/accepts pt for IPU. 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
--- NOTE | 2024-08-11 16:00 | NURSING ---
Report called from AC to this nurse Pt had Pleurx Cath placed tolerated procedure well BP 139/60 SpO2 % 99 RR 16 Temp 98.2 Split dressing applied with op site. Order Form for Pleurx drain needs signed by Doctor Humza is at nursing stating.
[2024-08-11 16:31] VITALS: BP 129/55; PULSE 78; RESP 17; TEMP 37.1; O2SAT 96
[2024-08-11 16:31] LABS: Bedside Glucose 158 mg/dL (74-106)
[2024-08-11] MEDS: Nystatin Powder 15gm Bottle 1 APPLIC TOPICAL (20:06)
[2024-08-11] MEDS: Menthol/Lanolin/Calamine/Znox 113 GM Tube 1 APPLIC TOPICAL (20:06)
[2024-08-11 21:30] VITALS: BP 121/49; PULSE 79; RESP 16; TEMP 36.4; O2SAT 96
--- NOTE | 2024-08-11 22:12 | NURSING ---
[facility] RN called report to Hospice. Pt's spouse Sixto notified of transport. Physician's ambulance transport pt.
== END 2024-08-11 21:40 | disposition hospice, inpatient (51) | DRG 442 ==
PROVIDERS: Physician Assistant; Admitting Provider Family Medicine Geriatric Medicine; PCP Family Medicine; Referring Provider Family Medicine Geriatric Medicine; Visit Provider Family Medicine Geriatric Medicine
DX: K75.81 Nonalcoholic steatohepatitis (NASH) (principal); R18.8 Other ascites; E44.0 Moderate protein-calorie malnutrition; K72.90 Hepatic failure, unspecified without coma; I95.9 Hypotension, unspecified; E11.65 Type 2 diabetes mellitus with hyperglycemia; I10 Essential (primary) hypertension; E06.3 Autoimmune thyroiditis; F32.A Depression, unspecified; Z68.34 Body mass index [BMI] 34.0-34.9, adult; K74.60 Unspecified cirrhosis of liver; Z79.4 Long term (current) use of insulin; E55.9 Vitamin D deficiency, unspecified; E78.5 Hyperlipidemia, unspecified; E11.649 Type 2 diabetes mellitus with hypoglycemia without coma; H10.9 Unspecified conjunctivitis; M54.50 Low back pain, unspecified; Z87.891 Personal history of nicotine dependence; Z79.890 Hormone replacement therapy; Z79.84 Long term (current) use of oral hypoglycemic drugs; Z79.899 Other long term (current) drug therapy; G47.00 Insomnia, unspecified; R10.9 Unspecified abdominal pain

== ENCOUNTER 2024-07-30 07:54 | Emergency (ER) | payer MEDICARE, OTHER, SELFPAY ==
[2024-07-30 07:56] VITALS: BP 108/57; PULSE 71; RESP 15; TEMP 36.2; O2SAT 94; BMI 39.2
--- NOTE | 2024-07-30 08:05 | RAD_ITS ---
STUDY: X-RAY CHEST REASON FOR EXAM: Female, 74 years old. Difficulty breathing TECHNIQUE: PA and lateral views of the chest. COMPARISON: 07/21/2024 FINDINGS: Stable elevation right hemidiaphragm Lungs are underexpanded with persistent likely compressive bibasilar atelectasis. No interval change since the previous study. Chronic interstitial changes in both lung smith without an organized infiltrate. Normal size heart. Normal mediastinum and ceci. Normal visualized pulmonary arteries. Normal visualized aortic arch and descending thoracic aorta. There are diffuse degenerative changes of the visualized thoracic spine. Normal visualized ribs, clavicles, and shoulders. There is no demonstrated abnormality of the visualized soft tissue structures of the upper abdomen. RAD/Chest PA and Lateral IMPRESSION: No interval change Electronically Signed: Zelalem Vora MD at 8:47 EST ,
--- NOTE | 2024-07-30 08:10 | EX.ED.DYSGE1 ---
HPI History of Present Illness Chief Complaint: Confusion Informant: other Onset/Context/Timing Onset: - (Patient normally alert and oriented x 3.) Context: Sudden Onset Timing: Continuous Quality: Patient is not awake or alert and she is disoriented Location: Patient presents from TCU Current Severity: Moderate Maximum Severity: Moderate Worsened by: Unknown Relieved by: Nothing Associated Symptoms Associated Symptoms: Nothing that I am able to determine Narrative Narrative: Patient is a 74-year-old woman. Labs were initially ordered. TCU was contacted. Was made clear that patient is normally alert and oriented x 3. She has been receiving lactulose with no improvement in her ammonia level or level of consciousness. She had a urine sample that was unremarkable 24 to 48 hours ago. She knows her name. She knows she is in [facility]. She does not know she is in the hospital. She does not know the month or year. She denies everything. I contacted staff from TCU. Patient has a signed DNR comfort care only document. In light of this will not obtain any advanced imaging. Prior similar symptoms: Yes Recent Illness/Hospitalization: Yes [facility] Medical History Diabetes 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 Pancytopenia Mastitis Osteopenia Postmenopausal Screening for osteoporosis Thrombocytopenia Wears glasses Cancer Post-menopausal Anxiety GERD (gastroesophageal reflux disease) Ulcer Cirrhosis Shortness of breath on exertion Former smoker Edema Hx of cardiovascular stress test Migraine headache Back pain Injury of back Syncope History of ventral hernia Abnormal mammogram of right breast Hypertension 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 Hypothyroidism Hyperlipidemia History of breast cancer Diabetes mellitus, type II Obesity (BMI 30.0-34.9) Home Medications ?Medication ?Instructions ?Recorded ?Last Taken ?Type glimepiride 2 mg tablet 2 mg PO BID diabetes 06/19/24 Unknown History levothyroxine 125 mcg tablet 125 mcg PO DAILY disorder of 06/19/24 Unknown History thyroid gland cholecalciferol (vitamin D3) 125 125 mcg PO DAILY supplement 1 06/20/24 Unknown Rx mcg (5,000 unit) tablet (Vitamin month #30 tabs D3) magnesium oxide 400 mg (241.3 mg 800 mg PO BID supplement 07/21/24 Unknown History magnesium) tablet acetaminophen 325 mg tablet 650 mg (2 x 325 mg) PO Q6H PRN PRN 07/26/24 Unknown Rx Fever, pain 1-04/20 #0 tabs carvedilol 6.25 mg tablet 6.25 mg PO Q12H BP/pulse #0 tabs 07/26/24 Unknown Rx food supplemt, lactose-reduced 120 ml PO TIDCM supplement #0 mL 07/26/24 Unknown Rx 0.08 gram-1.5 kcal/mL oral liquid (Ensure Plus High Protein) insulin glargine-yfgn 100 unit/mL 10 unit (0.1 mL) subcut DAILY 07/26/24 Unknown Rx (3 mL) subcutaneous pen diabetes #0 mL insulin lispro 100 unit/mL 8 unit (0.08 mL) subcut TIDAC 07/26/24 Unknown Rx subcutaneous pen (Humalog KwikPen diabetes #0 mL (U-100) Insulin) insulin lispro 100 unit/mL See Protocol subcut ACHS diabetes 07/26/24 Unknown Rx subcutaneous pen (Humalog KwikPen #0 mL (U-100) Insulin) lactulose 20 gram/30 mL oral 10 g (15 mL) PO Q6H liver disease 07/26/24 Unknown Rx solution #0 mL menthol 0.44 %-zinc oxide 20.6 % 1 applic topical 4X/DAY skin 07/26/24 Unknown Rx topical ointment (Calmoseptine) breakdown #0 grams metformin 500 mg tablet,extended 500 mg PO BID diabetes 30 days #0 07/26/24 Unknown Rx release 24 hr tabs rifaximin 550 mg tablet (Xifaxan) 550 mg PO BID liver disease #0 tabs 07/26/24 Unknown Rx spironolactone 50 mg tablet 100 mg (2 x 50 mg) PO DAILY fluid 07/26/24 Unknown Rx pill #0 tabs torsemide 40 mg tablet 40 mg PO DAILY fluid pill 1 month 07/26/24 Unknown Rx #30 tabs Allergy/AdvReac Type Severity Reaction Status Date / Time chlorhexidine Allergy Mild rash Verified 06/19/24 11:40 ciprofloxacin (From Cipro) Allergy unknown Verified 06/19/24 11:40 cephalexin (Cephalexin) AdvReac Mild gi upset Verified 06/19/24 11:40 doxycycline AdvReac Mild gi upset Verified 06/19/24 11:40 codeine AdvReac Vomiting Verified 06/19/24 11:40 Sulfa (Sulfonamide AdvReac Hives Verified 06/19/24 11:40 Antibiotics) Family History Father Diabetes Mother Diabetes Hypertension Sister Hypertension Brother Diabetes Hypertension Surgical History History of appendectomy History of abdominal paracentesis History of lumpectomy of left breast (~12/2020) History of esophagogastroduodenoscopy (EGD) Hx of colonoscopy Hx of cholecystectomy Hx of shoulder surgery Hx of foot surgery History of right breast biopsy History of lumpectomy of right breast Social History household members: spouse Smoking Status: Former smoker Tobacco: How many years used: 2 alcohol intake: never substance use type: does not use caffeine: Yes what type of physical activity do you participate in: none frequency: does not exercise ROS ROS ED Review of Systems ROS Unobtainable: due to mental status and other Details: Patient responded no to all questions asked. EXAM Physical Exam Const Vital Signs: 07/30/24 07:56 07/30/24 07:56 07/30/24 09:00 Temperature 97.1 F L 97.4 F L Temperature Source Temporal Temporal Pulse Rate 71 69 Respiratory Rate 15 14 Blood Pressure 108/57 L 109/41 L Blood Pressure Mean 74 63 Pulse Ox 94 97 Oxygen Delivery Method Room Air 07/30/24 09:58 07/30/24 10:00 Temperature 97.1 F L Temperature Source Temporal Pulse Rate 64 64 Respiratory Rate 14 14 Blood Pressure 98/51 L 98/51 L Blood Pressure Mean 66 66 Pulse Ox 95 95 Oxygen Delivery Method Room Air Positive well nourished and well developed Constitutional Narrative: BMI is 39.2. General Appearance ED: well developed HEENT Reports dry mucous membranes HEENT Narrative: There appears to be trauma left orbital region. Mouth ED: Yes dry mucous membranes Mouth: dry mucous membranes Eyes PERRL and EOMs intact bilaterally Eyes Narrative: There is evidence of conjunctivitis on the right. General Eye ED: Negative for pale conjunctiva or scleral icterus Neck no lymphadenopathy, supple and no JVD Resp normal respiratory effort and No clear to auscultation bilaterally Resp Narrative: Rales/adventitial breath sounds lower lung smith bilaterally. This may be due to effort. Cardio regular rate, regular rhythm, S1 normal heart sound, S2 normal heart sound and no murmurs GI normal to inspection, nondistended, normoactive bowel sounds, non-tender and non-distended; Negative for hepatosplenomegaly GI Narrative: Abdominal exam is slightly limited due to body habitus. Back/Spine no CVA tenderness Extremity Negative for normal to inspection General Extremety ED: Yes edema General Extremity: edema Neuro No oriented x3, CN's II-XII intact bilaterally and no sensory deficits noted Neuro Narrative: She moves all extremities. Sensorium / Orientation: Negative for alert Psych Psych Narrative: Difficult to ascertain because she is not alert and not awake. She does open her eyes when spoken to. And most of her answers are [place]. Skin Skin Narrative: There is an abrasion/contusion left periorbital region. MDM MDM MDM Narrative Medical decision making narrative: Concern patient has hepatic encephalopathy due to infection. Since she has a signed DNR comfort care document advanced imaging of the head was not obtained since this would violate her wishes and DNR comfort care only order. History & Record Review Additional record(s) reviewed:: Prior outpatient record and Prior labs Lab Data Attestation: I reviewed the patient's lab results. Lab results narrative: White count and differential are normal. Patient has mild anemia with normal indices. This is unchanged from prior. Patient's PT and INR have improved from 2 days ago. Creatinine is slightly elevated 1.42. Glucose is slightly low at 128 with a normal CO2 anion gap. Liver enzymes reveal slight elevation AST. Lipase is slightly elevated 210. Urinalysis is unremarkable. Lactate is elevated 2.7. Lactate could be elevated for multiple reasons including liver disease. Labs: Laboratory Results - last 24 hr 07/30/24 07/30/24 08:20 09:20 WBC 7.3 RBC 3.79 L Hgb 11.9 L Hct 36.4 L MCV 96.0 MCH 31.4 MCHC 32.7 RDW Std Deviation 56.2 H RDW Coeff of Hrashil 16.0 H Plt Count 137 L MPV 10.8 Immature Gran % (Auto) 0.700 Neut % (Auto) 62.6 Lymph % (Auto) 19.2 [place] % (Auto) 12.6 H Eos % (Auto) 4.3 Baso % (Auto) 0.6 Absolute Neuts (auto) 4.6 Absolute Lymphs (auto) 1.39 Nucleated RBC % 0 PT 15.8 H INR 1.2 Sodium 135 L Potassium 5.0 Chloride 103 Carbon Dioxide 26.0 Anion Gap 6 BUN 26 H Creatinine 1.42 H Estim Creat Clear Calc 40.77 Est GFR (MDRD) Af Amer 47 L Est GFR (MDRD) Non-Af 38 L BUN/Creatinine Ratio 18.3 Glucose 128 H Lactic Acid 2.7 H* Calcium 9.9 Total Bilirubin 2.00 H AST 76 H ALT 41 Alkaline Phosphatase 92 Total Protein 5.9 L Albumin 2.5 L Globulin 3.4 Albumin/Globulin Ratio 0.7 L Lipase 210 H Urine Color Yellow Urine Clarity Clear Urine pH 6.0 Ur Specific [place] 1.010 Urine Protein 15 H Urine Glucose (UA) Normal Urine Ketones Negative Urine Occult Blood 10 H Urine Nitrite Negative Urine Bilirubin Negative Urine Urobilinogen 1 H Ur Leukocyte Esterase Negative Urine RBC 0 SEEN Urine WBC 0 SEEN Ur Squamous Epith Cells 0-5 SEEN Urine Bacteria 0 SEEN Urine Mucus 0 SEEN Radiography Diagnostic Testing: Clinical Impression(s) from Imaging Studies Chest X-Ray 07/30/24 08:05 IMPRESSION: No interval change Electronically Signed: Zelalem Vora MD at 8:47 EST , Management Discussion w/another healthcare provider: Other (Nursing staff was contacted. They will accept patient back.) Treatment and Re-Evaluation :: I was informed by nursing staff that is here. Will confirm if she is or is not DNR comfort care only which would make a difference with regards to disposition and testing. Spoke to . Patient is no CPR, no life support. No surgery. She is DNR comfort care only. Since she is DNR comfort care only and treatment at TCU is appropriate there is no indication for admission to the hospital in my opinion. Will have nurse contact the TCU nurse and doctor to inform them that patient is DNR comfort care only and that no further testing was undertaken. Discharge Plan Triage Chief Complaint: Confusion ED Provider: Olivier Shafer Dx/Rx/DC Orders Clinical Impression: Acute hepatic encephalopathy, Thrombocytopenia, Hypothyroidism, Hyperglycemia due to diabetes mellitus, STARK (nonalcoholic steatohepatitis), Anemia, chronic disease, Chronic renal insufficiency, Acidosis, lactic, Hypoalbuminemia, DNR (do not resuscitate) discussion, DNR no code (do not resuscitate) Instructions: Hepatic Encephalopathy Prescriptions: No Action cholecalciferol (vitamin D3) [Vitamin D3] 125 mcg (5,000 unit) tablet 125 mcg PO DAILY 30 Days Qty: 30 5RF glimepiride 2 mg tablet 2 mg PO BID levothyroxine 125 mcg tablet 125 mcg PO DAILY magnesium oxide 400 mg (241.3 mg magnesium) tablet 800 mg PO BID acetaminophen 325 mg Tablet 650 mg PO Q6H PRN PRN (Reason: Fever, pain 1-04/20) Qty: 0 0RF carvedilol 6.25 mg Tablet 6.25 mg PO Q12H Qty: 0 0RF Rx Instructions: At 12 noon and at 8 PM Hold for heart less than 50 or systolic blood pressure less than 100 mmHg. spironolactone 50 mg Tablet 100 mg PO DAILY Qty: 0 0RF Rx Instructions: Hold for serum potassium more than 5.0 Xifaxan 550 mg Tablet 550 mg PO BID Qty: 0 0RF torsemide 40 mg tablet 40 mg PO DAILY 30 Days Qty: 30 2RF Rx Instructions: Follow-up with the concrete bucket loader insulin lispro [Humalog KwikPen Insulin] 100 unit/mL Insulin Pen See Protocol subcut ACHS Qty: 0 0RF Protocol: 3. Sliding Scale Insulin Med Dosing Condition: 150-189 mg/dl = 1 unit Condition: 190-229 mg/dl = 2 units Condition: 230-269 mg/dl = 3 units Condition: 270-309 mg/dl = 4 units Condition: 310-349 mg/dl = 5 units Condition: 350-399 mg/dl = 6 units Condition: 400-449 mg/dl = 7 units Condition: Greater than 449 call physician Protocol Text: - Use for Total Daily Dose of Insulin 37-55 units - Obsese, infected, or steroid patients MEDIUM DOSING ALGORITHIM Ensure Plus High Protein 0.08 gram-1.5 kcal/mL Liquid 120 ml PO TIDCM Qty: 0 0RF insulin glargine-yfgn 100 unit/mL (3 mL) Insulin Pen 10 unit subcut DAILY Qty: 0 0RF Rx Instructions: Hold if glucose less than 130 mg/dl lactulose 20 gram/30 mL Solution 10 g PO Q6H Qty: 0 0RF Rx Instructions: Hold if she has more than 2 soft BM per day. Hold for diarrhea metformin 500 mg tablet extended release 24 hr 500 mg PO BID 30 Days Qty: 0 0RF insulin lispro [Humalog KwikPen Insulin] 100 unit/mL Insulin Pen 8 unit subcut TIDAC Qty: 0 0RF Rx Instructions: Hold if glucose less than 130 mg/dl menthol-zinc oxide [Calmoseptine] 0.44-20.6 % Ointment 1 applic topical 4X/DAY Qty: 0 0RF Protocol: *Topical Application Instructions APPLICATION INSTRUCTIONS: apply to affected region Primary Care Provider: Oscar Rivera Referrals: Oscar Rivera MD [Primary Care Provider] - As Needed Print Language: Uzbek Disposition Disposition: NonSkilled NH/Intermed Care Discharge Location: [facility] Transitional Care Unit
[2024-07-30 08:32] LABS: Absolute Lymphocyte Count 1.39 X10^3/uL (0.83-4.51); Absolute Neutrophil Count 4.6 X10^3/uL (2.0-7.7); Basophil# 0.04 X10^3/uL; Basophil% 0.6 % (0-1); Eosinophil# 0.31 X10^3/uL; Eosinophils% 4.3 % (0-5); Hematocrit 36.4 % (37-47); Hemoglobin 11.9 g/dL (12.0-15.0); Lymphocyte # 1.39 X10^3/ul (0.83-4.51); Lymphocyte % 19.2 % (19-41); Mean Corp Hgb Conc 32.7 g/dL (32-36); Mean Corpuscular Hgb 31.4 pg (27.0-32.0); Mean Platelet Vol. 10.8 fl (6.2-12.0); Monocyte# 0.91 X10^3/uL; Monocyte% 12.6 % (0-10); NRBC Flagged by Analyzer 0 % (0-5); Neutrophil # 4.55 X10^3/uL (2.7-7.7); Neutrophil % 62.6 % (47-70); Platelet Count 137 K/mm3 (150-450); RBC Distribution Width SD 56.2 fl (35.1-43.9); Red Blood Count 3.79 M/mm3 (4.2-5.4); White Blood Count 7.3 K/mm3 (4.4-11.0)
[2024-07-30 08:41] LABS: International Normalized Ratio 1.2; Prothrombin Time (Protime)PT. 15.8 SECONDS (11.7-14.9)
[2024-07-30 08:49] LABS: ALB/GLOB Ratio 0.7 RATIO (0.9-2.4); AST(SGOT) 76 U/L (15-37); Alanine Aminotransfer ALT/SGPT 41 U/L (13-56); Albumin, Serum 2.5 g/dL (3.2-5.0); Alkaline Phosphatase 92 U/L (45-117); Anion Gap 6 (5-15); BUN 26 mg/dL (7-18); BUN/Creat Ratio 18.3 RATIO (10-20); Calcium,Total 9.9 mg/dL (8.5-10.1); Chloride 103 mmol/L (98-107); Creatinine, Serum 1.42 mg/dL (0.55-1.02); EST Glomerular Filtration Rate 38 mL/min (>60); Est Glom Filt Rate - Afr Amer 47 mL/min (>60); Estimated Creatinine Clearance 40.77 ml/min; Globulin 3.4 g/dL (2.2-4.2); Glucose 128 mg/dL (74-106); Lipase 210 U/L (13-75); Protein, Total 5.9 g/dL (6.4-8.2); Sodium Level 135 mmol/L (136-145)
[2024-07-30 09:00] VITALS: BP 109/41; PULSE 69; RESP 14; TEMP 36.3; O2SAT 97
[2024-07-30] MEDS: Lactulose 20 GM/30 ML UDC PO (09:24)
[2024-07-30 09:26] LABS: Bacteria 0 SEEN /hpf (None Seen); Mucous, Urine 0 SEEN /hpf (<or=2+); Red Blood Cells-Urine 0 SEEN /hpf (0-5); White Blood Cells 0 SEEN /hpf (0-5)
[2024-07-30 09:33] LABS: Color, Urine Yellow (Yellow); Glucose, Dipstick Normal (Normal); Ketone-Dipstick Negative (Negative); Leukocyte Esterase-Dipstick Negative /ul (Negative); Nitrite-Dipstick Negative (Negative); Occult Blood-Urine 10 /ul (Negative); Protein-Dipstick 15 mg/dl (Negative); Urine Bilirubin Dipstick Negative (Negative); Urine Clarity Clear (Clear); Urine Urobilinogen 1 mg/dl (Normal)
[2024-07-30 09:39] LABS: Squamous Epithelial Cells - UA 0-5 SEEN /hpf (5-10)
[2024-07-30 09:45] LABS: Lactic Acid 2.7 mmol/L (0.4-1.9)
[2024-07-30 09:58] VITALS: BP 98/51; PULSE 64; RESP 14; O2SAT 95
[2024-07-30 10:00] VITALS: BP 98/51; PULSE 64; RESP 14; TEMP 36.2; O2SAT 95
[2024-07-30 10:31] VITALS: BP 111/49; PULSE 73; RESP 15; TEMP 36.2; O2SAT 95
--- NOTE | 2024-07-30 10:36 | ED.RN ---
this RN spoke to TCu nurse and gave report.
[2024-07-30 12:29] LABS: Reflex Lactate? Y
== END 2024-07-30 10:45 | disposition intermediate care facility (04) ==
PROVIDERS: Emergency Provider Emergency Medicine; PCP Family Medicine; Visit Provider Emergency Medicine
DX: K76.82 Hepatic encephalopathy (principal); E11.65 Type 2 diabetes mellitus with hyperglycemia; E11.22 Type 2 diabetes mellitus with diabetic chronic kidney disease; Z79.4 Long term (current) use of insulin; I12.9 Hypertensive chronic kidney disease with stage 1 through stage 4 chronic kidney disease, or unspecified chronic kidney disease; Z87.891 Personal history of nicotine dependence; K75.81 Nonalcoholic steatohepatitis (NASH); E88.09 Other disorders of plasma-protein metabolism, not elsewhere classified; E03.9 Hypothyroidism, unspecified; E87.20 Acidosis, unspecified; N18.9 Chronic kidney disease, unspecified; S05.12XA Contusion of eyeball and orbital tissues, left eye, initial encounter; E78.5 Hyperlipidemia, unspecified; D63.1 Anemia in chronic kidney disease; K21.9 Gastro-esophageal reflux disease without esophagitis; Z79.84 Long term (current) use of oral hypoglycemic drugs; Z66 Do not resuscitate; D69.6 Thrombocytopenia, unspecified; X58.XXXA Exposure to other specified factors, initial encounter; R41.0 Disorientation, unspecified
CPT/HCPCS: 71046; 80053; 81001; 83605; 83690; 85025; 85610; 99284; P9612; A4216

== ENCOUNTER → 2024-07-31 | Outpatient (CLI) | payer MEDICARE, OTHER, SELFPAY ==
--- NOTE | 2024-07-31 10:35 | US_ITS ---
PROCEDURE: Ultrasound guided paracentesis. DATE OF EXAMINATION: January 28, 2025.. INDICATION: Female, 74 years old. Ascites. PHYSICIAN: Ghulam Peters M.D. TECHNIQUE: The risks, benefits, and alternatives to the procedure were explained to the patient. The specific risks of bleeding, infection, and damage to bowel were detailed and accepted. Witnessed informed consent was obtained. The abdomen was ultrasonographically surveyed. An appropriate pocket of fluid was identified at the left lower quadrant. The skin were cleaned and prepped in the usual sterile fashion. Using ultrasound guidance, the peritoneal cavity was accessed with a 5-Yi paracentesis needle/catheter system. The trocar was removed. A total of 7700 ml of blood-tinged fluid were removed from the peritoneal cavity. The catheter was removed and a sterile dressing was applied. The procedure was well tolerated. US/Paracentesis with US IMPRESSION: Ultrasound guided paracentesis. Electronically Signed: Ghulam Peters MD at 13:07 EST ,
[2024-07-31 11:00] VITALS: BP 117/56; PULSE 78; RESP 16; TEMP 36.6; O2SAT 96
[2024-07-31 11:15] VITALS: BP 122/44; PULSE 78; RESP 16; O2SAT 96
[2024-07-31 11:30] VITALS: BP 122/45; PULSE 76; RESP 16; O2SAT 98
[2024-07-31 11:39] VITALS: BP 117/42; PULSE 77; RESP 16; O2SAT 98
[2024-07-31] MEDS: Albumin Human 25% (100 mL) 25 GM/100 ML BAG IV ×2 (12:14→13:41)
[2024-07-31] MEDS: 0.9% Saline Lock 10 ML Syringe IV ×2 (12:14→16:22)
[2024-07-31] MEDS: Albumin Human 25% (50 mL) 12.5 GM/50 ML IV.SOLN IV (15:21)
[2024-07-31 16:24] VITALS: BP 97/34; PULSE 77; RESP 16; TEMP 36; O2SAT 97
== END | disposition home or self-care (01) ==
LOC: US 10:53
PROVIDERS: PCP Family Medicine; Referring Provider Internal Medicine; Visit Provider Internal Medicine
DX: R18.8 Other ascites (principal)
CPT/HCPCS: 96365; 96366; 49083; P9047

== ENCOUNTER → 2024-08-03 | Outpatient (CLI) | payer MEDICARE, OTHER, SELFPAY ==
--- NOTE | 2024-08-03 09:13 | US_ITS ---
EXAM: US ABDOMEN LIMITED, RIGHT UPPER QUADRANT CLINICAL INDICATION: ASCITES TECHNIQUE: Real-time ultrasound of the right upper quadrant with image documentation. COMPARISON: No relevant prior studies available. FINDINGS: No cine sequences were submitted. Limited spot images or static images were submitted. At the left upper quadrant and there is no free fluid seen. At the left lower quadrant there is at least a moderate amount of free fluid which is also seen at the right lower quadrant and the right upper quadrant. The fluid appears anechoic or clear without any internal debris. The bowel loops do not appear dilated. US/Abdomen Limited IMPRESSION: Overall at least a moderate amount of anechoic/clear free fluid identified. Electronically Signed: Mitchell Puente MD at 19:54 EST ,
== END | disposition home or self-care (01) ==
LOC: US 08:51
PROVIDERS: PCP Family Medicine; Referring Provider Family Medicine Geriatric Medicine; Visit Provider Family Medicine Geriatric Medicine
DX: R18.8 Other ascites (principal)
CPT/HCPCS: 76705

== ENCOUNTER → 2024-08-07 | Outpatient (CLI) | payer MEDICARE, OTHER, SELFPAY ==
[2024-08-07 08:10] VITALS: BP 134/54; PULSE 78; RESP 16; TEMP 36.6; O2SAT 95
[2024-08-07 08:15] VITALS: BP 139/59; PULSE 77; RESP 16; O2SAT 97
[2024-08-07] MEDS: Lidocaine 2% (20 ml mdv) 20 ML Vial INFILT (08:15)
[2024-08-07 08:30] VITALS: BP 119/51; PULSE 83; RESP 16; O2SAT 95
[2024-08-07 08:45] VITALS: BP 134/56; PULSE 82; RESP 16; O2SAT 96
== END | disposition home or self-care (01) ==
PROVIDERS: PCP Family Medicine; Referring Provider Internal Medicine; Visit Provider Internal Medicine
DX: R18.8 Other ascites (principal)
CPT/HCPCS: 49083

== ENCOUNTER 2024-08-11 13:17 | Day surgery (SDC) | payer MEDICARE, OTHER, SELFPAY ==
--- NOTE | 2024-08-10 15:22 | PAT.ANE_ITS ---
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 When Was Last Pacemaker Check QUESTION #4 FULL TEXT: You/Your Family Experience fever (hyperthermia) with Anesthesia Last Oral Intake Last Oral intake: Last Oral Intake NPO since Meds taken in AM with sips of water? Meds patient instructed to take am of surgery PONV PONV - pest control worker helper: PONV - pest control worker helper Female Yes 08/10/24 14:16 HX of Motion Sickness No 08/10/24 14:16 HX of N/V After Surgery No 08/10/24 14:16 Non-Smoker Yes 08/10/24 14:16 Duration of Surgery greater No 08/10/24 14:16 than 60 minutes Number of Risk Factors 2 08/10/24 14:16 PONV Score Moderate Risk 08/10/24 14:16 Height & Weight Height & Weight: Anesthesia: Height & Weight Height 5 ft 4 in 08/02/24 10:22 Respiratory Assessment Respiratory Assessment - pest control worker helper: Respiratory Tract Infection Hx - pest control worker helper Hx Respiratory Tract Infection No 08/10/24 14:16 STOP Sleep Apnea STOP Sleep Apnea - pest control worker helper: STOP Sleep Apnea - pest control worker helper Hx Hypertension Yes: NO MEDS CURENTLY 08/10/24 14:16 Hx Sleep Apnea No 08/10/24 14:16 CPAP No 08/10/24 14:16 BIPAP No 08/10/24 14:16 Do you snore loudly (louder No 08/10/24 14:16 than talking or can be heard Do you often feel tired/ Yes 08/10/24 14:16 fatigued/ sleepy during daytime? Has anyone observed you stop No 08/10/24 14:16 breathing during sleep? STOP Results Positive 08/10/24 14:16 QUESTION #5 FULL TEXT : Do you snore loudly (louder than talking or can be heard through closed doors)? Tobacco Use History Tobacco Use History - pest control worker helper: Tobacco Use History - pest control worker helper Tobacco Use Non-smoker 01/08/21 16:28 Smoking Status Former smoker 08/10/24 14:16 Hx Tobacco Use No 08/10/24 14:16 Years Smoking Packs Smoked per Day Smoking Cessation Date was No - quit smoking greater 08/10/24 14:16 within the last 15 years than 15 years ago Hx Smoking Cessation Date 07/12/76 08/10/24 14:16 Hx Smoking Cessation No 08/10/24 14:16 Counseling Hematologic Medial History Hematologic Hx - pest control worker helper: Hematologic Medical Hx - emergency medical technician/driver Hx of Blood Transfusion No 08/10/24 14:16 Hx of Transfusion in last 3 No 08/10/24 14:16 Months Date of Last Transfusion (if within last 3 months) Ever experience any problems No 08/10/24 14:16 with transfusion(s)? Specify any problems Hx of Preganancy in last 3 No 08/10/24 14:16 Months Nurse Filling Out Transfusion DSCHRIBER 08/10/24 14:16 & Questions: Date: 08/10/24 08/10/24 14:16 Time: 14:20 08/10/24 14:16 Patient unable to answer at this time (ie. 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 Pancytopenia Mastitis Osteopenia Postmenopausal Screening for osteoporosis Thrombocytopenia Wears glasses Cancer Post-menopausal Anxiety GERD (gastroesophageal reflux disease) Ulcer Cirrhosis Shortness of breath on exertion Former smoker Edema Migraine headache Back pain Injury of back Syncope History of ventral hernia Abnormal mammogram of right breast Hypertension 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 Hypothyroidism Hyperlipidemia History of breast cancer Diabetes mellitus, type II Obesity (BMI 30.0-34.9) Home Medications ?Medication ?Instructions ?Recorded ?Last Taken ?Type levothyroxine 125 mcg tablet 125 mcg PO DAILY disorder of 06/19/24 Unknown History thyroid gland cholecalciferol (vitamin D3) 125 125 mcg PO DAILY supp lement 1 06/20/24 Unknown Rx mcg (5,000 unit) tablet (Vitamin month #30 tabs D3) acetaminophen 325 mg tablet 650 mg (2 x 325 mg) PO Q6H PRN PRN 07/26/24 Unknown Rx Fever, pain -04/20 #0 tabs metformin 500 mg tablet,extended 500 mg PO BID diabete s 30 days #0 07/26/24 Unknown Rx release 24 hr tabs spironolactone 50 mg tablet 100 mg (2 x 50 mg) PO NEENA Y fluid 07/26/24 Unknown Rx pill #0 tabs furosemide 80 mg tablet 80 mg PO DAILY #0 tabs 08/04 Unknown Rx hydroxyzine HCl 10 mg tablet 10 mg PO TID PRN PRN Itch ing #0 08/04/24 Unknown Rx tabs lactulose 20 gram/30 mL oral 20 g (30 mL) PO 4X/DAY #0 mL 08/04/24 Unknown Rx solution magnesium chloride 64 mg 128 mg (2 x 64 mg) PO BID #0 tabs 08/04/24 Unknown Rx (magnesium chloride) tablet,delayed release (Mag 64) menthol 0.44 %-zinc oxide 20.6 % 1 applic topical BID #0 grams 08/04/24 Unknown Rx topical ointment (Calmoseptine) mirtazapine 15 mg tablet 7.5 mg (1/2 x 15 mg) PO QHS #0 tabs 08/04/24 Unknown Rx nystatin 100,000 unit/gram topical 1 applic topical BI D #0 grams 08/04/24 Unknown Rx powder ([facility]) Allergy/AdvReac Type Severity Reaction Status Date / Time chlorhexidine Allergy Mild rash Verified 08/10/24 14:33 ciprofloxacin (From Cipro) Allergy unknown Verified 08/10/24 14:33 cephalexin (Cephalexin) AdvReac Mild gi upset Verified 08/10/24 14:33 doxycycline AdvReac Mild gi upset Verified 08/10/24 14:33 codeine AdvReac Vomiting Verified 08/10/24 14:33 Sulfa (Sulfonamide AdvReac Hives Verified 08/10/24 14:33 Antibiotics) Family History Father Diabetes Mother Diabetes Hypertension Sister Hypertension Brother Diabetes Hypertension Surgical History (Updated 08/07/24 @ 00:02 by Background Daemon) History of appendectomy History of abdominal paracentesis History of lumpectomy of left breast (~12/2020) History of esophagogastroduodenoscopy (EGD) Hx of colonoscopy Hx of cholecystectomy Hx of shoulder surgery Hx of foot surgery History of right breast biopsy History of lumpectomy of right breast Social History household members: spouse Smoking Status: Former smoker Tobacco: How many years used: 2 alcohol intake: never substance use type: does not use caffeine: Yes what type of physical activity do you participate in: none frequency: does not exercise Audit: Pertinent Findings Pertinent Findings EKG Perinent findings: July 21, 2024. Sinus rhythm with marked sinus arrhythmia. Septal infarct age undetermined. Stress test pertinent findings: August 10, 2019. No evidence of significant ischemia or infarction. Ejection fraction 66%. Echo (EF%) pertinent findings: November 07, 2023. Ejection fraction is 55 to 60%. Mild to moderate aortic stenosis is noted. Pulmonary function results/spirometer pertinent findings: July 30, 2024. Chest x-ray-lungs are underexpanded with persistent compressive bibasilar atelectasis. Chronic interstitial changes in both lung smith without organized infiltrate. No interval change since previous study. Recommendation Anesthesia Recommendation Anesthesia recommendation: OPTIMIZED for anesthesia
[2024-08-11] VITALS (8 sets, daily range): BP systolic 120–142; BP diastolic 46–60; PULSE 76–86; RESP 12–20; TEMP 36.3–37.2; O2SAT 93–100; BMI 36.4
--- NOTE | 2024-08-11 13:31 | PCM.HP.BLA ---
History and Physical Date of Admission: 08/11/24 Assessment & Plan Assessment/Plan (1) Abdominal ascites: QUALIFIERS: Ascites type: other type Qualified Code(s): R18.8 - Other ascites PLAN: I have been consulted in conjunction with Dr. Magaña. He will independently evaluate this patient. Patient with a history of acute hepatic encephalopathy due to to decompensated STARK related cirrhosis, garde I esophageal varices and abdominal ascites. Currently family has opted to proceed with a Hospice referral and acceptance of Hospice care. Family would like a Pleurx catheter placed for patient's abdominal ascites to avoid the routine amount of paracentesis. Patient has never had a Pleurx catheter previously. She denies any difficulties with paracentesis. Procedure details, risks and benefits have been explained to the patient and her . Patient and her have had the opportunity to ask and have questions answered. Patient's agrees with the proposed plan and states that he and the patient have discussed this would be a good option. I have arranged for the patient to have the procedure completed tomorrow by Dr. Magaña around 2:30 pm. I am told the patient will be discharged to the long-term following the procedure on Hospice. Thank you for allowing us to participate in this patient's care. HPI Consult Data Date of Consult: 08/10/24 HPI Narrative Reason for Consultation: Abdominal pleurx catheter placement HPI Narrative: JEANNINE OLSON, is a 74 F who presents with acute encephalopathy due to decompensated STARK related cirrhosis. She was hospitalized on the acute side from 07/21/24 through 07/26/2024. She was transferred to TCU for ongoing rehabilitation and management. Patient has a history of bilateral breast cancer. She also has been having multiple paracentesis secondary to abdominal ascites. For the month of July, patient has had abdominal paracentesis weekly ranging from 6-8.5 liters of fluid being removed. Patient is scheduled to be discharged from TCU tomorrow. Patient will be transferred to [facility] on Hospice. Patient's was in the room and provided all patient's history. Patient would intermittently wake up and open her eyes and then fall back asleep. He denies any previous cardiac history, pacer/defibrillator, blood clots or stroke. He denies any pulmonary history for the patient. He denies any complications or side effects from anesthesia. Our service was consulted for a Pleurx catheter placement. 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 Hypothyroidism Hyperlipidemia History of breast cancer Diabetes mellitus, type II Obesity (BMI 30.0-34.9) Home Medications ?Medication ?Instructions ?Recorded ?Last Taken ?Type levothyroxine 125 mcg tablet 125 mcg PO DAILY disorder of 06/19/24 Unknown History thyroid gland cholecalciferol (vitamin D3) 125 125 mcg PO DAILY supplement 1 06/20/24 Unknown Rx mcg (5,000 unit) tablet (Vitamin month #30 tabs D3) acetaminophen 325 mg tablet 650 mg (2 x 325 mg) PO Q6H PRN PRN 07/26/24 Unknown Rx Fever, pain -04/20 #0 tabs metformin 500 mg tablet,extended 500 mg PO BID diabetes 30 days #0 07/26/24 Unknown Rx release 24 hr tabs spironolactone 50 mg tablet 100 mg (2 x 50 mg) PO DAILY fluid 07/26/24 Unknown Rx pill #0 tabs furosemide 80 mg tablet 80 mg PO DAILY #0 tabs 08/04/24 Unknown Rx hydroxyzine HCl 10 mg tablet 10 mg PO TID PRN PRN Itching #0 08/04/24 Unknown Rx tabs lactulose 20 gram/30 mL oral 20 g (30 mL) PO 4X/DAY #0 mL 08/04/24 Unknown Rx solution magnesium chloride 64 mg 128 mg (2 x 64 mg) PO BID #0 tabs 08/04/24 Unknown Rx (magnesium chloride) tablet,delayed release (Mag 64) menthol 0.44 %-zinc oxide 20.6 % 1 applic topical BID #0 grams 08/04/24 Unknown Rx topical ointment (Calmoseptine) mirtazapine 15 mg tablet 7.5 mg (1/2 x 15 mg) PO QHS #0 tabs 08/04/24 Unknown Rx nystatin 100,000 unit/gram topical 1 applic topical BID #0 grams 08/04/24 Unknown Rx powder ([facility]) Allergy/AdvReac Type Severity Reaction Status Date / Time chlorhexidine Allergy Mild rash Verified 06/19/24 11:40 ciprofloxacin (From Cipro) Allergy unknown Verified 06/19/24 11:40 cephalexin (Cephalexin) AdvReac Mild gi upset Verified 06/19/24 11:40 doxycycline AdvReac Mild gi upset Verified 06/19/24 11:40 codeine AdvReac Vomiting Verified 06/19/24 11:40 Sulfa (Sulfonamide AdvReac Hives Verified 06/19/24 11:40 Antibiotics) Family History Father DiabetesMother Diabetes HypertensionSister HypertensionBrother Diabetes Hypertension Surgical History History of appendectomy History of abdominal paracentesis History of lumpectomy of left breast (~12/2020) History of esophagogastroduodenoscopy (EGD) Hx of colonoscopy Hx of cholecystectomy Hx of shoulder surgery Hx of foot surgery History of right breast biopsy History of lumpectomy of right breast Social History household members: spouse Smoking Status: Former smoker Tobacco: How many years used: 2 alcohol intake: never substance use type: does not use caffeine: Yes what type of physical activity do you participate in: none frequency: does not exercise ROS Review of Systems ROS Unobtainable: due to mental status Physical Exam Const Orientation / Consciousness: confused HEENT normocephalic and head/scalp atraumatic Eyes PERRL Neck full ROM Resp normal respiratory effort and clear to auscultation bilaterally Cardio regular rate and regular rhythm GI GI Narrative: Abdomen- soft, distended, non-tender to palpation no CVA tenderness Back/Spine no CVA tenderness Extremity normal to inspection Skin no rashes or lesions noted Neuro Sensorium / Orientation: confused and lethargic Psych Attitude: withdrawn Mood & Affect: apathetic and flat affect Memory / Cognition: cognition impaired Insight: poor Judgement: poor Medical Records Data Medical Nutrition Assessment Dietitian: Malnutrition Criteria Met Start: 08/02/24 10:33 Freq: Status: Active Protocol: Document 08/02/24 10:33 SLA (Rec: 08/02/24 10:33 SLA [id number]) Nutrition Malnutrition Evidence of Yes Malnutrition Exists Malnutrition (severe Acute Illness/Injury ): Evidenced By Suboptimal Energy Intake (Severe),Weight Loss (Severe) Clinical Problem Acute Disease or Injury Related Malnutrition Etiology related to illness and inadequate energy intake Signs/Symptoms as evidenced by po intake meeting <75% of est nutritional needs and 12.6% wt loss since adm Status Active Problem Altered Nutrient-Related Laboratory Values Etiology related to endocrine dysfunction/diabetes Signs/Symptoms as evidenced by glucose 232 and A1C 11% Status Active Problem Recommendation Dietitian Adjust diet to No Added Salt/Consistent Carbohydrate Recommendations/ diet d/t DM, HTN, and cirrhosis. Changes Will adjust 8 oz glucerna shake w/ meals and discontinue 120ml glucerna shake TID with medpass per res request. Will monitor weight trends. Lab / Micro Data 08/10/24 05:13 08/10/24 05:13 Labs: Laboratory Results - last 24 hr 08/09/24 11:17: POC Glucose 162 H 08/09/24 16:03: POC Glucose 172 H 08/09/24 21:02: POC Glucose 158 H 08/10/24 05:13: WBC 7.8, RBC 3.86 L, Hgb 12.0, Hct 37.3, MCV 96.6, MCH 31.1, MCHC 32.2, RDW Std Deviation 57.5 H, RDW Coeff of Harshil 16.3 H, Plt Count 123 L, MPV 10.2, Immature Gran % (Auto) 0.600, Neut % (Auto) 67.0, Lymph % (Auto) 16.8 L, Mayes % (Auto) 12.1 H, Eos % (Auto) 3.1, Baso % (Auto) 0.4, Absolute Neuts (auto) 5.2, Absolute Lymphs (auto) 1.30, Nucleated RBC % 0, Sodium 134 L, Potassium 4.4, Chloride 100, Carbon Dioxide 25.0, Anion Gap 8, BUN 32 H, Creatinine 1.29 H, Estim Creat Clear Calc 40.26, Est GFR (MDRD) Af Amer 52 L, Est GFR (MDRD) Non-Af 43 L, BUN/Creatinine Ratio 24.8 H, Glucose 175 H, Calcium 9.6 01/30/25 05:57: POC Glucose 160 H I have independently seen and examined the patient I agree with the above. The patient has cirrhosis and is going to hospice treatment later today. I discussed with her placing a Pleurx catheter into the abdomen to control her ascites. The patient's family is agreeable. I discussed the risks and benefits of the tube. Patient agrees to proceed as does her family. Christopher Magaña MD Pager: [facility] [address] [place] [address], [address] [place] [address] Office:
--- NOTE | 2024-08-11 13:58 | PCM.PRE.AN2 ---
ASA Classification* ASA Classification ASA Classification: 3 Assessment & Plan Anesthesia* Anesthesia Assessment Anesthesia Assessment: Discussed sedation and/or anesthesia options, risks, benefits, and alternatives with patient/parents/legal guardian/POA. Questions invited. The patient/parents/legal guardian/POA seems to understand and agrees to proceed with anesthesia plan. Reviewed the physical assessment, medical history, allergy history and patient home medications list prior to surgery/procedure/anesthetic and documented any changes. Performed airway and anesthesia risk assessments. Anesthesia Type Anesthesia Type: MAC Anesthesia Focused Assessment* Temperature: 98.9 F Pulse Rate: 76 Blood Pressure: 120/46 Respiratory Rate: 20 Pulse Ox: 93 Airway Assessment Mouth opens: >3 cm Mallampati Score: II Focused Labs Anesthesia Preop lab: CBC WBC 7.9 K/mm3 (4.4-11.0) 08/11/24 09:35 08/11/24 RBC 3.93 M/mm3 (4.2-5.4) L 08/11/24 09:35 08/11/24 Hgb 12.4 g/dL (12.0-15.0) 08/11/24 09:35 08/11/24 Hct 37.4 % (37-47) 08/11/24 09:35 08/11/24 Plt Count 108 K/mm3 (150-450) L 08/11/24 09:35 08/11/24 CHEMISTRY Potassium 4.3 mmol/L (3.5-5.1) 08/11/24 09:35 08/11/24 Sodium 136 mmol/L (136-145) 08/11/24 09:35 08/11/24 Magnesium 1.7 mg/dL (1.6-2.6) 07/23/24 06:13 07/23/24 Phosphorus 3.5 mg/dL (2.5-4.9) 07/23/24 06:13 07/23/24 BUN 32 mg/dL (7-18) H 08/11/24 09:35 08/11/24 Creatinine 1.25 mg/dL (0.55-1.02) H 08/11/24 09:35 08/11/24 Glucose 164 mg/dL (74-106) H 08/11/24 09:35 08/11/24 POC Glucose 156 mg/dL (74-106) H 08/11/24 11:02 08/11/24 TSH 4.470 uIU/mL (0.358-3.740) H 05/18/24 15:11 05/18/24 COAG PT 15.8 SECONDS (11.7-14.9) H 07/30/24 08:20 07/30/24 Pre-Assessment Diagnosis/Proposed Procedure Planned Operative Procedure(s): INSERTION PLEUREX CATH ABDOMEN FOR ASCITIES Anesthesia History 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 When Was Last Pacemaker Check QUESTION #4 FULL TEXT: You/Your Family Experience fever (hyperthermia) with Anesthesia Last Oral Intake Last Oral intake: Last Oral Intake NPO since 00:00 08/11/24 13:32 Meds taken in AM with sips of No 08/11/24 13:32 water? Meds patient instructed to take am of surgery PONV PONV - guard driver: PONV - guard driver Female Yes 08/10/24 14:16 HX of Motion Sickness No 08/10/24 14:16 HX of N/V After Surgery No 08/10/24 14:16 Non-Smoker Yes 08/10/24 14:16 Duration of Surgery greater No 08/10/24 14:16 than 60 minutes Number of Risk Factors 2 08/10/24 14:16 PONV Score Moderate Risk 08/10/24 14:16 Height & Weight Height & Weight: Anesthesia: Height & Weight Height 5 ft 4 in 08/11/24 13:32 Weight: 96.334 kg 08/11/24 13:32 Body Mass Index (BMI) 36.4 08/11/24 13:32 Respiratory Assessment Respiratory Assessment - guard driver: Respiratory Tract Infection Hx - guard driver Hx Respiratory Tract Infection No 08/10/24 14:16 STOP Sleep Apnea STOP Sleep Apnea - guard driver: STOP Sleep Apnea - guard driver Hx Hypertension Yes: NO MEDS CURENTLY 08/10/24 14:16 Hx Sleep Apnea No 08/10/24 14:16 CPAP No 08/10/24 14:16 BIPAP No 08/10/24 14:16 Do you snore loudly (louder No 08/10/24 14:16 than talking or can be heard Do you often feel tired/ Yes 08/10/24 14:16 fatigued/ sleepy during daytime? Has anyone observed you stop No 08/10/24 14:16 breathing during sleep? STOP Results Positive 08/10/24 14:16 QUESTION #5 FULL TEXT : Do you snore loudly (louder than talking or can be heard through closed doors)? Tobacco Use History Tobacco Use History - guard driver: Tobacco Use History - guard driver Tobacco Use Non-smoker 01/08/21 16:28 Smoking Status Former smoker 08/10/24 14:16 Hx Tobacco Use No 08/10/24 14:16 Years Smoking Packs Smoked per Day Smoking Cessation Date was No - quit smoking greater 08/10/24 14:16 within the last 15 years than 15 years ago Hx Smoking Cessation Date 07/12/76 08/10/24 14:16 Hx Smoking Cessation No 08/10/24 14:16 Counseling Hematologic Medial History Hematologic Hx - guard driver: Hematologic Medical Hx - numerologist Hx of Blood Transfusion No 08/10/24 14:16 Hx of Transfusion in last 3 No 08/10/24 14:16 Months Date of Last Transfusion (if within last 3 months) Ever experience any problems No 08/10/24 14:16 with transfusion(s)? Specify any problems Hx of Preganancy in last 3 No 08/10/24 14:16 Months Nurse Filling Out Transfusion DSCHRIBER 08/10/24 14:16 & Questions: Date: 08/10/24 08/10/24 14:16 Time: 14:20 08/10/24 14:16 Patient unable to answer at this time (ie. 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 Pancytopenia Mastitis Osteopenia Postmenopausal Screening for osteoporosis Thrombocytopenia Wears glasses Cancer Post-menopausal Anxiety GERD (gastroesophageal reflux disease) Ulcer Cirrhosis Shortness of breath on exertion Former smoker Edema Migraine headache Back pain Injury of back Syncope History of ventral hernia Abnormal mammogram of right breast Hypertension 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 Hypothyroidism Hyperlipidemia History of breast cancer Diabetes mellitus, type II Obesity (BMI 30.0-34.9) Home Medications ?Medication ?Instructions ?Recorded ?Last Taken ?Type levothyroxine 125 mcg tablet 125 mcg PO DAILY disorder of 06/19/24 Unknown History thyroid gland cholecalciferol (vitamin D3) 125 125 mcg PO DAILY supplement 1 06/20/24 Unknown Rx mcg (5,000 unit) tablet (Vitamin month #30 tabs D3) acetaminophen 325 mg tablet 650 mg (2 x 325 mg) PO Q6H PRN PRN 07/26/24 Unknown Rx Fever, pain 1-04/20 #0 tabs metformin 500 mg tablet,extended 500 mg PO BID diabetes 30 days #0 07/26/24 Unknown Rx release 24 hr tabs spironolactone 50 mg tablet 100 mg (2 x 50 mg) PO DAILY fluid 07/26/24 Unknown Rx pill #0 tabs furosemide 80 mg tablet 80 mg PO DAILY #0 tabs 08/04/24 Unknown Rx hydroxyzine HCl 10 mg tablet 10 mg PO TID PRN PRN Itching #0 08/04/24 Unknown Rx tabs lactulose 20 gram/30 mL oral 20 g (30 mL) PO 4X/DAY #0 mL 08/04/24 Unknown Rx solution magnesium chloride 64 mg 128 mg (2 x 64 mg) PO BID #0 tabs 08/04/24 Unknown Rx (magnesium chloride) tablet,delayed release (Mag 64) menthol 0.44 %-zinc oxide 20.6 % 1 applic topical BID #0 grams 08/04/24 Unknown Rx topical ointment (Calmoseptine) mirtazapine 15 mg tablet 7.5 mg (1/2 x 15 mg) PO QHS #0 tabs 08/04/24 Unknown Rx nystatin 100,000 unit/gram topical 1 applic topical BID #0 grams 08/04/24 Unknown Rx powder (Scamy) Allergy/AdvReac Type Severity Reaction Status Date / Time chlorhexidine Allergy Mild rash Verified 08/10/24 14:33 ciprofloxacin (From Cipro) Allergy unknown Verified 08/10/24 14:33 cephalexin (Cephalexin) AdvReac Mild gi upset Verified 08/10/24 14:33 doxycycline AdvReac Mild gi upset Verified 08/10/24 14:33 codeine AdvReac Vomiting Verified 08/10/24 14:33 Sulfa (Sulfonamide AdvReac Hives Verified 08/10/24 14:33 Antibiotics) Family History Father Diabetes Mother Diabetes Hypertension Sister Hypertension Brother Diabetes Hypertension Surgical History History of appendectomy History of abdominal paracentesis History of lumpectomy of left breast (~12/2020) History of esophagogastroduodenoscopy (EGD) Hx of colonoscopy Hx of cholecystectomy Hx of shoulder surgery Hx of foot surgery History of right breast biopsy History of lumpectomy of right breast Social History household members: spouse Smoking Status: Former smoker Tobacco: How many years used: 2 alcohol intake: never substance use type: does not use caffeine: Yes what type of physical activity do you participate in: none frequency: does not exercise Review of Systems (Anesthesia) ROS Narrative System reviewed and no additional complaints, except as documented.
--- NOTE | 2024-08-11 15:22 | PCM.OPRPT ---
Operative Report (Standard) Operative Information Date of Procedure: 08/11/24 Pre-Operative Diagnosis: Cirrhosis and ascites Post-Operative Diagnosis: Same Surgery/Procedure Performed: Ultrasound-guided placement of Pleurx catheter in the abdominal cavity net development manager: No Type of Anesthesia: Local MAC RN Documented Start/Stop Times: Operation Date: 08/11/24 14:30 Case Time Into Pre-Op 08/11/24 13:25 Out of Pre-Op 08/11/24 14:48 Anesthesia Start 08/11/24 14:56 Into Room 08/11/24 14:56 Procedure Start 08/11/24 15:07 Procedure End 08/11/24 15:16 Procedure Start Time: 15:07 Procedure Stop Time: 15:16 Select all DRAINS/GRAFTS/IMPLANTS that apply: Drains Drain details: Abdominal Pleurx Estimated Blood Loss: 5 Specimen collected: No Description of surgery: Patient was brought back to the operating room and MAC anesthesia was induced. The left abdomen was prepped and draped in usual sterile fashion. Ultrasound was used to localize an area and then the skin was marked. The skin markings were injected with local anesthetic and incisions were made with a scalpel. Next the anterior ultrasound guidance a needle was placed into the abdomen and into the fluid collection and clear fluid was aspirated. The sheath was advanced over the needle and the needle was removed. Guidewire was placed through the sheath. The sheath was removed. A dilator was placed over the guidewire and then the introducer. The wire was removed. The catheter was tunneled from the anterior incision to the posterior incision so that the cuff was in the subcutaneous tissue. The catheter was then placed through the introducer and the introducer was removed. The lower incision was closed with 3-0 Vicryl suture. Dermabond was applied. Next the catheter was sutured to the skin using 3-0 silk and then a dressing was applied. The catheter was placed to suction and 2 L of ascites were removed. Vitals were stable. The patient will be transferred back to TCU. Surgical Findings: None Complications Complications: No Admit VTE Documentation VTE Mechan Device Prophylaxis: SCD's
--- NOTE | 2024-08-11 15:25 | EX.PCM.DISCH ---
Discharge Instructions Diet Discharge Diet: Light diet - advance as tolerated Activity Discharge Activity: No Restrictions Dressing / Incision Call your doctor if your incision/area has: Continuous Slow Oozing, Sudden Increased Bleeding, Increased Pain/ Swelling, Increased Redness, Foul Smelling Discharge and Swelling at the incision site Call your doctor if you observe: Fever of 101 or Higher Remove Dressing in: 3 days Cleanse incision/area with: Soap & Water Follow Up Care Test Results: Test results from this visit will be discussed in further detail at your follow-up appointment, if applicable. Discharge Plan Admission Attending Provider: Christopher Magaña Primary Care Provider: Oscar Rivera Instructions Print Language: Danish Discharge Orders/Prescriptions Prescriptions: No Action cholecalciferol (vitamin D3) [Vitamin D3] 125 mcg (5,000 unit) tablet 125 mcg PO DAILY 30 Days Qty: 30 5RF levothyroxine 125 mcg tablet 125 mcg PO DAILY acetaminophen 325 mg Tablet 650 mg PO Q6H PRN PRN (Reason: Fever, pain 1-04/20) Qty: 0 0RF spironolactone 50 mg Tablet 100 mg PO DAILY Qty: 0 0RF Rx Instructions: Hold for serum potassium more than 5.0 metformin 500 mg tablet extended release 24 hr 500 mg PO BID 30 Days Qty: 0 0RF hydroxyzine HCl 10 mg Tablet 10 mg PO TID PRN PRN (Reason: Itching) Qty: 0 0RF furosemide 80 mg Tablet 80 mg PO DAILY Qty: 0 0RF mirtazapine 15 mg Tablet 7.5 mg PO QHS Qty: 0 0RF nystatin [Nyamyc] 100,000 unit/gram Powder 1 applic topical BID Qty: 0 0RF Protocol: *Topical Application Instructions APPLICATION INSTRUCTIONS: Groin, under breasts magnesium chloride [Mag 64] 64 mg Tablet,Delayed Release (Dr/Ec) 128 mg PO BID Qty: 0 0RF menthol-zinc oxide [Calmoseptine] 0.44-20.6 % Ointment 1 applic topical BID Qty: 0 0RF Protocol: *Topical Application Instructions APPLICATION INSTRUCTIONS: coccyx lactulose 20 gram/30 mL Solution 20 g PO 4X/DAY Qty: 0 0RF Referrals / Follow Up: Oscar Rivera MD [Primary Care Provider] - Disposition Disposition (needs filled in before D/C Order can be placed): Home, Self Care
--- NOTE | 2024-08-11 15:30 | PCM.POST.ANE ---
Anesthesia: Postop Eval I Current Vital Signs Temperature: 97.3 F Pulse Rate: 81 Blood Pressure: 132/58 Respiratory Rate: 12 Pulse Ox: 99 Oxygen Delivery Method: Nasal Cannula Oxygen Flow Rate (L/min): 2 Assessment Airway patent: Yes Spontaneous unlabored respirations: Yes Mental status: Awake nausea: No Vomiting: No Anesthesia Complication: No Fluid Hydration Crystalloid volume administer (ml): 400 Total IV fluid infused: 400 Progress Note Anesthesia document: Postop Eval 1 completed: Yes
--- NOTE | 2024-08-13 10:46 | PCM.POSTANE2 ---
Anesthesia Postop Eval I Sum Postop Eval Completion status Anesthesia document: Postop Eval 1 completed: Yes Anesthesia Postop Eval I Summary Anesthesia Postop Eval I Summary: Anesthesia Postop Eval I: Assessment Summary Airway patent Yes 08/11/24 15:31 SLEEPING CAR SERVICE ATTENDANT.APAT Spontaneous unlabored Yes 08/11/24 15:31 SLEEPING CAR SERVICE ATTENDANT.APAT respirations Mental status Awake 08/11/24 15:31 SLEEPING CAR SERVICE ATTENDANT.APAT nausea No 08/11/24 15:31 SLEEPING CAR SERVICE ATTENDANT.APAT Vomiting No 08/11/24 15:31 SLEEPING CAR SERVICE ATTENDANT.APAT Anesthesia Postop Eval I: Fluid Summary Crystalloid volume administer 400 08/11/24 15:31 SLEEPING CAR SERVICE ATTENDANT.APAT (ml) Colloids volume administered ( ml) Blood Product volume administered (ml) Total IV fluid infused 400 08/11/24 15:31 SLEEPING CAR SERVICE ATTENDANT.APAT Anesthesia Postop Eval I: Summary Notes Anesthesia Complication No 08/11/24 15:31 SLEEPING CAR SERVICE ATTENDANT.APAT Anesthesia Complication Comment: Post-operative progress note Anesthesia: Postop Eval II Evaluation Mental status: Awake Pain Level: 0 nausea: No Vomiting: No
--- NOTE | 2024-08-13 10:46 | POSTOPAN2_ITS ---
Anesthesia Postop Eval I Sum Postop Eval Completion status Anesthesia document: Postop Eval 1 completed: Yes Anesthesia Postop Eval I Summary Anesthesia Postop Eval I Summary: Anesthesia Postop Eval I: Assessment Summary Airway patent Yes 08/11/24 15:31 PRODUCT MANAGER FINANCIAL SERVICES.APAT Spontaneous unlabored Yes 08/11/24 15:31 PRODUCT MANAGER FINANCIAL SERVICES.APAT respirations Mental status Awake 08/11/24 15:31 PRODUCT MANAGER FINANCIAL SERVICES.APAT nausea No 08/11/24 15:31 PRODUCT MANAGER FINANCIAL SERVICES.APAT Vomiting No 08/11/24 15:31 PRODUCT MANAGER FINANCIAL SERVICES.APAT Anesthesia Postop Eval I: Fluid Summary Crystalloid volume administer 400 08/11/24 15:31 PRODUCT MANAGER FINANCIAL SERVICES.APAT (ml) Colloids volume administered ( ml) Blood Product volume administered (ml) Total IV fluid infused 400 08/11/24 15:31 PRODUCT MANAGER FINANCIAL SERVICES.APAT Anesthesia Postop Eval I: Summary Notes Anesthesia Complication No 08/11/24 15:31 PRODUCT MANAGER FINANCIAL SERVICES.APAT Anesthesia Complication Comment: Post-operative progress note Anesthesia: Postop Eval II Evaluation Mental status: Awake Pain Level: 0 nausea: No Vomiting: No
== END 2024-08-11 15:55 | disposition home or self-care (01) ==
LOC: SDC 13:19 → AC 13:21
PROVIDERS: PCP Family Medicine; Referring Provider Surgery; Visit Provider Surgery
PROC: (CPT 32550; principal; 2024-08-11 14:15)
DX: R18.8 Other ascites (principal); K76.82 Hepatic encephalopathy; I85.00 Esophageal varices without bleeding; K74.60 Unspecified cirrhosis of liver; E11.9 Type 2 diabetes mellitus without complications; E78.5 Hyperlipidemia, unspecified; Z87.891 Personal history of nicotine dependence; I10 Essential (primary) hypertension; K75.81 Nonalcoholic steatohepatitis (NASH); Z85.3 Personal history of malignant neoplasm of breast; K21.9 Gastro-esophageal reflux disease without esophagitis
CPT/HCPCS: 32550; 00520; A4216; C1729